=== PATIENT | male | born 1950 | race Caucasian/White ===

== ENCOUNTER 2018-07-28 15:21 | Inpatient (IN) ==
--- NOTE | 2018-07-28 15:35 | Emergency Department Note ---
General Adult HPI - General Chief complaint: Weakness Stated complaint: Weakness, anxioux, tired Time Seen by Provider: 07/28/18 15:29 Source: patient, family Mode of arrival: wheelchair - History of Present Illness HPI Narrative: This patient woke up this morning not feeling well and feeling anxious. His son gave him some Xanax which helped that through the day is gotten worse and just does not feel well in general. Previous times these presentations have been mainly dehydration. He denies any cough congestion chest pain back pain abdominal pain nausea vomiting or diarrhea. - Related Data Home Medications Medication Instructions Recorded Confirmed apixaban 5 mg tablet 5 mg PO BID 08/22/16 07/28/18 aspirin 81 mg tablet,delayed 81 mg PO QDAY 08/22/16 07/28/18 release atorvastatin 80 mg tablet 80 mg PO QDAY 08/22/16 07/28/18 carvedilol 3.125 mg tablet 3.125 mg PO BID 08/22/16 07/28/18 lisinopril 2.5 mg tablet 2.5 mg PO QDAY 08/22/16 07/28/18 alprazolam 1 mg tablet 1 mg PO QDAY PRN tab 04/06/18 07/28/18 ipratropium 20 mcg-albuterol 100 1 puff INHALATION Q4-6HP PRN 04/06/18 07/28/18 mcg/actuation mist for inhalation mirtazapine 15 mg tablet 1 - 2 tab PO QHS tab 04/06/18 07/28/18 omeprazole 20 mg capsule,delayed 20 mg PO QDAY 04/06/18 07/28/18 release spironolactone 25 mg tablet 12.5 mg PO QDAY tab 04/06/18 07/28/18 baclofen 10 mg tablet 15 mg PO TID PRN tab 04/16/18 07/28/18 buspirone 10 mg tablet 10 mg PO BID 04/16/18 07/28/18 Allergies Allergy/AdvReac Type Severity Reaction Status Date / Time No Known Drug Allergies Allergy Verified 07/28/18 15:22 Review of Systems All systems ED: reviewed and negative except as stated. Past Medical History - Past Medical History PMFSH Narrative: Medical History (Last Reviewed 04/16/18 @ 10:30 by Sarai Montoya RN) Pruritic rash (Chronic) Chronic diarrhea (Chronic) Prediabetes (Chronic) Memory impairment (Chronic) Chronic low back pain (Chronic) Pulmonary arterial hypertension (Chronic) Insomnia (Chronic) Syncope (Chronic) Anxiety (Chronic) History of CVA (cerebrovascular accident) (Chronic) History of malignant neoplasm of prostate (Chronic) PSA elevation (Chronic) History of methamphetamine abuse (Chronic) CVA (cerebral vascular accident) (Chronic) GERD (gastroesophageal reflux disease) (Chronic) Chronic obstructive lung disease (Chronic) 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) Dilated cardiomyopathy (Chronic) Atrial thrombosis (Chronic) Past Surgical History (Last Reviewed 04/16/18 @ 10:30 by Sarai Montoya RN) Hx of hernia repair (Chronic) Family History (Last Reviewed 04/16/18 @ 10:30 by Sarai Montoya RN) Mother Stomach cancer Brother Tumor of lung - Social History smoking status: Former smoker Physical Exam Limitations: no limitations General appearance: alert Head: atraumatic Eye: Present: normal appearance ENT: normal exam Neck: Present: normal inspection Chest: Present: normal inspection Respiratory: Present: normal lung sounds bilaterally Cardiovascular: Present: regular rate, normal rhythm, normal heart sounds Abdominal: Present: soft. Absent: distention, tenderness Neurological: Present: alert Psychiatric: Present: anxious, flat affect Skin: Present: warm, dry, intact Course Vital Signs Temperature 96.7 F L 07/28/18 15:22 Pulse Rate 58 L 07/28/18 15:22 Respiratory Rate 14 07/28/18 15:22 Blood Pressure 104/71 07/28/18 15:22 Pulse Oximetry (%) 91 07/28/18 15:22 Temperature 99.1 F H 07/28/18 17:26 Pulse Rate 58 L 07/28/18 18:14 Respiratory Rate 28 H 07/28/18 18:14 Blood Pressure 87/56 07/28/18 18:01 Pulse Oximetry (%) 99 07/28/18 18:14 Medical Decision Making - [facility] Narrative Medical decision making narrative: Chest x-ray were not terribly remarkable but the urine did show a urinary tract infection. Patient's blood pressures in the 70s and 80s. He was given 3 L of fluid and the only got up into the 80s so Levophed was started. Blood cultures were obtained and he was given Rocephin and Zithromax. This patient will be admitted to the hospital by Dr. Méndez. - Lab Data Lab results reviewed: Yes I reviewed the patient's lab results. Result diagrams: 07/28/18 15:43 07/28/18 15:43 Lab Results 07/28/18 07/28/18 07/28/18 Range/Units 15:43 15:43 15:43 WBC 17.6 H (4.5-11.0) K/mcL RBC 4.91 (4.50-5.90) M/mcL Hgb 14.1 (13.5-16.5) g/dL Hct 43.7 (41.0-55.0) % MCV 89.1 (80.0-100.0) fL MCH 28.6 (26.0-34.0) pg MCHC 32.1 (31.0-36.0) g/dL RDW 14.5 (11.5-14.5) % Plt Count 429 (140-440) K/mcL MPV 7.8 (7.4-10.4) fL Gran % 76.0 (38.0-78.0) % Lymph % (Auto) 17.3 (15.5-49.0) % Ashley % (Auto) 6.0 (1.0-12.0) % Eos % (Auto) 0.4 (0.0-7.0) % Baso % (Auto) 0.3 (0.0-2.0) % Gran # 13.4 H (1.8-8.0) K/mcL Lymph # (Auto) 3.0 (1.5-4.8) K/mcL Ashley # (Auto) 1.1 H (0.1-0.9) K/mcL Eos # (Auto) 0.1 (0.0-0.7) K/mcL Baso # (Auto) 0.1 (0.0-0.3) K/mcL Band Neutrophils % VBG Lactic Acid (0.5-2.2) mmol/L Sodium 136 (133-145) mmol/L Potassium 4.1 (3.3-5.1) mmol/L Chloride 99 (96-108) mmol/L Carbon Dioxide 21 L (22-30) mmol/L Anion Gap 16.0 (8-16) BUN 19 (8-23) mg/dl Creatinine 1.8 H (0.7-1.2) mg/dl GFR Calculation 38 Glucose 110 H (70-105) mg/dL Calcium 9.1 (8.6-10.4) mg/dl Total Bilirubin 0.6 (0.0-1.0) mg/dL AST 15 (0-37) U/l ALT 14 (0-40) U/l Alkaline Phosphatase 145 H (39-117) U/L Troponin T < 0.01 (0-0.03) ng/ml Total Protein 7.9 (5.9-8.4) gm/dL Albumin 3.5 (3.2-5.2) gm/dL Globulin 4.4 H (2.2-3.7) gm/dL Albumin/Globulin Ratio 0.8 L (1.0-2.3) Urine Color Urine Appearance Urine pH (5.0-9.0) Ur Specific [place] (1.000-1.035) Urine Protein (NEG) mg/dL Urine Glucose (UA) (NEG) mg/dL Urine Ketones (NEG) mg/dL Urine Occult Blood (<0.03) mg/dL Urine Nitrate (NEG) Urine Bilirubin (NEG) mg/dL Urine Urobilinogen (NEG) mg/dL Ur Leukocyte Esterase (NEG) /uL Urine RBC (0-1) /hpf Urine WBC (0-4) /hpf Ur Squamous Epith Cells (0-4) /hpf Ur Transition Epith Cell (0-2) /hpf Urine Bacteria (0) /hpf Ur Culture Indicated? 07/28/18 07/28/18 07/28/18 Range/Units 15:43 16:25 17:50 WBC (4.5-11.0) K/mcL RBC (4.50-5.90) M/mcL Hgb (13.5-16.5) g/dL Hct (41.0-55.0) % MCV (80.0-100.0) fL MCH (26.0-34.0) pg MCHC (31.0-36.0) g/dL RDW (11.5-14.5) % Plt Count (140-440) K/mcL MPV (7.4-10.4) fL Gran % (38.0-78.0) % Lymph % (Auto) (15.5-49.0) % Ashley % (Auto) (1.0-12.0) % Eos % (Auto) (0.0-7.0) % Baso % (Auto) (0.0-2.0) % Gran # (1.8-8.0) K/mcL Lymph # (Auto) (1.5-4.8) K/mcL Ashley # (Auto) (0.1-0.9) K/mcL Eos # (Auto) (0.0-0.7) K/mcL Baso # (Auto) (0.0-0.3) K/mcL Band Neutrophils % Not Reportable VBG Lactic Acid 2.2 (0.5-2.2) mmol/L Sodium (133-145) mmol/L Potassium (3.3-5.1) mmol/L Chloride (96-108) mmol/L Carbon Dioxide (22-30) mmol/L Anion Gap (8-16) BUN (8-23) mg/dl Creatinine (0.7-1.2) mg/dl GFR Calculation Glucose (70-105) mg/dL Calcium (8.6-10.4) mg/dl Total Bilirubin (0.0-1.0) mg/dL AST (0-37) U/l ALT (0-40) U/l Alkaline Phosphatase (39-117) U/L Troponin T (0-0.03) ng/ml Total Protein (5.9-8.4) gm/dL Albumin (3.2-5.2) gm/dL Globulin (2.2-3.7) gm/dL Albumin/Globulin Ratio (1.0-2.3) Urine Color Yellow Urine Appearance Cloudy Urine pH 6.0 (5.0-9.0) Ur Specific [place] 1.010 (1.000-1.035) Urine Protein 100 A (NEG) mg/dL Urine Glucose (UA) Negative (NEG) mg/dL Urine Ketones Neg (NEG) mg/dL Urine Occult Blood 0.2 A (<0.03) mg/dL Urine Nitrate Neg (NEG) Urine Bilirubin Neg (NEG) mg/dL Urine Urobilinogen Neg (NEG) mg/dL Ur Leukocyte Esterase 500 A (NEG) /uL Urine RBC 33 H (0-1) /hpf Urine WBC > 182 H (0-4) /hpf Ur Squamous Epith Cells 0 (0-4) /hpf Ur Transition Epith Cell < 1 (0-2) /hpf Urine Bacteria 0 (0) /hpf Ur Culture Indicated? Yes - Radiology Data Radiology results reviewed: Yes I reviewed the patient's radiology results. Disposition Pt seen by PERIANESTHESIA RN/PA only: No Clinical Impression: Sepsis, UTI (urinary tract infection) Disposition: Xfer As Inpt ([facility]) Condition: Fair Referrals: No,PCP [Primary Care Provider] - Time of Disposition: 18:40
[2018-07-28] MEDS ORDERED: LORazepam 2 MG/ML VIAL IV ONE (15:43)
[2018-07-28] MEDS ORDERED: LACTATED RINGERS 1,000 ML IV ONE ×2 (15:43→18:55)
[2018-07-28] MEDS ORDERED: 0.9 % SODIUM CHLORIDE 1,000 ML IV ONE ×2 (15:43→16:34)
[2018-07-28 16:15] LABS: Basophils # (Auto) 0.1 K/mcL (0.0-0.3); Basophils % (Auto) 0.3 % (0.0-2.0); Eosinophils # (Auto) 0.1 K/mcL (0.0-0.7); Eosinophils % (Auto) 0.4 % (0.0-7.0); Lymphocytes % (Auto) 17.3 % (15.5-49.0); Mean Cell Volume 89.1 fL (80.0-100.0); Mean Corpuscular HGB Conc 32.1 g/dL (31.0-36.0); Mean Corpuscular Hemoglobin 28.6 pg (26.0-34.0); Monocytes # (Auto) 1.1 K/mcL (0.1-0.9); Platelet Count 429 K/mcL (140-440); RBC 4.91 M/mcL (4.50-5.90); Red Cell Distribution Width 14.5 % (11.5-14.5)
--- NOTE | 2018-07-28 16:29 | XRay Report ---
HISTORY: Increased weakness FINDINGS: Lungs are mildly hyperinflated and there is mild pulmonary fibrosis. There is a small streaky opacity above the left costophrenic sulcus which could be scar, atelectasis or inflammation. This has developed since the prior exam done on 07/11/16. The subtle infiltrate located centrally in the right upper lobe on the prior study has resolved. The heart size is within normal limits but has left ventricular prominence. The mediastinum and claude are normal. IMPRESSION: Mild COPD with pulmonary fibrosis. Small infiltrate at the left costophrenic sulcus Interpreted and Authenticated by: Hussein Dean 07/28/18
[2018-07-28] MEDS ORDERED: cefTRIAXone 1 GM VIAL IV ONE (16:37)
[2018-07-28] MEDS ORDERED: AZITHROMYCIN 500 MG in DEXTROSE 5% IN WATER 250 ML IV ONE (16:37)
[2018-07-28 16:41] LABS: ALT/SGPT 14 U/l (0-40); Albumin 3.5 gm/dL (3.2-5.2); Albumin/Globulin Ratio 0.8 (1.0-2.3); Alkaline Phosphatase 145 U/L (39-117); Blood Urea Nitrogen 19 mg/dl (8-23)
[2018-07-28] MEDS ORDERED: NOREPINEPHRINE BITARTRATE 8 MG in 0.9 % SODIUM CHLORIDE 242 ML IV ONE (17:37)
[2018-07-28] MEDS ORDERED: 0.9 % SODIUM CHLORIDE 250 ML IV SCH (17:45)
[2018-07-28 18:32] LABS: Appearance,Urine CLOUDY; Bacteria,Urine 0 /hpf (0); Bilirubin,Urine NEG (NEG); Color,Urine YELLOW; Glucose,Urine (UA) NEGATIVE (NEG); Leukocyte Esterase,Urine 500 /uL (NEG); Protein,Urine 100 mg/dL (NEG); Urine Blood 0.2 mg/dL (<0.03); Urine RBC 33 /hpf (0-1); Urine Squamous Epithelial Cell 0 /hpf (0-4); Urine Transitional Epi Cells < 1 /hpf (0-2); Urine WBC > 182 /hpf (0-4); Urobilinogen,Urine NEG (NEG)
--- NOTE | 2018-07-28 19:05 | Internal Med History&Physical ---
Medical - H&P: HPI Patient information: Note initiated : 07/28/18 at 7:01 pm Service Date, if different from initiated Date: [] Patient: Pérez Grossman a 67 y/o M admitted on for Weakness, anxioux, tired. Chief Complaint: [] History of present illness: Mr. Grossman is a 67 year old M with h/o chf, cva, presents to the ER with his son for not feeling well The patient is a poor history provider. The patient was not feeling well 3 days ago, some nausea and vomiting, which resolved, last night he was very anxious, which is not unsual for him and he took a xanax pill, he was anxious again this AM and he took another pill, since then he has not been feeling well, drowsy, not following commands, weak. He admits to chr cough with whitish sputum, but no change, no GI or complaints, no headache, admits to dizziness, on the way to the ER in the car he passed out. The patient otherwise does not have any particular symptoms. In the ER he was hypotensive on presentation. He had low grade temp 99.1, HR was 58, 97% on ra but later needed oxygen via NC. CXR showed mild pna, ua suggestive of UTI. labs show leucocytosis, 17.6, K 4.1, Na 136, bicarb 121, creat 1.8, Trop < 0.01 Patient received 3 L fluids, despite which the bp was not ?> 90 systolic, was started on levophed. patient presented to the hospital for further management. Pts son reports that the patients bp usually runs low. around 90-100 systolic. Patient son reports improvement in pts mental condition after IVF was given. All systems: reviewed and no additional remarkable complaints except as stated ( as per HPI rest negative) Medical - H&P: PMH Medical history: Medical History (Last Reviewed 04/16/18 @ 10:30 by Sarai Montoya RN) Pruritic rash (Chronic) Chronic diarrhea (Chronic) Prediabetes (Chronic) Memory impairment (Chronic) Chronic low back pain (Chronic) Pulmonary arterial hypertension (Chronic) Insomnia (Chronic) Syncope (Chronic) Anxiety (Chronic) History of CVA (cerebrovascular accident) (Chronic) History of malignant neoplasm of prostate (Chronic) PSA elevation (Chronic) History of methamphetamine abuse (Chronic) CVA (cerebral vascular accident) (Chronic) GERD (gastroesophageal reflux disease) (Chronic) Chronic obstructive lung disease (Chronic) 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) Dilated cardiomyopathy (Chronic) Atrial thrombosis (Chronic) Surgical history: Past Surgical History (Last Reviewed 04/16/18 @ 10:30 by Sarai Montoya RN) Hx of hernia repair (Chronic) Pertinent family history: Family History (Last Reviewed 04/16/18 @ 10:30 by Sarai Montoya RN) Mother Stomach cancer Brother Tumor of lung Medical - H&P: Meds Home Medications Medication Instructions Recorded Confirmed Type apixaban 5 mg tablet 5 mg PO BID 08/22/16 07/28/18 History aspirin 81 mg tablet,delayed 81 mg PO QDAY 08/22/16 07/28/18 History release atorvastatin 80 mg tablet 80 mg PO QDAY 08/22/16 07/28/18 History carvedilol 3.125 mg tablet 3.125 mg PO BID 08/22/16 07/28/18 History lisinopril 2.5 mg tablet 2.5 mg PO QDAY 08/22/16 07/28/18 History alprazolam 1 mg tablet 1 mg PO QDAY PRN tab 04/06/18 07/28/18 History ipratropium 20 mcg-albuterol 100 1 puff INHALATION Q4-6HP PRN 04/06/18 07/28/18 History mcg/actuation mist for inhalation mirtazapine 15 mg tablet 1 - 2 tab PO QHS tab 04/06/18 07/28/18 History omeprazole 20 mg capsule,delayed 20 mg PO QDAY 04/06/18 07/28/18 History release spironolactone 25 mg tablet 12.5 mg PO QDAY tab 04/06/18 07/28/18 History baclofen 10 mg tablet 15 mg PO TID PRN tab 04/16/18 07/28/18 History buspirone 10 mg tablet 10 mg PO BID 04/16/18 07/28/18 History Allergies Allergy/AdvReac Type Severity Reaction Status Date / Time No Known Drug Allergies Allergy Verified 07/28/18 15:22 Medical - H&P: Exam - Constitutional Vitals: Temp Pulse Resp BP Pulse Ox 99.1 F H 67 18 95/65 98 07/28/18 17:26 07/28/18 18:50 07/28/18 18:50 07/28/18 18:46 07/28/18 18:50 Exam: GENERAL: The patient is a well-developed, well-nourished in no apparent distress. Is alert and oriented x3. VITAL SIGNS: Reviewed and as noted elsewhere. HEENT: Head is normocephalic and atraumatic. Extraocular muscles are intact. Pupils are equal, round, and reactive to light. Nares appeared normal. Mouth appears any without lesions. Mucous membranes are dry. NECK: Normal to inspection, Supple, No lymphadenopathy or thyromegaly. LUNGS: Air entry equal on both sides decreased air entry bilaterally, no wheezing, crackles or rhonchi noted. No accessory muscles of respiration HEART: Regular rate and rhythm normal, S1 and S2 heard, no Gallop, S3 or Rub Noted, No Gross murmur heard. Distant heart sounds, Point of care USG shows IVC which is fully collapsable with Inspiration (after 3 L fluids) ABDOMEN: Soft, nontender, and nondistended. Positive bowel sounds. No hepatosplenomegaly was noted. EXTREMITIES: No cyanosis, clubbing, rash, lesions or edema. NEUROLOGIC: Cranial nerves II through XII are grossly intact. Motor and Sensory System Grossly Intact (not much residual from cva ) PSYCHIATRIC: drowsy, flat affect. SKIN: No ulceration or wounds noted, No jaundice, No rash noted. Medical - H&P: Reslt - Labs CBC & Chem 7: 07/28/18 15:43 07/28/18 15:43 Labs: Short CBC 07/28/18 Range/Units 15:43 WBC 17.6 H (4.5-11.0) K/mcL Hgb 14.1 (13.5-16.5) g/dL Hct 43.7 (41.0-55.0) % Plt Count 429 (140-440) K/mcL BMP 07/28/18 15:43 Sodium 136 Potassium 4.1 Chloride 99 Carbon Dioxide 21 L BUN 19 Creatinine 1.8 H Glucose 110 H Calcium 9.1 Cardiac Enzymes 07/28/18 Range/Units 15:43 Troponin T < 0.01 (0-0.03) ng/ml Liver Function 07/28/18 Range/Units 15:43 Total Bilirubin 0.6 (0.0-1.0) mg/dL AST 15 (0-37) U/l ALT 14 (0-40) U/l Alkaline Phosphatase 145 H (39-117) U/L Albumin 3.5 (3.2-5.2) gm/dL Urine 07/28/18 Range/Units 17:50 Urine Color Yellow Urine Appearance Cloudy Urine pH 6.0 (5.0-9.0) Ur Specific [place] 1.010 (1.000-1.035) Urine Protein 100 A (NEG) mg/dL Urine Glucose (UA) Negative (NEG) mg/dL Medical - H&P: A/P - Narrative A/P Narrative: A/P Urinary tract infection Pneumonia Septic Shock Lactic Acidosis Congestive heart failuire systolic, Hypertension Hyperlipidemia h/o CVA h/o atrial thrombus HLD Plan Admit to PCU status IV fluids, give additional 1L LR total 4L fluid bolus Levophed to keep map > 65, monitor urine output, barba to be placed. IV rocephin and zithromax given, no recent hospitailzation pt has h/o staghorn calculous, and does have h/o MRSA in urine in the past. I will add vancomycin for now Descalate abx based on sensitivity Resume home medications, including asa and apixiban Hold diuretics and blood pressure meds, till bp more stable clinically no e/o chf exacerbation DVT on eliquis Full code Cardiac diet 60 mins critical care time spent, chart reviewe, abg, cxr, ekg, labs, care coordination. Social History - Social History education level: high school occupational status: unemployed - Exercise frequency: 1-2 times per week - Tobacco smoking status: Former smoker - Alcohol alcohol intake frequency: does not drink - Substance use substance use type: former substance user
[2018-07-28 20:03] LABS: Band Neutrophils % 4 % (0-10); Lymphocytes % 14 % (15-49); Monocytes % (Manual) 8 % (1-12); Platelet Estimate NORMAL (NORMAL); RBC Morphology NORMAL (NORMAL); Segmented Neutrophils % 74 % (38-78)
[2018-07-28] MEDS ORDERED: NALOXONE HCL 0.4 MG/ML VIAL IV PRN (20:07)
[2018-07-28] MEDS ORDERED: VANCOMYCIN PER PHARMACY IV SCH (20:07)
[2018-07-28] MEDS ORDERED: BACLOFEN 10 MG TABLET PO PRN (20:07)
[2018-07-28] MEDS ORDERED: ONDANSETRON 4 MG/2 ML VIAL IV PRN (20:07)
[2018-07-28] MEDS ORDERED: LORazepam 2 MG/ML VIAL IV PRN (20:07)
[2018-07-28] MEDS ORDERED: ACETAMINOPHEN 325 MG TABLET PO PRN (20:07)
[2018-07-28] MEDS ORDERED: VANCOMYCIN 1,500 MG in 0.9 % SODIUM CHLORIDE 500 ML IV ONE (20:07)
[2018-07-28] MEDS: NICOTINE 14 MG PATCH TOPICAL SCH (21:00)
[2018-07-28] MEDS: BUDESONIDE 0.5 MG/2 ML AMPUL.NEB NEB SCH (21:00)
[2018-07-28] MEDS ORDERED: MIRTAZAPINE 15 MG TABLET PO SCH (21:00)
[2018-07-28] MEDS: IPRATROPIUM/ALBUTEROL 3 ML AMPUL.NEB NEB SCH (21:00)
[2018-07-28] MEDS ORDERED: IPRATROPIUM/ALBUTEROL 3 ML AMPUL.NEB NEB ONE (21:01)
[2018-07-28] MEDS: APIXABAN 5 MG TABLET PO SCH (21:05)
[2018-07-28] MEDS: busPIRone 5 MG TABLET PO SCH (21:05)
[2018-07-28] MEDS: LACTATED RINGERS 1,000 ML IV SCH (21:50)
[2018-07-28] MEDS: 0.9 % SODIUM CHLORIDE 10 ML SYRINGE IV SCH (21:53)
[2018-07-28] MEDS ORDERED: ATROPINE SULFATE 1 MG/10 ML SYRINGE IV ONE (22:43)
[2018-07-28] MEDS ORDERED: ATROPINE SULFATE 1 MG/10 ML SYRINGE IV PRN (22:54)
[2018-07-29] MEDS: IPRATROPIUM/ALBUTEROL 3 ML AMPUL.NEB NEB SCH ×4 (01:27→19:47)
[2018-07-29] MEDS: 0.9 % SODIUM CHLORIDE 10 ML SYRINGE IV SCH ×3 (05:57→20:01)
[2018-07-29 05:59] LABS: Basophils # (Auto) 0 K/mcL (0.0-0.3); Basophils % (Auto) 0.6 % (0.0-2.0); Eosinophils # (Auto) 0.1 K/mcL (0.0-0.7); Eosinophils % (Auto) 1.6 % (0.0-7.0); Granulocytes % (Auto) 72.3 % (38.0-78.0); Lymphocytes # (Auto) 1.6 K/mcL (1.5-4.8); Lymphocytes % (Auto) 18.9 % (15.5-49.0); Mean Cell Volume 88.1 fL (80.0-100.0); Mean Corpuscular HGB Conc 33.4 g/dL (31.0-36.0); Mean Corpuscular Hemoglobin 29.4 pg (26.0-34.0); Monocytes # (Auto) 0.6 K/mcL (0.1-0.9); Monocytes % (Auto) 6.6 % (1.0-12.0); Platelet Count 276 K/mcL (140-440); RBC 3.65 M/mcL (4.50-5.90); Red Cell Distribution Width 14.5 % (11.5-14.5)
[2018-07-29] MEDS ORDERED: ATROPINE SULFATE 1 MG/ML VIAL IV PRN ×2 (06:15→15:15)
[2018-07-29 06:42] LABS: ALT/SGPT 9 U/l (0-40); Albumin 2.4 gm/dL (3.2-5.2); Albumin/Globulin Ratio 0.8 (1.0-2.3); Alkaline Phosphatase 102 U/L (39-117); Bilirubin,Direct < 0.2 mg/dL (0.0-0.3); Blood Urea Nitrogen 15 mg/dl (8-23); Gamma Glutamyl Transpeptidase 12 U/L (8-61); Uric Acid 4.3 mg/dL (2.5-8.0)
[2018-07-29] MEDS: BUDESONIDE 0.5 MG/2 ML AMPUL.NEB NEB SCH ×2 (07:02→19:46)
[2018-07-29] MEDS ORDERED: ATROPINE SULFATE 1 MG/10 ML SYRINGE IV ONE (07:22)
[2018-07-29] MEDS ORDERED: PANTOPRAZOLE 40 MG TABLET PO SCH (07:30)
[2018-07-29] MEDS ORDERED: MAGNESIUM SULFATE 2 GM/50 ML BAG IV ONE (08:15)
[2018-07-29] MEDS ORDERED: ATORVASTATIN 20 MG TABLET PO SCH (09:00)
[2018-07-29] MEDS ORDERED: ASPIRIN 81 MG TAB.CHEW PO SCH (09:00)
[2018-07-29] MEDS ORDERED: VANCOMYCIN 1,500 MG in 0.9 % SODIUM CHLORIDE 500 ML IV SCH (09:00)
[2018-07-29] MEDS: NICOTINE 14 MG PATCH TOPICAL SCH (10:33)
[2018-07-29] MEDS: busPIRone 5 MG TABLET PO SCH ×2 (10:37→20:02)
[2018-07-29] MEDS: APIXABAN 5 MG TABLET PO SCH ×2 (10:37→20:02)
[2018-07-29] MEDS: LACTATED RINGERS 1,000 ML IV SCH (11:33)
[2018-07-29] MEDS ORDERED: VANCOMYCIN PER PHARMACY IV SCH (15:15)
[2018-07-29] MEDS ORDERED: NALOXONE HCL 0.4 MG/ML VIAL IV PRN (15:15)
[2018-07-29] MEDS ORDERED: ACETAMINOPHEN 325 MG TABLET PO PRN (15:15)
[2018-07-29] MEDS ORDERED: LORazepam 2 MG/ML VIAL IV PRN (15:15)
[2018-07-29] MEDS ORDERED: cefTRIAXone 1 GM VIAL IV ONE (15:15)
[2018-07-29] MEDS ORDERED: BACLOFEN 10 MG TABLET PO PRN (15:15)
[2018-07-29] MEDS ORDERED: ONDANSETRON 4 MG/2 ML VIAL IV PRN (15:15)
--- NOTE | 2018-07-29 15:18 | Internal Med Progress Note ---
Medical - PN: Subj Patient information: Note initiated : 07/29/18 at 3:12 pm Service Date, if different from initiated Date: [] Patient: Pérez Grossman a 67 y/o M admitted on 07/28/18 for Weakness, Anxious, Tired/UTI, Sepsis. Chief Complaint: [] Interval history: Mr. Grossman is a 67 year old M with h/o chf, cva, presents to the ER with his son for not feeling well The patient is a poor history provider. The patient was not feeling well 3 days ago, some nausea and vomiting, which resolved, last night he was very anxious, which is not unsual for him and he took a xanax pill, he was anxious again this AM and he took another pill, since then he has not been feeling well, drowsy, not following commands, weak. He admits to chr cough with whitish sputum, but no change, no GI or complaints, no headache, admits to dizziness, on the way to the ER in the car he passed out. The patient otherwise does not have any particular symptoms. In the ER he was hypotensive on presentation. He had low grade temp 99.1, HR was 58, 97% on ra but later needed oxygen via NC. CXR showed mild pna, ua suggestive of UTI. labs show leucocytosis, 17.6, K 4.1, Na 136, bicarb 121, creat 1.8, Trop < 0.01 Patient received 3 L fluids, despite which the bp was not ?> 90 systolic, was started on levophed. patient presented to the hospital for further management. Pts son reports that the patients bp usually runs low. around 90-100 systolic. Patient son reports improvement in pts mental condition after IVF was given. 07/29 patient seen examined, pt had low HR, type 1 block noted brandon, reponded to atropine. no cp IV fluids given, weaned off pressors. urine cultures positive for staph aureus. on vancomycin pt this am sitting comfortably in chair denies any complaints, tolerated breakfast well good urine output xfer to tele status. Pertinent ROS: Denies headache, dizziness Denies chest pain, palpitations Denies cough or shortness of breath Denies abdominal pain, nausea or vomiting. - Constitutional Vitals: Vital Signs Temp Pulse Resp BP Pulse Ox 97.6 F 56 L 24 H 111/62 96 07/29/18 12:39 07/29/18 12:39 07/29/18 12:39 07/29/18 12:39 07/29/18 12:39 Period Temp Pulse Resp BP Sys/Hu Pulse Ox Last 24 Hr 96.7 F-99.1 F 47-74 12-34 64-138/44-88 86-100 Intake and Output 07/29/18 07/29/18 07/29/18 05:59 13:59 21:59 Intake Total 500 / 500 1530 / 1530 Output Total 1145 / 1145 510 / 510 Balance -645 / -645 1020 / 1020 Weight 189 lb 3 oz Patient Weight 07/30/18 05:59 Weight 189 lb 3 oz Intake & Output: Intake & Output 07/29/18 07/29/18 07/29/18 05:59 13:59 21:59 Intake Total 500 / 500 1530 / 1530 Output Total 1145 / 1145 510 / 510 Balance -645 / -645 1020 / 1020 Weight 189 lb 3 oz Intake: IV 500 / 500 1050 / 1050 Lactated Ringers 1,000 ml @ 100 1000 / 1000 mls/hr IV .Q10H [facility] Rx#: [id number] Oral 480 / 480 Output: Urine Catheter Amount 1145 / 1145 510 / 510 Other: Meal Applesauce, Jello Lunch Percent of Meal Consumed 100% 100% Feeding Ability Assist with Tray Set Up Urine Appearance Cloudy Cloudy Uretheral (Bowser) Cloudy Cloudy Urine Color Pale Pale Uretheral (Bowser) Straw Straw Urine Odor Normal Normal Uretheral (Bowser) Normal Stool Size Smear Stool Color Brown # of times incontinent of 1 Bowels Exam: Constitutional; Afebrile, cooperative, alert, not in distress. Respiratory system: Air Entry equal on both sides, No crackles or wheezing, no rhonchi. CVS- Rate rhythm regular, S1,S2 heard, no gallop, no rub. Abdomen- Soft nontender abdomen, no organomegaly, no tenderness, no guarding or rigidity, [employer]- AOOx2, moving all extremities, no gross focal deficit noted. Medical - PN: Obj Da - Labs CBC & Chem 7: 07/29/18 05:08 07/29/18 05:08 Labs: Abnormal Lab Results 07/29/18 07/29/18 07/28/18 05:08 05:08 17:50 WBC RBC 3.65 L Hgb 10.7 L Hct 32.1 L Gran # [place] # (Auto) Lymphocytes % Chloride 109 H Carbon Dioxide Creatinine Glucose 118 H Calcium 8.0 L Magnesium 1.5 L Alkaline Phosphatase Total Protein 5.6 L Albumin 2.4 L Globulin Albumin/Globulin Ratio 0.8 L TSH Urine Protein 100 A Urine Occult Blood 0.2 A Ur Leukocyte Esterase 500 A Urine RBC 33 H Urine WBC > 182 H 07/28/18 07/28/18 07/28/18 15:43 15:43 15:43 WBC RBC Hgb Hct Gran # [place] # (Auto) Lymphocytes % 14 L Chloride Carbon Dioxide 21 L Creatinine 1.8 H Glucose 110 H Calcium Magnesium Alkaline Phosphatase 145 H Total Protein Albumin Globulin 4.4 H Albumin/Globulin Ratio 0.8 L TSH 7.06 H Urine Protein Urine Occult Blood Ur Leukocyte Esterase Urine RBC Urine WBC 07/28/18 15:43 WBC 17.6 H RBC Hgb Hct Gran # 13.4 H [place] # (Auto) 1.1 H Lymphocytes % Chloride Carbon Dioxide Creatinine Glucose Calcium Magnesium Alkaline Phosphatase Total Protein Albumin Globulin Albumin/Globulin Ratio TSH Urine Protein Urine Occult Blood Ur Leukocyte Esterase Urine RBC Urine WBC Meds: Medications Acetaminophen (Tylenol) 650 mg PO Q4-6HP PRN PRN Reason: PAIN/FEVER > 101 Last Admin: 07/29/18 10:33 Dose: 650 mg Albuterol/Ipratropium (Duoneb) 3 ml NEB Q6HRT [facility] [place] Last Admin: 07/29/18 13:44 Dose: Not Given Aspirin (Aspirin) 81 mg PO DAILY [facility] [place] Last Admin: 07/29/18 10:33 Dose: 81 mg Atorvastatin Calcium (Lipitor) 80 mg PO QDAY [facility] [place] Last Admin: 07/29/18 10:37 Dose: 80 mg Atropine Sulfate (Atropine Sulfate) 0.5 mg IV Q1HP PRN PRN Reason: Bradycardia Baclofen (Lioresal) 15 mg PO TID PRN PRN Reason: muscle cramps Budesonide (Pulmicort) 0.5 mg NEB Q12 [facility] [place] Last Admin: 07/29/18 07:02 Dose: 0.5 mg Buspirone HCl (Buspar) 10 mg PO BID [facility] [place] Last Admin: 07/29/18 10:37 Dose: 10 mg Vancomycin HCl 1,500 mg/ (Sodium Chloride) 500 mls @ 333.3 mls/hr IV Q24H [facility] [place] Last Admin: 07/29/18 09:00 Dose: 333.3 mls/hr Lorazepam (Ativan) 0.5 mg IV Q2HP PRN PRN Reason: ANXIETY/SEDATION Mirtazapine (Remeron) 15 - 30 mg PO QHS [facility] [place] Last Admin: 07/28/18 21:06 Dose: 30 mg Naloxone HCl (Narcan) 0.1 mg IV Q2MIN PRN PRN Reason: Opiate Reversal Nicotine (Nicoderm) 14 mg TOPICAL DAILY@1000 [facility] [place] Last Admin: 07/29/18 10:33 Dose: 14 mg Ondansetron HCl (Zofran) 4 mg IV Q4-6HP PRN PRN Reason: Nausea And Vomiting Pantoprazole Sodium (Protonix) 40 mg PO QAMAC [facility] [place] Last Admin: 07/29/18 10:33 Dose: 40 mg Sodium Chloride (Saline Flush) 10 ml IV Q8 [facility] [place] Last Admin: 07/29/18 12:18 Dose: 10 ml Vancomycin HCl (Vancomycin Per Pharmacy) 1 order IV UD [facility] [place] Medical - PN: A/P - Time Spent With Patient Total time spent is greater than 50% in coordination of care (as documented) at patient's floor/unit and/or counseling patient: - Narrative A/P Narrative: A/P Urinary tract infection Pneumonia Septic Shock Lactic Acidosis Congestive heart failure systolic, Hypertension Hyperlipidemia h/o CVA h/o atrial thrombus HLD Plan xfer to tele status good urine ouput, monitor i/o IV Rocephin and Zithromax given, no recent hospitalization, continue vancomycin , pt has h/o staghorn calculous, and does have h/o MRSA in urine in the past. get ct abdomen and plevis Deescalate abx based on sensitivity Resume home medications, including asa and apixiban Hold diuretics and blood pressure meds, till bp more stable clinically no e/o chf exacerbation DVT on eliquis Full code Cardiac diet Medical - PN: Qual - VTE Deep Vein Thrombosis/Pulmonary Embolism Present on Admission: No
[2018-07-29] MEDS ORDERED: IOPAMIDOL 150 ML BOTTLE IV ONE (15:52)
--- NOTE | 2018-07-29 16:23 | Cat Scan Report ---
CLINICAL INFORMATION: Kidney stones and urosepsis COMPARISON: X-ray on 04/16/18 TECHNIQUE: The patient was first imaged without oral or intravenous contrast. Nonionic contrast was administered and the patient was scanned during the excretory phase from the diaphragm to the symphysis pubis. Sagittal and coronal reformats were created. The radiation exposure was limited using dose reduction technology. FINDINGS: Patient has moderate emphysema. There is pulmonary fibrosis in the basilar segments left lower lobe and inferior segment lingula. A very small layering right-sided pleural effusion is present. The liver and spleen are normal in size and homogeneous. The elbow is partially contracted.. This is probably a physiologic response to the large amount of food within the stomach. The bile ducts are nondilated. There is mild hyperplasia left adrenal. The right adrenal gland is normal. There are numerous stones in the left kidney. The largest is a staghorn calculus in the renal pelvis which measures 1.4 x 1.4 cm in transverse dimension and 3.2 cm in length. This has not changed since the prior x-ray. This is causing moderate obstruction of the infundibula and calyces in the upper half of the kidney. There are multiple other intermediate sized stones within calyces2 in the middle and lower portion of the kidney. They measure up to 11 mm in transverse dimension. There is loss of renal parenchyma in the upper portion left kidney. Milder scarring is present in the lower half. There is stranding of the perinephric soft tissues around the upper pole. The left ureter is larger than the right but within normal limits. There is no stone within the left ureter. The left kidney contains three or four tiny calyceal stones which range from 1 to 2 mm size. There is no hydronephrosis in the right kidney and no significant scarring. Right ureter is decompressed. Urinary bladder is decompressed by Bowser catheter. Contiguous with the balloon of the catheter there is a 1 mm stone within the bladder. There is also a bubble of air within the bladder due to the Bowser. The bladder wall is not thickened or inflamed. Large amount stool throughout the colon but without evidence of bowel obstruction. No abscess is present and there is no ascites or lymphadenopathy. In the left side of the transitional zone there is a low-attenuation 1.5 x 1.7 cm lesion. This is more likely due to prostatitis than a tumor. IMPRESSION: Large staghorn calculus in the left renal pelvis causing obstruction to the collecting system in the upper half of the left kidney. Small nonobstructing calyceal stones in the right kidney Enlarged heterogeneous prostate. There may be prostatitis in the left side and less likely a tumor. Emphysema and pulmonary fibrosis Interpreted and Authenticated by: Hussein Dean 07/29/18
[2018-07-29] MEDS: AZITHROMYCIN 250 MG TABLET PO SCH (17:11)
[2018-07-29] MEDS ORDERED: MIRTAZAPINE 15 MG TABLET PO SCH (21:00)
[2018-07-30] MEDS: IPRATROPIUM/ALBUTEROL 3 ML AMPUL.NEB NEB SCH ×4 (04:00→20:15)
[2018-07-30 05:24] LABS: Basophils # (Auto) 0 K/mcL (0.0-0.3); Basophils % (Auto) 0.6 % (0.0-2.0); Eosinophils # (Auto) 0.2 K/mcL (0.0-0.7); Eosinophils % (Auto) 2.8 % (0.0-7.0); Granulocytes % (Auto) 70.4 % (38.0-78.0); Lymphocytes # (Auto) 1.6 K/mcL (1.5-4.8); Mean Cell Volume 88.3 fL (80.0-100.0); Monocytes # (Auto) 0.6 K/mcL (0.1-0.9); Monocytes % (Auto) 7.2 % (1.0-12.0); Platelet Count 287 K/mcL (140-440); RBC 3.74 M/mcL (4.50-5.90); Red Cell Distribution Width 14.6 % (11.5-14.5)
[2018-07-30] MEDS: 0.9 % SODIUM CHLORIDE 10 ML SYRINGE IV SCH ×3 (05:30→23:33)
[2018-07-30 05:50] LABS: ALT/SGPT 10 U/l (0-40); Albumin 2.5 gm/dL (3.2-5.2); Albumin/Globulin Ratio 0.7 (1.0-2.3); Alkaline Phosphatase 110 U/L (39-117); Bilirubin,Direct < 0.2 mg/dL (0.0-0.3); Blood Urea Nitrogen 14 mg/dl (8-23); Gamma Glutamyl Transpeptidase 14 U/L (8-61); Uric Acid 4.3 mg/dL (2.5-8.0)
[2018-07-30] MEDS: BUDESONIDE 0.5 MG/2 ML AMPUL.NEB NEB SCH ×2 (07:09→20:15)
[2018-07-30] MEDS ORDERED: PANTOPRAZOLE 40 MG TABLET PO SCH (07:30)
[2018-07-30] MEDS: AZITHROMYCIN 250 MG TABLET PO SCH (08:14)
[2018-07-30] MEDS: APIXABAN 5 MG TABLET PO SCH ×3 (08:14→20:15)
[2018-07-30] MEDS: busPIRone 5 MG TABLET PO SCH ×2 (08:15→20:15)
[2018-07-30] MEDS ORDERED: ASPIRIN 81 MG TAB.CHEW PO SCH (09:00)
[2018-07-30] MEDS ORDERED: VANCOMYCIN 1,500 MG in 0.9 % SODIUM CHLORIDE 500 ML IV SCH (09:00)
[2018-07-30] MEDS ORDERED: ATORVASTATIN 20 MG TABLET PO SCH (09:00)
[2018-07-30] MEDS ORDERED: NICOTINE 14 MG PATCH TOPICAL SCH (10:00)
--- NOTE | 2018-07-30 12:53 | History and Physical Report ---
DATE OF ADMISSION: 07/28/2018 HISTORY OF PRESENT ILLNESS: The patient is a 67-year-old gentleman who I have seen in the clinic before. Recently he was seen in the emergency room for not feeling well. He did have some nausea and vomiting, was feeling anxious. He was admitted to the ICU because of sepsis. He was hypotensive, did have a low-grade fever. Urinalysis was obtained which did show methicillin-resistant Staph aureus. His white count was 17.6. A CT scan was then obtained which did show a large staghorn calculus which we knew was present previously. This was 3.2 cm in length, and also he had a moderate obstruction of the upper half of the kidney. There is hydronephrosis. There are multiple stones on the left and smaller stones on the right. There is no other hydronephrosis. There are no other studies to compare this with. I have been asked to evaluate him. PAST MEDICAL HISTORY: Significant for chronic diarrhea, memory impairment, pulmonary arterial hypertension, syncope, history of a CVA, PSA elevation in the past. PAST SURGICAL HISTORY: Repair of a hernia. ALLERGIES: None. CURRENT MEDICATIONS: 1. Atorvastatin. 2. Baclofen. 3. BuSpar. 4. Vancomycin. REVIEW OF SYSTEMS: Please see the dictated note from Dr. Méndez on 07/28/2018. PHYSICAL EXAMINATION: GENERAL: This is a pleasant gentleman, well-nourished, in no apparent distress. HEENT: Atraumatic, normocephalic. Extraocular movements are intact. Pupils equal, reactive to light and accommodation. NECK: Supple. Trachea midline. HEART: Regular rate and rhythm. LUNGS: Clear to auscultation. ABDOMEN: Soft, nontender. GENITOURINARY: Scrotum without lesion. No hydrocele, no varicocele. Epididymides without cyst. Testes normal size and consistency. Meatus is in the normal position. Penis is circumcised without plaques. Prostate is 45 grams. Hard nodule on the prostate. Positive asymmetry. Seminal vesicles are not enlarged. Anus and perineum are normal. Rectum has good sphincter tone. LYMPHATIC: No adenopathy in neck or groin. SKIN: Without lesion. PSYCHOLOGICAL: Mood is appropriate. He is slow to answer questions. OTHER: Patient did have an increased PSA of 20.57 but biopsy was performed which did show chronic prostatitis. IMPRESSION 1. Staghorn calculus. The patient does have a left staghorn calculus which appears to be causing an obstruction. I am concerned that this may be an obstructive uropathy with resulting hydronephrosis. I feel this should be drained, and I talked to his family about this and will schedule him for a stent placement. He is otherwise asymptomatic from his stones and so treatment can be delayed. 2. Increased PSA. His biopsy was negative and there was no evidence of cancer at this point. I feel we can watch this. 3. Renal stones. We will treat this as an outpatient. I have gone over this with the family and his son and they understand, and we will follow up with surgery today. JENNIFER:suzie Job ID: [id number] Doc ID: [id number] Ajay Hough MD
[2018-07-30] MEDS ORDERED: MIDAZOLAM 5 MG/5 ML VIAL ONE (12:56)
[2018-07-30] MEDS ORDERED: DEXAMETHASONE 10 MG/ML VIAL ONE (12:56)
[2018-07-30] MEDS ORDERED: fentaNYL 100 MCG/2 ML VIAL IV ONE (12:56)
[2018-07-30] MEDS ORDERED: LIDOCAINE HCL/PF 100 MG/5 ML SYRINGE IV ONE (12:56)
[2018-07-30] MEDS ORDERED: PROPOFOL 200 MG/20 ML VIAL IV ONE (12:56)
[2018-07-30] MEDS ORDERED: ONDANSETRON 4 MG/2 ML VIAL ONE (12:56)
[2018-07-30] MEDS ORDERED: GLYCOPYRROLATE 0.2 MG/ML VIAL IV ONE (12:56)
--- NOTE | 2018-07-30 13:21 | Internal Med Progress Note ---
Medical - PN: Subj Patient information: Note initiated : 07/30/18 at 1:13 pm Service Date, if different from initiated Date: [] Patient: Pérez Grossman a 67 y/o M admitted on 07/28/18 for Weakness, Anxious, Tired/UTI, Sepsis. Chief Complaint: [] Interval history: Mr. Grossman is a 67 year old M with h/o chf, cva, presents to the ER with his son for not feeling well The patient is a poor history provider. The patient was not feeling well 3 days ago, some nausea and vomiting, which resolved, last night he was very anxious, which is not unsual for him and he took a xanax pill, he was anxious again this AM and he took another pill, since then he has not been feeling well, drowsy, not following commands, weak. He admits to chr cough with whitish sputum, but no change, no GI or complaints, no headache, admits to dizziness, on the way to the ER in the car he passed out. The patient otherwise does not have any particular symptoms. In the ER he was hypotensive on presentation. He had low grade temp 99.1, HR was 58, 97% on ra but later needed oxygen via NC. CXR showed mild pna, ua suggestive of UTI. labs show leucocytosis, 17.6, K 4.1, Na 136, bicarb 121, creat 1.8, Trop < 0.01 Patient received 3 L fluids, despite which the bp was not ?> 90 systolic, was started on levophed. patient presented to the hospital for further management. Pts son reports that the patients bp usually runs low. around 90-100 systolic. Patient son reports improvement in pts mental condition after IVF was given. 07/29 patient seen examined, pt had low HR, type 1 block noted brandon, reponded to atropine. no cp IV fluids given, weaned off pressors. urine cultures positive for staph aureus. on vancomycin pt this am sitting comfortably in chair denies any complaints, tolerated breakfast well good urine output xfer to tele status. 07/30 Pt seen examined no a cute issues low hr when sleeping, no acute complaints CT reviewed with Dr Hough, Plan for stent placement microbiology with mrsa, vancomycin latoya is 2, ID consulted labs reviewed and are stable. Pertinent ROS: Denies headache, dizziness Denies chest pain, palpitations Denies cough or shortness of breath Denies abdominal pain, nausea or vomiting. - Constitutional Vitals: Vital Signs Temp Pulse Resp BP Pulse Ox 97.5 F 67 18 119/70 99 07/30/18 12:00 07/30/18 09:05 07/30/18 12:00 07/30/18 12:00 07/30/18 12:00 Period Temp Pulse Resp BP Sys/Hu Pulse Ox Last 24 Hr 97.5 F-98.1 F 54-70 16-22 98-134/55-70 93-100 Intake and Output 07/29/18 07/30/18 07/30/18 21:59 05:59 13:59 Intake Total 570 / 570 500 / 500 Output Total 630 / 630 1350 / 1350 800 / 800 Balance -60 / -60 -850 / -850 -800 / -800 Weight 196 lb 2 oz Intake & Output: Intake & Output 07/29/18 07/30/18 07/30/18 21:59 05:59 13:59 Intake Total 570 / 570 500 / 500 Output Total 630 / 630 1350 / 1350 800 / 800 Balance -60 / -60 -850 / -850 -800 / -800 Weight 196 lb 2 oz Intake: Oral 570 / 570 500 / 500 Output: Urine Catheter Amount 630 / 630 1350 / 1350 800 / 800 Other: Meal Nourishment/Supplement Percent of Meal Consumed 100% Feeding Ability Independent Urine Appearance Cloudy Clear Uretheral (Bowser) Clear Urine Color Pale Bright Yellow Uretheral (Bowser) Bright Yellow Urine Odor Normal Uretheral (Bowser) Normal Stool Size Smear Stool Color Brown Exam: Constitutional; Afebrile, cooperative, alert, not in distress. Eyes- No icterus, , No periorbital swelling Ears- Ext ear normal, hearing normal to conversation. Neck- Midline trachea, supple Respiratory system: Air Entry equal on both sides, No crackles or wheezing, no rhonchi. CVS- Rate rhythm regular, S1,S2 heard, no gallop, no rub. Abdomen- Soft nontender abdomen, no organomegaly, no tenderness, no guarding or rigidity, CALF SKINNER- AOOx3, moving all extremities, no gross focal deficit noted. Medical - PN: Obj Da - Labs CBC & Chem 7: 07/30/18 03:43 07/30/18 03:43 Labs: Abnormal Lab Results 07/30/18 07/30/18 07/29/18 03:43 03:43 05:08 WBC RBC 3.74 L Hgb 11.2 L Hct 33.0 L RDW 14.6 H Gran # [place] # (Auto) Lymphocytes % Chloride 109 H Carbon Dioxide Creatinine Glucose 118 H Calcium 8.2 L 8.0 L Magnesium 1.5 L Alkaline Phosphatase Total Protein 5.6 L Albumin 2.5 L 2.4 L Globulin Albumin/Globulin Ratio 0.7 L 0.8 L TSH Urine Protein Urine Occult Blood Ur Leukocyte Esterase Urine RBC Urine WBC 07/29/18 07/28/18 07/28/18 05:08 17:50 15:43 WBC RBC 3.65 L Hgb 10.7 L Hct 32.1 L RDW Gran # [place] # (Auto) Lymphocytes % Chloride Carbon Dioxide Creatinine Glucose Calcium Magnesium Alkaline Phosphatase Total Protein Albumin Globulin Albumin/Globulin Ratio TSH 7.06 H Urine Protein 100 A Urine Occult Blood 0.2 A Ur Leukocyte Esterase 500 A Urine RBC 33 H Urine WBC > 182 H 07/28/18 07/28/18 07/28/18 15:43 15:43 15:43 WBC 17.6 H RBC Hgb Hct RDW Gran # 13.4 H [place] # (Auto) 1.1 H Lymphocytes % 14 L Chloride Carbon Dioxide 21 L Creatinine 1.8 H Glucose 110 H Calcium Magnesium Alkaline Phosphatase 145 H Total Protein Albumin Globulin 4.4 H Albumin/Globulin Ratio 0.8 L TSH Urine Protein Urine Occult Blood Ur Leukocyte Esterase Urine RBC Urine WBC Meds: Medications Acetaminophen (Tylenol) 650 mg PO Q4-6HP PRN PRN Reason: PAIN/FEVER > 101 Last Admin: 07/30/18 08:15 Dose: 650 mg Albuterol/Ipratropium (Duoneb) 3 ml NEB Q6HRT [facility] Last Admin: 07/30/18 07:09 Dose: 3 ml Aspirin (Aspirin) 81 mg PO DAILY [facility] Last Admin: 07/30/18 08:14 Dose: 81 mg Atorvastatin Calcium (Lipitor) 80 mg PO QDAY [facility] Last Admin: 07/30/18 08:15 Dose: 80 mg Atropine Sulfate (Atropine Sulfate) 0.5 mg IV Q1HP PRN PRN Reason: Bradycardia Azithromycin (Zithromax) 250 mg PO DAILY [facility] Stop: 08/01/18 09:01 Last Admin: 07/30/18 08:14 Dose: 250 mg Baclofen (Lioresal) 15 mg PO TIDP PRN PRN Reason: muscle cramps Last Admin: 07/29/18 20:01 Dose: 15 mg Budesonide (Pulmicort) 0.5 mg NEB Q12 [facility] Last Admin: 07/30/18 07:09 Dose: 0.5 mg Buspirone HCl (Buspar) 10 mg PO BID [facility] Last Admin: 07/30/18 08:15 Dose: 10 mg Vancomycin HCl 1,500 mg/ (Sodium Chloride) 500 mls @ 333.3 mls/hr IV Q24H [facility] Last Admin: 07/30/18 08:19 Dose: 333.3 mls/hr Lorazepam (Ativan) 0.5 mg IV Q2HP PRN PRN Reason: ANXIETY/SEDATION Mirtazapine (Remeron) 15 - 30 mg PO QHS [facility] Last Admin: 07/29/18 20:02 Dose: 30 mg Naloxone HCl (Narcan) 0.1 mg IV Q2MIN PRN PRN Reason: Opiate Reversal Nicotine (Nicoderm) 14 mg TOPICAL DAILY@1000 [facility] Last Admin: 07/30/18 08:14 Dose: 14 mg Ondansetron HCl (Zofran) 4 mg IV Q4-6HP PRN PRN Reason: Nausea And Vomiting Pantoprazole Sodium (Protonix) 40 mg PO QAMAC [facility] Last Admin: 07/30/18 08:14 Dose: 40 mg Sodium Chloride (Saline Flush) 10 ml IV Q8 [facility] Last Admin: 07/30/18 12:27 Dose: 10 ml Vancomycin HCl (Vancomycin Per Pharmacy) 1 order IV UD [facility] Medical - PN: A/P - Time Spent With Patient Total time spent is greater than 50% in coordination of care (as documented) at patient's floor/unit and/or counseling patient: - Narrative A/P Narrative: A/P Urinary tract infection Septic Shock Lactic Acidosis Congestive heart failure systolic, Hypertension Hyperlipidemia h/o CVA h/o atrial thrombus HLD Plan monitor on tele for now, t good urine ouput, good so far Deescalate abx based on sensitivity continue rocephin/zithromax for pna, Vanco for UTI Resume home medications, including asa and apixaban (last dose of apixiban was yesterday AM will confirm with phamacy.) Hold diuretics and blood pressure meds, till bp more stable clinically no e/o chf exacerbation DVT on eliquis Full code Cardiac diet Medical - PN: Qual - VTE Deep Vein Thrombosis/Pulmonary Embolism Present on Admission: No
[2018-07-30] MEDS ORDERED: cefTRIAXone 1 GM VIAL IV SCH (13:30)
--- NOTE | 2018-07-30 13:37 | Brief Operative Note ---
Date of procedure: 07/30/18 Pre-op diagnosis: left obstructed pyelonephritis Post-op diagnosis: same Procedure: rgpg, stent Grafts/Implants: Yes (ureteral stent) Anesthesia: GLMA Findings: see note Complications: none Surgeon: Ajay Hough Specimens Removed/Pathology: none sent Condition: stable Disposition: PACU
[2018-07-30] MEDS ORDERED: IOPAMIDOL 100 ML BOTTLE IJ ONE (13:38)
[2018-07-30] MEDS ORDERED: FLUMAZENIL 0.1 MG/ML ML IV PRN (13:40)
[2018-07-30] MEDS ORDERED: ePHEDrine 50 MG/ML AMPUL IV PRN (13:40)
[2018-07-30] MEDS ORDERED: fentaNYL 100 MCG/2 ML VIAL IV PRN (13:40)
[2018-07-30] MEDS ORDERED: diphenhydrAMINE 50 MG/ML VIAL IV PRN (13:40)
[2018-07-30] MEDS ORDERED: NALOXONE HCL 0.4 MG/ML VIAL IV PRN ×2 (13:40→14:02)
[2018-07-30] MEDS ORDERED: ONDANSETRON 4 MG/2 ML VIAL IV PRN ×2 (13:40→14:02)
[2018-07-30] MEDS ORDERED: IPRATROPIUM/ALBUTEROL 3 ML AMPUL.NEB NEB PRN (13:40)
[2018-07-30] MEDS ORDERED: ATROPINE SULFATE 0.4 MG/ML VIAL IV PRN (13:40)
[2018-07-30] MEDS ORDERED: METHOCARBAMOL 1,000 MG/10 ML VIAL IV PRN (13:40)
[2018-07-30] MEDS ORDERED: MEPERIDINE 25 MG/ML SYRINGE IV PRN (13:40)
[2018-07-30] MEDS ORDERED: LACTATED RINGERS 1,000 ML IV SCH (13:45)
--- NOTE | 2018-07-30 14:01 | Operative Note ---
DATE OF OPERATION: 07/30/2018 PREOPERATIVE DIAGNOSIS: Obstructive uropathy. POSTOPERATIVE DIAGNOSIS: Obstructive uropathy. PROCEDURE: Left ureteral stent placement. SURGEON: Ajay Hough MD INDICATION: The patient is a 67-year-old gentleman who was admitted for a urinary infection. CT scan does show he has an obstructed pole of the left kidney and does have a large staghorn calculus. It appears that this may be infected and he presents now for treatment. PROCEDURE IN DETAIL: The patient was identified and consent was signed. He was given general anesthesia, placed in lithotomy position, and prepped and draped in a standard fashion. Cystourethroscopy showed normal appearing urethra. He did have trilobar hypertrophy but was able to enter the bladder. Bladder did show 4+ trabeculation. There was trauma from the catheter but orifices were in their normal position. Retrograde pyelogram did show a 3 cm stone in the left kidney and hydronephrosis superior to the stone. We were able to pass a wire up into the kidney and pus drained from the kidney. A 6 x 26 stent was then placed and this showed a good curl in the kidney and the bladder. His bladder was drained. He was awoken and taken to the recovery room in stable condition. He was transferred back to the ICU. RZ:[id number] Job ID: [id number] Doc ID: [id number] Ajay Hough MD
[2018-07-30] MEDS ORDERED: BACLOFEN 10 MG TABLET PO PRN (14:02)
[2018-07-30] MEDS ORDERED: ATROPINE SULFATE 1 MG/ML VIAL IV PRN (14:02)
[2018-07-30] MEDS ORDERED: VANCOMYCIN PER PHARMACY IV SCH (14:02)
[2018-07-30] MEDS ORDERED: LORazepam 2 MG/ML VIAL IV PRN (14:02)
[2018-07-30] MEDS ORDERED: ACETAMINOPHEN 325 MG TABLET PO PRN (14:02)
[2018-07-30] MEDS ORDERED: MIRTAZAPINE 15 MG TABLET PO SCH (21:00)
[2018-07-31] MEDS: IPRATROPIUM/ALBUTEROL 3 ML AMPUL.NEB NEB SCH ×2 (01:43→07:17)
[2018-07-31] MEDS: 0.9 % SODIUM CHLORIDE 10 ML SYRINGE IV SCH (05:22)
[2018-07-31 06:39] LABS: Basophils # (Auto) 0 K/mcL (0.0-0.3); Basophils % (Auto) 0.1 % (0.0-2.0); Eosinophils # (Auto) 0 K/mcL (0.0-0.7); Eosinophils % (Auto) 0 % (0.0-7.0); Granulocytes % (Auto) 91.8 % (38.0-78.0); Lymphocytes # (Auto) 0.8 K/mcL (1.5-4.8); Lymphocytes % (Auto) 6.7 % (15.5-49.0); Mean Cell Volume 88.3 fL (80.0-100.0); Mean Corpuscular HGB Conc 33.1 g/dL (31.0-36.0); Mean Corpuscular Hemoglobin 29.3 pg (26.0-34.0); Monocytes # (Auto) 0.2 K/mcL (0.1-0.9); Monocytes % (Auto) 1.4 % (1.0-12.0); Platelet Count 291 K/mcL (140-440); RBC 4.21 M/mcL (4.50-5.90); Red Cell Distribution Width 14.6 % (11.5-14.5)
[2018-07-31 07:17] LABS: ALT/SGPT 9 U/l (0-40); Albumin 2.9 gm/dL (3.2-5.2); Albumin/Globulin Ratio 0.8 (1.0-2.3); Alkaline Phosphatase 109 U/L (39-117); Bilirubin,Direct < 0.2 mg/dL (0.0-0.3); Blood Urea Nitrogen 16 mg/dl (8-23); Gamma Glutamyl Transpeptidase 16 U/L (8-61); Uric Acid 3.9 mg/dL (2.5-8.0)
[2018-07-31] MEDS: BUDESONIDE 0.5 MG/2 ML AMPUL.NEB NEB SCH (07:18)
[2018-07-31] MEDS ORDERED: PANTOPRAZOLE 40 MG TABLET PO SCH (07:30)
[2018-07-31] MEDS: busPIRone 5 MG TABLET PO SCH (08:57)
[2018-07-31] MEDS: APIXABAN 5 MG TABLET PO SCH (08:57)
[2018-07-31] MEDS ORDERED: cefTRIAXone 1 GM VIAL IV SCH (09:00)
[2018-07-31] MEDS ORDERED: ATORVASTATIN 20 MG TABLET PO SCH (09:00)
[2018-07-31] MEDS ORDERED: AZITHROMYCIN 250 MG TABLET PO SCH (09:00)
[2018-07-31] MEDS ORDERED: VANCOMYCIN 1,500 MG in 0.9 % SODIUM CHLORIDE 500 ML IV SCH (09:00)
[2018-07-31] MEDS ORDERED: ASPIRIN 81 MG TAB.CHEW PO SCH (09:00)
[2018-07-31] MEDS ORDERED: NICOTINE 14 MG PATCH TOPICAL SCH (10:00)
--- NOTE | 2018-07-31 10:11 | Discharge Summary ---
Medical - DS: Prov Patient information: Note initiated : 07/31/18 at 9:56 am Service Date, if different from initiated Date: [] Patient: Pérez Grossman 67 y/o M admitted on 07/28/18 for Weakness, Anxious, Tired/UTI, Sepsis. Chief Complaint: [] Date of admission: 07/28/18 19:38 Discharge date: 07/31/18 Primary care physician: PCP No Admitting clinician: Rola Méndez Consults: 07/28/18 Consult to Physician [CONS] Stat Comment: Consulting Provider: Rola Méndez Reason For Exam: Physician to Consult 07/30/18 08:27 Consult to Physician [CONS] Routine Comment: Consulting Provider: Ajay Hough Reason For Exam: Physician to Consult 07/30/18 09:59 Consult to Physician [CONS] Routine Comment: Consulting Provider: Justin Hawk Reason For Exam: Physician to Consult Discharging clinician: Rola Méndez Medical - DS: Meds - Discharge Medications Prescriptions: Sulfamethoxazole/Trimethoprim [Bactrim Ds] 1 tab PO BID #20 tab Active and Home Medications: Home Medications apixaban 5 mg tablet 5 mg PO BID 08/22/16 [History Confirmed 07/28/18 Last Taken Unknown] aspirin 81 mg tablet,delayed release 81 mg PO QDAY 08/22/16 [History Confirmed 07/28/18 Last Taken Unknown] atorvastatin 80 mg tablet 80 mg PO QDAY 08/22/16 [History Confirmed 07/28/18 Last Taken Unknown] carvedilol 3.125 mg tablet 3.125 mg PO BID 08/22/16 [History Confirmed 07/28/18 Last Taken Unknown] lisinopril 2.5 mg tablet 2.5 mg PO QDAY 08/22/16 [History Confirmed 07/28/18 Last Taken Unknown] alprazolam 1 mg tablet 1 mg PO QDAY PRN tab 04/06/18 [History Confirmed Last Taken Unknown] ipratropium 20 mcg-albuterol 100 mcg/actuation mist for inhalation 1 puff INHALATION Q4-6HP PRN 04/06/18 [History Confirmed 07/28/18 Last Taken Unknown] mirtazapine 15 mg tablet 1 - 2 tab PO QHS tab 04/06/18 [History Confirmed 07/28 Last Taken Unknown] omeprazole 20 mg capsule,delayed release 20 mg PO QDAY 04/06/18 [History Confirmed 07/28/18 Last Taken Unknown] spironolactone 25 mg tablet 12.5 mg PO QDAY tab 04/06/18 [History Confirmed Last Taken Unknown] baclofen 10 mg tablet 15 mg PO TID PRN tab 04/16/18 [History Confirmed Last Taken Unknown] buspirone 10 mg tablet 10 mg PO BID 04/16/18 [History Confirmed 07/28/18 Last Taken Unknown] Medical - DS: Hosp Hospital course: Mr. Grossman is a 67 year old M with h/o chf, cva, presents to the ER with his son for not feeling well, The patient is a poor history provider. The patient was not feeling well 3 days ago, some nausea and vomiting, which resolved, last night he was very anxious, which is not unsual for him and he took a xanax pill, he was anxious again this AM and he took another pill, since then he has not been feeling well, drowsy, not following commands, weak. He admits to chr cough with whitish sputum, but no change, no GI or complaints, no headache, admits to dizziness, on the way to the ER in the car he passed out. The patient otherwise does not have any particular symptoms. In the ER he was hypotensive on presentation. He had low grade temp 99.1, HR was 58, 97% on ra but later needed oxygen via NC. CXR showed mild pna, ua suggestive of UTI. labs show leucocytosis, 17.6, K 4.1, Na 136, bicarb 21, creat 1.8, Trop < 0.01 Patient received 3 L fluids, despite which the bp was not ?> 90 systolic, was started on levophed. patient presented to the hospital for further management. Pts son reports that the patients bp usually runs low. around 90-100 systolic. Patient son reports improvement in pts mental condition after IVF was given. Urosepsis-Urine culture positive for MRSA, CT abdomen and pelvis showed left hydronephrosis on the , STag horn calculous, Dr Hough consulted, stent placed, pt has pus in the upper pole. Patient needed pressors on presentation, but was weaned off rapidly, has remained hemodynamically stable since. He will be discharged on oral bactrim ds for 10 days to complete his antibiotic treatment BRadycardia/ Type 2 block, Wencebach's: During the hospital stay the patient was noted to be bradycardic, his EKG At baseline had first degree heart block, and left bundle branch block, he developed a type 2 wenchebach during the hospital stay, HR as low upper 20 for brief duration needing atropine x 1, patient was monitored on telemetery, electrolytes stable, his beta blocers were held, he remained in intermittent wencebachs throughout the hospital stay, HR responds to activity. patient case was reviewed with electric well logging operator at [place] on phone, advised does not need urgent pacemaker, but may need in future. I am stopping the coreg at this time, will advise to follow up with Dr Brian who he has seen in the past. The rest of the stay in the hospital was uneventful, no changes in chronic home medications except stopping his coreg. At the time of discharge, pt is hemodynamically stable, toleraing po diet well, ambulating well. He had mild worsening of wbc today, however he had a procedure done yesterday and this is likely attributed to that than worsening sepsis. Discharge diagnosis: Urosepsis, Hydronephrosis. - Time Spent with Patient Total time spent providing and/or coordinating discharge services: Greater than 30 minutes Medical - DS: Exam - Constitutional Vitals: Vital Signs Temp Pulse Pulse Resp BP BP Pulse Ox 07/31/18 07:51 96.4 F L 16 108/54 97 07/31/18 07:28 58 L 16 07/31/18 06:01 119/68 96 07/31/18 05:01 121/67 98 07/31/18 04:01 104/71 93 07/31/18 03:01 115/68 93 07/31/18 02:01 101/66 92 07/31/18 02:00 93 07/31/18 01:01 120/64 96 07/31/18 00:01 102/63 95 07/30/18 23:02 111/79 95 07/30/18 22:01 100/62 92 07/30/18 21:01 102/54 93 07/30/18 20:01 125/64 92 07/30/18 20:00 94 07/30/18 19:15 52 L 16 07/30/18 19:01 107/63 95 07/30/18 18:33 117/55 98 07/30/18 18:27 53 L 124/69 97 07/30/18 18:01 19 116/72 98 07/30/18 17:47 113/73 96 07/30/18 17:32 114/68 95 07/30/18 17:17 120/80 98 07/30/18 17:02 115/57 95 07/30/18 16:47 120/67 95 07/30/18 16:32 114/48 95 07/30/18 16:16 120/66 94 07/30/18 15:46 74 123/83 96 07/30/18 15:28 57 L 140/70 95 07/30/18 15:01 64 139/77 95 07/30/18 14:47 64 121/78 93 07/30/18 14:46 67 121/78 94 07/30/18 14:32 59 L 134/74 95 07/30/18 14:29 67 134/74 95 07/30/18 14:16 96.8 F L 16 128/75 96 07/30/18 14:02 97.8 F 64 16 127/67 97 07/30/18 13:47 66 16 124/70 98 07/30/18 13:32 98.1 F 66 16 102/63 98 07/30/18 12:00 97.5 F 18 119/70 99 Intake and Output 07/30/18 07/31/18 07/31/18 21:59 05:59 13:59 Intake Total 680 / 680 240 / 240 Output Total 451 / 451 1350 / 1350 Balance 229 / 229 -1350 / -1350 240 / 240 Intake: Oral 480 / 480 240 / 240 IV - Manual Only 200 / 200 Output: Void Amount 450 / 450 1350 / 1350 # of times incontinent of urine Other: Meal Lunch Breakfast Percent of Meal Consumed 100% 100% Feeding Ability Independent Independent # Voids 1 Weight 195 lb Additional comments: Constitutional; Afebrile, cooperative, alert, not in distress. Respiratory system: Air Entry equal on both sides, No crackles or wheezing, no rhonchi. CVS- Rate rhythm regular, S1,S2 heard, no gallop, no rub. Abdomen- Soft nontender abdomen, no organomegaly, no tenderness, no guarding or rigidity, SAND MIXER OPERATOR- AOOx3, moving all extremities, no gross focal deficit noted. Medical - DS: Data Labs on day of discharge: Labs from last 24 hours 07/31/18 07/31/18 07/31/18 08:46 03:49 03:49 WBC 12.6 H RBC 4.21 L Hgb 12.3 L Hct 37.1 L MCV 88.3 MCH 29.3 MCHC 33.1 RDW 14.6 H Plt Count 291 MPV 8.1 Gran % 91.8 H Lymph % (Auto) 6.7 L [place] % (Auto) 1.4 Eos % (Auto) 0 Baso % (Auto) 0.1 Gran # 11.6 H Lymph # (Auto) 0.8 L [place] # (Auto) 0.2 Eos # (Auto) 0 Baso # (Auto) 0 Sodium 138 Potassium 4.6 Chloride 103 Carbon Dioxide 23 Anion Gap 12.0 BUN 16 Creatinine 1.1 GFR Calculation 70 Glucose 154 H Uric Acid 3.9 Calcium 8.9 Phosphorus 2.1 L Magnesium 1.7 Total Bilirubin 0.3 Direct Bilirubin < 0.2 GGT 16 AST 11 ALT 9 Alkaline Phosphatase 109 Lactate Dehydrogenase 153 Total Creatine Kinase Total Protein 6.7 Albumin 2.9 L Globulin 3.8 H Albumin/Globulin Ratio 0.8 L Triglycerides 46 Vancomycin Trough 11.1 07/30/18 03:43 WBC RBC Hgb Hct MCV MCH MCHC RDW Plt Count MPV Gran % Lymph % (Auto) [place] % (Auto) Eos % (Auto) Baso % (Auto) Gran # Lymph # (Auto) [place] # (Auto) Eos # (Auto) Baso # (Auto) Sodium Potassium Chloride Carbon Dioxide Anion Gap BUN Creatinine GFR Calculation Glucose Uric Acid Calcium Phosphorus Magnesium Total Bilirubin Direct Bilirubin GGT AST ALT Alkaline Phosphatase Lactate Dehydrogenase Total Creatine Kinase 24 Total Protein Albumin Globulin Albumin/Globulin Ratio Triglycerides Vancomycin Trough Preliminary micro results at discharge 07/28/18 17:30 Blood Culture - Preliminary Blood 07/28/18 17:50 Blood Culture - Preliminary Blood Medical - DS: A/P - Patient/Caregiver Discharge Instructions Activity: increase activity as tolerated Diet: Cardiac Additional Instructions: Please stop taking the Coreg (carvedilol medication) Take Bactrim DS one tablet twice daily for 10 more days Follow up with Dr Hough in 2-4 weeks. Follow up with PCP in 1 week Go to the ER if worsening symptoms, chest pain, shortness of breath or any other acute symptoms. You had irregular heart beat during the hospital stay, I would advise you to please follow up with Dr Brian Cardilogist in 2-4 weeks. - Follow up Plan Follow up with: No,PCP [Primary Care Provider] - Brian Brian MD [Physician] - Ajay Hough MD [Physician] - Sam yDe MD [Family Provider] - Disposition: Home, Self-Care Prognosis: Fair Rehab Potential: Fair I certify that the patient requires SNF services: No Overall status at discharge: patient is progressing back to baseline Medical - DS: Qual - VTE Deep Vein Thrombosis/Pulmonary Embolism Present on Admission: No
--- NOTE | 2018-07-31 18:30 | XRay Report ---
CLINICAL INFORMATION: Left ureteral stent placement. Large left upper collecting system stones COMPARISON: None. FINDINGS: Incidental images from the OR show multiple stones in the left upper collecting system. Left ureteral stent is in properly position with the superior pigtail in the left renal pelvis and inferior and overlying the expected location of the urinary bladder IMPRESSION: Successful placement of double pigtail left ureteral stent. Multiple stones in the left upper collecting system - as previously seen Interpreted and Authenticated by: Manuel Leos 07/31/18
== END 2018-07-31 12:50 | disposition home or self-care (01) | DRG 871 ==
LOC: ED 15:21 → ICU 19:38
PROVIDERS: ADMIT Internal Medicine; ATTEND Internal Medicine

== ENCOUNTER 2019-11-06 07:30 | Inpatient (IN) ==
[2019-11-06] MEDS ORDERED: IPRATROPIUM/ALBUTEROL 3 ML AMPUL.NEB NEB ONE (07:45)
[2019-11-06] MEDS ORDERED: methylPREDNISolone SOD SUCC 125 MG/2 ML VIAL IV ONE (08:08)
[2019-11-06] MEDS ORDERED: ACETAMINOPHEN 325 MG TABLET PO ONE (08:09)
--- NOTE | 2019-11-06 08:12 | Emergency Department Note ---
SOB HPI - General Chief Complaint: Shortness of Breath/Dyspnea Stated Complaint: shortness of breath Time Seen by Provider: 11/06/19 08:03 Mode of arrival: ambulatory - History of Present Illness Patient would of breath, coughing for the last 2 days. The. Comes in with 101 fever. Does have some body aches, shortness of breath, working hard to breathe. Arrives via private vehicle. No nausea, vomiting or diarrhea. Denies abdominal pain, very soft spoken, is occasionally bringing up some phlegm. History of COPD, has had several bouts with COPD exacerbation. Denies chest pain, but feels very short of breath. Symptoms started about 2 days ago, gradually progressively getting worse. MD Complaint: shortness of breath - Related Data Home Medications Medication Instructions Recorded Confirmed aspirin 81 mg tablet,delayed 81 mg PO QDAY 08/22/16 09/28/19 release atorvastatin 80 mg tablet 80 mg PO QDAY 08/22/16 09/28/19 lisinopril 2.5 mg tablet 2.5 mg PO QDAY 08/22/16 09/28/19 alprazolam 1 mg tablet 1 mg PO QDAY PRN tab 04/06/18 09/28/19 ipratropium 20 mcg-albuterol 100 1 puff INHALATION Q4-6HP PRN 04/06/18 09/28/19 mcg/actuation mist for inhalation mirtazapine 15 mg tablet 1 - 2 tab PO QHS tab 04/06/18 09/28/19 omeprazole 20 mg capsule,delayed 20 mg PO QDAY 04/06/18 09/28/19 release buspirone 10 mg tablet 15 mg PO BID 04/16/18 09/28/19 apixaban 5 mg tablet 5 mg PO BID 08/27/18 09/28/19 baclofen 10 mg tablet 10 mg PO QHS PRN tab 05/20/19 09/28/19 Allergies Allergy/AdvReac Type Severity Reaction Status Date / Time No Known Drug Allergies Allergy Verified 09/28/19 10:49 Review of Systems Constitutional: Reports: fever, chills, weakness, sweats ENT ED: Reports: throat pain Cardiovascular: Reports: palpitations, dyspnea on exertion. Denies: chest pain Respiratory: Reports: shortness of breath Gastrointestinal: Denies: abdominal pain, nausea, vomiting, diarrhea Genitourinary: Denies: frequency Musculoskeletal: Reports: back pain Neurological: Reports: headache, weakness Past Medical History - Past Medical History Source: nursing notes reviewed Medical history: Reports: CHF, COPD, hypertension Psychiatric history: Reports: anxiety. Denies: depression Surgical history ED: Reports: non-contributory Family history: Reports: non-contributory - Social History smoking status: Former smoker Alcohol use: Reports: None Drug use: Reports: none. Denies: marijuana Physical Exam Limitations: physical limitation General appearance: alert, in distress, lethargic, malaise, sleepy Head: atraumatic, normocephalic, other ( seborrhea) Eye: Present: normal appearance, PERRL, visual thomas intact ENT: Present: normal exam, normal oropharynx, mucous membranes moist, normal external ear exam, nasal congestion Neck: Present: normal inspection, full ROM, trachea midline. Absent: tenderness, meningismus Chest: Present: normal inspection, symmetric chest wall rise Respiratory: Present: rales/crackles, wheezes, accessory muscle use, decreased breath sounds Cardiovascular: Present: regular rate, normal heart sounds Abdominal: Present: soft, normal bowel sounds. Absent: distention, tenderness, guarding Extremities: Present: normal inspection, full ROM. Absent: pedal edema, pretibial edema Back: Present: normal inspection, full ROM. Absent: CVA tenderness (R), CVA tenderness (L), vertebral tenderness Neurological: Present: alert, oriented X3, CN II-XII intact. Absent: motor sensory deficit Psychiatric: Present: flat affect Skin: Present: warm, dry, diaphoresis, erythema Course - Reevaluation(s) Reevaluation #1: Signed out to Dr. valdes. 9 AM. Labs are still pending at this time. A chest x-ray showing no acute infiltrate, however, there appears to be slight increase in cardiac density left lower lobe and he may have left lower lobe pneumonia. He was started on antibiotics for COPD exacerbation, blood cultures drawn, also flu swab was ordered. Further disposition is pending Vital Signs Temperature 100.7 F H 11/06/19 07:31 Pulse Rate 120 H 11/06/19 07:31 Respiratory Rate 34 H 11/06/19 07:31 Blood Pressure 113/72 11/06/19 07:31 Pulse Oximetry (%) 95 11/06/19 07:31 Temperature 100.7 F H 11/06/19 07:31 Pulse Rate 120 H 11/06/19 07:31 Respiratory Rate 34 H 11/06/19 07:31 Blood Pressure 113/72 11/06/19 07:31 Pulse Oximetry (%) 95 11/06/19 07:31 Shortness of Breath/Dyspnea - Lab Data Result diagrams: 11/06/19 08:08 11/06/19 08:08 Disposition Pt seen by SECURITY COORDINATOR/PA only: No Clinical Impression: Acute exacerbation of chronic obstructive airways disease, Congestive heart failure Disposition: Still a Patient Condition: Fair Instructions: Heart Healthy Diet (ED) Referrals: [facility] [Other]
[2019-11-06] MEDS ORDERED: cefTRIAXone 1 GM VIAL IV ONE ×2 (08:16→20:15)
[2019-11-06] MEDS ORDERED: AZITHROMYCIN 500 MG in DEXTROSE 5% IN WATER 250 ML IV ONE (08:16)
[2019-11-06 09:19] LABS: Basophils # (Auto) 0.04 K/mcL (0.00-0.30); Basophils % (Auto) 0.4 % (0.0-2.0); Eosinophils # (Auto) 0.02 K/mcL (0.00-0.70); Eosinophils % (Auto) 0.2 % (0.0-7.0); Granulocytes % (Auto) 81.5 % (38.0-78.0); Hematocrit 44.4 % (40.1-51.0); Lymphocytes # (Auto) 0.92 K/mcL (1.50-4.80); Lymphocytes % (Auto) 10.3 % (15.5-49.0); Mean Cell Volume 87.7 fL (80.0-100.0); Mean Corpuscular HGB Conc 31.5 g/dL (31.0-36.0); Mean Platelet Volume 9.4 fL (7.4-10.4); Monocytes # (Auto) 0.68 K/mcL (0.10-0.90); Monocytes % (Auto) 7.6 % (1.0-12.0); Platelet Count 434 K/mcL (140-440); RBC 5.06 M/mcL (4.63-6.08); Red Cell Distribution Width 13.8 % (11.5-14.5)
[2019-11-06 09:39] LABS: ALT/SGPT 104 U/l (0-40); AST/SGOT 78 U/l (0-37); Albumin 3.9 gm/dL (3.2-5.2); Albumin/Globulin Ratio 0.8 (1.0-2.3); Alkaline Phosphatase 208 U/L (39-117); Bilirubin,Total 0.7 mg/dL (0.0-1.0); Blood Urea Nitrogen 27 mg/dl (8-23); Calcium 9.4 mg/dl (8.6-10.4); Carbon Dioxide 22 mmol/L (22-30); Chloride 98 mmol/L (96-108); Globulin 4.6 gm/dL (2.2-3.7); Glomerular Filtration Rate 44; Glucose 132 mg/dL (70-105)
[2019-11-06] MEDS ORDERED: IPRATROPIUM/ALBUTEROL 3 ML AMPUL.NEB NEB SCH (11:00)
[2019-11-06 11:37] LABS: Creatine Kinase MB 2.6 ng/ml (0-4.9); Myoglobin 91 ng/ml (28-72)
[2019-11-06 11:38] LABS: Creatine Kinase 75 IU/L (24-195)
--- NOTE | 2019-11-06 13:16 | XRay Report ---
CLINICAL INFORMATION: SOB COMPARISON: 01/11/2019 FINDINGS: Heart is mildly enlarged - accentuated by leftward rotation. Mediastinum is unremarkable. Mild upper lobe redistribution of pulmonary vasculature. No definite edema. Minor left basilar atelectasis noted. No effusion IMPRESSION: Borderline CHF or volume overload. Interpreted and Authenticated by: Manuel Leos 11/06/19
--- NOTE | 2019-11-06 14:05 | Cat Scan Report ---
CLINICAL INFORMATION: Sepsis COMPARISON: None. TECHNIQUE: Enteric contrast was utilized. 80 cc of [id number] were injected intravenously, and 50 seconds later 2.5 mm helical slices were obtained from the lung apices through the subtrochanteric regions of the femurs. Following reconstruction, 2.5 mm sagittal, coronal and axial reformatted images were processed and reviewed at multiple windows and levels. 7 mm MIP reconstructions were obtained through the lungs to optimize nodule detection.The exam was performed using radiation dose optimization techniques including, but not limited to, automated exposure control, adjustment of the mA and/or kV according to patient size and use of iterative reconstruction technique. FINDINGS: Pulmonary parenchymal windows show moderate interstitial fibrosis in the left lower lobe with a 5 cm paramediastinal bullae are stable. Small groundglass infiltrate is developing in the lingular region which may represent fibrosis or a small pneumonia. There is minor atelectasis or scarring posterior right lower lobe. Mediastinal windows show the heart is mildly enlarged with scattered calcific plaque in the coronary arteries. Noncontrasted pulmonary arteries and thoracic aorta unremarkable. There is no adenopathy in the mediastinal hilar or axillary regions. There is mild concentric wall thickening of the proximal thoracic esophagus. Thyroid is unremarkable. Abdominal images show the noncontrast liver, gallbladder and bile ducts, adrenal glands, spleen, pancreas and aorta are normal in size, configuration and attenuation without focal lesion. There are multiple (greater than 10 stones throughout the calyces of the left kidney ranging up to 2 cm inferior left calyx. There is a eight mm stone in the UPJ resulting in mild left hydronephrosis. The right kidney demonstrates a cluster of 2-3 faint punctate stones in a mid calyx and a 2 mm nonobstructing stone within inferior calyx right kidney. Pelvic images show mild diffuse wall thickening the urinary bladder as previously seen. The prostate is mildly enlarged measuring 7 x 4.7 cm. the stomach, small bowel, appendix and large bowel are normal. The bone windows show degenerative changes in lumbar spine IMPRESSION: 1. Multiple stones throughout the calyces of the left kidney ranging up to 2 cm within an inferior calyx. An 8 mm stone, at the UPJ, resulting in mild left hydronephrosis. Moderate left renal atrophy has worsened since the comparison CT over one year prior 07/29/2018. Tiny nonobstructing stones present in the mid inferior calyces of the right kidney. 2. Moderate diffuse urinary bladder wall thickening likely reflects chronic bladder outlet narrowing from an enlarged prostate. 3. Moderate interstitial fibrosis in the left lower lobe with a bullae. Small groundglass infiltrate in the lingula is new from the previous study could represent hyperostosis or a acute pneumonia. Interpreted and Authenticated by: Manuel Leos 11/06/19
[2019-11-06 14:48] LABS: Appearance,Urine HAZY; Bacteria,Urine 0 /hpf (0); Bilirubin,Urine NEG (NEG); Color,Urine YELLOW; Culture Indicated,Urine YES; Glucose,Urine (UA) NEGATIVE (NEG); Ketones,Urine NEG (NEG); Leukocyte Esterase,Urine 500 /uL (NEG); Mucus,Urine FEW /hpf (0); Nitrate,Urine NEG (NEG); Protein,Urine 100 mg/dL (NEG); Urine Blood >=1.0 mg/dL (<0.03); Urine RBC 107 /hpf (0-1); Urine Squamous Epithelial Cell 0 /hpf (0-4); Urine Transitional Epi Cells < 1 /hpf (0-2); Urine WBC 166 /hpf (0-4); Urobilinogen,Urine NEG (NEG)
[2019-11-06] MEDS ORDERED: VANCOMYCIN 1,000 MG in 0.9 % SODIUM CHLORIDE 250 ML IV ONE (15:39)
--- NOTE | 2019-11-06 15:52 | Emergency Department Note ---
General Adult HPI - General Chief complaint: Shortness of Breath/Dyspnea Stated complaint: shortness of breath Time Seen by Provider: 11/06/19 08:03 Mode of arrival: ambulatory Limitations: physical limitation - History of Present Illness HPI Narrative: I took over the care of this patient at [address] Kong. - Related Data Home Medications Medication Instructions Recorded Confirmed aspirin 81 mg tablet,delayed 81 mg PO QDAY 08/22/16 11/06/19 release atorvastatin 80 mg tablet 80 mg PO QDAY 08/22/16 11/06/19 lisinopril 2.5 mg tablet 2.5 mg PO QDAY 08/22/16 11/06/19 alprazolam 1 mg tablet 1 mg PO QDAY PRN tab 04/06/18 11/06/19 ipratropium 20 mcg-albuterol 100 1 puff INHALATION Q4-6HP PRN 04/06/18 11/06/19 mcg/actuation mist for inhalation mirtazapine 15 mg tablet 1 - 2 tab PO QHS tab 04/06/18 11/06/19 omeprazole 20 mg capsule,delayed 20 mg PO QDAY 04/06/18 11/06/19 release buspirone 10 mg tablet 15 mg PO BID 04/16/18 11/06/19 apixaban 5 mg tablet 5 mg PO BID 08/27/18 11/06/19 baclofen 10 mg tablet 10 mg PO QHS PRN tab 05/20/19 11/06/19 Levothyroxine 50 mcg PO DAILY 11/06/19 11/06/19 Allergies Allergy/AdvReac Type Severity Reaction Status Date / Time No Known Drug Allergies Allergy Verified 09/28/19 10:49 Review of Systems Constitutional: Reports: fever, chills, weakness, sweats ENT ED: Reports: throat pain Cardiovascular: Reports: palpitations, dyspnea on exertion. Denies: chest pain Respiratory: Reports: shortness of breath Gastrointestinal: Denies: abdominal pain, nausea, vomiting, diarrhea Genitourinary: Denies: frequency Musculoskeletal: Reports: back pain Neurological: Reports: headache, weakness Past Medical History - Past Medical History Medical history: Reports: CHF, COPD, hypertension Psychiatric history: Reports: anxiety. Denies: depression Surgical history ED: Reports: non-contributory - Social History smoking status: Former smoker Alcohol use: Reports: None Drug use: Reports: none. Denies: marijuana Physical Exam Limitations: physical limitation General appearance: alert, in distress, lethargic, malaise, sleepy Course Vital Signs Temperature 100.7 F H 11/06/19 07:31 Pulse Rate 120 H 11/06/19 07:31 Respiratory Rate 34 H 11/06/19 07:31 Blood Pressure 113/72 11/06/19 07:31 Pulse Oximetry (%) 95 11/06/19 07:31 Temperature 98.0 F 11/06/19 15:33 Pulse Rate 72 11/06/19 15:15 Respiratory Rate 20 11/06/19 15:30 Blood Pressure 101/69 11/06/19 15:30 Pulse Oximetry (%) 91 11/06/19 15:15 Medical Decision Making - MDM Narrative Medical decision making narrative: Chest x-ray is unremarkable but he does have a urinary tract infection. He had a good response to the DuoNeb and Solu-Medrol. He rested comfortably with no further shortness of breath. Initial troponin was 0.07 but a repeat was 0.04. He has had MRSA in the urine in the past. He will be admitted observation to the hospital. - Lab Data Lab results reviewed: Yes I reviewed the patient's lab results. Result diagrams: 11/06/19 08:08 11/06/19 08:08 Lab Results 11/06/19 11/06/19 11/06/19 Range/Units 08:08 08:08 08:08 WBC 9.0 (4.50-11.00) K/mcL RBC 5.06 (4.63-6.08) M/mcL Hgb 14.0 (13.7-17.5) g/dL Hct 44.4 (40.1-51.0) % MCV 87.7 (80.0-100.0) fL MCH 27.7 (26.0-34.0) pg MCHC 31.5 (31.0-36.0) g/dL RDW 13.8 (11.5-14.5) % Plt Count 434 (140-440) K/mcL MPV 9.4 (7.4-10.4) fL Gran % 81.5 H (38.0-78.0) % Lymph % (Auto) 10.3 L (15.5-49.0) % [place] % (Auto) 7.6 (1.0-12.0) % Eos % (Auto) 0.2 (0.0-7.0) % Baso % (Auto) 0.4 (0.0-2.0) % Gran # 7.29 (1.80-8.00) K/mcL Lymph # (Auto) 0.92 L (1.50-4.80) K/mcL [place] # (Auto) 0.68 (0.10-0.90) K/mcL Eos # (Auto) 0.02 (0.00-0.70) K/mcL Baso # (Auto) 0.04 (0.00-0.30) K/mcL Band Neutrophils % D-Dimer (0.00-0.40) ug/ml VBG Lactic Acid (0.5-2.0) mmol/L Sodium 136 (133-145) mmol/L Potassium 4.3 (3.3-5.1) mmol/L Chloride 98 (96-108) mmol/L Carbon Dioxide 22 (22-30) mmol/L Anion Gap 16.0 (8-16) BUN 27 H (8-23) mg/dl Creatinine 1.6 H (0.7-1.2) mg/dl GFR Calculation 44 Glucose 132 H (70-105) mg/dL Calcium 9.4 (8.6-10.4) mg/dl Total Bilirubin 0.7 (0.0-1.0) mg/dL AST 78 H (0-37) U/l ALT 104 H (0-40) U/l Alkaline Phosphatase 208 H (39-117) U/L Total Creatine Kinase (24-195) IU/L CK-MB (CK-2) (0-4.9) ng/ml Myoglobin (28-72) ng/ml Troponin T (0-0.03) ng/ml C-Reactive Protein 2.3 H (0.0-0.8) mg/dl NT-Pro-B Natriuret Pep (0-125) pg/ml Total Protein 8.5 H (5.9-8.4) gm/dL Albumin 3.9 (3.2-5.2) gm/dL Globulin 4.6 H (2.2-3.7) gm/dL Albumin/Globulin Ratio 0.8 L (1.0-2.3) Urine Color Urine Appearance Urine pH (5.0-9.0) Ur Specific [place] (1.000-1.035) Urine Protein (NEG) mg/dL Urine Glucose (UA) (NEG) mg/dL Urine Ketones (NEG) mg/dL Urine Occult Blood (<0.03) mg/dL Urine Nitrate (NEG) Urine Bilirubin (NEG) mg/dL Urine Urobilinogen (NEG) mg/dL Ur Leukocyte Esterase (NEG) /uL Urine RBC (0-1) /hpf Urine WBC (0-4) /hpf Ur Squamous Epith Cells (0-4) /hpf Ur Transition Epith Cell (0-2) /hpf Urine Bacteria (0) /hpf Urine Mucus (0) /hpf Ur Culture Indicated? 11/06/19 11/06/19 11/06/19 Range/Units 08:08 08:08 08:08 WBC (4.50-11.00) K/mcL RBC (4.63-6.08) M/mcL Hgb (13.7-17.5) g/dL Hct (40.1-51.0) % MCV (80.0-100.0) fL MCH (26.0-34.0) pg MCHC (31.0-36.0) g/dL RDW (11.5-14.5) % Plt Count (140-440) K/mcL MPV (7.4-10.4) fL Gran % (38.0-78.0) % Lymph % (Auto) (15.5-49.0) % [place] % (Auto) (1.0-12.0) % Eos % (Auto) (0.0-7.0) % Baso % (Auto) (0.0-2.0) % Gran # (1.80-8.00) K/mcL Lymph # (Auto) (1.50-4.80) K/mcL [place] # (Auto) (0.10-0.90) K/mcL Eos # (Auto) (0.00-0.70) K/mcL Baso # (Auto) (0.00-0.30) K/mcL Band Neutrophils % D-Dimer 0.66 H (0.00-0.40) ug/ml VBG Lactic Acid (0.5-2.0) mmol/L Sodium (133-145) mmol/L Potassium (3.3-5.1) mmol/L Chloride (96-108) mmol/L Carbon Dioxide (22-30) mmol/L Anion Gap (8-16) BUN (8-23) mg/dl Creatinine (0.7-1.2) mg/dl GFR Calculation Glucose (70-105) mg/dL Calcium (8.6-10.4) mg/dl Total Bilirubin (0.0-1.0) mg/dL AST (0-37) U/l ALT (0-40) U/l Alkaline Phosphatase (39-117) U/L Total Creatine Kinase (24-195) IU/L CK-MB (CK-2) (0-4.9) ng/ml Myoglobin (28-72) ng/ml Troponin T 0.07 H* (0-0.03) ng/ml C-Reactive Protein (0.0-0.8) mg/dl NT-Pro-B Natriuret Pep 2840.0 H (0-125) pg/ml Total Protein (5.9-8.4) gm/dL Albumin (3.2-5.2) gm/dL Globulin (2.2-3.7) gm/dL Albumin/Globulin Ratio (1.0-2.3) Urine Color Urine Appearance Urine pH (5.0-9.0) Ur Specific [place] (1.000-1.035) Urine Protein (NEG) mg/dL Urine Glucose (UA) (NEG) mg/dL Urine Ketones (NEG) mg/dL Urine Occult Blood (<0.03) mg/dL Urine Nitrate (NEG) Urine Bilirubin (NEG) mg/dL Urine Urobilinogen (NEG) mg/dL Ur Leukocyte Esterase (NEG) /uL Urine RBC (0-1) /hpf Urine WBC (0-4) /hpf Ur Squamous Epith Cells (0-4) /hpf Ur Transition Epith Cell (0-2) /hpf Urine Bacteria (0) /hpf Urine Mucus (0) /hpf Ur Culture Indicated? 11/06/19 11/06/19 11/06/19 Range/Units 08:08 08:21 11:34 WBC (4.50-11.00) K/mcL RBC (4.63-6.08) M/mcL Hgb (13.7-17.5) g/dL Hct (40.1-51.0) % MCV (80.0-100.0) fL MCH (26.0-34.0) pg MCHC (31.0-36.0) g/dL RDW (11.5-14.5) % Plt Count (140-440) K/mcL MPV (7.4-10.4) fL Gran % (38.0-78.0) % Lymph % (Auto) (15.5-49.0) % [place] % (Auto) (1.0-12.0) % Eos % (Auto) (0.0-7.0) % Baso % (Auto) (0.0-2.0) % Gran # (1.80-8.00) K/mcL Lymph # (Auto) (1.50-4.80) K/mcL [place] # (Auto) (0.10-0.90) K/mcL Eos # (Auto) (0.00-0.70) K/mcL Baso # (Auto) (0.00-0.30) K/mcL Band Neutrophils % D-Dimer (0.00-0.40) ug/ml VBG Lactic Acid 2.5 H (0.5-2.0) mmol/L Sodium (133-145) mmol/L Potassium (3.3-5.1) mmol/L Chloride (96-108) mmol/L Carbon Dioxide (22-30) mmol/L Anion Gap (8-16) BUN (8-23) mg/dl Creatinine (0.7-1.2) mg/dl GFR Calculation Glucose (70-105) mg/dL Calcium (8.6-10.4) mg/dl Total Bilirubin (0.0-1.0) mg/dL AST (0-37) U/l ALT (0-40) U/l Alkaline Phosphatase (39-117) U/L Total Creatine Kinase 75 (24-195) IU/L CK-MB (CK-2) 2.6 (0-4.9) ng/ml Myoglobin 91 H (28-72) ng/ml Troponin T 0.04 H* (0-0.03) ng/ml C-Reactive Protein (0.0-0.8) mg/dl NT-Pro-B Natriuret Pep (0-125) pg/ml Total Protein (5.9-8.4) gm/dL Albumin (3.2-5.2) gm/dL Globulin (2.2-3.7) gm/dL Albumin/Globulin Ratio (1.0-2.3) Urine Color Urine Appearance Urine pH (5.0-9.0) Ur Specific [place] (1.000-1.035) Urine Protein (NEG) mg/dL Urine Glucose (UA) (NEG) mg/dL Urine Ketones (NEG) mg/dL Urine Occult Blood (<0.03) mg/dL Urine Nitrate (NEG) Urine Bilirubin (NEG) mg/dL Urine Urobilinogen (NEG) mg/dL Ur Leukocyte Esterase (NEG) /uL Urine RBC (0-1) /hpf Urine WBC (0-4) /hpf Ur Squamous Epith Cells (0-4) /hpf Ur Transition Epith Cell (0-2) /hpf Urine Bacteria (0) /hpf Urine Mucus (0) /hpf Ur Culture Indicated? 11/06/19 11/06/19 Range/Units 11:34 13:54 WBC (4.50-11.00) K/mcL RBC (4.63-6.08) M/mcL Hgb (13.7-17.5) g/dL Hct (40.1-51.0) % MCV (80.0-100.0) fL MCH (26.0-34.0) pg MCHC (31.0-36.0) g/dL RDW (11.5-14.5) % Plt Count (140-440) K/mcL MPV (7.4-10.4) fL Gran % (38.0-78.0) % Lymph % (Auto) (15.5-49.0) % [place] % (Auto) (1.0-12.0) % Eos % (Auto) (0.0-7.0) % Baso % (Auto) (0.0-2.0) % Gran # (1.80-8.00) K/mcL Lymph # (Auto) (1.50-4.80) K/mcL [place] # (Auto) (0.10-0.90) K/mcL Eos # (Auto) (0.00-0.70) K/mcL Baso # (Auto) (0.00-0.30) K/mcL Band Neutrophils % Not Reportable D-Dimer (0.00-0.40) ug/ml VBG Lactic Acid (0.5-2.0) mmol/L Sodium (133-145) mmol/L Potassium (3.3-5.1) mmol/L Chloride (96-108) mmol/L Carbon Dioxide (22-30) mmol/L Anion Gap (8-16) BUN (8-23) mg/dl Creatinine (0.7-1.2) mg/dl GFR Calculation Glucose (70-105) mg/dL Calcium (8.6-10.4) mg/dl Total Bilirubin (0.0-1.0) mg/dL AST (0-37) U/l ALT (0-40) U/l Alkaline Phosphatase (39-117) U/L Total Creatine Kinase (24-195) IU/L CK-MB (CK-2) (0-4.9) ng/ml Myoglobin (28-72) ng/ml Troponin T (0-0.03) ng/ml C-Reactive Protein (0.0-0.8) mg/dl NT-Pro-B Natriuret Pep (0-125) pg/ml Total Protein (5.9-8.4) gm/dL Albumin (3.2-5.2) gm/dL Globulin (2.2-3.7) gm/dL Albumin/Globulin Ratio (1.0-2.3) Urine Color Yellow Urine Appearance Hazy Urine pH 5.0 (5.0-9.0) Ur Specific [place] 1.020 (1.000-1.035) Urine Protein 100 A (NEG) mg/dL Urine Glucose (UA) Negative (NEG) mg/dL Urine Ketones Neg (NEG) mg/dL Urine Occult Blood >=1.0 A (<0.03) mg/dL Urine Nitrate Neg (NEG) Urine Bilirubin Neg (NEG) mg/dL Urine Urobilinogen Neg (NEG) mg/dL Ur Leukocyte Esterase 500 A (NEG) /uL Urine RBC 107 H (0-1) /hpf Urine WBC 166 H (0-4) /hpf Ur Squamous Epith Cells 0 (0-4) /hpf Ur Transition Epith Cell < 1 (0-2) /hpf Urine Bacteria 0 (0) /hpf Urine Mucus Few (0) /hpf Ur Culture Indicated? Yes - Radiology Data Radiology results reviewed: Yes I reviewed the patient's radiology results. Disposition Pt seen by WAREHOUSE GUARD/PA only: No Clinical Impression: Acute exacerbation of chronic obstructive airways disease, Congestive heart failure, Urinary tract infection Disposition: Xfer As Outpt/Obs ([facility]) Condition: Fair Instructions: Heart Healthy Diet (ED) Referrals: [facility] [Other] Time of Disposition: 15:52
[2019-11-06 16:41] LABS: Band Neutrophils % 4 % (0-10); Lymphocytes % 9 % (15-49); Monocytes % (Manual) 6 % (1-12); Platelet Estimate NORMAL (NORMAL); RBC Morphology NORMAL (NORMAL); Segmented Neutrophils % 81 % (38-78)
[2019-11-06] MEDS ORDERED: 0.9 % SODIUM CHLORIDE 500 ML IV ONE (17:01)
--- NOTE | 2019-11-06 17:14 | Internal Med History&Physical ---
Medical - H&P: HPI Patient information: Note initiated : 11/06/19 at 5:08 pm Service Date, if different from initiated Date: [] Patient: Pérez Grossman a 68 y/o M admitted on for shortness of breath. Chief Complaint: [] History of present illness: Mr. Grossman is a 68 year old M Presents the ED for shortness of breath that began couple nights ago. Patient denies feeling wheezy but states he feels like his COPD is flaring and this morning was bad enough that he needed to come to the ED. Patient is also out of his home inhalers and was not able to use those during this most recent event. In the ED he was felt to have a COPD exacerbation treated with steroids and nebulizers and improved significantly from presentation. Now satting 97% on room air. He presented with a fever of 101 as well as being tachypneic and tachycardic. His blood pressure was low 1 teens but has dropped down 90s and even the 80s then then stayed pretty consistently in the 90s and low 100s. His lactate was mildly elevated. His urine showed leukocyte esterase and WBCs similar to previous urinalysis. He has been treated for MRSA UTIs in the past. He has a history of multiple kidney stones especially on the left and has been following with Dr. Hough. Imaging shows mild hydro-in the left tract. Right and mildly elevated. There was a troponin done which is 0.07 no follow-up with 0.04, he never complained of chest pain. Patient reports difficulty urinating occasion with some discomfort but denies burning. Says his urine is darker than usual. At one point his heart rate dropped down to the 40s. Several EKGs were done which showed a second-degree AV block, which I was concerned because the appearance was almost a Mobitz type II although difficult to tell if it was Mobitz type I with poor EKG. Dr. valdes reviewed the case with Dr. Garcia at [facility] who felt it was a type I and that the patient could follow up with Dr. Noel lampt. heart rates in the 40s on occasion ED and 1 was high 30s. Given a dose of atropine which seemed to bring it up into the 70s and regular. Blood pressure stable but low. In speaking with the patient at this point he denies any shortness of breath and says he feels a whole lot better. He appeared lethargic in bed but he was arousable and he says he does not feel any weaker than usual or any increased malaise. He denies a cough even though this was reported in earlier notes. Denies chest pain. No nausea or vomiting. Denies fever or chills Of note patient appears to be a poor historian, and not know why he is on specific medications. Per old notes from 2018 admission "son reports that the patients bp usually runs low, around 90-100 systolic." Review of Systems: Pertinent positives as above. Denies headache/fever/chills/nausea/vomiting/chest or abdominal pain/diarrhea. Remaining 10 point review of system reviewed negative Medical - H&P: H Medical history: Medical History (Last Reviewed 09/28/19 @ 10:50 by Rosie Ayon RN) Staghorn calculus (Chronic) Hypothyroidism (Chronic) Elevated serum creatinine (Chronic) Pruritic rash (Chronic) Chronic diarrhea (Chronic) Prediabetes (Chronic) Memory impairment (Chronic) Chronic low back pain (Chronic) Pulmonary arterial hypertension (Chronic) Insomnia (Chronic) Syncope (Chronic) Anxiety (Chronic) History of CVA (cerebrovascular accident) (Chronic) History of malignant neoplasm of prostate (Chronic) PSA elevation (Chronic) History of methamphetamine abuse (Chronic) CVA (cerebral vascular accident) (Chronic) GERD (gastroesophageal reflux disease) (Chronic) Chronic obstructive lung disease (Chronic) 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 Past Surgical History (Last Reviewed 09/28/19 @ 10:50 by Rosie Ayon RN) Hx of hernia repair (Chronic) Hx of lithotripsy (Chronic) Family History (Last Reviewed 09/28/19 @ 10:50 by Rosie Ayon RN) Mother Stomach cancer Brother Tumor of lung Social History (Last Updated 09/28/19 @ 10:58 by Ajay Houhg MD) Patient quit smoking 10 years ago denies alcohol use Does not use a cane or a walker Lives at home with his son Medical - H&P: Meds Home Medications Medication Instructions Recorded Confirmed Type aspirin 81 mg tablet,delayed 81 mg PO QDAY 08/22/16 11/06/19 History release atorvastatin 80 mg tablet 80 mg PO QDAY 08/22/16 11/06/19 History lisinopril 2.5 mg tablet 2.5 mg PO QDAY 08/22/16 11/06/19 History alprazolam 1 mg tablet 1 mg PO QDAY PRN tab 04/06/18 11/06/19 History ipratropium 20 mcg-albuterol 100 1 puff INHALATION Q4-6HP PRN 04/06/18 11/06/19 History mcg/actuation mist for inhalation mirtazapine 15 mg tablet 1 - 2 tab PO QHS tab 04/06/18 11/06/19 History omeprazole 20 mg capsule,delayed 20 mg PO QDAY 04/06/18 11/06/19 History release buspirone 10 mg tablet 15 mg PO BID 04/16/18 11/06/19 History apixaban 5 mg tablet 5 mg PO BID 08/27/18 11/06/19 History baclofen 10 mg tablet 10 mg PO QHS PRN tab 05/20/19 11/06/19 History Levothyroxine 50 mcg PO DAILY 11/06/19 11/06/19 History Allergies Allergy/AdvReac Type Severity Reaction Status Date / Time No Known Drug Allergies Allergy Verified 09/28/19 10:49 Medical - H&P: Exam - Constitutional Vitals: Temp Pulse Resp BP Pulse Ox 98.0 F 72 33 H 93/67 94 11/06/19 15:33 11/06/19 16:15 11/06/19 16:15 11/06/19 16:15 11/06/19 16:15 Exam: General: Awake, No acute Distress Eyes/N/T: EOMI, PERRL, dry MM Head/Neck: neck supple, normocephalic atraumatic CV: RRR, No murmurs, normal s1/s2 Pulm: diminished, no wheezing/rales at this point Abd: soft, nontender, +BS x4. nontender to palpation of costovertebral angle Ext: no clubbing/cyanosis/edema Neuro: awake but appears somewhat drowsy. no focal deficits, moves all extremities, CN 2-12 grossly intact, symmetrical strength b/l upper/lower, sensations intact b/l upper/lower Skin: warm/dry Medical - H&P: Reslt - Labs CBC & Chem 7: 11/06/19 08:08 11/06/19 08:08 Labs: Short CBC 11/06/19 Range/Units 08:08 WBC 9.0 (4.50-11.00) K/mcL Hgb 14.0 (13.7-17.5) g/dL Hct 44.4 (40.1-51.0) % Plt Count 434 (140-440) K/mcL BMP 11/06/19 08:08 Sodium 136 Potassium 4.3 Chloride 98 Carbon Dioxide 22 BUN 27 H Creatinine 1.6 H Glucose 132 H Calcium 9.4 Cardiac Enzymes 11/06/19 11/06/19 11/06/19 Range/Units 08:08 08:08 11:34 Total Creatine Kinase 75 (24-195) IU/L CK-MB (CK-2) 2.6 (0-4.9) ng/ml Troponin T 0.07 H* 0.04 H* (0-0.03) ng/ml Liver Function 11/06/19 Range/Units 08:08 Total Bilirubin 0.7 (0.0-1.0) mg/dL AST 78 H (0-37) U/l ALT 104 H (0-40) U/l Alkaline Phosphatase 208 H (39-117) U/L Albumin 3.9 (3.2-5.2) gm/dL Urine 11/06/19 Range/Units 13:54 Urine Color Yellow Urine Appearance Hazy Urine pH 5.0 (5.0-9.0) Ur Specific [place] 1.020 (1.000-1.035) Urine Protein 100 A (NEG) mg/dL Urine Glucose (UA) Negative (NEG) mg/dL Medical - H&P: A/P - Narrative A/P Narrative: A: *AECOPD(no O2 @home): pt has been out of home IH's *UTI(h/o MRSA on UC): *Sepsis: *Nephrolithiasis with mild left hydronephrosis: follows with Dr. Hough *AVB, Carbon to be Mobitz type I (as opposed to initial concern for type II) after ED discussion with Dr. Garcia: -Dr. Garcia recommends outpt f/u with Dr. Noel Mccain of [facility] *HANK on CKD III: likely prerenal *Transaminitis, mild: 2/2 likely sepsis *h/o CVA (Right MCA): on ASA/statin *h/o LV Thrombus: on eliquis *Anxiety: *HTN/HLD: *Hypothyroidism: *GERD P: -Steroids(wean), nebs, IS/Acapella -Abx, pending UC/BC -f/u renal u/s in AM to assess hydronephrosis, if worsens or renal fxn worsens will need to consult Dr. Hough -barba placement -IVF's, f/u lactate -echo pending -monitor rhythm closely, -cont ASA/Statin -hold ACEI for HANK and low BP -will need home albuterol IH refilled upon d/c -[facility]: Eliquis/home PPI full code
[2019-11-06] MEDS ORDERED: ATROPINE SULFATE 1 MG/10 ML SYRINGE IV ONE (17:35)
[2019-11-06] MEDS ORDERED: SENNOSIDES 1 TABLET PO PRN (19:47)
[2019-11-06] MEDS ORDERED: BACLOFEN 10 MG TABLET PO PRN (19:47)
[2019-11-06] MEDS ORDERED: POTASSIUM CHLORIDE 40 MEQ in DEXTROSE 5% IN WATER 500 ML IV PRN (19:47)
[2019-11-06] MEDS ORDERED: ACETAMINOPHEN 325 MG TABLET PO PRN (19:47)
[2019-11-06] MEDS ORDERED: ALPRAZolam 0.5 MG TABLET PO PRN (19:47)
[2019-11-06] MEDS ORDERED: IPRATROPIUM/ALBUTEROL 3 ML AMPUL.NEB NEB PRN (19:47)
[2019-11-06] MEDS ORDERED: VANCOMYCIN PER PHARMACY IV SCH (19:47)
[2019-11-06] MEDS ORDERED: POLYETHYLENE GLYCOL 3350 17 GM PACKET PO PRN (19:47)
[2019-11-06] MEDS ORDERED: POTASSIUM CHLORIDE 20 MEQ TABLET PO PRN ×2 (19:47)
[2019-11-06] MEDS ORDERED: LACTULOSE 20 GM/30 ML ORAL.SOL PO PRN (19:47)
[2019-11-06] MEDS ORDERED: MAGNESIUM SULFATE 2 GM/50 ML BAG IV PRN (19:47)
[2019-11-06] MEDS ORDERED: ONDANSETRON 4 MG/2 ML VIAL IV PRN (19:47)
[2019-11-06] MEDS: 0.9 % SODIUM CHLORIDE 1,000 ML IV SCH (19:50)
[2019-11-06] MEDS: IPRATROPIUM/ALBUTEROL 3 ML AMPUL.NEB NEB SCH (20:48)
[2019-11-06] MEDS: DOCUSATE SODIUM 100 MG CAPSULE PO SCH (22:41)
[2019-11-06] MEDS: busPIRone 5 MG TABLET PO SCH (22:41)
[2019-11-06] MEDS: MIRTAZAPINE 15 MG TABLET PO SCH (22:42)
[2019-11-06] MEDS: APIXABAN 5 MG TABLET PO SCH (22:42)
[2019-11-06] MEDS: 0.9 % SODIUM CHLORIDE 10 ML SYRINGE IV SCH (22:43)
[2019-11-06 23:26] LABS: INR 1.2 (0.9-1.1); Prothrombin Time 15.5 sec (11.9-14.5)
[2019-11-07] MEDS: VANCOMYCIN 1,000 MG in 0.9 % SODIUM CHLORIDE 250 ML IV SCH ×2 (00:48→12:00)
[2019-11-07] MEDS: IPRATROPIUM/ALBUTEROL 3 ML AMPUL.NEB NEB SCH ×4 (00:50→19:02)
[2019-11-07] MEDS: 0.9 % SODIUM CHLORIDE 1,000 ML IV SCH ×2 (03:53→17:04)
[2019-11-07] MEDS: 0.9 % SODIUM CHLORIDE 10 ML SYRINGE IV SCH ×3 (05:23→21:02)
[2019-11-07 06:58] LABS: Basophils # (Auto) 0.01 K/mcL (0.00-0.30); Basophils % (Auto) 0.1 % (0.0-2.0); Eosinophils # (Auto) 0 K/mcL (0.00-0.70); Eosinophils % (Auto) 0 % (0.0-7.0); Granulocytes % (Auto) 87.3 % (38.0-78.0); Hemoglobin 11.2 g/dL (13.7-17.5); Lymphocytes # (Auto) 1.06 K/mcL (1.50-4.80); Mean Cell Volume 85.8 fL (80.0-100.0); Mean Platelet Volume 9.4 fL (7.4-10.4); Monocytes # (Auto) 0.38 K/mcL (0.10-0.90); Monocytes % (Auto) 3.2 % (1.0-12.0); Platelet Count 313 K/mcL (140-440); RBC 4.08 M/mcL (4.63-6.08); Red Cell Distribution Width 13.6 % (11.5-14.5); WBC 11.8 K/mcL (4.50-11.00)
[2019-11-07 07:14] LABS: ALT/SGPT 70 U/l (0-40); AST/SGOT 48 U/l (0-37); Albumin 2.8 gm/dL (3.2-5.2); Alkaline Phosphatase 143 U/L (39-117); Bilirubin,Direct < 0.2 mg/dL (0.0-0.3); Bilirubin,Total 0.3 mg/dL (0.0-1.0); Blood Urea Nitrogen 24 mg/dl (8-23); Calcium 8.5 mg/dl (8.6-10.4); Carbon Dioxide 20 mmol/L (22-30); Chloride 103 mmol/L (96-108); Glucose 153 mg/dL (70-105); Lactate Dehydrogenase 167 U/L (94-250); Phosphorous 2.6 mg/dL (2.7-4.5); Triglycerides 52 mg/dl (<150); Uric Acid 3.8 mg/dL (2.5-8.0)
[2019-11-07 07:15] LABS: Albumin/Globulin Ratio 0.8 (1.0-2.3); Globulin 3.5 gm/dL (2.2-3.7); Glomerular Filtration Rate 69
[2019-11-07] MEDS ORDERED: 0.9 % SODIUM CHLORIDE 500 ML IV ONE (07:28)
[2019-11-07] MEDS ORDERED: MAGNESIUM SULFATE 2 GM/50 ML BAG IV ONE (07:30)
--- NOTE | 2019-11-07 07:32 | Internal Med Progress Note ---
Medical - PN: Subj Patient information: Note initiated : 11/07/19 at 7:25 am Service Date, if different from initiated Date: [] Patient: Pérez Grossman a 68 y/o M admitted on 11/06/19 for shortness of breath. Chief Complaint: [] Interval history: Mr. Grossman is a 68 year old M Presents the ED for shortness of breath that began couple nights ago. Patient denies feeling wheezy but states he feels like his COPD is flaring and this morning was bad enough that he needed to come to the ED. Patient is also out of his home inhalers and was not able to use those during this most recent event. In the ED he was felt to have a COPD exacerbation treated with steroids and nebulizers and improved significantly from presentation. Now satting 97% on room air. He presented with a fever of 101 as well as being tachypneic and tachycardic. His blood pressure was low 1 teens but has dropped down 90s and even the 80s then then stayed pretty consistently in the 90s and low 100s. His lactate was mildly elevated. His urine showed leukocyte esterase and WBCs similar to previous urinalysis. He has been treated for MRSA UTIs in the past. He has a history of multiple kidney stones especially on the left and has been following with Dr. Garcia. Imaging shows mild hydro-in the left tract. Right and mildly elevated. There was a troponin done which is 0.07 no follow-up with 0.04, he never complained of chest pain. Patient reports difficulty urinating occasion with some discomfort but denies burning. Says his urine is darker than usual. At one point his heart rate dropped down to the 40s. Several EKGs were done which showed a second-degree AV block, which I was concerned because the appearance was almost a Mobitz type II although difficult to tell if it was Mobitz type I with poor EKG. Dr. valdes reviewed the case with Dr. Garcia at [facility] who felt it was a type I and that the patient could follow up with Dr. Noel Mccain outpt. heart rates in the 40s on occasion ED and 1 was high 30s. Given a dose of atropine which seemed to bring it up into the 70s and regular. Blood pressure stable but low. In speaking with the patient at this point he denies any shortness of breath and says he feels a whole lot better. He appeared lethargic in bed but he was arousable and he says he does not feel any weaker than usual or any increased malaise. He denies a cough even though this was reported in earlier notes. Denies chest pain. No nausea or vomiting. Denies fever or chills Of note patient appears to be a poor historian, and not know why he is on specific medications. Per old notes from 2018 admission "son reports that the patients bp usually runs low, around 90-100 systolic." 1/6 Feeling better. States breathing is back to normal which is some baseline mild shortness of breath. Denies coughing. Lactate still mildly elevated. Blood pressure soft. No new complaints. Did have some hematuria after Barba catheter placement. ?history of BPH but do not see any medications on home med list. does report frequency and difficulty in initiating urine stream. Review of Systems: denies headache/fever/chills/nausea/vomiting/chest or abdominal pain/cough/dyspnea/diarrhea. Otherwise see above. - Constitutional Vitals: Vital Signs Temp Pulse Resp BP Pulse Ox 97 F 75 22 87/57 95 11/07/19 07:01 11/07/19 07:01 11/07/19 07:01 11/07/19 07:01 11/07/19 07:01 Period Temp Pulse Resp BP Sys/Hu Pulse Ox Last 24 Hr 94.6 F-101.0 F 43-120 12-40 77-146/51-123 90-100 Intake and Output 11/06/19 11/07/19 11/07/19 21:59 05:59 13:59 Intake Total 750 1250 Output Total 250 285 20 Balance 500 965 -20 Weight 86.183 kg Intake & Output: Intake & Output 11/06/19 11/07/19 11/07/19 21:59 05:59 13:59 Intake Total 750 1250 Output Total 250 285 20 Balance 500 965 -20 Weight 86.183 kg Intake: IV 750 1250 Sodium Chloride 0.9% 1,000 ml @ 1000 150 mls/hr IV .Q6H40M [facility] Rx#: [id number] Sodium Chloride 0.9% 500 ml @ 500 Wide Open IV BOLUS ONE Rx#: [id number] Vancomycin 1,000 mg In Sodium 250 250 Chloride 0.9% 250 ml @ 250 mls/ hr IV Q12H [facility] Rx#:[id number] Output: Urine Catheter Amount 250 285 20 Other: Urine Appearance Clear Hematuria Hematuria Straight Hematuria Hematuria Urine Color Blood Tinged Bright Red Straight Bright Red Bright Red Exam: General: Awake, No acute Distress Eyes/N/T: EOMI, Head/Neck: neck supple, CV: RRR, No murmurs, Pulm: mildly diminished, no wheezing/rales Abd: soft, nontender, +BS x4. Ext: no clubbing/cyanosis/edema Neuro: awake, no focal deficits, moves all extremities, Skin: warm/dry Medical - PN: Obj Da - Labs CBC & Chem 7: 11/07/19 05:42 11/07/19 05:42 Labs: Abnormal Lab Results 11/07/19 11/07/19 11/07/19 05:42 05:42 05:42 WBC 11.8 H RBC 4.08 L Hgb 11.2 L Hct 35.0 L Gran % 87.3 H Lymph % (Auto) 9.0 L Gran # 10.34 H Lymph # (Auto) 1.06 L Seg Neutrophils % Lymphocytes % PT INR D-Dimer VBG Lactic Acid 2.5 H Carbon Dioxide 20 L BUN 24 H Creatinine Glucose 153 H Calcium 8.5 L Phosphorus 2.6 L Magnesium 1.5 L AST 48 H ALT 70 H Alkaline Phosphatase 143 H Myoglobin Troponin T C-Reactive Protein NT-Pro-B Natriuret Pep Total Protein Albumin 2.8 L Globulin Albumin/Globulin Ratio 0.8 L Urine Protein Urine Occult Blood Ur Leukocyte Esterase Urine RBC Urine WBC 11/06/19 11/06/19 11/06/19 22:22 13:54 11:34 WBC RBC Hgb Hct Gran % Lymph % (Auto) Gran # Lymph # (Auto) Seg Neutrophils % 81 H Lymphocytes % 9 L PT 15.5 H INR 1.2 H D-Dimer VBG Lactic Acid Carbon Dioxide BUN Creatinine Glucose Calcium Phosphorus Magnesium AST ALT Alkaline Phosphatase Myoglobin Troponin T C-Reactive Protein NT-Pro-B Natriuret Pep Total Protein Albumin Globulin Albumin/Globulin Ratio Urine Protein 100 A Urine Occult Blood >=1.0 A Ur Leukocyte Esterase 500 A Urine RBC 107 H Urine WBC 166 H 11/06/19 11/06/19 11/06/19 11:34 08:21 08:08 WBC RBC Hgb Hct Gran % Lymph % (Auto) Gran # Lymph # (Auto) Seg Neutrophils % Lymphocytes % PT INR D-Dimer VBG Lactic Acid 2.5 H Carbon Dioxide BUN Creatinine Glucose Calcium Phosphorus Magnesium AST ALT Alkaline Phosphatase Myoglobin 91 H Troponin T 0.04 H* C-Reactive Protein NT-Pro-B Natriuret Pep Total Protein Albumin Globulin Albumin/Globulin Ratio Urine Protein Urine Occult Blood Ur Leukocyte Esterase Urine RBC Urine WBC 11/06/19 11/06/19 11/06/19 08:08 08:08 08:08 WBC RBC Hgb Hct Gran % Lymph % (Auto) Gran # Lymph # (Auto) Seg Neutrophils % Lymphocytes % PT INR D-Dimer 0.66 H VBG Lactic Acid Carbon Dioxide BUN Creatinine Glucose Calcium Phosphorus Magnesium AST ALT Alkaline Phosphatase Myoglobin Troponin T 0.07 H* C-Reactive Protein NT-Pro-B Natriuret Pep 2840.0 H Total Protein Albumin Globulin Albumin/Globulin Ratio Urine Protein Urine Occult Blood Ur Leukocyte Esterase Urine RBC Urine WBC 11/06/19 11/06/19 11/06/19 08:08 08:08 08:08 WBC RBC Hgb Hct Gran % 81.5 H Lymph % (Auto) 10.3 L Gran # Lymph # (Auto) 0.92 L Seg Neutrophils % Lymphocytes % PT INR D-Dimer VBG Lactic Acid Carbon Dioxide BUN 27 H Creatinine 1.6 H Glucose 132 H Calcium Phosphorus Magnesium AST 78 H ALT 104 H Alkaline Phosphatase 208 H Myoglobin Troponin T C-Reactive Protein 2.3 H NT-Pro-B Natriuret Pep Total Protein 8.5 H Albumin Globulin 4.6 H Albumin/Globulin Ratio 0.8 L Urine Protein Urine Occult Blood Ur Leukocyte Esterase Urine RBC Urine WBC Meds: Medications Acetaminophen (Tylenol) 650 mg PO Q6HP PRN PRN Reason: PAIN/FEVER > 101 Albuterol/Ipratropium (Duoneb) 3 ml NEB Q4HP PRN PRN Reason: Shortness Of Breath Albuterol/Ipratropium (Duoneb) 3 ml NEB Q6HRT [facility] Last Admin: 11/07/19 00:50 Dose: 3 ml Documented by: Alprazolam (Xanax) 1 mg PO DAILYP PRN PRN Reason: Anxiety Apixaban (Eliquis) 5 mg PO BID [facility] Last Admin: 11/06/19 22:42 Dose: 5 mg Documented by: Aspirin (Aspirin) 81 mg PO DAILY [facility] Atorvastatin Calcium (Lipitor) 80 mg PO DAILY [facility] Baclofen (Lioresal) 10 mg PO HSP PRN PRN Reason: muscle cramps Buspirone HCl (Buspar) 15 mg PO BID [facility] Last Admin: 11/06/19 22:41 Dose: Not Given Documented by: Docusate Sodium (Colace) 100 mg PO BID [facility] Last Admin: 11/06/19 22:41 Dose: Not Given Documented by: Ceftriaxone Sodium 2 gm/ (Dextrose) 50 mls @ 100 mls/hr IV DAILY [facility]; Protocol Potassium Chloride 40 meq/ (Dextrose) 520 mls @ 130 mls/hr IV UD PRN PRN Reason: Potassium < 3 Magnesium Sulfate (Magnesium Sulfate) 2 gm in 50 mls @ 50 mls/hr IV UD PRN PRN Reason: Magnesium </= 1.6 Sodium Chloride (Sodium Chloride 0.9%) 1,000 mls @ 150 mls/hr IV .Q6H40M [facility] Stop: 11/07/19 09:06 Last Admin: 11/07/19 03:53 Dose: 150 mls/hr Documented by: Vancomycin HCl 1,000 mg/ (Sodium Chloride) 250 mls @ 250 mls/hr IV Q12H [facility] Last Infusion: 11/07/19 02:00 Dose: Infused Documented by: Lactulose (Cephulac) 20 gm PO DAILYP PRN PRN Reason: Constipation Levothyroxine Sodium (Synthroid) 50 mcg PO QAMAC [facility] Mirtazapine (Remeron) 0 mg PO HS [facility] Last Admin: 11/06/19 22:42 Dose: Not Given Documented by: Mupirocin (Bactroban Oint 2%) 1 dose NARES BID [facility] Ondansetron HCl (Zofran) 4 mg IV Q4HP PRN PRN Reason: Nausea And Vomiting Pantoprazole Sodium (Protonix) 40 mg PO QAMAC [facility] Polyethylene Glycol (Miralax) 17 gm PO DAILYP PRN PRN Reason: Constipation Potassium Chloride (Kdur) 40 meq PO UD PRN PRN Reason: Potssium is 3-3.5 Potassium Chloride (Kdur) 40 meq PO UD PRN PRN Reason: Potassium < 3 Senna (Senokot) 2 tab PO DAILYP PRN PRN Reason: Constipation Sodium Chloride (Saline Flush) 10 ml IV Q8 [facility] Last Admin: 11/07/19 05:23 Dose: Not Given Documented by: Vancomycin HCl (Vancomycin Per Pharmacy) 1 order IV UD [facility]; Protocol Medical - PN: A/P - Time Spent With Patient Total time spent is greater than 50% in coordination of care (as documented) at patient's floor/unit and/or counseling patient: - Narrative A/P Narrative: A: *AECOPD(no O2 @home): pt has been out of home IH's -on rooma air *UTI(h/o MRSA on UC): *Sepsis: with mild lactic acidosis *Hypotension: Per old notes from 2018 admission "son reports that the patients bp usually runs low, around 90-100 systolic." *Nephrolithiasis with mild left hydronephrosis: follows with Dr. Garcia *AVB, [place] to be Mobitz type I (as opposed to initial concern for type II) after ED discussion with Dr. Garcia: -Dr. Garcia recommends outpt f/u with Dr. Noel Mccain of [facility] *HANK on CKD III: likely prerenal -improved *Transaminitis, mild: 2/2 likely sepsis, improved *h/o CVA (Right MCA): on ASA/statin *h/o LV Thrombus: on eliquis *Anxiety: *HTN/HLD: on ACEI *Hypothyroidism: *GERD *BPH symptoms P: -Steroids(wean), nebs, IS/Acapella -Abx, pending UC/BC -f/u renal pending, if hydronephrosis worsens or renal fxn worsens will need to consult Dr. Garcia -barba placement -IVF's, f/u lactate -echo pending -monitor rhythm closely, -cont ASA/Statin -hold ACEI for HANK and low BP -will need home albuterol IH refilled upon d/c -flomax, f/u with Dr. garcia -[facility] -ppx: Eliquis/home PPI
[2019-11-07] MEDS: LEVOTHYROXINE 50 MCG TABLET PO SCH (07:36)
[2019-11-07] MEDS: PANTOPRAZOLE 40 MG TABLET PO SCH (07:36)
[2019-11-07] MEDS: predniSONE 20 MG TABLET PO SCH (07:37)
--- NOTE | 2019-11-07 08:36 | Ultrasound Report ---
History: Kidney stones FINDINGS: Patient was technically difficult to scan due to body habitus. The right kidney measures 5.4 x 5.5 x 14.3 cm. The cortex is mildly echogenic. The tiny nonobstructing stone seen in the right kidney on the CT scan done yesterday is not identified on today's ultrasound. The left kidney is atrophic and more echogenic than the right. It measures 4.0 x 4.8 x 10.6 cm. There are multiple echogenic stones in the mid and lower portion which measure up to 2 x 3 cm in size. There is no hydronephrosis. The stones were identified on yesterday's CT scan. No perinephric fluid collection is seen on either side. There is a Bowser catheter within the urinary bladder. Nonvascular solid material is present along the dependent portion of the urinary bladder. This terminal measures 1.5 x 1.8 cm in size. We were unable to document flow of urine through either ureter into the bladder. Bladder wall is thickened. The prostate is severely enlarged with an estimated volume of 110 cc. There is a post drainage residual of 17 cc. IMPRESSION: Echogenic kidneys bilaterally with asymmetric atrophy of the left kidney Multiple nonobstructing stones in the left kidney Echogenic material in the urinary bladder which could be debris, clot or less likely neoplasm Severely enlarged prostate No significant change from yesterday's CT scan Interpreted and Authenticated by: Hussein Dean 11/07/19
[2019-11-07] MEDS: ASPIRIN 81 MG TAB.CHEW PO SCH (08:54)
[2019-11-07] MEDS: DOCUSATE SODIUM 100 MG CAPSULE PO SCH ×2 (08:56→21:00)
[2019-11-07] MEDS: busPIRone 5 MG TABLET PO SCH ×2 (08:56→21:00)
[2019-11-07] MEDS: ATORVASTATIN 40 MG TABLET PO SCH (08:56)
[2019-11-07] MEDS: MUPIROCIN OINT 2% 22GM NARES SCH ×2 (08:56→21:00)
[2019-11-07] MEDS: APIXABAN 5 MG TABLET PO SCH ×2 (08:56→21:01)
[2019-11-07] MEDS ORDERED: TAMSULOSIN 0.4 MG CAPSULE PO ONE (09:15)
[2019-11-07] MEDS: cefTRIAXone 2 GM in DEXTROSE 5% IN WATER 50 ML IV SCH (11:25)
[2019-11-07] MEDS ORDERED: 0.9 % SODIUM CHLORIDE 1,000 ML IV SCH (12:15)
[2019-11-07] MEDS: NICOTINE 21 MG PATCH TOPICAL SCH (12:52)
[2019-11-07] MEDS ORDERED: LACTATED RINGERS 1,000 ML IV ONE (13:14)
[2019-11-07] MEDS ORDERED: LACTATED RINGERS 250 ML IV ONE (17:01)
[2019-11-07] MEDS ORDERED: NOREPINEPHRINE BITARTRATE 8 MG in 0.9 % SODIUM CHLORIDE 242 ML IV PRN (17:02)
[2019-11-07] MEDS ORDERED: 0.9 % SODIUM CHLORIDE 250 ML IV SCH (17:15)
[2019-11-07] MEDS ORDERED: NOREPINEPHRINE BITARTRATE 16 MG in 0.9 % SODIUM CHLORIDE 234 ML IV PRN (18:00)
[2019-11-07] MEDS: TAMSULOSIN 0.4 MG CAPSULE PO SCH (21:01)
[2019-11-07] MEDS: MIRTAZAPINE 15 MG TABLET PO SCH (21:01)
[2019-11-07] MEDS: 0.9 % SODIUM CHLORIDE 250 ML IV SCH (21:02)
[2019-11-08] MEDS: 0.9 % SODIUM CHLORIDE 1,000 ML IV SCH ×2 (00:17→06:01)
[2019-11-08] MEDS: VANCOMYCIN 1,000 MG in 0.9 % SODIUM CHLORIDE 250 ML IV SCH ×2 (00:20→12:04)
[2019-11-08] MEDS: IPRATROPIUM/ALBUTEROL 3 ML AMPUL.NEB NEB SCH ×4 (02:10→20:48)
[2019-11-08] MEDS: 0.9 % SODIUM CHLORIDE 10 ML SYRINGE IV SCH ×3 (06:01→21:30)
[2019-11-08 07:13] LABS: ALT/SGPT 47 U/l (0-40); AST/SGOT 31 U/l (0-37); Albumin 2.5 gm/dL (3.2-5.2); Albumin/Globulin Ratio 0.8 (1.0-2.3); Alkaline Phosphatase 119 U/L (39-117); Bilirubin,Direct < 0.2 mg/dL (0.0-0.3); Bilirubin,Total 0.2 mg/dL (0.0-1.0); Blood Urea Nitrogen 21 mg/dl (8-23); Carbon Dioxide 21 mmol/L (22-30); Chloride 108 mmol/L (96-108); Glomerular Filtration Rate 78; Glucose 126 mg/dL (70-105); Lactate Dehydrogenase 179 U/L (94-250); Triglycerides 39 mg/dl (<150); Uric Acid 3.2 mg/dL (2.5-8.0)
--- NOTE | 2019-11-08 07:27 | Internal Med Progress Note ---
Medical - PN: Subj Patient information: Note initiated : 11/08/19 at 7:22 am Service Date, if different from initiated Date: [] Patient: Pérez Grossman a 68 y/o M admitted on 11/06/19 for shortness of breath. Chief Complaint: [] Interval history: Mr. Grossman is a 68 year old M Presents the ED for shortness of breath that began couple nights ago. Patient denies feeling wheezy but states he feels like his COPD is flaring and this morning was bad enough that he needed to come to the ED. Patient is also out of his home inhalers and was not able to use those during this most recent event. In the ED he was felt to have a COPD exacerbation treated with steroids and nebulizers and improved significantly from presentation. Now satting 97% on room air. He presented with a fever of 101 as well as being tachypneic and tachycardic. His blood pressure was low 1 teens but has dropped down 90s and even the 80s then then stayed pretty consistently in the 90s and low 100s. His lactate was mildly elevated. His urine showed leukocyte esterase and WBCs similar to previous urinalysis. He has been treated for MRSA UTIs in the past. He has a history of multiple kidney stones especially on the left and has been following with Dr. Hough. Imaging shows mild hydro-in the left tract. Right and mildly elevated. There was a troponin done which is 0.07 no follow-up with 0.04, he never complained of chest pain. Patient reports difficulty urinating occasion with some discomfort but denies burning. Says his urine is darker than usual. At one point his heart rate dropped down to the 40s. Several EKGs were done which showed a second-degree AV block, which I was concerned because the appearance was almost a Mobitz type II although difficult to tell if it was Mobitz type I with poor EKG. Dr. valdes reviewed the case with Dr. Garcia at [facility] who felt it was a type I and that the patient could follow up with Dr. Noel Mccain outpt. heart rates in the 40s on occasion ED and 1 was high 30s. Given a dose of atropine which seemed to bring it up into the 70s and regular. Blood pressure stable but low. In speaking with the patient at this point he denies any shortness of breath and says he feels a whole lot better. He appeared lethargic in bed but he was arousable and he says he does not feel any weaker than usual or any increased malaise. He denies a cough even though this was reported in earlier notes. Denies chest pain. No nausea or vomiting. Denies fever or chills Of note patient appears to be a poor historian, and not know why he is on specific medications. Per old notes from 2018 admission "son reports that the patients bp usually runs low, around 90-100 systolic." 11/07 Feeling better. States breathing is back to normal which is some baseline mild shortness of breath. Denies coughing. Lactate still mildly elevated. Blood pressure soft. No new complaints. Did have some hematuria after Barba catheter placement. ?history of BPH but do not see any medications on home med list. does report frequency and difficulty in initiating urine stream. 11/08 Yesterday the first half of the day he had poor urine output but ended up being bolused IV fluids with improvement. He placed on vasopressors temporarily last night. His urine output has been great his blood pressures been better. He is doing much better today lactic acid is within normal limits. On room air. He denies any complaints Review of Systems: denies headache/fever/chills/nausea/vomiting/chest or abdominal pain/cough/dyspnea/diarrhea. Otherwise see above. - Constitutional Vitals: Vital Signs Temp Pulse Resp BP Pulse Ox 97.5 F 84 27 H 120/69 96 11/08/19 00:01 11/08/19 00:01 11/08/19 00:01 11/08/19 00:01 11/08/19 00:10 Period Temp Pulse Resp BP Sys/Hu Pulse Ox Last 24 Hr 96.3 F-97.7 F 42-94 5-31 79-131/50-80 92-100 Intake and Output 11/07/19 11/08/19 11/08/19 21:59 05:59 13:59 Intake Total 3 989 Output Total 420 60 Balance 1613 929 Weight 94.302 kg Intake & Output: Intake & Output 11/07/19 11/08/19 11/08/19 21:59 05:59 13:59 Intake Total 2032 989 Output Total 420 60 Balance 1613 929 Weight 94.302 kg Intake: IV 1613 989 Sodium Chloride 0.9% 1,000 ml @ 359 727 100 mls/hr IV .Q10H [facility] Rx#: [id number] Lactated Ringers 250 ml @ Wide 1250 Open IV BOLUS ONE Rx#:[id number] Levophed 16 mg In Sodium 4 12 Chloride 0.9% 234 ml @ 10 MCG/ MIN 9.375 mls/hr IV Q24HP PRN Rx#:[id number] Vancomycin 1,000 mg In Sodium 250 Chloride 0.9% 250 ml @ 250 mls/ hr IV Q12H [facility] Rx#:[id number] Oral 420 Output: Urine Catheter Amount 420 60 Other: Meal Dinner Percent of Meal Consumed 75% Feeding Ability Assist with Tray Set Up Urine Appearance Clear Clear Straight Clear Clear Urine Color Dark Yellow Dark Yellow Straight Dark Yellow Dark Yellow Urine Odor Normal Exam: General: Awake, No acute Distress Eyes/N/T: EOMI, Head/Neck: neck supple, CV: RRR, No murmurs, Pulm: mildly diminished, no wheezing/rales Abd: soft, nontender, +BS x4. Ext: no clubbing/cyanosis/edema Neuro: awake, no focal deficits, moves all extremities, Skin: warm/dry Medical - PN: Obj Da - Labs CBC & Chem 7: 11/08/19 05:20 11/08/19 05:20 Labs: Abnormal Lab Results 11/08/19 11/07/19 11/07/19 05:20 15:49 11:52 WBC RBC Hgb Hct Gran % Lymph % (Auto) Gran # Lymph # (Auto) Seg Neutrophils % Lymphocytes % PT INR D-Dimer VBG Lactic Acid 3.6 H 4.2 H* Carbon Dioxide 21 L BUN Creatinine Glucose 126 H Calcium 8.0 L Phosphorus Magnesium AST ALT 47 H Alkaline Phosphatase 119 H Myoglobin Troponin T C-Reactive Protein NT-Pro-B Natriuret Pep Total Protein 5.5 L Albumin 2.5 L Globulin Albumin/Globulin Ratio 0.8 L Urine Protein Urine Occult Blood Ur Leukocyte Esterase Urine RBC Urine WBC 11/07/19 11/07/19 11/07/19 05:42 05:42 05:42 WBC 11.8 H RBC 4.08 L Hgb 11.2 L Hct 35.0 L Gran % 87.3 H Lymph % (Auto) 9.0 L Gran # 10.34 H Lymph # (Auto) 1.06 L Seg Neutrophils % Lymphocytes % PT INR D-Dimer VBG Lactic Acid 2.5 H Carbon Dioxide 20 L BUN 24 H Creatinine Glucose 153 H Calcium 8.5 L Phosphorus 2.6 L Magnesium 1.5 L AST 48 H ALT 70 H Alkaline Phosphatase 143 H Myoglobin Troponin T C-Reactive Protein NT-Pro-B Natriuret Pep Total Protein Albumin 2.8 L Globulin Albumin/Globulin Ratio 0.8 L Urine Protein Urine Occult Blood Ur Leukocyte Esterase Urine RBC Urine WBC 11/06/19 11/06/19 11/06/19 22:22 13:54 11:34 WBC RBC Hgb Hct Gran % Lymph % (Auto) Gran # Lymph # (Auto) Seg Neutrophils % 81 H Lymphocytes % 9 L PT 15.5 H INR 1.2 H D-Dimer VBG Lactic Acid Carbon Dioxide BUN Creatinine Glucose Calcium Phosphorus Magnesium AST ALT Alkaline Phosphatase Myoglobin Troponin T C-Reactive Protein NT-Pro-B Natriuret Pep Total Protein Albumin Globulin Albumin/Globulin Ratio Urine Protein 100 A Urine Occult Blood >=1.0 A Ur Leukocyte Esterase 500 A Urine RBC 107 H Urine WBC 166 H 11/06/19 11/06/19 11/06/19 11:34 08:21 08:08 WBC RBC Hgb Hct Gran % Lymph % (Auto) Gran # Lymph # (Auto) Seg Neutrophils % Lymphocytes % PT INR D-Dimer VBG Lactic Acid 2.5 H Carbon Dioxide BUN Creatinine Glucose Calcium Phosphorus Magnesium AST ALT Alkaline Phosphatase Myoglobin 91 H Troponin T 0.04 H* C-Reactive Protein NT-Pro-B Natriuret Pep Total Protein Albumin Globulin Albumin/Globulin Ratio Urine Protein Urine Occult Blood Ur Leukocyte Esterase Urine RBC Urine WBC 11/06/19 11/06/19 11/06/19 08:08 08:08 08:08 WBC RBC Hgb Hct Gran % Lymph % (Auto) Gran # Lymph # (Auto) Seg Neutrophils % Lymphocytes % PT INR D-Dimer 0.66 H VBG Lactic Acid Carbon Dioxide BUN Creatinine Glucose Calcium Phosphorus Magnesium AST ALT Alkaline Phosphatase Myoglobin Troponin T 0.07 H* C-Reactive Protein NT-Pro-B Natriuret Pep 2840.0 H Total Protein Albumin Globulin Albumin/Globulin Ratio Urine Protein Urine Occult Blood Ur Leukocyte Esterase Urine RBC Urine WBC 11/06/19 11/06/19 11/06/19 08:08 08:08 08:08 WBC RBC Hgb Hct Gran % 81.5 H Lymph % (Auto) 10.3 L Gran # Lymph # (Auto) 0.92 L Seg Neutrophils % Lymphocytes % PT INR D-Dimer VBG Lactic Acid Carbon Dioxide BUN 27 H Creatinine 1.6 H Glucose 132 H Calcium Phosphorus Magnesium AST 78 H ALT 104 H Alkaline Phosphatase 208 H Myoglobin Troponin T C-Reactive Protein 2.3 H NT-Pro-B Natriuret Pep Total Protein 8.5 H Albumin Globulin 4.6 H Albumin/Globulin Ratio 0.8 L Urine Protein Urine Occult Blood Ur Leukocyte Esterase Urine RBC Urine WBC Meds: Medications Acetaminophen (Tylenol) 650 mg PO Q6HP PRN PRN Reason: PAIN/FEVER > 101 Albuterol/Ipratropium (Duoneb) 3 ml NEB Q4HP PRN PRN Reason: Shortness Of Breath Albuterol/Ipratropium (Duoneb) 3 ml NEB Q6HRT [facility] Last Admin: 11/08/19 02:10 Dose: Not Given Documented by: Alprazolam (Xanax) 1 mg PO DAILYP PRN PRN Reason: Anxiety Apixaban (Eliquis) 5 mg PO BID [facility] Last Admin: 11/07/19 21:01 Dose: 5 mg Documented by: Aspirin (Aspirin) 81 mg PO DAILY [facility] Last Admin: 11/07/19 08:54 Dose: 81 mg Documented by: Atorvastatin Calcium (Lipitor) 80 mg PO DAILY [facility] Last Admin: 11/07/19 08:56 Dose: 80 mg Documented by: Baclofen (Lioresal) 10 mg PO HSP PRN PRN Reason: muscle cramps Buspirone HCl (Buspar) 15 mg PO BID [facility] Last Admin: 11/07/19 21:00 Dose: 15 mg Documented by: Docusate Sodium (Colace) 100 mg PO BID [facility] Last Admin: 11/07/19 21:00 Dose: 100 mg Documented by: Ceftriaxone Sodium 2 gm/ (Dextrose) 50 mls @ 100 mls/hr IV DAILY [facility]; Protocol Last Infusion: 11/07/19 12:01 Dose: Infused Documented by: Potassium Chloride 40 meq/ (Dextrose) 520 mls @ 130 mls/hr IV UD PRN PRN Reason: Potassium < 3 Magnesium Sulfate (Magnesium Sulfate) 2 gm in 50 mls @ 50 mls/hr IV UD PRN PRN Reason: Magnesium </= 1.6 Vancomycin HCl 1,000 mg/ (Sodium Chloride) 250 mls @ 250 mls/hr IV Q12H [facility] Last Infusion: 11/08/19 01:20 Dose: Infused Documented by: Sodium Chloride (Sodium Chloride 0.9%) 1,000 mls @ 100 mls/hr IV .Q10H [facility] Stop: 11/08/19 12:58 Last Admin: 11/08/19 06:01 Dose: Not Given Documented by: Norepinephrine Bitartrate 16 (mg/ Sodium Chloride) 250 mls @ 9.375 mls/hr IV Q24HP PRN; Protocol PRN Reason: Hypotension Last Titration: 11/08/19 00:00 Dose: 0 mcg/min, 0 mls/hr Documented by: Sodium Chloride (Sodium Chloride 0.9%) 250 mls @ 20 mls/hr IV .[id number] [facility] Last Admin: 11/07/19 21:02 Dose: 20 mls/hr Documented by: Lactulose (Cephulac) 20 gm PO DAILYP PRN PRN Reason: Constipation [facility] Admin: 11/07/19 07:36 Dose: 50 mcg Documented by: Mirtazapine (Remeron) 0 mg PO HS [facility] Last Admin: 11/07/19 21:01 Dose: 15 mg Documented by: Mupirocin (Bactroban Oint 2%) 1 dose NARES BID [facility] Last Admin: 11/07/19 21:00 Dose: 1 dose Documented by: Nicotine (Nicoderm) 21 mg TOPICAL DAILY@1000 [facility] Last Admin: 11/07/19 12:52 Dose: 21 mg Documented by: Ondansetron HCl (Zofran) 4 mg IV Q4HP PRN PRN Reason: Nausea And Vomiting Pantoprazole Sodium (Protonix) 40 mg PO QAMAC [facility] Last Admin: 11/07/19 07:36 Dose: 40 mg Documented by: Polyethylene Glycol (Miralax) 17 gm PO DAILYP PRN PRN Reason: Constipation Potassium Chloride (Kdur) 40 meq PO UD PRN PRN Reason: Potssium is 3-3.5 Potassium Chloride (Kdur) 40 meq PO UD PRN PRN Reason: Potassium < 3 Prednisone (Prednisone) 60 mg PO QAMCC [facility] Last Admin: 11/07/19 07:37 Dose: 60 mg Documented by: Senann (Senokot) 2 tab PO DAILYP PRN PRN Reason: Constipation Sodium Chloride (Saline Flush) 10 ml IV Q8 [facility] Last Admin: 11/08/19 06:01 Dose: Not Given Documented by: Tamsulosin HCl (Flomax) 0.4 mg PO HS [facility] Last Admin: 11/07/19 21:01 Dose: 0.4 mg Documented by: Vancomycin HCl (Vancomycin Per Pharmacy) 1 order IV UD [facility]; Protocol Medical - PN: A/P - Time Spent With Patient Total time spent is greater than 50% in coordination of care (as documented) at patient's floor/unit and/or counseling patient: - Narrative A/P Narrative: A: *AECOPD(no O2 @home): pt has been out of home IH's -on room air *UTI(h/o MRSA on UC): *?Bacteremia (GPC / bottles): *Sepsic Shock: resolved, off vasopressors -Per old notes from 2018 admission "son reports that the patients bp usually runs low, around 90-100 systolic." *Nephrolithiasis with mild left hydronephrosis: follows with Dr. Hough -no hydronephrosis or obstruction on f/u renal u/s (11/07) -echo EF 70%, diastolic dysfxn *AVB, [place] to be Mobitz type I (as opposed to initial concern for type II) after ED discussion with Dr. Garcia: did get atropine in EDx1 -Dr. Garcia [facility] *HANK on CKD III: likely prerenal -resolved *Transaminitis, mild: 2/2 likely sepsis, improved *h/o CVA (Right MCA): on ASA/statin *h/o LV Thrombus: on eliquis *Anxiety: *HTN/HLD: on ACEI *Hypothyroidism: *GERD *BPH symptoms with UR: P: -Steroids(wean), nebs, IS/Acapella -Vanco until BC return/Rocephin, pending UC, serial BC -if hydronephrosis returns or renal fxn worsens will need to consult Dr. Hough -barba placement, flomax, d/c in AM with post-void residuals, f/u with Dr. Waqar rehman -IVF's, f/u lactate -monitor rhythm closely, -cont ASA/Statin -hold ACEI for HANK and low BP -will need home albuterol IH refilled upon d/c -f/u with Dr. Noel Mccain with [facility] -ppx: Eliquis/home PPI
[2019-11-08] MEDS: 0.9 % SODIUM CHLORIDE 250 ML IV SCH ×2 (07:35→18:22)
[2019-11-08] MEDS: PANTOPRAZOLE 40 MG TABLET PO SCH (07:40)
[2019-11-08] MEDS: LEVOTHYROXINE 50 MCG TABLET PO SCH (07:40)
[2019-11-08] MEDS: predniSONE 20 MG TABLET PO SCH (07:41)
[2019-11-08 07:43] LABS: Phosphorous 2.3 mg/dL (2.7-4.5)
[2019-11-08 07:46] LABS: Basophils # (Auto) 0.01 K/mcL (0.00-0.30); Basophils % (Auto) 0.1 % (0.0-2.0); Eosinophils # (Auto) 0 K/mcL (0.00-0.70); Eosinophils % (Auto) 0 % (0.0-7.0); Hematocrit 33.1 % (40.1-51.0); Hemoglobin 10.2 g/dL (13.7-17.5); Lymphocytes # (Auto) 0.98 K/mcL (1.50-4.80); Lymphocytes % (Auto) 5.8 % (15.5-49.0); Mean Cell Volume 86.6 fL (80.0-100.0); Mean Corpuscular HGB Conc 30.8 g/dL (31.0-36.0); Mean Platelet Volume 9.3 fL (7.4-10.4); Monocytes # (Auto) 0.86 K/mcL (0.10-0.90); Monocytes % (Auto) 5.1 % (1.0-12.0); Platelet Count 300 K/mcL (140-440); RBC 3.82 M/mcL (4.63-6.08); Red Cell Distribution Width 13.9 % (11.5-14.5); WBC 16.9 K/mcL (4.50-11.00)
[2019-11-08] MEDS: ASPIRIN 81 MG TAB.CHEW PO SCH (08:37)
[2019-11-08] MEDS: APIXABAN 5 MG TABLET PO SCH ×2 (08:37→21:29)
[2019-11-08] MEDS: MUPIROCIN OINT 2% 22GM NARES SCH ×2 (08:37→21:30)
[2019-11-08] MEDS: DOCUSATE SODIUM 100 MG CAPSULE PO SCH ×2 (08:37→21:29)
[2019-11-08] MEDS: busPIRone 5 MG TABLET PO SCH ×2 (08:37→21:29)
[2019-11-08] MEDS: ATORVASTATIN 40 MG TABLET PO SCH (08:38)
[2019-11-08] MEDS: NICOTINE 21 MG PATCH TOPICAL SCH (08:39)
[2019-11-08] MEDS: cefTRIAXone 2 GM in DEXTROSE 5% IN WATER 50 ML IV SCH (08:39)
[2019-11-08 11:11] LABS: Band Neutrophils % 5 % (0-10); Hypochromasia 1+ (NONE SEEN); Lymphocytes % 4 % (15-49); Monocytes % (Manual) 5 % (1-12); Ovalocytes FEW (NONE SEEN); Platelet Estimate NORMAL (NORMAL); Poikilocytosis 1+ (NONE SEEN); Polychromasia FEW (NONE SEEN); RBC Fragments FEW (NONE SEEN); RBC Morphology ABNORM (NORMAL); Segmented Neutrophils % 86 % (38-78)
--- NOTE | 2019-11-08 16:21 | Infectious Disease Consult ---
History of Present Illness Patient information: Note initiated : 11/08/19 at 4:19 pm Service Date, if different from initiated Date: [] Patient: Pérez Grossman 68 y/o M admitted on 11/06/19 for shortness of breath. Chief Complaint: [] Consult date: 11/08/19 Requesting Physician: Ralph Flores Reason for Consult: MRSA bacteremia Chief complaint: I don't know: I was sick History of present illness: HPI obtained from chart review as patient not a good historian 68 year old man with PMHx of CHF, COPD, kidney stones, AV block was admitted 11/06/2019 with c/o productive cough, fever and SOB since Thursday [11/04/19]. Pt has Hx of COPD exacerbations. In the ED temp was 100.7F, RR 34, BP 113/72, satting 95% on RA. WBC 9k, Cr 1.6, AST 78, ALT 104, Trop T 0.07, NT pro BNP 2840, lactic acid 2.5. Pt was admitted, started on IV fluids. IV pressors were briefly required as BP didnot initially respond to IVF. Blood Cx sent, and he was also started on IV vanc and IV ceftriaxone. At time of my visit, he was sleepy but arousable. He mentioned that he has been sick since thursday, had SOB, productive cough and fever. Denied any sick contacts. Denies any recent procedures, steroid injections, skin boils. On chart review has multiple urine Cx +ve for MRSA in 2018 and 2019. Review of Systems ROS unobtainable: due to mental status Past History Past family history: no sick contacts lives with his son Matthew in [place] Past social history: quit smoking many years ago doesnot consume alc no injection drug use Medications and Allergies Home Medications Medication Instructions Recorded Confirmed Type aspirin 81 mg tablet,delayed 81 mg PO QDAY 08/22/16 11/06/19 History release atorvastatin 80 mg tablet 80 mg PO QDAY 08/22/16 11/06/19 History lisinopril 2.5 mg tablet 2.5 mg PO QDAY 08/22/16 11/06/19 History alprazolam 1 mg tablet 1 mg PO QDAY PRN tab 04/06/18 11/06/19 History ipratropium 20 mcg-albuterol 100 1 puff INHALATION Q4-6HP PRN 04/06/18 11/06/19 History mcg/actuation mist for inhalation mirtazapine 15 mg tablet 1 - 2 tab PO QHS tab 04/06/18 11/06/19 History omeprazole 20 mg capsule,delayed 20 mg PO QDAY 04/06/18 11/06/19 History release buspirone 10 mg tablet 15 mg PO BID 04/16/18 11/06/19 History apixaban 5 mg tablet 5 mg PO BID 08/27/18 11/06/19 History baclofen 10 mg tablet 10 mg PO QHS PRN tab 05/20/19 11/06/19 History Levothyroxine 50 mcg PO DAILY 11/06/19 11/06/19 History Allergies Allergy/AdvReac Type Severity Reaction Status Date / Time No Known Drug Allergies Allergy Verified 09/28/19 10:49 Physical Examination Vital signs: Temp Pulse Resp BP Pulse Ox 36.1 C 73 22 110/64 97 11/08/19 16:01 11/08/19 16:01 11/08/19 14:01 11/08/19 16:01 11/08/19 16:01 General appearance: lethargic Eyes pulmonary: nonicteric Auscultation: bilateral: clear Cardiovascular: other (s1 s2 normal, no m/r/g) Gastrointestinal: normoactive bowel sounds, soft, non-tender Integumentary: other (no skin boils) Musculoskeletal: no deformities, other (no joint tenderness over knees, ankles, elbows, wrists and shoulders) unable to assess due to mental status, other (alert, oriented x 3) Results - Laboratory Findings CBC and BMP: 11/08/19 05:20 11/08/19 05:20 PT/INR, D-dimer PT 15.5 sec (11.9-14.5) H 11/06/19 22:22 INR 1.2 (0.9-1.1) H 11/06/19 22:22 D-Dimer 0.66 ug/ml (0.00-0.40) H 11/06/19 08:08 Abnormal lab findings: Abnormal Labs 11/06/19 11/06/19 11/06/19 08:08 08:08 08:08 WBC RBC Hgb Hct MCHC Gran % 81.5 H Lymph % (Auto) 10.3 L Gran # Lymph # (Auto) 0.92 L Seg Neutrophils % Lymphocytes % RBC Morphology Polychromasia Hypochromasia Poikilocytosis Ovalocytes RBC Fragments PT INR D-Dimer VBG Lactic Acid Carbon Dioxide BUN 27 H Creatinine 1.6 H Glucose 132 H Calcium Phosphorus Magnesium AST 78 H ALT 104 H Alkaline Phosphatase 208 H Myoglobin Troponin T C-Reactive Protein 2.3 H NT-Pro-B Natriuret Pep Total Protein 8.5 H Albumin Globulin 4.6 H Albumin/Globulin Ratio 0.8 L Urine Protein Urine Occult Blood Ur Leukocyte Esterase Urine RBC Urine WBC 11/06/19 11/06/19 11/06/19 08:08 08:08 08:08 WBC RBC Hgb Hct MCHC Gran % Lymph % (Auto) Gran # Lymph # (Auto) Seg Neutrophils % Lymphocytes % RBC Morphology Polychromasia Hypochromasia Poikilocytosis Ovalocytes RBC Fragments PT INR D-Dimer 0.66 H VBG Lactic Acid Carbon Dioxide BUN Creatinine Glucose Calcium Phosphorus Magnesium AST ALT Alkaline Phosphatase Myoglobin Troponin T 0.07 H* C-Reactive Protein NT-Pro-B Natriuret Pep 2840.0 H Total Protein Albumin Globulin Albumin/Globulin Ratio Urine Protein Urine Occult Blood Ur Leukocyte Esterase Urine RBC Urine WBC 11/06/19 11/06/19 11/06/19 08:08 08:21 11:34 WBC RBC Hgb Hct MCHC Gran % Lymph % (Auto) Gran # Lymph # (Auto) Seg Neutrophils % Lymphocytes % RBC Morphology Polychromasia Hypochromasia Poikilocytosis Ovalocytes RBC Fragments PT INR D-Dimer VBG Lactic Acid 2.5 H Carbon Dioxide BUN Creatinine Glucose Calcium Phosphorus Magnesium AST ALT Alkaline Phosphatase Myoglobin 91 H Troponin T 0.04 H* C-Reactive Protein NT-Pro-B Natriuret Pep Total Protein Albumin Globulin Albumin/Globulin Ratio Urine Protein Urine Occult Blood Ur Leukocyte Esterase Urine RBC Urine WBC 11/06/19 11/06/19 11/06/19 11:34 13:54 22:22 WBC RBC Hgb Hct MCHC Gran % Lymph % (Auto) Gran # Lymph # (Auto) Seg Neutrophils % 81 H Lymphocytes % 9 L RBC Morphology Polychromasia Hypochromasia Poikilocytosis Ovalocytes RBC Fragments PT 15.5 H INR 1.2 H D-Dimer VBG Lactic Acid Carbon Dioxide BUN Creatinine Glucose Calcium Phosphorus Magnesium AST ALT Alkaline Phosphatase Myoglobin Troponin T C-Reactive Protein NT-Pro-B Natriuret Pep Total Protein Albumin Globulin Albumin/Globulin Ratio Urine Protein 100 A Urine Occult Blood >=1.0 A Ur Leukocyte Esterase 500 A Urine RBC 107 H Urine WBC 166 H 11/07/19 11/07/19 11/07/19 05:42 05:42 05:42 WBC 11.8 H RBC 4.08 L Hgb 11.2 L Hct 35.0 L MCHC Gran % 87.3 H Lymph % (Auto) 9.0 L Gran # 10.34 H Lymph # (Auto) 1.06 L Seg Neutrophils % Lymphocytes % RBC Morphology Polychromasia Hypochromasia Poikilocytosis Ovalocytes RBC Fragments PT INR D-Dimer VBG Lactic Acid 2.5 H Carbon Dioxide 20 L BUN 24 H Creatinine Glucose 153 H Calcium 8.5 L Phosphorus 2.6 L Magnesium 1.5 L AST 48 H ALT 70 H Alkaline Phosphatase 143 H Myoglobin Troponin T C-Reactive Protein NT-Pro-B Natriuret Pep Total Protein Albumin 2.8 L Globulin Albumin/Globulin Ratio 0.8 L Urine Protein Urine Occult Blood Ur Leukocyte Esterase Urine RBC Urine WBC 11/07/19 11/07/19 11/08/19 11:52 15:49 05:20 WBC 16.9 H RBC 3.82 L Hgb 10.2 L Hct 33.1 L MCHC 30.8 L Gran % 89.0 H Lymph % (Auto) 5.8 L Gran # 15.05 H Lymph # (Auto) 0.98 L Seg Neutrophils % Lymphocytes % RBC Morphology Polychromasia Hypochromasia Poikilocytosis Ovalocytes RBC Fragments PT INR D-Dimer VBG Lactic Acid 4.2 H* 3.6 H Carbon Dioxide BUN Creatinine Glucose Calcium Phosphorus Magnesium AST ALT Alkaline Phosphatase Myoglobin Troponin T C-Reactive Protein NT-Pro-B Natriuret Pep Total Protein Albumin Globulin Albumin/Globulin Ratio Urine Protein Urine Occult Blood Ur Leukocyte Esterase Urine RBC Urine WBC 11/08/19 11/08/19 05:20 05:20 WBC RBC Hgb Hct MCHC Gran % Lymph % (Auto) Gran # Lymph # (Auto) Seg Neutrophils % 86 H Lymphocytes % 4 L RBC Morphology Abnorm A Polychromasia Few A Hypochromasia 1+ A Poikilocytosis 1+ A Ovalocytes Few A RBC Fragments Few A PT INR D-Dimer VBG Lactic Acid Carbon Dioxide 21 L BUN Creatinine Glucose 126 H Calcium 8.0 L Phosphorus 2.3 L Magnesium AST ALT 47 H Alkaline Phosphatase 119 H Myoglobin Troponin T C-Reactive Protein NT-Pro-B Natriuret Pep Total Protein 5.5 L Albumin 2.5 L Globulin Albumin/Globulin Ratio 0.8 L Urine Protein Urine Occult Blood Ur Leukocyte Esterase Urine RBC Urine WBC Microbiology: Microbiology 11/06/19 13:45 Urine - Clean Void Mid-Stream Urine Culture - Preliminary Staphylococcus aureus 11/06/19 08:28 Blood Blood Culture - Preliminary 11/06/19 08:21 Blood Blood Culture - Preliminary Gram positive cocci 11/06/19 20:08 Nasopharynx Respiratory Panel (PCR) - Final 11/06/19 20:08 Nasopharynx Respiratory Virus Panel (PCR) - Final 11/06/19 20:07 Nose MRSA (PCR) - Final MRSA PCR positive Assessment and Plan - Narrative A/P Narrative: A: 1. 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 Septic shock: off pressors since last night - sec to MRSA bacteremia 3. Nephrolithiasis with mild left hydronephrosis: follows with Dr. Hough -no obstruction on renal US 4. Small left lower lobe infiltrate: seen on CT chest - could be developing pneumonia. Might need f/u imaging if respiratory status worsens to r/o any parapneumonic effusion Recommendations: - Stop IV Ceftriaxone - Continue IV Vanc at current dosing per pharmacy. Trough at 13.6 noted. - Repeat blood Cx every other day until negative blood Cx x 48 hrs - will consider ROMAN if has multiple days of positive blood Cx - continue MRSA decolonization with 2% intranasal mupirocin and below neck whole body chlorhexidine 2% wipes (for total of 5 days) will follow Justin Hawk MD Infectious diseases
[2019-11-08] MEDS: TAMSULOSIN 0.4 MG CAPSULE PO SCH (21:29)
[2019-11-08] MEDS: MIRTAZAPINE 15 MG TABLET PO SCH (21:29)
[2019-11-09] MEDS: VANCOMYCIN 1,000 MG in 0.9 % SODIUM CHLORIDE 250 ML IV SCH ×2 (00:23→12:02)
[2019-11-09] MEDS: IPRATROPIUM/ALBUTEROL 3 ML AMPUL.NEB NEB SCH ×2 (00:55→09:01)
[2019-11-09] MEDS: 0.9 % SODIUM CHLORIDE 10 ML SYRINGE IV SCH ×2 (05:16→15:50)
[2019-11-09 06:29] LABS: Basophils # (Auto) 0.01 K/mcL (0.00-0.30); Basophils % (Auto) 0.1 % (0.0-2.0); Eosinophils # (Auto) 0 K/mcL (0.00-0.70); Eosinophils % (Auto) 0 % (0.0-7.0); Granulocytes % (Auto) 84.7 % (38.0-78.0); Hematocrit 33.9 % (40.1-51.0); Hemoglobin 10.5 g/dL (13.7-17.5); Lymphocytes # (Auto) 1.05 K/mcL (1.50-4.80); Lymphocytes % (Auto) 9.2 % (15.5-49.0); Mean Cell Volume 86.7 fL (80.0-100.0); Mean Platelet Volume 9.5 fL (7.4-10.4); Monocytes # (Auto) 0.69 K/mcL (0.10-0.90); Platelet Count 322 K/mcL (140-440); RBC 3.91 M/mcL (4.63-6.08); Red Cell Distribution Width 14.1 % (11.5-14.5); WBC 11.4 K/mcL (4.50-11.00)
[2019-11-09 06:49] LABS: Blood Urea Nitrogen 22 mg/dl (8-23); Calcium 8.3 mg/dl (8.6-10.4); Carbon Dioxide 22 mmol/L (22-30); Chloride 105 mmol/L (96-108); Glomerular Filtration Rate 78; Glucose 119 mg/dL (70-105)
--- NOTE | 2019-11-09 07:26 | Internal Med Progress Note ---
Medical - PN: Subj Patient information: Note initiated : 11/09/19 at 7:20 am Service Date, if different from initiated Date: [] Patient: Pérez Grossman a 68 y/o M admitted on 11/06/19 for shortness of breath. Chief Complaint: [] Interval history: Mr. Grossman is a 68 year old M Presents the ED for shortness of breath that began couple nights ago. Patient denies feeling wheezy but states he feels like his COPD is flaring and this morning was bad enough that he needed to come to the ED. Patient is also out of his home inhalers and was not able to use those during this most recent event. In the ED he was felt to have a COPD exacerbation treated with steroids and nebulizers and improved significantly from presentation. Now satting 97% on room air. He presented with a fever of 101 as well as being tachypneic and tachycardic. His blood pressure was low 1 teens but has dropped down 90s and even the 80s then then stayed pretty consistently in the 90s and low 100s. His lactate was mildly elevated. His urine showed leukocyte esterase and WBCs similar to previous urinalysis. He has been treated for MRSA UTIs in the past. He has a history of multiple kidney stones especially on the left and has been following with Dr. Hough. Imaging shows mild hydro-in the left tract. Right and mildly elevated. There was a troponin done which is 0.07 no follow-up with 0.04, he never complained of chest pain. Patient reports difficulty urinating occasion with some discomfort but denies burning. Says his urine is darker than usual. At one point his heart rate dropped down to the 40s. Several EKGs were done which showed a second-degree AV block, which I was concerned because the appearance was almost a Mobitz type II although difficult to tell if it was Mobitz type I with poor EKG. Dr. valdes reviewed the case with Dr. Garcia at [facility] who felt it was a type I and that the patient could follow up with Dr. Noel Mccain outpt. heart rates in the 40s on occasion ED and 1 was high 30s. Given a dose of atropine which seemed to bring it up into the 70s and regular. Blood pressure stable but low. In speaking with the patient at this point he denies any shortness of breath and says he feels a whole lot better. He appeared lethargic in bed but he was arousable and he says he does not feel any weaker than usual or any increased malaise. He denies a cough even though this was reported in earlier notes. Denies chest pain. No nausea or vomiting. Denies fever or chills Of note patient appears to be a poor historian, and not know why he is on specific medications. Per old notes from 2018 admission "son reports that the patients bp usually runs low, around 90-100 systolic." 11/07 Feeling better. States breathing is back to normal which is some baseline mild shortness of breath. Denies coughing. Lactate still mildly elevated. Blood pressure soft. No new complaints. Did have some hematuria after Barba catheter placement. ?history of BPH but do not see any medications on home med list. does report frequency and difficulty in initiating urine stream. 11/08 Yesterday the first half of the day he had poor urine output but ended up being bolused IV fluids with improvement. He placed on vasopressors temporarily last night. His urine output has been great his blood pressures been better. He is doing much better today lactic acid is within normal limits. On room air. He denies any complaints 11/09 Patient doing well. Feeling good. Good blood pressures. Oxygenating well on room air. No overnight events or new complaints. Awaiting repeat blood cultures results.. review of Systems: denies headache/fever/chills/nausea/vomiting/chest or abdominal pain/cough/dys pnea/diarrhea. Otherwise see above. - Constitutional Vitals: Vital Signs Temp Pulse Resp BP Pulse Ox 96.2 F L 52 L 14 119/73 96 11/09/19 06:01 11/09/19 06:01 11/09/19 06:01 11/09/19 06:01 11/09/19 06:01 Period Temp Pulse Resp BP Sys/Hu Pulse Ox Last 24 Hr 96.2 F-97.5 F 52-90 12-30 104-127/59-74 91-100 Intake and Output 11/08/19 11/09/19 11/09/19 21:59 05:59 13:59 Intake Total 340 250 Output Total 1000 754 80 Balance -660 -504 -80 Weight 95.3 kg Intake & Output: Intake & Output 11/08/19 11/09/19 11/09/19 21:59 05:59 13:59 Intake Total 340 250 Output Total 1000 754 80 Balance -660 -504 -80 Weight 95.3 kg Intake: IV 250 Vancomycin 1,000 mg In Sodium 250 Chloride 0.9% 250 ml @ 250 mls/ hr IV Q12H [facility] Rx#:[id number] Oral 340 Output: Urine Catheter Amount 1000 754 80 Other: Meal Dinner Percent of Meal Consumed 75% Urine Appearance Clear Clear Clear Straight Clear Urine Color Pale Pale Pale Straight Dark Yellow Urine Odor Normal Exam: General: Awake, No acute Distress Eyes/N/T: EOMI, Head/Neck: neck supple, CV: RRR, No murmurs, Pulm: no wheezing/rales Abd: soft, nontender, +BS x4. Ext: no clubbing/cyanosis/edema Neuro: awake, no focal deficits, moves all extremities, Skin: warm/dry Medical - PN: Obj Da - Labs CBC & Chem 7: 11/09/19 05:05 11/09/19 05:05 Labs: Abnormal Lab Results 11/09/19 11/09/19 11/08/19 05:05 05:05 05:20 WBC 11.4 H RBC 3.91 L Hgb 10.5 L Hct 33.9 L MCHC Gran % 84.7 H Lymph % (Auto) 9.2 L Gran # 9.68 H Lymph # (Auto) 1.05 L Seg Neutrophils % 86 H Lymphocytes % 4 L RBC Morphology Abnorm A Polychromasia Few A Hypochromasia 1+ A Poikilocytosis 1+ A Ovalocytes Few A RBC Fragments Few A PT INR D-Dimer VBG Lactic Acid Carbon Dioxide BUN Creatinine Glucose 119 H Calcium 8.3 L Phosphorus Magnesium AST ALT Alkaline Phosphatase Myoglobin Troponin T C-Reactive Protein NT-Pro-B Natriuret Pep Total Protein Albumin Globulin Albumin/Globulin Ratio Urine Protein Urine Occult Blood Ur Leukocyte Esterase Urine RBC Urine WBC 11/08/19 11/08/19 11/07/19 05:20 05:20 15:49 WBC 16.9 H RBC 3.82 L Hgb 10.2 L Hct 33.1 L MCHC 30.8 L Gran % 89.0 H Lymph % (Auto) 5.8 L Gran # 15.05 H Lymph # (Auto) 0.98 L Seg Neutrophils % Lymphocytes % RBC Morphology Polychromasia Hypochromasia Poikilocytosis Ovalocytes RBC Fragments PT INR D-Dimer VBG Lactic Acid 3.6 H Carbon Dioxide 21 L BUN Creatinine Glucose 126 H Calcium 8.0 L Phosphorus 2.3 L Magnesium AST ALT 47 H Alkaline Phosphatase 119 H Myoglobin Troponin T C-Reactive Protein NT-Pro-B Natriuret Pep Total Protein 5.5 L Albumin 2.5 L Globulin Albumin/Globulin Ratio 0.8 L Urine Protein Urine Occult Blood Ur Leukocyte Esterase Urine RBC Urine WBC 11/07/19 11/07/19 11/07/19 11:52 05:42 05:42 WBC RBC Hgb Hct MCHC Gran % Lymph % (Auto) Gran # Lymph # (Auto) Seg Neutrophils % Lymphocytes % RBC Morphology Polychromasia Hypochromasia Poikilocytosis Ovalocytes RBC Fragments PT INR D-Dimer VBG Lactic Acid 4.2 H* 2.5 H Carbon Dioxide 20 L BUN 24 H Creatinine Glucose 153 H Calcium 8.5 L Phosphorus 2.6 L Magnesium 1.5 L AST 48 H ALT 70 H Alkaline Phosphatase 143 H Myoglobin Troponin T C-Reactive Protein NT-Pro-B Natriuret Pep Total Protein Albumin 2.8 L Globulin Albumin/Globulin Ratio 0.8 L Urine Protein Urine Occult Blood Ur Leukocyte Esterase Urine RBC Urine WBC 11/07/19 11/06/19 11/06/19 05:42 22:22 13:54 WBC 11.8 H RBC 4.08 L Hgb 11.2 L Hct 35.0 L MCHC Gran % 87.3 H Lymph % (Auto) 9.0 L Gran # 10.34 H Lymph # (Auto) 1.06 L Seg Neutrophils % Lymphocytes % RBC Morphology Polychromasia Hypochromasia Poikilocytosis Ovalocytes RBC Fragments PT 15.5 H INR 1.2 H D-Dimer VBG Lactic Acid Carbon Dioxide BUN Creatinine Glucose Calcium Phosphorus Magnesium AST ALT Alkaline Phosphatase Myoglobin Troponin T C-Reactive Protein NT-Pro-B Natriuret Pep Total Protein Albumin Globulin Albumin/Globulin Ratio Urine Protein 100 A Urine Occult Blood >=1.0 A Ur Leukocyte Esterase 500 A Urine RBC 107 H Urine WBC 166 H 11/06/19 11/06/19 11/06/19 11:34 11:34 08:21 WBC RBC Hgb Hct MCHC Gran % Lymph % (Auto) Gran # Lymph # (Auto) Seg Neutrophils % 81 H Lymphocytes % 9 L RBC Morphology Polychromasia Hypochromasia Poikilocytosis Ovalocytes RBC Fragments PT INR D-Dimer VBG Lactic Acid 2.5 H Carbon Dioxide BUN Creatinine Glucose Calcium Phosphorus Magnesium AST ALT Alkaline Phosphatase Myoglobin Troponin T 0.04 H* C-Reactive Protein NT-Pro-B Natriuret Pep Total Protein Albumin Globulin Albumin/Globulin Ratio Urine Protein Urine Occult Blood Ur Leukocyte Esterase Urine RBC Urine WBC 11/06/19 11/06/19 11/06/19 08:08 08:08 08:08 WBC RBC Hgb Hct MCHC Gran % Lymph % (Auto) Gran # Lymph # (Auto) Seg Neutrophils % Lymphocytes % RBC Morphology Polychromasia Hypochromasia Poikilocytosis Ovalocytes RBC Fragments PT INR D-Dimer 0.66 H VBG Lactic Acid Carbon Dioxide BUN Creatinine Glucose Calcium Phosphorus Magnesium AST ALT Alkaline Phosphatase Myoglobin 91 H Troponin T C-Reactive Protein NT-Pro-B Natriuret Pep 2840.0 H Total Protein Albumin Globulin Albumin/Globulin Ratio Urine Protein Urine Occult Blood Ur Leukocyte Esterase Urine RBC Urine WBC 11/06/19 11/06/19 11/06/19 08:08 08:08 08:08 WBC RBC Hgb Hct MCHC Gran % Lymph % (Auto) Gran # Lymph # (Auto) Seg Neutrophils % Lymphocytes % RBC Morphology Polychromasia Hypochromasia Poikilocytosis Ovalocytes RBC Fragments PT INR D-Dimer VBG Lactic Acid Carbon Dioxide BUN 27 H Creatinine 1.6 H Glucose 132 H Calcium Phosphorus Magnesium AST 78 H ALT 104 H Alkaline Phosphatase 208 H Myoglobin Troponin T 0.07 H* C-Reactive Protein 2.3 H NT-Pro-B Natriuret Pep Total Protein 8.5 H Albumin Globulin 4.6 H Albumin/Globulin Ratio 0.8 L Urine Protein Urine Occult Blood Ur Leukocyte Esterase Urine RBC Urine WBC 11/06/19 08:08 WBC RBC Hgb Hct MCHC Gran % 81.5 H Lymph % (Auto) 10.3 L Gran # Lymph # (Auto) 0.92 L Seg Neutrophils % Lymphocytes % RBC Morphology Polychromasia Hypochromasia Poikilocytosis Ovalocytes RBC Fragments PT INR D-Dimer VBG Lactic Acid Carbon Dioxide BUN Creatinine Glucose Calcium Phosphorus Magnesium AST ALT Alkaline Phosphatase Myoglobin Troponin T C-Reactive Protein NT-Pro-B Natriuret Pep Total Protein Albumin Globulin Albumin/Globulin Ratio Urine Protein Urine Occult Blood Ur Leukocyte Esterase Urine RBC Urine WBC Meds: Medications Acetaminophen (Tylenol) 650 mg PO Q6HP PRN PRN Reason: PAIN/FEVER > 101 Albuterol/Ipratropium (Duoneb) 3 ml NEB Q4HP PRN PRN Reason: Shortness Of Breath Albuterol/Ipratropium (Duoneb) 3 ml NEB Q6HRT [facility] Last Admin: 11/09/19 00:55 Dose: 3 ml Documented by: Alprazolam (Xanax) 1 mg PO DAILYP PRN PRN Reason: Anxiety Apixaban (Eliquis) 5 mg PO BID [facility] Last Admin: 11/08/19 21:29 Dose: 5 mg Documented by: Aspirin (Aspirin) 81 mg PO DAILY [facility] Last Admin: 11/08/19 08:37 Dose: 81 mg Documented by: Atorvastatin Calcium (Lipitor) 80 mg PO DAILY [facility] Last Admin: 11/08/19 08:38 Dose: 80 mg Documented by: Baclofen (Lioresal) 10 mg PO HSP PRN PRN Reason: muscle cramps Buspirone HCl (Buspar) 15 mg PO BID [facility] Last Admin: 11/08/19 21:29 Dose: 15 mg Documented by: Docusate Sodium (Colace) 100 mg PO BID [facility] Last Admin: 11/08/19 21:29 Dose: 100 mg Documented by: Potassium Chloride 40 meq/ (Dextrose) 520 mls @ 130 mls/hr IV UD PRN PRN Reason: Potassium < 3 Magnesium Sulfate (Magnesium Sulfate) 2 gm in 50 mls @ 50 mls/hr IV UD PRN PRN Reason: Magnesium </= 1.6 Vancomycin HCl 1,000 mg/ (Sodium Chloride) 250 mls @ 250 mls/hr IV Q12H [facility] Last Infusion: 11/09/19 01:23 Dose: Infused Documented by: Norepinephrine Bitartrate 16 (mg/ Sodium Chloride) 250 mls @ 9.375 mls/hr IV Q24HP PRN; Protocol PRN Reason: Hypotension Last Titration: 11/08/19 00:00 Dose: 0 mcg/min, 0 mls/hr Documented by: Sodium Chloride (Sodium Chloride 0.9%) 250 mls @ 20 mls/hr IV .[id number] [facility] Last Admin: 11/08/19 18:22 Dose: Not Given Documented by: Lactulose (Cephulac) 20 gm PO DAILYP PRN PRN Reason: Constipation Levothyroxine Sodium (Synthroid) 50 mcg PO [facility] Last Admin: 11/08/19 07:40 Dose: 50 mcg Documented by: Mirtazapine (Remeron) 0 mg PO [facility] Last Admin: 11/08/19 21:29 Dose: 30 mg Documented by: Mupirocin (Bactroban Oint 2%) 1 dose NARES BID [facility] Last Admin: 11/08/19 21:30 Dose: 1 dose Documented by: Nicotine (Nicoderm) 21 mg TOPICAL DAILY@1000 [facility] Last Admin: 11/08/19 08:39 Dose: 21 mg Documented by: Ondansetron HCl (Zofran) 4 mg IV Q4HP PRN PRN Reason: Nausea And Vomiting Pantoprazole Sodium (Protonix) 40 mg PO [facility] Last Admin: 11/08/19 07:40 Dose: 40 mg Documented by: Polyethylene Glycol (Miralax) 17 gm PO DAILYP PRN PRN Reason: Constipation Potassium Chloride (Kdur) 40 meq PO UD PRN PRN Reason: Potssium is 3-3.5 Potassium Chloride (Kdur) 40 meq PO UD PRN PRN Reason: Potassium < 3 [facility]) [facility] Admin: 11/08/19 07:41 Dose: 60 mg Documented by: Senna (Senokot) 2 tab PO DAILYP PRN PRN Reason: Constipation Sodium Chloride (Saline Flush) 10 ml IV Q8 [facility] Last Admin: 11/09/19 05:16 Dose: 10 ml Documented by: Tamsulosin HCl (Flomax) 0.4 mg PO [facility] Last Admin: 11/08/19 21:29 Dose: 0.4 mg Documented by: Vancomycin HCl (Vancomycin Per Pharmacy) 1 order IV [facility]; Protocol Medical - PN: A/P - Time Spent With Patient Total time spent is greater than 50% in coordination of care (as documented) at patient's floor/unit and/or counseling patient: - Narrative A/P Narrative: A: *AECOPD(no O2 @home): pt has been out of home IH's -on room air *UTI(MRSA): *Bacteremia (MRSA 11/05 bottles): *Septic Shock: resolved *Nephrolithiasis: follows with Dr. Hough -mild left hydronephrosis on initial imaging, no hydronephrosis or obstruction on f/u renal u/s (11/07) *AVB, [place] to be Mobitz type I (as opposed to initial concern for type II) after ED discussion with Dr. Garcia: did get atropine in EDx1 -Dr. Garcia recommends outpt f/u with Dr. Noel Mccain of [facility] -echo EF 70%, diastolic dysfxn *HANK on CKD III: likely prerenal -resolved *Transaminitis, mild: 2/2 likely sepsis, improved *h/o CVA (Right MCA): on ASA/statin *h/o LV Thrombus: on eliquis *Anxiety: *HTN/HLD: on ACEI *Hypothyroidism: *GERD *BPH symptoms with UR: P: -Steroids(wean), nebs, IS/Acapella -Vanco, ID following, serial BC's -if hydronephrosis returns or renal fxn worsens will need to consult Dr. Hough -barba placement, flomax, d/c barba and check post-void residuals, f/u with Dr. Hough -monitor rhythm -cont ASA/Statin -hold ACEI for HANK and low BP, may restart soon depending on BP -will need home albuterol IH refilled upon d/c -f/u with Dr. Noel Mccain at [facility] -ppx: Eliquis/home PPI
[2019-11-09] MEDS: PANTOPRAZOLE 40 MG TABLET PO SCH (07:50)
[2019-11-09] MEDS: predniSONE 20 MG TABLET PO SCH (07:50)
[2019-11-09] MEDS: NICOTINE 21 MG PATCH TOPICAL SCH ×2 (07:53→08:12)
[2019-11-09] MEDS: LEVOTHYROXINE 50 MCG TABLET PO SCH (08:03)
[2019-11-09] MEDS: ATORVASTATIN 40 MG TABLET PO SCH (08:10)
[2019-11-09] MEDS: busPIRone 5 MG TABLET PO SCH ×2 (08:11→20:23)
[2019-11-09] MEDS: DOCUSATE SODIUM 100 MG CAPSULE PO SCH ×2 (08:11→20:24)
[2019-11-09] MEDS: APIXABAN 5 MG TABLET PO SCH ×2 (08:11→20:23)
[2019-11-09] MEDS: ASPIRIN 81 MG TAB.CHEW PO SCH (08:11)
[2019-11-09] MEDS: MUPIROCIN OINT 2% 22GM NARES SCH ×2 (09:58→20:24)
[2019-11-09] MEDS: 0.9 % SODIUM CHLORIDE 250 ML IV SCH ×2 (10:03→10:58)
[2019-11-09] MEDS ORDERED: SENNOSIDES 1 TABLET PO PRN (10:07)
[2019-11-09] MEDS ORDERED: VANCOMYCIN PER PHARMACY IV SCH (10:07)
[2019-11-09] MEDS ORDERED: LACTULOSE 20 GM/30 ML ORAL.SOL PO PRN (10:07)
[2019-11-09] MEDS ORDERED: IPRATROPIUM/ALBUTEROL 3 ML AMPUL.NEB NEB PRN (10:07)
[2019-11-09] MEDS ORDERED: POTASSIUM CHLORIDE 40 MEQ in DEXTROSE 5% IN WATER 500 ML IV PRN (10:07)
[2019-11-09] MEDS ORDERED: NOREPINEPHRINE BITARTRATE 16 MG in 0.9 % SODIUM CHLORIDE 234 ML IV PRN (10:07)
[2019-11-09] MEDS ORDERED: ALPRAZolam 0.5 MG TABLET PO PRN (10:07)
[2019-11-09] MEDS ORDERED: MAGNESIUM SULFATE 2 GM/50 ML BAG IV PRN (10:07)
[2019-11-09] MEDS ORDERED: BACLOFEN 10 MG TABLET PO PRN (10:07)
[2019-11-09] MEDS ORDERED: POTASSIUM CHLORIDE 20 MEQ TABLET PO PRN ×2 (10:07)
[2019-11-09] MEDS ORDERED: ONDANSETRON 4 MG/2 ML VIAL IV PRN (10:07)
[2019-11-09] MEDS ORDERED: ACETAMINOPHEN 325 MG TABLET PO PRN (10:07)
[2019-11-09] MEDS ORDERED: POLYETHYLENE GLYCOL 3350 17 GM PACKET PO PRN (10:07)
[2019-11-09] MEDS: TAMSULOSIN 0.4 MG CAPSULE PO SCH (20:23)
[2019-11-09] MEDS: MIRTAZAPINE 15 MG TABLET PO SCH (20:23)
--- NOTE | 2019-11-09 20:46 | Infectious Disease Prog Note ---
Subjective Patient information: Note initiated : 11/09/19 at 8:44 pm Service Date, if different from initiated Date: [] Patient: Pérez Grossman 68 y/o M admitted on 11/06/19 for shortness of breath. Chief Complaint: [] Interval history: Pt doing better. No fever, chills, n/v, diarrhea. Objective Objective Narrative: alert, awake, oriented x person, place no thrush chest with VBS, wheezing +ve over left lower lobe posteriorly s1 s2 normal bs ++ nttd no peripheral joint tenderness, swelling or rednes no tenderness over spinous vertebral processes - Vital Signs Vital signs: Vital Signs Temp Pulse Pulse Resp BP BP Pulse Ox 11/09/19 19:21 36.7 C 62 22 122/64 97 11/09/19 16:16 56 L 96 11/09/19 16:13 36.6 C 52 L 20 120/67 95 11/09/19 15:01 113/67 11/09/19 14:01 111/60 11/09/19 12:16 52 L 97 11/09/19 12:03 52 L 123/68 96 11/09/19 11:02 60 125/75 97 11/09/19 10:22 58 L 131/88 99 11/09/19 10:01 121/77 11/09/19 09:01 74 130/73 98 11/09/19 08:01 36.4 C 55 L 16 126/102 96 11/09/19 08:00 52 L 11/09/19 07:01 35.6 C L 52 L 127/76 95 11/09/19 06:01 35.7 C L 52 L 14 119/73 96 11/09/19 05:01 35.8 C L 54 L 16 123/72 95 11/09/19 04:01 35.8 C L 54 L 12 122/70 95 11/09/19 03:01 35.9 C L 55 L 16 114/71 94 11/09/19 02:01 36.0 C L 70 15 124/72 95 11/09/19 01:01 36.2 C 73 16 115/73 95 11/09/19 00:01 36.3 C 79 12 120/70 95 11/08/19 23:01 36.4 C 82 120/67 92 01/07/20 22:01 36.3 C 90 118/69 91 11/08/19 21:01 36.3 C 70 127/70 100 11/08/19 20:45 71 18 Intake and Output 11/09/19 11/09/19 11/09/19 05:59 13:59 21:59 Intake Total 250 320 120 Output Total 754 455 Balance -504 -135 120 Intake: IV 250 Vancomycin 1,000 mg In Sodium 250 Chloride 0.9% 250 ml @ 250 mls/ hr IV Q12H [facility] Rx#:[id number] Oral 320 120 Output: Urine Catheter Amount 754 180 Void Amount 275 Other: Meal Breakfast Percent of Meal Consumed 100% Feeding Ability Independent Urine Appearance Clear Clear Straight Clear Urine Color Pale Pale Straight Pale Urine Odor Straight Normal Weight 93.803 kg Patient Weight 11/10/19 05:59 Weight 93.803 kg Intake & Output: Intake & Output 11/09/19 11/09/19 11/09/19 05:59 13:59 21:59 Intake Total 250 320 120 Output Total 754 455 Balance -504 -135 120 Weight 93.803 kg Intake: IV 250 Vancomycin 1,000 mg In Sodium 250 Chloride 0.9% 250 ml @ 250 mls/ hr IV Q12H [facility] Rx#:[id number] Oral 320 120 Output: Urine Catheter Amount 754 180 Void Amount 275 Other: Meal Breakfast Percent of Meal Consumed 100% Feeding Ability Independent Urine Appearance Clear Clear Straight Clear Urine Color Pale Pale Straight Pale Urine Odor Straight Normal - Lab 11/09/19 05:05 11/09/19 05:05 Most recent lab results Calcium 8.3 mg/dl (8.6-10.4) L 11/09/19 05:05 Phosphorus 2.3 mg/dL (2.7-4.5) L 11/08/19 05:20 Magnesium 1.8 mg/dL (1.6-2.5) 11/08/19 05:20 Microbiology 11/06/19 08:28 Blood Blood Culture - Preliminary 11/06/19 13:45 Urine - Clean Void Mid-Stream Urine Culture - Final Methicillin resistant s.aureus 11/08/19 05:20 Blood Blood Culture - Preliminary 11/08/19 05:20 Blood Blood Culture - Preliminary 11/06/19 08:21 Blood Blood Culture - Preliminary Gram positive cocci 11/06/19 20:08 Nasopharynx Respiratory Panel (PCR) - Final 11/06/19 20:08 Nasopharynx Respiratory Virus Panel (PCR) - Final 11/06/19 20:07 Nose MRSA (PCR) - Final MRSA PCR positive Medications Active Medications: Acetaminophen (Tylenol) 650 mg PO Q6HP PRN PRN Reason: PAIN/FEVER > 101 Albuterol/Ipratropium (Duoneb) 3 ml NEB Q4HP PRN PRN Reason: Shortness Of Breath Alprazolam (Xanax) 1 mg PO DAILYP PRN PRN Reason: Anxiety Apixaban (Eliquis) 5 mg PO BID [facility] Last Admin: 11/09/19 20:23 Dose: 5 mg Documented by: ARCHANA Aspirin (Aspirin) 81 mg PO DAILY [facility] Atorvastatin Calcium (Lipitor) 80 mg PO DAILY [facility] Baclofen (Lioresal) 10 mg PO HSP PRN PRN Reason: muscle cramps Buspirone HCl (Buspar) 15 mg PO BID [facility] Last Admin: 11/09/19 20:23 Dose: 15 mg Documented by: ARCHANA Docusate Sodium (Colace) 100 mg PO BID [facility] Last Admin: 11/09/19 20:24 Dose: Not Given Documented by: ARCHANA Non-Admin Reason: Loose Stool Potassium Chloride 40 meq/ (Dextrose) 520 mls @ 130 mls/hr IV UD PRN PRN Reason: Potassium < 3 Magnesium Sulfate (Magnesium Sulfate) 2 gm in 50 mls @ 50 mls/hr IV UD PRN PRN Reason: Magnesium </= 1.6 Norepinephrine Bitartrate 16 (mg/ Sodium Chloride) 250 mls @ 9.375 mls/hr IV Q24HP PRN; Protocol PRN Reason: Hypotension Sodium Chloride (Sodium Chloride 0.9%) 250 mls @ 20 mls/hr IV .[id number] [facility] Last Admin: 11/09/19 10:58 Dose: Not Given Documented by: CELIA Non-Admin Reason: Clinical Judgement Vancomycin HCl 1,000 mg/ (Sodium Chloride) 250 mls @ 250 mls/hr IV Q12H [facility] Last Admin: 11/09/19 12:02 Dose: 250 mls/hr Documented by: LATSpecner Lactulose (Cephulac) 20 gm PO DAILYP PRN PRN Reason: Constipation [facility] Mirtazapine (Remeron) 0 mg PO [facility] Last Admin: 11/09/19 20:23 Dose: 30 mg Documented by: ARCHANA Mupirocin (Bactroban Oint 2%) 1 dose NARES BID [facility] Last Admin: 11/09/19 20:24 Dose: 1 dose Documented by: ARCHANA Nicotine (Nicoderm) 21 mg TOPICAL DAILY@1000 [facility] Ondansetron HCl (Zofran) 4 mg IV Q4HP PRN PRN Reason: Nausea And Vomiting Pantoprazole [facility]) [facility] Polyethylene Glycol (Miralax) 17 gm PO DAILYP PRN PRN Reason: Constipation Potassium Chloride (Kdur) 40 meq PO UD PRN PRN Reason: Potssium is 3-3.5 Potassium Chloride (Kdur) 40 meq PO UD PRN PRN Reason: Potassium < 3 Prednisone (Prednisone) 60 mg PO [facility] Senna (Senokot) 2 tab PO DAILYP PRN PRN Reason: Constipation Sodium Chloride (Saline Flush) 10 ml IV Q8 [facility] Last Admin: 11/09/19 15:50 Dose: 10 ml Documented by: CELIA Tamsulosin HCl (Flomax) 0.4 mg PO [facility] Last Admin: 11/09/19 20:23 Dose: 0.4 mg Documented by: ARCHANA Vancomycin HCl (Vancomycin Per Pharmacy) 1 order IV UD [facility]; Protocol Assessment and Plan - Narrative A/P Narrative: A: 1. 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 Septic shock: off pressors since 11/07/2019 - sec to MRSA bacteremia 3. Nephrolithiasis with mild left hydronephrosis -no obstruction on renal US 4. Small left lower lobe infiltrate: seen on CT chest. Wheezing also noticed over left lower lung on physical exam - could be developing pneumonia. Might need f/u imaging if respiratory status worsens to r/o any parapneumonic effusion Recommendations: - Continue IV Vanc at current dosing per pharmacy. Trough at 13.6 and 14.5 noted. - If blood Cx from 11/08 stay negative until tomorrow, a midline could be placed tomorrow - will consider ROMAN if has multiple days of positive blood Cx - continue MRSA decolonization with 2% intranasal mupirocin and below neck whole body chlorhexidine 2% wipes (for total of 5 days) - CXR with 2 views tomorrow will follow Justin Hawk MD Infectious diseases
[2019-11-10] MEDS: 0.9 % SODIUM CHLORIDE 10 ML SYRINGE IV SCH ×5 (00:01→21:43)
[2019-11-10] MEDS: VANCOMYCIN 1,000 MG in 0.9 % SODIUM CHLORIDE 250 ML IV SCH ×2 (00:01→13:39)
[2019-11-10] MEDS: 0.9 % SODIUM CHLORIDE 250 ML IV SCH ×2 (00:02→13:39)
[2019-11-10] MEDS: predniSONE 20 MG TABLET PO SCH (08:13)
[2019-11-10] MEDS: ATORVASTATIN 40 MG TABLET PO SCH (08:14)
[2019-11-10] MEDS: APIXABAN 5 MG TABLET PO SCH ×2 (08:15→21:41)
[2019-11-10] MEDS: busPIRone 5 MG TABLET PO SCH ×2 (08:15→21:40)
[2019-11-10] MEDS: ASPIRIN 81 MG TAB.CHEW PO SCH (08:16)
[2019-11-10] MEDS: PANTOPRAZOLE 40 MG TABLET PO SCH (08:16)
[2019-11-10] MEDS: LEVOTHYROXINE 50 MCG TABLET PO SCH (08:16)
[2019-11-10] MEDS: DOCUSATE SODIUM 100 MG CAPSULE PO SCH ×2 (08:17→21:47)
[2019-11-10] MEDS: MUPIROCIN OINT 2% 22GM NARES SCH ×2 (08:18→21:43)
--- NOTE | 2019-11-10 11:38 | XRay Report ---
HISTORY: Left lower lobe wheezing FINDINGS: The lungs are hyperinflated due to emphysema. There is mild parenchymal scarring in both lungs, most apparent at the left lung base. On the lateral view and 1.1 x 2.4 cm oval-shaped structure seen overlying the T6 and T7 vertebra. This cannot be localized on the PA view. I have no prior lateral chest x-ray or chest CT for correlation. This structure has benign features and may be due to a marginal spurs around the disc. This is less likely a lung mass. Heart size is normal. There is no pulmonary vascular congestion or pleural effusion. The heart has decreased in size since 11/06/19. The pulmonary vessels are no longer engorged. IMPRESSION: COPD Resolved congestive heart failure Nodular density overlying the midthoracic spine seen only on the lateral view. Interpreted and Authenticated by: Hussein Dean 11/10/19
--- NOTE | 2019-11-10 12:50 | Internal Med Progress Note ---
Medical - PN: Subj Patient information: Note initiated : 11/10/19 at 12:48 pm Service Date, if different from initiated Date: [] Patient: Pérez Grossman a 68 y/o M admitted on 11/06/19 for shortness of breath. Chief Complaint: [] Interval history: Mr. Grossman is a 68 year old M Presents the ED for shortness of breath that began couple nights ago. Patient denies feeling wheezy but states he feels like his COPD is flaring and this morning was bad enough that he needed to come to the ED. Patient is also out of his home inhalers and was not able to use those during this most recent event. In the ED he was felt to have a COPD exacerbation treated with steroids and nebulizers and improved significantly from presentation. Now satting 97% on room air. He presented with a fever of 101 as well as being tachypneic and tachycardic. His blood pressure was low 1 teens but has dropped down 90s and even the 80s then then stayed pretty consistently in the 90s and low 100s. His lactate was mildly elevated. His urine showed leukocyte esterase and WBCs similar to previous urinalysis. He has been treated for MRSA UTIs in the past. He has a history of multiple kidney stones especially on the left and has been following with Dr. Hough. Imaging shows mild hydro-in the left tract. Right and mildly elevated. There was a troponin done which is 0.07 no follow-up with 0.04, he never complained of chest pain. Patient reports difficulty urinating occasion with some discomfort but denies burning. Says his urine is darker than usual. At one point his heart rate dropped down to the 40s. Several EKGs were done which showed a second-degree AV block, which I was concerned because the appearance was almost a Mobitz type II although difficult to tell if it was Mobitz type I with poor EKG. Dr. valdes reviewed the case with Dr. Garcia at [facility] who felt it was a type I and that the patient could follow up with Dr. Noel Mccain outpt. heart rates in the 40s on occasion ED and 1 was high 30s. Given a dose of atropine which seemed to bring it up into the 70s and regular. Blood pressure stable but low. In speaking with the patient at this point he denies any shortness of breath and says he feels a whole lot better. He appeared lethargic in bed but he was arousable and he says he does not feel any weaker than usual or any increased malaise. He denies a cough even though this was reported in earlier notes. Denies chest pain. No nausea or vomiting. Denies fever or chills Of note patient appears to be a poor historian, and not know why he is on specific medications. Per old notes from 2018 admission "son reports that the patients bp usually runs low, around 90-100 systolic." 11/07 Feeling better. States breathing is back to normal which is some baseline mild shortness of breath. Denies coughing. Lactate still mildly elevated. Blood pressure soft. No new complaints. Did have some hematuria after Bowser catheter placement. ?history of BPH but do not see any medications on home med list. does report frequency and difficulty in initiating urine stream. 11/08 Yesterday the first half of the day he had poor urine output but ended up being bolused IV fluids with improvement. He placed on vasopressors temporarily last night. His urine output has been great his blood pressures been better. He is doing much better today lactic acid is within normal limits. On room air. He denies any complaints 11/09 Patient doing well. Feeling good. Good blood pressures. Oxygenating well on room air. No overnight events or new complaints. Awaiting repeat blood cult ures results.. 11/10 Underwent chest x-ray did not show any evidence of worsening pneumonia. Blood c ulture has been negative. No fever no chills overnight. Infectious disease evaluated and recommended a midline placement and planning for vancomycin 2 weeks Pertinent ROS: Respiratory-cough, no shortness of breath CVS-no chest pain no palpitation no syncope Abdomen-no diarrhea no constipation Neuro-no focal neuro deficit, no seizure Psychiatric-remain anxious, no depression Musculoskeletal-denied any new joint pain no skin changes - Constitutional Vitals: Vital Signs Temp Pulse Resp BP Pulse Ox 97.9 F 63 20 128/88 98 11/10/19 07:37 11/10/19 04:00 11/10/19 07:37 11/10/19 07:37 11/10/19 07:37 Period Temp Pulse Resp BP Sys/Hu Pulse Ox Last 24 Hr 97.6 F-98.0 F 52-74 20-24 111-128/60-90 94-98 Intake and Output 11/09/19 11/10/19 11/10/19 21:59 05:59 13:59 Intake Total 120 Output Total 2 201 Balance 120 -2 -201 Weight 206 lb 12.8 oz Intake & Output: Intake & Output 11/09/19 11/10/19 11/10/19 21:59 05:59 13:59 Intake Total 120 Output Total 2 201 Balance 120 -2 -201 Weight 206 lb 12.8 oz Intake: Oral 120 Output: Void Amount 200 # of times incontinent of urine 2 1 Other: Urine Appearance Clear Urine Color Pale Urine Odor Normal Stool Size Large Stool Color Brown Stool Consistency Formed # Voids 1 General appearance: cooperative, obese - Head Head exam: Present: atraumatic, normal inspection, normocephalic - Eye Eye exam: Present: normal appearance. Absent: conjunctival injection, ny stagmus, periorbital swelling, periorbital tenderness - ENT ENT exam: Present: mucous membranes moist, normal exam, normal external ear exam, normal oropharynx - Respiratory Respiratory exam: Present: decreased breath sounds, wheezes. Absent: accessory muscle use - Cardiovascular Cardiovascular exam: Present: normal rate and rhythm - GI/Abdominal GI/Abdominal exam: Present: normal bowel sounds, soft, distended - Neurological Exam Neurological exam: Present: alert, oriented X3, reflexes normal. Absent: motor sensory deficit - Psychiatric Psychiatric exam: Absent: agitated, anxious, depressed Medical - PN: Obj Da - Labs CBC & Chem 7: 11/09/19 05:05 11/09/19 05:05 Labs: Abnormal Lab Results 11/09/19 11/09/19 11/08/19 05:05 05:05 05:20 WBC 11.4 H RBC 3.91 L Hgb 10.5 L Hct 33.9 L MCHC Gran % 84.7 H Lymph % (Auto) 9.2 L Gran # 9.68 H Lymph # (Auto) 1.05 L Seg Neutrophils % 86 H Lymphocytes % 4 L RBC Morphology Abnorm A Polychromasia Few A Hypochromasia 1+ A Poikilocytosis 1+ A Ovalocytes Few A RBC Fragments Few A VBG Lactic Acid Carbon Dioxide Glucose 119 H Calcium 8.3 L Phosphorus ALT Alkaline Phosphatase Total Protein Albumin Albumin/Globulin Ratio 11/08/19 11/08/19 11/07/19 05:20 05:20 15:49 WBC 16.9 H RBC 3.82 L Hgb 10.2 L Hct 33.1 L MCHC 30.8 L Gran % 89.0 H Lymph % (Auto) 5.8 L Gran # 15.05 H Lymph # (Auto) 0.98 L Seg Neutrophils % Lymphocytes % RBC Morphology Polychromasia Hypochromasia Poikilocytosis Ovalocytes RBC Fragments VBG Lactic Acid 3.6 H Carbon Dioxide 21 L Glucose 126 H Calcium 8.0 L Phosphorus 2.3 L ALT 47 H Alkaline Phosphatase 119 H Total Protein 5.5 L Albumin 2.5 L Albumin/Globulin Ratio 0.8 L 11/07/19 11:52 WBC RBC Hgb Hct MCHC Gran % Lymph % (Auto) Gran # Lymph # (Auto) Seg Neutrophils % Lymphocytes % RBC Morphology Polychromasia Hypochromasia Poikilocytosis Ovalocytes RBC Fragments VBG Lactic Acid 4.2 H* Carbon Dioxide Glucose Calcium Phosphorus ALT Alkaline Phosphatase Total Protein Albumin Albumin/Globulin Ratio Meds: Medications Acetaminophen (Tylenol) 650 mg PO Q6HP PRN PRN Reason: PAIN/FEVER > 101 Albuterol/Ipratropium (Duoneb) 3 ml NEB Q4HP PRN PRN Reason: Shortness Of Breath Alprazolam (Xanax) 1 mg PO DAILYP PRN PRN Reason: Anxiety Last Admin: 11/10/19 08:16 Dose: 1 mg Documented by: Apixaban (Eliquis) 5 mg PO BID [facility] Last Admin: 11/10/19 08:15 Dose: 5 mg Documented by: Aspirin (Aspirin) 81 mg PO DAILY [facility] Last Admin: 11/10/19 08:16 Dose: 81 mg Documented by: Atorvastatin Calcium (Lipitor) 80 mg PO DAILY [facility] Last Admin: 11/10/19 08:14 Dose: 80 mg Documented by: Baclofen (Lioresal) 10 mg PO HSP PRN PRN Reason: muscle cramps Buspirone HCl (Buspar) 15 mg PO BID [facility] Last Admin: 11/10/19 08:15 Dose: 15 mg Documented by: Docusate Sodium (Colace) 100 mg PO BID [facility] Last Admin: 11/10/19 08:17 Dose: 100 mg Documented by: Heparin Sodium (Porcine) (Heparin Flush) 2 ml IV Q12 [facility] Potassium Chloride 40 meq/ (Dextrose) 520 mls @ 130 mls/hr IV UD PRN PRN Reason: Potassium < 3 Magnesium Sulfate (Magnesium Sulfate) 2 gm in 50 mls @ 50 mls/hr IV UD PRN PRN Reason: Magnesium </= 1.6 Norepinephrine Bitartrate 16 (mg/ Sodium Chloride) 250 mls @ 9.375 mls/hr IV Q24HP PRN; Protocol PRN Reason: Hypotension Sodium Chloride (Sodium Chloride 0.9%) 250 mls @ 20 mls/hr IV .[id number] [facility] Last Admin: 11/10/19 00:02 Dose: Not Given Documented by: Vancomycin HCl 1,000 mg/ (Sodium Chloride) 250 mls @ 250 mls/hr IV Q12H [facility] Last Admin: 11/10/19 00:01 Dose: 250 mls/hr Documented by: Lactulose (Cephulac) 20 gm PO DAILYP PRN PRN Reason: Constipation Levothyroxine Sodium (Synthroid) 50 mcg PO [facility] Last Admin: 11/10/19 08:16 Dose: 50 mcg Documented by: Mirtazapine (Remeron) 0 mg PO [facility] Last Admin: 11/09/19 20:23 Dose: 30 mg Documented by: Mupirocin (Bactroban Oint 2%) 1 dose NARES BID [facility] Last Admin: 11/10/19 08:18 Dose: 1 dose Documented by: Nicotine (Nicoderm) 21 mg TOPICAL DAILY@1000 [facility] Ondansetron HCl (Zofran) 4 mg IV Q4HP PRN PRN Reason: Nausea And Vomiting Pantoprazole Sodium (Protonix) 40 mg PO [facility] Last Admin: 11/10/19 08:16 Dose: 40 mg Documented by: Polyethylene Glycol (Miralax) 17 gm PO DAILYP PRN PRN Reason: Constipation Potassium Chloride (Kdur) 40 meq PO UD PRN PRN Reason: Potssium is 3-3.5 Potassium Chloride (Kdur) 40 meq PO UD PRN PRN Reason: Potassium < 3 [facility]) [facility] Last Admin: 11/10/19 08:13 Dose: 60 mg Documented by: Senna (Senokot) 2 tab PO DAILYP PRN PRN Reason: Constipation Sodium Chloride (Saline Flush) 10 ml IV Q8 [facility] Last Admin: 11/10/19 05:30 Dose: 10 ml Documented by: Sodium Chloride (Saline Flush) 10 ml IV Q12 [facility] Tamsulosin HCl (Flomax) 0.4 mg PO HS [facility] Last Admin: 11/09/19 20:23 Dose: 0.4 mg Documented by: Vancomycin HCl (Vancomycin Per Pharmacy) 1 order IV UD [facility]; Protocol Medical - PN: A/P - Time Spent With Patient Total time spent is greater than 50% in coordination of care (as documented) at patient's floor/unit and/or counseling patient: - Narrative A/P Narrative: MRSA bacteremia No obvious source identified Patient is a carrier potential skin source ROMAN unremarkable no evidence of endocarditis Infectious disease following the patient and recommended midline placement and 2 weeks of vancomycin Continue on IV vancomycin Repeat blood cultures remain negative Infectious disease recommended MRSA decolonization with a 2% intranasal mupirocin and chlorhexidine 2% wipes for 5 days Septic shock due to MRSA bacteremia Patient is off of pressors since the sixth Nephrolithiasis and left mild-dry nephrosis No obstruction on renal ultrasound Need outpatient nephrology follow-up Mobitz type I heart block Discussed with the Dr. Garcia animation director and recommended outpatient follow- up Dr. Noel Mccain of [facility] Echocardiogram ejection fraction 70% diastolic dysfunction Troponin on admission was negative Acute renal failure on CKD stage III Resolved Mild transaminitis probably secondary to septic shock Improved History of right MCA CVA Continued aspirin and statin History of left ventricular thrombus Continued Eliquis Hypertension Continued ARABELLA inhibitor DVT prophylaxis-on Eliquis CODE STATUS-full code Expected length of stay-1-2 midnights
--- NOTE | 2019-11-10 12:54 | Infectious Disease Prog Note ---
Subjective Patient information: Note initiated : 11/10/19 at 12:47 pm Service Date, if different from initiated Date: [] Patient: Pérez Grossman 68 y/o M admitted on 11/06/19 for shortness of breath. Chief Complaint: [] Interval history: Pt is doing well. Denies any fever, chills, n/v, diarrhea. Discussed about midl ine placement and 2 weeks of antibiotic therapy. Objective Objective Narrative: ao x 3, in nad no thrush chest with VBS b/l, decreased to absent BS at bases s1 s2 normal, no m/r/g bs ++ nttd no joint tenderness - Vital Signs Vital signs: Vital Signs Temp Pulse Pulse Resp BP BP Pulse Ox 11/10/19 07:37 36.6 C 20 128/88 98 11/10/19 04:00 36.4 C 63 22 120/90 94 11/09/19 23:27 36.5 C 74 24 H 115/75 96 11/09/19 20:00 97 11/09/19 19:21 36.7 C 62 22 122/64 97 11/09/19 16:16 56 L 96 11/09/19 16:13 36.6 C 52 L 20 120/67 95 11/09/19 15:01 113/67 11/09/19 14:01 111/60 Intake and Output 11/09/19 11/10/19 11/10/19 21:59 05:59 13:59 Intake Total 120 Output Total 2 201 Balance 120 -2 -201 Intake: Oral 120 Output: Void Amount 200 # of times incontinent of urine 2 1 Other: Urine Appearance Clear Urine Color Pale Urine Odor Normal Stool Size Large Stool Color Brown Stool Consistency Formed # Voids 1 Weight 93.803 kg Intake & Output: Intake & Output 11/09/19 11/10/19 11/10/19 21:59 05:59 13:59 Intake Total 120 Output Total 2 201 Balance 120 -2 -201 Weight 93.803 kg Intake: Oral 120 Output: Void Amount 200 # of times incontinent of urine 2 1 Other: Urine Appearance Clear Urine Color Pale Urine Odor Normal Stool Size Large Stool Color Brown Stool Consistency Formed # Voids 1 - Lab 11/09/19 05:05 11/09/19 05:05 Most recent lab results Calcium 8.3 mg/dl (8.6-10.4) L 11/09/19 05:05 Phosphorus 2.3 mg/dL (2.7-4.5) L 11/08/19 05:20 Magnesium 1.8 mg/dL (1.6-2.5) 11/08/19 05:20 Microbiology 11/06/19 08:28 Blood Blood Culture - Preliminary 11/08/19 05:20 Blood Blood Culture - Preliminary 11/08/19 05:20 Blood Blood Culture - Preliminary 11/06/19 13:45 Urine - Clean Void Mid-Stream Urine Culture - Final Methicillin resistant s.aureus 11/06/19 08:21 Blood Blood Culture - Preliminary Gram positive cocci 11/06/19 20:08 Nasopharynx Respiratory Panel (PCR) - Final 11/06/19 20:08 Nasopharynx Respiratory Virus Panel (PCR) - Final 11/06/19 20:07 Nose MRSA (PCR) - Final MRSA PCR positive Medications Active Medications: Acetaminophen (Tylenol) 650 mg PO Q6HP PRN PRN Reason: PAIN/FEVER > 101 Albuterol/Ipratropium (Duoneb) 3 ml NEB Q4HP PRN PRN Reason: Shortness Of Breath Alprazolam (Xanax) 1 mg PO DAILYP PRN PRN Reason: Anxiety Last Admin: 11/10/19 08:16 Dose: 1 mg Documented by: CELIA Apixaban (Eliquis) 5 mg PO BID [facility] Last Admin: 11/10/19 08:15 Dose: 5 mg Documented by: Admin: 11/09/19 20:23 Dose: 5 mg Documented by: ARCHANA Aspirin (Aspirin) 81 mg PO DAILY [facility] Last Admin: 11/10/19 08:16 Dose: 81 mg Documented by: CELIA Atorvastatin Calcium (Lipitor) 80 mg PO DAILY [facility] Last Admin: 11/10/19 08:14 Dose: 80 mg Documented by: CELIA Baclofen (Lioresal) 10 mg PO HSP PRN PRN Reason: muscle cramps Buspirone HCl (Buspar) 15 mg PO BID [facility] Last Admin: 11/10/19 08:15 Dose: 15 mg Documented by: Admin: 11/09/19 20:23 Dose: 15 mg Documented by: ARCHANA Docusate Sodium (Colace) 100 mg PO BID [facility] Last Admin: 11/10/19 08:17 Dose: 100 mg Documented by: Admin: 11/09/19 20:24 Dose: Not Given Documented by: ARCHANA Non-Admin Reason: Loose Stool Heparin Sodium (Porcine) (Heparin Flush) 2 ml IV Q12 [facility] Potassium Chloride 40 meq/ (Dextrose) 520 mls @ 130 mls/hr IV UD PRN PRN Reason: Potassium < 3 Magnesium Sulfate (Magnesium Sulfate) 2 gm in 50 mls @ 50 mls/hr IV UD PRN PRN Reason: Magnesium </= 1.6 Norepinephrine Bitartrate 16 (mg/ Sodium Chloride) 250 mls @ 9.375 mls/hr IV Q24HP PRN; Protocol PRN Reason: Hypotension Sodium Chloride (Sodium Chloride 0.9%) 250 mls @ 20 mls/hr IV .[id number] [facility] Last Admin: 11/10/19 00:02 Dose: Not Given Documented by: COLLEEN Non-Admin Reason: Clinical Judgement Admin: 11/09/19 10:58 Dose: Not Given Documented by: CELIA Non-Admin Reason: Clinical Judgement Vancomycin HCl 1,000 mg/ (Sodium Chloride) 250 mls @ 250 mls/hr IV Q12H [facility] Last Admin: 11/10/19 00:01 Dose: 250 mls/hr Documented by: Infusion: 11/09/19 13:02 Dose: 250 mls/hr Documented by: Admin: 11/09/19 12:02 Dose: 250 mls/hr Documented by: CELIA Lactulose (Cephulac) 20 gm PO DAILYP PRN PRN Reason: Constipation Levothyroxine Sodium (Synthroid) 50 mcg PO QAMAC [facility] Last Admin: 11/10/19 08:16 Dose: 50 mcg Documented by: CELIA Mirtazapine (Remeron) 0 mg PO HS [facility] Last Admin: 11/09/19 20:23 Dose: 30 mg Documented by: ARCHANA Mupirocin (Bactroban Oint 2%) 1 dose NARES BID [facility] Last Admin: 11/10/19 08:18 Dose: 1 dose Documented by: Admin: 11/09/19 20:24 Dose: 1 dose Documented by: ARCHANA Nicotine (Nicoderm) 21 mg TOPICAL DAILY@1000 [facility] Ondansetron HCl (Zofran) 4 mg IV Q4HP PRN PRN Reason: Nausea And Vomiting [facility]op[facility]ole [facility]) [facility] Last Admin: 11/10/19 08:16 Dose: 40 mg Documented by: CELIA Polyethylene Glycol (Miralax) 17 gm PO DAILYP PRN PRN Reason: Constipation Potassium Chloride (Kdur) 40 meq PO UD PRN PRN Reason: Potssium is 3-3.5 Potassium Chloride (Kdur) 40 meq PO UD PRN PRN Reason: Potassium < 3 Prednisone (Prednisone) 60 mg PO [facility] Last Admin: 11/10/19 08:13 Dose: 60 mg Documented by: CELIA Senna (Senokot) 2 tab PO DAILYP PRN PRN Reason: Constipation Sodium Chloride (Saline Flush) 10 ml IV Q8 [facility] Last Admin: 11/10/19 05:30 Dose: 10 ml Documented by: Admin: 11/10/19 00:01 Dose: 10 ml Documented by: Admin: 11/09/19 15:50 Dose: 10 ml Documented by: CELIA Sodium Chloride (Saline Flush) 10 ml IV Q12 [facility] Tamsulosin HCl (Flomax) 0.4 mg PO HS [facility] Last Admin: 11/09/19 20:23 Dose: 0.4 mg Documented by: ARCHANA Vancomycin HCl (Vancomycin Per Pharmacy) 1 [place] [facility] Protocol Assessment and Plan - Narrative A/P Narrative: A: 1. Uncomplicated MRSA bacteremia: 11/05 bottles +ve for Staph aureus with positive mecA gene - no obvious focus, but pt is a MRSA nasal carrier and therefore could be skin translocation across dry skin or scratch or break in skin - neg TTE for any evidence of endocarditis - blood Cx neg since 11/08/2019 2. Nodular density overlying the midthoracic spine seen only on the lateral view: unsure what it, might need PCP or pulmonary f/u 3. Nephrolithiasis with mild left hydronephrosis -no obstruction on renal US 4. Small left lower lobe infiltrate: seen on CT chest. no Wheezing today - CXR without any evidence of pneumonia Recommendations: - Continue IV Vanc at current dosing per pharmacy. Trough at 13.6 and 14.5 noted. Target Vanc levels 10-20 - midline placement today - continue MRSA decolonization with 2% intranasal mupirocin and below neck whole body chlorhexidine 2% wipes (for total of 5 days) - will recommend a 2-week course from 11/08/2019 with a stop date of 11/22/2019. Pharmacy will follow Vanc levels as pt would be coming to infusion center at [facility]. I am also available for any assistance will sign off. Please call back with questions. Justin Hawk MD Infectious diseases
[2019-11-10] MEDS ORDERED: QUEtiapine 25 MG TABLET PO SCH (21:00)
[2019-11-10] MEDS: TAMSULOSIN 0.4 MG CAPSULE PO SCH (21:41)
[2019-11-10] MEDS: MIRTAZAPINE 15 MG TABLET PO SCH (21:41)
[2019-11-10] MEDS ORDERED: QUEtiapine 25 MG TABLET ONE (23:56)
[2019-11-11] MEDS: VANCOMYCIN 1,000 MG in 0.9 % SODIUM CHLORIDE 250 ML IV SCH ×2 (00:03→10:39)
[2019-11-11] MEDS: 0.9 % SODIUM CHLORIDE 250 ML IV SCH ×2 (01:47→11:57)
[2019-11-11] MEDS: 0.9 % SODIUM CHLORIDE 10 ML SYRINGE IV SCH ×3 (06:37→12:00)
[2019-11-11] MEDS: ATORVASTATIN 40 MG TABLET PO SCH (10:28)
[2019-11-11] MEDS: LEVOTHYROXINE 50 MCG TABLET PO SCH (10:29)
[2019-11-11] MEDS: PANTOPRAZOLE 40 MG TABLET PO SCH (10:29)
[2019-11-11] MEDS: ASPIRIN 81 MG TAB.CHEW PO SCH (10:30)
[2019-11-11] MEDS: predniSONE 20 MG TABLET PO SCH (10:30)
[2019-11-11] MEDS: MUPIROCIN OINT 2% 22GM NARES SCH (10:31)
[2019-11-11] MEDS: APIXABAN 5 MG TABLET PO SCH (10:31)
[2019-11-11] MEDS: DOCUSATE SODIUM 100 MG CAPSULE PO SCH (10:31)
[2019-11-11] MEDS: busPIRone 5 MG TABLET PO SCH (10:31)
--- NOTE | 2019-11-11 10:43 | Discharge Summary ---
Medical - DS: Prov Patient information: Note initiated : 11/11/19 at 10:41 am Service Date, if different from initiated Date: [] Patient: Pérez Grossman 68 y/o M admitted on 11/06/19 for shortness of breath. Chief Complaint: [] Date of admission: 11/06/19 19:39 Discharge date: 11/11/19 Primary care physician: Clotilde Steve Consults: 11/06/19 15:39 Consult to Physician [CONS] Stat Comment: Consulting Provider: Ralph Flores Reason For Exam: Physician to Consult 11/08/19 11:23 Consult to Physician [CONS] Routine Comment: Consulting Provider: Justin Hawk Reason For Exam: Physician to Consult Medical - DS: Meds - Discharge Medications Prescriptions: Mupirocin Oint 2% [Bactroban Oint 2%] 1 dose NARES BID #1 tube Transmission Status: [place] [email or web address] [id number] Tamsulosin [Flomax] 0.4 mg PO HS #30 cap Transmission Status: Pending to [email or web address] 54236 Nicotine [Nicoderm] 21 mg TOPICAL DAILY@1000 #30 patch Transmission Status: [place] [email or web address] [id number] Pantoprazole [Protonix] 40 mg PO QAMAC #30 tab Transmission Status: Pending to [email or web address] [id number] Sennosides [Senokot] 2 tab PO DAILYP PRN #30 tab PRN Reason: Constipation Transmission Status: Pending to [email or web address] 54777 Vancomycin 1 gm IV Q12H #28 vial Prescription Printed Active and Home Medications: Home Medications aspirin 81 mg tablet,delayed release 81 mg PO QDAY 08/22/16 [History Confirmed 11/06/19 Last Taken 10/03/18] atorvastatin 80 mg tablet 80 mg PO QDAY 08/22/16 [History Confirmed 11/06/19 Last Taken 10/04/18] lisinopril 2.5 mg tablet 2.5 mg PO QDAY 08/22/16 [History Confirmed 11/06/19 Last Taken 10/04/18] ipratropium 20 mcg-albuterol 100 mcg/actuation mist for inhalation 1 puff INHALATION Q4-6HP PRN 04/06/18 [History Confirmed 11/06/19 Last Taken 09/23/18] mirtazapine 15 mg tablet 1 - 2 tab PO QHS tab 04/06/18 [History Confirmed 11/06/19 Last Taken 10/04/18] omeprazole 20 mg capsule,delayed release 20 mg PO QDAY 04/06/18 [History Confirmed 11/06/19 Last Taken 10/04/18] buspirone 10 mg tablet 15 mg PO BID 04/16/18 [History Confirmed 11/06/19 Last Taken 10/04/18] apixaban 5 mg tablet 5 mg PO BID 08/27/18 [History Confirmed 11/06/19 Last Taken 10/01/18] Levothyroxine 50 mcg PO DAILY 11/06/19 [History Confirmed 11/06/19 Last Taken Unknown] ALPRAZolam [Xanax] 1 mg PO DAILYP PRN tablet 11/11/19 [Rx Last Taken Unknown] Mupirocin Oint 2% [Bactroban Oint 2%] 1 dose NARES BID #1 tube 11/11/19 [Rx Last Taken Unknown] Nicotine [Nicoderm] 21 mg TOPICAL DAILY@1000 #30 patch 11/11/19 [Rx Last Taken Unknown] Pantoprazole [Protonix] 40 mg PO QAMAC #30 tab 11/11/19 [Rx Last Taken Unknown] Sennosides [Senokot] 2 tab PO DAILYP PRN #30 tab 11/11/19 [Rx Last Taken Unknown] Tamsulosin [Flomax] 0.4 mg PO HS #30 cap 11/11/19 [Rx Last Taken Unknown] Vancomycin 1 gm IV Q12H #28 vial 11/11/19 [Rx Last Taken Unknown] Medical - DS: Hosp Hospital Course: Mr. Grossman is a 68 year old M Presents the ED for shortness of breath that began couple nights ago. Patient denies feeling wheezy but states he feels like his COPD is flaring and this mo rning was bad enough that he needed to come to the ED. Patient is also out of his home inhalers and was not able to use those during this most recent event. In the ED he was felt to have a COPD exacerbation treated with steroids and nebulizers and improved significantly from presentation. Now satting 97% on room air. He presented with a fever of 101 as well as being tachypneic and tachycardic. His blood pressure was low 1 teens but has dropped down 90s and even the 80s then then stayed pretty consistently in the 90s and low 100s. His lactate was mildly elevated. His urine showed leukocyte esterase and WBCs similar to previous urinalysis. He has been treated for MRSA UTIs in the past. He has a history of multiple kidney stones especially on the left and has been following with Dr. Hough. Imaging shows mild hydro-in the left tract. Right and mildly elevated. There was a troponin done which is 0.07 no follow-up with 0.04, he never complained of chest pain. Patient reports difficulty urinating occasion with some discomfort but denies burning. Says his urine is darker than usual. At one point his heart rate dropped down to the 40s. Several EKGs were done which showed a second-degree AV block, which I was concerned because the appearance was almost a Mobitz type II although difficult to tell if it was Mobitz type I with poor EKG. Dr. valdes reviewed the case with Dr. Garcia at [facility] who felt it was a type I and that the patient could follow up with Dr. Noel Mccain outpt. heart rates in the 40s on occasion ED and 1 was high 30s. Given a dose of atrop ine which seemed to bring it up into the 70s and regular. Blood pressure stable but low. In speaking with the patient at this point he denies any shortness of breath and says he feels a whole lot better. He appeared lethargic in bed but he was arousable and he says he does not feel any weaker than usual or any increased malaise. He denies a cough even though this was reported in earlier notes. Denies chest pain. No nausea or vomiting. Denies fever or chills Of note patient appears to be a poor historian, and not know why he is on specific medications. Per old notes from 2018 admission "son reports that the patients bp usually runs low, around 90-100 systolic." 1 Feeling better. States breathing is back to normal which is some baseline mild shortness of breath. Denies coughing. Lactate still mildly elevated. Blood pressure soft. No new complaints. Did have some hematuria after Bowser catheter placement. ?history of BPH but do not see any medications on home med list. d oes report frequency and difficulty in initiating urine stream. 11/08 Yesterday the first half of the day he had poor urine output but ended up being bolused IV fluids with improvement. He placed on vasopressors temporarily last night. His urine output has been great his blood pressures been better. He is doing much better today lactic acid is within normal limits. On room air. He denies any complaints 11/09 Patient doing well. Feeling good. Good blood pressures. Oxygenating well on room air. No overnight events or new complaints. Awaiting repeat blood cultures results.. 11/10 Underwent chest x-ray did not show any evidence of worsening pneumonia. Blood culture has been negative. No fever no chills overnight. Infectious disease evaluated and recommended a midline placement and planning for vancomycin 2 weeks MRSA bacteremia No obvious source identified Patient is a carrier potential skin source ROMAN unremarkable no evidence of endocarditis Infectious disease following the patient and recommended midline placement and 2 weeks of vancomycin Continue on IV vancomycin Repeat blood cultures remain negative Infectious disease recommended MRSA decolonization with a 2% intranasal mupirocin and chlorhexidine 2% wipes for 5 days Septic shock due to MRSA bacteremia Patient is off of pressors since the sixth Nephrolithiasis and left mild-dry nephrosis No obstruction on renal ultrasound Need outpatient nephrology follow-up Mobitz type I heart block 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 Noel Mccain of [facility] Echocardiogram ejection fraction 70% diastolic dysfunction Troponin on admission was negative Acute renal failure on CKD stage III Resolved Mild transaminitis probably secondary to septic shock Improved History of right MCA CVA Continued aspirin and statin History of left ventricular thrombus Continued Eliquis Hypertension Continued ARABELLA inhibitor Discharge diagnosis: MRSA bacteremia, sepsis due to UTI, Mobitz type I heart block - Time Spent with Patient Total time spent providing and/or coordinating discharge services: Greater than 30 minutes Medical - DS: Exam - Constitutional Vitals: Vital Signs Temp Pulse Pulse Resp BP BP Pulse Ox 11/11/19 08:00 97.7 F 83 18 143/87 90 11/11/19 04:14 60 98 11/11/19 02:48 49 L 140/90 11/11/19 00:00 98.3 F 60 20 146/82 94 11/10/19 19:00 110/80 11/10/19 18:37 97.1 F 90 18 170/90 95 11/10/19 17:05 62 20 11/10/19 16:00 99.2 F H 124/76 94 11/10/19 12:00 98.6 F 12476 93 Intake and Output 11/10/19 11/11/19 11/11/19 21:59 05:59 13:59 Intake Total 250 300 Output Total 1 Balance 250 299 Intake: IV 250 250 Vancomycin 1,000 mg In Sodium 250 250 Chloride 0.9% 250 ml @ 250 mls/ hr IV Q12H [facility] Rx#:[id number] Oral 50 Output: # of times incontinent of urine 1 Other: Stool Size Small Stool Color Brown Stool Consistency Formed Weight 209 lb 11.2 oz - Head Head exam: Present: normal inspection, normocephalic - Eye Eye exam: Present: normal appearance. Absent: nystagmus, periorbital swelling, periorbital tenderness - ENT ENT exam: Present: mucous membranes moist, normal exam, normal external ear e xam, normal oropharynx - Neck Neck exam: Present: normal inspection. Absent: lymphadenopathy, meningismus - Respiratory Respiratory exam: Present: normal respiratory exam. Absent: accessory muscle use, chest wall tenderness - Cardiovascular Cardiovascular exam: Present: normal rate and rhythm, systolic murmur. Absent: JVD, +S3, +S4 - GI/Abdominal GI/Abdominal exam: Present: normal bowel sounds, soft, distended - Neurological Exam Neurological exam: Present: alert, oriented X3, reflexes normal. Absent: motor sensory deficit Medical - DS: Data Labs on day of discharge: Preliminary micro results at discharge 11/08/19 05:20 Blood Culture - Preliminary Blood 11/08/19 05:20 Blood Culture - Preliminary Blood Medical - DS: A/P - Patient/Caregiver Discharge Instructions Activity: increase activity as tolerated Diet: Low Sodium (2gm) Additional Instructions: You are scheduled for outpatient IV Antibiotics (Vancomycin) to be twice day (8:00 am and 8:00 pm). The first dose will be done on the Med/Surg nurse's station and will be done there for the evening dose and weekends. During the week you will need to go to day surgery for the morning dose. Follow up with a asbestos pipe supervisor at earliest opportunity for foot/nail care. Prescriptions: Mupirocin Oint 2% [Bactroban Oint 2%] 1 dose NARES BID #1 tube Transmission Status: Pending to [email or web address] [id number] Tamsulosin [Flomax] 0.4 mg PO HS #30 cap Transmission Status: Pending to [email or web address] 16060 Nicotine [Nicoderm] 21 mg TOPICAL DAILY@1000 #30 patch [facility]: [facility] Pantoprazole [Protonix] 40 mg PO QAMAC #30 tab Transmission Status: Pending to [email or web address] 18808 Sennosides [Senokot] 2 tab PO DAILYP PRN #30 tab PRN Reason: Constipation Transmission Status: [id number] Vancomycin 1 gm IV Q12H #28 vial Prescription Printed Other Amb Orders: Outpatient Midline Catheter Care Location: None Selected Basic Metabolic Panel Location: None Selected Vancomycin,Trough Location: None Selected - Follow up Plan Follow up with: Justin Hawk MD [Physician] - 11/22/19 1:45 pm Mindy Chong ARNP [Nurse Practitioner] - 11/24/19 3:00 pm (this appointment is with Dr. Collins at the [facility] Noel Mccain MD [Physician] - (Mobits type 1 heart block work up in 7-10 days) Disposition: Home, Self-Care Care Plan Goals: This discharge packet is provided to you to help keep you informed about your care. We want to ensure you get everything you need when you go home. You will also be receiving a call from us in a few days to follow up with you and see how you are doing since your discharge. This gives us a chance to listen to any concerns you maybe experiencing since you were discharged or any additional needs you may have, as well as providing us feedback on your care experience. We strive to always provide excellent care and thank you for your feedback and for choosing [facility]. Prognosis: Fair Rehab Potential: Fair
[2019-11-11] MEDS: NICOTINE 21 MG PATCH TOPICAL SCH ×2 (11:57→11:59)
--- NOTE | 2019-11-11 22:15 | Infectious Disease Prog Note ---
Subjective Patient information: Note initiated : 11/11/19 at 10:13 pm Service Date, if different from initiated Date: [] Patient: Pérez Grossman 68 y/o M admitted on 11/06/19 for shortness of breath. Chief Complaint: [] Interval history: Pt doing well. Denies any c/o. Feels ready to be discharged. Shared ID clinic f /u on 11/22/2019. Objective Objective Narrative: ao x 3, in nad no thrush chest cta with decreased BS at bases s1 s2 normal, no m/r/g bs ++ nttd - Vital Signs Vital signs: Vital Signs Temp Pulse Resp BP Pulse Ox 11/11/19 09:45 18 11/11/19 08:00 36.5 C 83 18 143/87 90 11/11/19 04:14 60 98 11/11/19 02:48 49 L 140/90 11/11/19 00:00 36.8 C 60 20 146/82 94 Intake and Output 11/11/19 11/11/19 11/12/19 13:59 21:59 05:59 Intake Total 1210 Output Total 4 Balance 1206 Intake: IV 250 Vancomycin 1,000 mg In Sodium 250 Chloride 0.9% 250 ml @ 250 mls/ hr IV Q12H [facility] Rx#:[id number] Oral 960 Output: # of times incontinent of urine 4 Other: Meal Lunch Percent of Meal Consumed 25% Intake & Output: Intake & Output 11/11/19 11/11/19 11/12/19 13:59 21:59 05:59 Intake Total 1210 Output Total 4 Balance 1206 Intake: IV 250 Vancomycin 1,000 mg In Sodium 250 Chloride 0.9% 250 ml @ 250 mls/ hr IV Q12H [facility] Rx#:[id number] Oral 960 Output: # of times incontinent of urine 4 Other: Meal Lunch Percent of Meal Consumed 25% - Lab 11/09/19 05:05 11/09/19 05:05 Most recent lab results Calcium 8.3 mg/dl (8.6-10.4) L 11/09/19 05:05 Phosphorus 2.3 mg/dL (2.7-4.5) L 11/08/19 05:20 Magnesium 1.8 mg/dL (1.6-2.5) 11/08/19 05:20 Microbiology 01/20 08:28 Blood Blood Culture - Final 11/08/19 05:20 Blood Blood Culture - Preliminary 11/08/19 05:20 Blood Blood Culture - Preliminary 11/06/19 08:21 Blood Blood Culture - Final Methicillin resistant s.aureus 11/06/19 13:45 Urine - Clean Void Mid-Stream Urine Culture - Final Methicillin resistant s.aureus 11/06/19 20:08 Nasopharynx Respiratory Panel (PCR) - Final 11/06/19 20:08 Nasopharynx Respiratory Virus Panel (PCR) - Final 11/06/19 20:07 Nose MRSA (PCR) - Final MRSA PCR positive Assessment and Plan - Narrative A/P Narrative: A: 1. Uncomplicated MRSA bacteremia: 11/05 bottles +ve for Staph aureus with positive mecA gene - no obvious focus, but pt is a MRSA nasal carrier and therefore could be skin translocation across dry skin or scratch or break in skin - neg TTE for any evidence of endocarditis - blood Cx neg since 11/08/2019 2. Nodular density overlying the midthoracic spine seen only on the lateral view: unsure what it, might need PCP or pulmonary f/u 3. Nephrolithiasis with mild left hydronephrosis -no obstruction on renal US 4. Small left lower lobe infiltrate: seen on CT chest. no Wheezing today - CXR without any evidence of pneumonia Recommendations: - Continue IV Vanc at current dosing per pharmacy. Trough at 13.6 and 14.5 noted. Target Vanc levels 10-20 - continue MRSA decolonization with 2% intranasal mupirocin and below neck whole body chlorhexidine 2% wipes (for total of 5 days) - will recommend a 2-week course from 11/08/2019 with a stop date of 11/22/2019. Pharmacy will follow Vanc levels as pt would be coming to infusion center at [facility]. I am also available for any assistance - Pt scheduled to f/u in ID clinic on 11/22/2019. Justin Hawk MD Infectious diseases
== END 2019-11-11 14:35 | disposition home or self-care (01) | DRG 871 ==
LOC: ED 07:30 → ICU 19:39 → MEDSUR 11-09 17:36
PROVIDERS: ADMIT Internal Medicine; ATTEND Internal Medicine

== ENCOUNTER 2019-12-22 09:54 | Inpatient (IN) ==
[2019-12-22] MEDS ORDERED: IOPAMIDOL 100 ML BOTTLE IV ONE (09:55)
[2019-12-22] MEDS ORDERED: 0.9 % SODIUM CHLORIDE 500 ML IV ONE ×2 (10:19→12:26)
[2019-12-22] MEDS ORDERED: IPRATROPIUM/ALBUTEROL 3 ML AMPUL.NEB NEB ONE ×3 (10:19→20:06)
--- NOTE | 2019-12-22 10:19 | Emergency Department Note ---
General Adult HPI - General Chief complaint: Nausea/Vomiting/Diarrhea Stated complaint: nausea/vomiting, shortness of breath Time Seen by Provider: 12/22/19 10:06 Source: patient, family Mode of arrival: wheelchair Limitations: no limitations - History of Present Illness HPI Narrative: 69-year-old male patient presents emergency department with chief complaint of worsening shortness of breath the last 24 hours. Patient has known history of COPD and has been progressively breathing harder over the last day. Family member mentions that they gave him his morning medications and he became nauseated and vomited x1. He denies any preceding fever, sweats, chills. He denies any sinus congestion, runny nose, or cough. He denies retrosternal chest pain or palpitations. He denies any abdominal pain, nausea currently, or diarrhea. He admits to left-sided focal weakness associated with a past CVA. He denies any dysuria or hematuria. He denies any other sick contacts at home with similar symptoms. A review of his active problems shows the following: COPD with exacerbation, CHF, chronic kidney disease stage III, left renal atrophy, hypothyroidism, nephrolithiasis, MRSA, anemia, sepsis, UTI, prediabetes, memory impairment, chronic back pain, pulmonary arterial hypertension, insomnia, syncope, history of CVA, history of malignant neoplasm of the prostate, history of methamphetamine abuse, GERD, dilated cardiomyopathy, and atrial thrombosis. - Related Data Home Medications Medication Instructions Recorded Confirmed atorvastatin 80 mg tablet 80 mg PO QDAY 08/22/16 12/22/19 lisinopril 2.5 mg tablet 2.5 mg PO QDAY 08/22/16 12/22/19 ipratropium 20 mcg-albuterol 100 1 puff INHALATION Q4-6HP PRN 04/06/18 12/22/19 mcg/actuation mist for inhalation mirtazapine 15 mg tablet 1 - 2 tab PO QHS tab 04/06/18 12/22/19 omeprazole 20 mg capsule,delayed 20 mg PO QDAY 04/06/18 12/22/19 release apixaban 5 mg tablet 5 mg PO BID 08/27/18 12/22/19 Levothyroxine 50 mcg PO DAILY 11/06/19 12/22/19 baclofen 10 mg tablet 10 mg PO QDAY 12/19/19 12/22/19 buspirone 10 mg tablet 15 mg PO BID 12/19/19 12/22/19 spironolactone 25 mg tablet 25 mg PO QDAY tab 12/19/19 12/22/19 Aspirin [Aspirin EC] 81 mg PO DAILY 12/22/19 12/22/19 Carvedilol [Coreg] 3.125 mg PO BID 12/22/19 12/22/19 Pantoprazole [Protonix] 40 mg PO DAILY 12/22/19 12/22/19 Previous Rx's Medication Instructions Recorded ALPRAZolam [Xanax] 1 mg PO DAILYP PRN tab 11/11/19 Nicotine [Nicoderm] 21 mg TOPICAL DAILY@1000 #30 patch 11/11/19 Sennosides [Senokot] 2 tab PO DAILYP PRN #30 tab 11/11/19 Tamsulosin [Flomax] 0.4 mg PO HS #30 cap 11/11/19 Allergies Allergy/AdvReac Type Severity Reaction Status Date / Time No Known Drug Allergies Allergy Verified 12/09/19 09:54 Review of Systems All systems ED: reviewed and negative except as stated. Past Medical History - Past Medical History Medical history: Reports: CHF, COPD, hypertension Psychiatric history: Reports: anxiety. Denies: depression Surgical history ED: Reports: non-contributory - Social History smoking status: Former smoker Alcohol use: Reports: None Drug use: Reports: none. Denies: marijuana Physical Exam Limitations: no limitations General appearance: alert, in no apparent distress, other (Well-developed, well- nourished, chronically ill-appearing 69-year-old male patient sitting upright on the emergency room [facility] suffering from some tachypnea. He is able to speak in complete sentences.) Head: atraumatic, normocephalic Eye: Present: normal appearance, PERRL, EOMI. Absent: scleral icterus, conjunctival injection ENT: Present: normal oropharynx, mucous membranes moist Neck: Present: trachea midline. Absent: lymphadenopathy, thyromegaly Chest: Present: symmetric chest wall rise Respiratory: Present: respiratory distress, prolonged expiratory phase, decreased breath sounds (Considerably decreased breath sounds to the bases bilateral.). Absent: rales/crackles, wheezes, stridor, accessory muscle use Cardiovascular: Present: regular rate, irregular rhythm. Absent: systolic murmur, diastolic murmur Abdominal: Present: soft, hyperactive bowel sounds. Absent: distention, tenderness, guarding, rebound, rigidity, organomegaly, mass Extremities: Present: normal inspection, normal capillary refill. Absent: tenderness, pedal edema, pretibial edema, calf tenderness Neurological: Present: alert, oriented X3 Psychiatric: Present: normal affect, normal mood Skin: Present: warm, dry Course Course Narrative: Patient was brought into the emergency department and a history and physical exam was performed. Saline lock was established and laboratory studies were drawn. Twelve-lead EKG was ordered and reviewed. Portable chest x-ray was ordered and reviewed. Patient was given DuoNeb treatment x1. Normal saline was started at 500 mL bolus. Upon reevaluation patient is breathing a bit better. He tells me that the DuoNeb treatment was helpful. Chest x-ray results showed no acute abnormality. Patient was given Solu-Medrol 62.5 mg IVP. A review his laboratory studies show the following: CBC WBC 11.0, RBC 5.13, hemoglobin 13.5, hematocrit 42.1, platelets 354. CMP anion gap 17, glucose 130, AST 47, ALT 53, alkaline phosphatase 209, globulin 4.0, all others normal limits. Lactic acid 2.9. Troponin less than 0.01. Procalcitonin less than 0.05. proBNP 225.2. UA showing significant WBCs, RBCs, leukocyte Estrace. After reviewing all the data I reached out to our hospitalist (Dr. Isbell) about the patient's condition, previous history, and possible next steps for evaluation. At this time patient is suffering from a UTI so it was recommended that Rocephin 1 g be started. Hospitalist recommended that we check patient's urine cultures and blood cultures. Ultrasound of his abdomen was ordered due to his LFTs as well as history of renal calculi. I am also going to recheck a lactic acid. Approximately 30 minutes later patient began to complain of worsening shortness of breath. He was given a second DuoNeb treatment. During his treatment he became nauseated and projectile vomiting x1. Repeat physical examination shows an acutely ill 69-year-old who is tachypneic with pursed lip breathing. Lung sounds have improved with the bases bilateral. No rhonchi or wheezing. Heart is regular rate and rhythm. Repeat EKG showing sinus tachycardia but no ST segment changes. Patient was given Zofran 4mg. Upon reevaluation patient continues to have pursed lip tachypnea. I discussed case briefly with my collaborating physician (Dr. Sousa). At this time he recommended a chest CT angiogram to help rule out the pulmonary causes. I also ordered a ABG as well. Repeat laboratory studies showed the following: ABG showed a moderate hypoxia hyperventilation. He had a mild metabolic alkalosis. Repeat lactic acid had increased to 3.5. CTA of the chest showing negative pulmonary findings. There was an abnormality in the left lower lobe with fibrotic change and paramediastinal bullae. This is considered unchanged After reviewing all of the data I reached out to the hospitalist once again about admission. While waiting to speak to the hospitalist the patient continued to be tachypneic. He was started on simple facemask at 2 L/min in an effort to have him retained bit of the CO2 and hopefully slow his respiratory rate. Patient was started on vancomycin 1500 mg IV. I did speak to the hospitalist (Dr. Isbell) about the patient his current condition. At this time Dr. Mitchell accepted the patient for admission. All further treatment decisions and modalities will be carried out by Dr. Isbell at this time. Vital Signs Temperature 97.8 F 12/22/19 09:55 Pulse Rate 99 H 12/22/19 09:55 Respiratory Rate 18 12/22/19 09:55 Blood Pressure 119/64 12/22/19 09:55 Pulse Oximetry (%) 97 12/22/19 09:55 Temperature 97.8 F 12/22/19 09:55 Pulse Rate 108 H 12/22/19 17:06 Respiratory Rate 28 H 12/22/19 17:06 Blood Pressure 117/68 12/22/19 17:01 Pulse Oximetry (%) 100 12/22/19 17:06 Medical Decision Making - Lab Data Lab results reviewed: Yes I reviewed the patient's lab results. Result diagrams: 12/22/19 10:27 12/22/19 10:27 Lab Results 12/22/19 12/22/19 12/22/19 Range/Units 10:27 10:27 10:27 WBC 11.0 (4.50-11.00) K/mcL RBC 5.13 (4.63-6.08) M/mcL Hgb 13.5 L (13.7-17.5) g/dL Hct 43.1 (40.1-51.0) % MCV 84.0 (80.0-100.0) fL MCH 26.3 (26.0-34.0) pg MCHC 31.3 (31.0-36.0) g/dL RDW 14.6 H (11.5-14.5) % Plt Count 354 (140-440) K/mcL MPV 9.8 (7.4-10.4) fL Gran % 77.8 (38.0-78.0) % Lymph % (Auto) 16.4 (15.5-49.0) % [place] % (Auto) 4.7 (1.0-12.0) % Eos % (Auto) 0.6 (0.0-7.0) % Baso % (Auto) 0.5 (0.0-2.0) % Gran # 8.52 H (1.80-8.00) K/mcL Lymph # (Auto) 1.80 (1.50-4.80) K/mcL [place] # (Auto) 0.51 (0.10-0.90) K/mcL Eos # (Auto) 0.07 (0.00-0.70) K/mcL Baso # (Auto) 0.06 (0.00-0.30) K/mcL VBG Lactic Acid 2.9 H (0.5-2.0) mmol/L Sodium 139 (133-145) mmol/L Potassium 3.7 (3.3-5.1) mmol/L Chloride 100 (96-108) mmol/L Carbon Dioxide 22 (22-30) mmol/L Anion Gap 17.0 H (8-16) BUN 18 (8-23) mg/dl Creatinine 1.2 (0.7-1.2) mg/dl GFR Calculation 62 Glucose 130 H (70-105) mg/dL Calcium 9.5 (8.6-10.4) mg/dl Total Bilirubin 0.7 (0.0-1.0) mg/dL AST 47 H (0-37) U/l ALT 53 H (0-40) U/l Alkaline Phosphatase 209 H (39-117) U/L Troponin T (0-0.03) ng/ml NT-Pro-B Natriuret Pep 225.2 H (0-125) pg/ml Total Protein 8.4 (5.9-8.4) gm/dL Albumin 4.4 (3.2-5.2) gm/dL Globulin 4.0 H (2.2-3.7) gm/dL Albumin/Globulin Ratio 1.1 (1.0-2.3) Procalcitonin (<0.10) ng/mL Urine Color Urine Appearance Urine pH (5.0-9.0) Ur Specific [place] (1.000-1.035) Urine Protein (NEG) mg/dL Urine Glucose (UA) (NEG) mg/dL Urine Ketones (NEG) mg/dL Urine Occult Blood (<0.03) mg/dL Urine Nitrate (NEG) Urine Bilirubin (NEG) mg/dL Urine Urobilinogen (NEG) mg/dL Ur Leukocyte Esterase (NEG) /uL Urine RBC (0-1) /hpf Urine WBC (0-4) /hpf Ur Squamous Epith Cells (0-4) /hpf Amorphous Crystals (0) /hpf Urine Bacteria (0) /hpf Urine Mucus (0) /hpf Ur Culture Indicated? 12/22/19 12/22/19 12/22/19 Range/Units 10:27 10:27 10:57 WBC (4.50-11.00) K/mcL RBC (4.63-6.08) M/mcL Hgb (13.7-17.5) g/dL Hct (40.1-51.0) % MCV (80.0-100.0) fL MCH (26.0-34.0) pg MCHC (31.0-36.0) g/dL RDW (11.5-14.5) % Plt Count (140-440) K/mcL MPV (7.4-10.4) fL Gran % (38.0-78.0) % Lymph % (Auto) (15.5-49.0) % [place] % (Auto) (1.0-12.0) % Eos % (Auto) (0.0-7.0) % Baso % (Auto) (0.0-2.0) % Gran # (1.80-8.00) K/mcL Lymph # (Auto) (1.50-4.80) K/mcL [place] # (Auto) (0.10-0.90) K/mcL Eos # (Auto) (0.00-0.70) K/mcL Baso # (Auto) (0.00-0.30) K/mcL VBG Lactic Acid (0.5-2.0) mmol/L Sodium (133-145) mmol/L Potassium (3.3-5.1) mmol/L Chloride (96-108) mmol/L Carbon Dioxide (22-30) mmol/L Anion Gap (8-16) BUN (8-23) mg/dl Creatinine (0.7-1.2) mg/dl GFR Calculation Glucose (70-105) mg/dL Calcium (8.6-10.4) mg/dl Total Bilirubin (0.0-1.0) mg/dL AST (0-37) U/l ALT (0-40) U/l Alkaline Phosphatase (39-117) U/L Troponin T < 0.01 (0-0.03) ng/ml NT-Pro-B Natriuret Pep (0-125) pg/ml Total Protein (5.9-8.4) gm/dL Albumin (3.2-5.2) gm/dL Globulin (2.2-3.7) gm/dL Albumin/Globulin Ratio (1.0-2.3) Procalcitonin < 0.05 (<0.10) ng/mL Urine Color Yellow Urine Appearance Cloudy Urine pH 6.0 (5.0-9.0) Ur Specific [place] 1.021 (1.000-1.035) Urine Protein 30 A (NEG) mg/dL Urine Glucose (UA) Negative (NEG) mg/dL Urine Ketones Neg (NEG) mg/dL Urine Occult Blood 0.2 A (<0.03) mg/dL Urine Nitrate Neg (NEG) Urine Bilirubin Neg (NEG) mg/dL Urine Urobilinogen Neg (NEG) mg/dL Ur Leukocyte Esterase 500 A (NEG) /uL Urine RBC 65 H (0-1) /hpf Urine WBC > 182 H (0-4) /hpf Ur Squamous Epith Cells 1 (0-4) /hpf Amorphous Crystals Few A (0) /hpf Urine Bacteria 0 (0) /hpf Urine Mucus Many A (0) /hpf Ur Culture Indicated? Yes 02/20/20 Range/Units 13:43 WBC (4.50-11.00) K/mcL RBC (4.63-6.08) M/mcL Hgb (13.7-17.5) g/dL Hct (40.1-51.0) % MCV (80.0-100.0) fL MCH (26.0-34.0) pg MCHC (31.0-36.0) g/dL RDW (11.5-14.5) % Plt Count (140-440) K/mcL MPV (7.4-10.4) fL Gran % (38.0-78.0) % Lymph % (Auto) (15.5-49.0) % [place] % (Auto) (1.0-12.0) % Eos % (Auto) (0.0-7.0) % Baso % (Auto) (0.0-2.0) % Gran # (1.80-8.00) K/mcL Lymph # (Auto) (1.50-4.80) K/mcL [place] # (Auto) (0.10-0.90) K/mcL Eos # (Auto) (0.00-0.70) K/mcL Baso # (Auto) (0.00-0.30) K/mcL VBG Lactic Acid 3.5 H (0.5-2.0) mmol/L Sodium (133-145) mmol/L Potassium (3.3-5.1) mmol/L Chloride (96-108) mmol/L Carbon Dioxide (22-30) mmol/L Anion Gap (8-16) BUN (8-23) mg/dl Creatinine (0.7-1.2) mg/dl GFR Calculation Glucose (70-105) mg/dL Calcium (8.6-10.4) mg/dl Total Bilirubin (0.0-1.0) mg/dL AST (0-37) U/l ALT (0-40) U/l Alkaline Phosphatase (39-117) U/L Troponin T (0-0.03) ng/ml NT-Pro-B Natriuret Pep (0-125) pg/ml Total Protein (5.9-8.4) gm/dL Albumin (3.2-5.2) gm/dL Globulin (2.2-3.7) gm/dL Albumin/Globulin Ratio (1.0-2.3) Procalcitonin (<0.10) ng/mL Urine Color Urine Appearance Urine pH (5.0-9.0) Ur Specific [place] (1.000-1.035) Urine Protein (NEG) mg/dL Urine Glucose (UA) (NEG) mg/dL Urine Ketones (NEG) mg/dL Urine Occult Blood (<0.03) mg/dL Urine Nitrate (NEG) Urine Bilirubin (NEG) mg/dL Urine Urobilinogen (NEG) mg/dL Ur Leukocyte Esterase (NEG) /uL Urine RBC (0-1) /hpf Urine WBC (0-4) /hpf Ur Squamous Epith Cells (0-4) /hpf Amorphous Crystals (0) /hpf Urine Bacteria (0) /hpf Urine Mucus (0) /hpf Ur Culture Indicated? - Radiology Data Radiology results reviewed: Yes I reviewed the patient's radiology results. Ordering Physician: Cayetano Merritt PA-C Date of Service: 12/22/19 Procedure(s): XR chest 1V portable Accession Number(s): [id number] IMPRESSION: 1. No acute or focal abnormality 2. No interval change since 11/10/2019 Ordering Physician: Cayetano Merritt PA-C Date of Service: 12/22/19 Procedure(s): US abdomen complete Accession Number(s): [id number] IMPRESSION: 1. Very limited examination 2. Echogenic renal cortex bilaterally consistent with medical renal disease 3. Nonobstructing calculus in the left kidney. Previous CT scan demonstrated multiple stones. These are not identified on present study. No hydronephrosis 4. Tiny gallstones may be present but this is not definite 5. Echogenic abnormality in the spleen. This is considered benign and probably represents a small hemangioma Ordering Physician: Cayetano Merritt PA-C Date of Service: 12/22/19 Procedure(s): CT angio chest Accession Number(s): [id number] IMPRESSION: 1. Negative pulmonary CTA 2. Abnormality in the left lower lobe with fibrotic change and paramediastinal bulla. Findings are unchanged 3. Atrophic left kidney with calcifications The exam was performed using radiation dose optimization techniques including, but not limited to, automated exposure control, adjustment of the mA and/or kV according to patient size and use of iterative reconstruction technique. Interpreted and Authenticated by: Manuel Lam 12/22/19 - EKG Data EKG #1 EKG attestation: Yes I reviewed and interpreted this EKG., Yes There are no EKG findings of acute coronary syndrome Rate: normal Rhythm: arrhythmia (Sinus arrhythmia) [place]/QRS: LBBB EKG #2 EKG attestation: Yes I reviewed and interpreted this EKG., Yes There are no EKG findings of acute coronary syndrome Rate: tachycardia Rhythm: arrhythmia [place]/QRS: LBBB Interpretation: unchanged compared to prior tracing (date) (From this morning.) Disposition Pt seen by VENUE MANAGER/PA only: Yes Clinical Impression: COPD exacerbation, Nephrolithiasis, Nonspecific elevation of levels of transaminase and lactic acid dehydrogenase (LDH) Congestive heart failure Qualifiers: Heart failure type: combined systolic and diastolic Heart failure chronicity: chronic Qualified Code(s): I50.42 - Chronic combined systolic (congestive) and diastolic (congestive) heart failure Disposition: Xfer As Inpt ([facility]) Condition: Serious Additional Instructions: Patient is going to be admitted to the hospital under the care of the hosp italist (Dr. Isbell). All further treatment decisions and modalities to be carried out by Dr. Isbell at this time.
--- NOTE | 2019-12-22 10:38 | XRay Report ---
CLINICAL INFORMATION:Dyspnea. COPD TECHNIQUE: AP portable upright chest x-ray COMPARISON: Previous chest x-rays dated 11/10/2019, 11/06/2019, 01/11/2019 FINDINGS:No focal pulmonary parenchymal infiltrate or mass. No abnormality. Heart size and vascularity are normal. No pulmonary edema. There is no pulmonary congestion. Shelly and mediastinum are negative. No acute abnormality. No interval change IMPRESSION: 1. No acute or focal abnormality 2. No interval change since 11/10/2019 Interpreted and Authenticated by: Manuel Lam 12/22/19
[2019-12-22] MEDS ORDERED: methylPREDNISolone SOD SUCC 125 MG/2 ML VIAL IV ONE (10:51)
[2019-12-22 11:05] LABS: Basophils # (Auto) 0.06 K/mcL (0.00-0.30); Basophils % (Auto) 0.5 % (0.0-2.0); Eosinophils # (Auto) 0.07 K/mcL (0.00-0.70); Eosinophils % (Auto) 0.6 % (0.0-7.0); Granulocytes % (Auto) 77.8 % (38.0-78.0); Hematocrit 43.1 % (40.1-51.0); Hemoglobin 13.5 g/dL (13.7-17.5); Lymphocytes % (Auto) 16.4 % (15.5-49.0); Mean Corpuscular HGB Conc 31.3 g/dL (31.0-36.0); Mean Platelet Volume 9.8 fL (7.4-10.4); Monocytes # (Auto) 0.51 K/mcL (0.10-0.90); Monocytes % (Auto) 4.7 % (1.0-12.0); Platelet Count 354 K/mcL (140-440); RBC 5.13 M/mcL (4.63-6.08); Red Cell Distribution Width 14.6 % (11.5-14.5)
[2019-12-22 11:27] LABS: proBNP 225.2 pg/ml (0-125)
[2019-12-22 11:30] LABS: ALT/SGPT 53 U/l (0-40); AST/SGOT 47 U/l (0-37); Albumin 4.4 gm/dL (3.2-5.2); Albumin/Globulin Ratio 1.1 (1.0-2.3); Alkaline Phosphatase 209 U/L (39-117); Bilirubin,Total 0.7 mg/dL (0.0-1.0); Blood Urea Nitrogen 18 mg/dl (8-23); Calcium 9.5 mg/dl (8.6-10.4); Carbon Dioxide 22 mmol/L (22-30); Chloride 100 mmol/L (96-108); Glomerular Filtration Rate 62; Glucose 130 mg/dL (70-105)
[2019-12-22] MEDS ORDERED: 0.9 % SODIUM CHLORIDE 1,000 ML IV ONE ×2 (11:35→16:59)
[2019-12-22 11:49] LABS: Appearance,Urine CLOUDY; Bacteria,Urine 0 /hpf (0); Bilirubin,Urine NEG (NEG); Color,Urine YELLOW; Culture Indicated,Urine YES; Glucose,Urine (UA) NEGATIVE (NEG); Ketones,Urine NEG (NEG); Leukocyte Esterase,Urine 500 /uL (NEG); Mucus,Urine MANY /hpf (0); Nitrate,Urine NEG (NEG); Protein,Urine 30 mg/dL (NEG); Specific Gravity,Urine 1.021 (1.000-1.035); Urine Amorphous Crystals FEW /hpf (0); Urine Blood 0.2 mg/dL (<0.03); Urine RBC 65 /hpf (0-1); Urine Squamous Epithelial Cell 1 /hpf (0-4); Urine WBC > 182 /hpf (0-4); Urobilinogen,Urine NEG (NEG)
[2019-12-22] MEDS ORDERED: cefTRIAXone 1 GM VIAL IV ONE (12:20)
--- NOTE | 2019-12-22 13:34 | Ultrasound Report ---
CLINICAL INFORMATION: Elevated liver function tests TECHNIQUE: Grayscale and color flow Doppler spectral imaging COMPARISON: CT scan dated 11/06/2019 FINDINGS: Present examination is of poor quality due to large amount of bowel gas Pancreas:Not visualized Gallbladder:No definite calculi. There may be tiny gravel-like stones in the dependent portion of this is not certain. Patient was not tender when scanned over the gallbladder Bile Ducts:No intrahepatic bile duct dilatation. Common bile duct is not visualized Liver:Liver measures 14.3 cm. No focal mass. Heart contour is smooth. There is no ascites Spleen:No splenomegaly. There is a single echogenic abnormality which measures approximately 12 mm. This is probably a small hemangioma. Calcification is not suspected as no calcified abnormalities identified on prior CT scan Kidneys: Right kidney: 13.9 x 5.8 x 5.8 cm. Right renal cortex is echogenic consistent with medical renal disease. Previous CT scan demonstrated tiny nonobstructing stones. These are not visualized. There is no hydronephrosis. Left kidney: 11.0 x 5.0 x 5.4 cm. Left kidney is atrophic. Left renal cortex is echogenic cyst with medical renal disease. Multiple nonobstructing calculi were identified previously. A single stone is identified on present examination. This measures 18 mm maximally. There is no hydronephrosis Vascular:Abdominal aorta and inferior vena cava are not well visualized IMPRESSION: 1. Very limited examination 2. Echogenic renal cortex bilaterally consistent with medical renal disease 3. Nonobstructing calculus in the left kidney. Previous CT scan demonstrated multiple stones. These are not identified on present study. No hydronephrosis 4. Tiny gallstones may be present but this is not definite 5. Echogenic abnormality in the spleen. This is considered benign and probably represents a small hemangioma Interpreted and Authenticated by: Manuel Lam 12/22/19
[2019-12-22] MEDS ORDERED: ONDANSETRON 4 MG/2 ML VIAL ONE (13:56)
--- NOTE | 2019-12-22 15:24 | Cat Scan Report ---
CLINICAL INFORMATION: Dyspnea. Tachypnea. COMPARISON: None TECHNIQUE: Axial images obtained through the chest. 90ml Isovue 370 injected intravenously, and scanning was performed during pulmonary arterial phase. Sagittally and coronally reformatted images were obtained. MIP reformatted images. FINDINGS: Lungs:Lungs are poorly evaluated due to respiratory motion. There is abnormality in the left lower lobe with fibrotic change and a paramediastinal bulla. Findings are stable. No new parenchymal infiltrate or mass. Mediastinum, vascular:Main pulmonary artery, right pulmonary artery, left pulmonary artery are negative. No intraluminal filling defects. No lobar, segmental, or subsegmental abnormalities. Negative examination for pulmonary embolism Heart:No significant cardiomegaly. No pericardial effusion. There is extensive coronary artery calcification Pleura:No pleural-based mass. No pleural fluid Axilla, supraclavicular regions, chest wall:No axillary adenopathy. No supraclavicular adenopathy. Musculoskeletal:Normal thoracic vertebral body heights. No compression deformities. No lytic lesions. Sternum is negative. No rib lesion Upper Abdomen:Poorly evaluated due to patient motion. There is left renal atrophy. There are calcifications. Appearance is unchanged since 11/06/2019 IMPRESSION: 1. Negative pulmonary CTA 2. Abnormality in the left lower lobe with fibrotic change and paramediastinal bulla. Findings are unchanged 3. Atrophic left kidney with calcifications The exam was performed using radiation dose optimization techniques including, but not limited to, automated exposure control, adjustment of the mA and/or kV according to patient size and use of iterative reconstruction technique. Interpreted and Authenticated by: Manuel Lam 12/22/19
[2019-12-22] MEDS ORDERED: VANCOMYCIN 1,500 MG in 0.9 % SODIUM CHLORIDE 500 ML IV ONE (16:34)
[2019-12-22] MEDS ORDERED: ONDANSETRON 4 MG/2 ML VIAL IV ONE (16:58)
[2019-12-22] MEDS ORDERED: CARVEDILOL 3.125 MG TABLET PO SCH (17:30)
--- NOTE | 2019-12-22 18:36 | Internal Med History&Physical ---
Medical - H&P: [facility] Patient information: Note initiated : 12/22/19 at 6:31 pm Service Date, if different from initiated Date: [] Patient: Pérez Grossman a 69 y/o M admitted on for N/V, SOB. Chief Complaint: [] Chief complaint: Worsening shortness of breath History of present illness: Mr. Grossman is a 69 year old M with a known history of COPD/history of right MCA CVA on aspirin statin Eliquis who presents to the ER with worsening shortness of breath that has evolved with the last 2 weeks. Patient symptoms have worsened from dyspnea on maximal exertion to dyspnea at rest. He denies recent exposure to sick contacts and is up-to-date on vaccines. He denies yellow productive sputum, travel to [facility]/outside [facility]. He also denies recent smoking but he continues to vape daily. Over the last 24 hours his symptoms have progressed to the point he is unable to function. He lives with his son who accompanied him to the ER and notes that he had a dramatic worsening this morning with nausea and vomiting. Initial work-up in the ER was consistent with sepsis with elevated lactate Tachycardia tachypnea and hypoxic respiratory failure requiring oxygen. Blood gas revealed 7.4 05/30/58. Patient denies chest pain, diarrhea, dysuria, fever, chills, arthralgia myalgia or rash. He denies changes in medications. Patient was started on antibiotics after cultures were drawn along with bronchodilators. He also received a dose of steroid. Due to inadequate improvement patient subsequent underwent CT angiogram of the chest that was unremarkable for PE except for fibrotic changes in the lung. Subsequently hospital service was consulted At the time evaluation patient is on oxygen mask. He was able to answer most the question endorse history as above. He is barely able to talk in full sentences. His blood pressures around mid 90s and was tachypneic in mid 30s. Patient shows minimal diaphoresis He however denies lightheadedness or vision change Review of systems A 10 point review system was performed and is negative except was cussed above Medical - H&P: PMH Medical history: CKD (chronic kidney disease), stage III (Chronic) Primarily decreased renal mass from left renal atrophy. Some degree of decreased renal perfusion form CHF and low BP. Flomax as tolerated by BP and low dose lisinopril for CHF Left renal atrophy (Chronic) left staghorn calculi, ECSWL, stenting, low grade obstruction in the past and now left renal atrophy GFR 45-60 cc/min Staghorn calculus (Chronic) Left renal pelvis s/p ECSWL MRSA positive urine culture x 2 in summer 2018 then cleared Urine pH not elevated to suggest urea splitting bacteria Hypothyroidism (Chronic) Elevated serum creatinine (Chronic) Mild and in the setting of low dose ACEi and aldactone Tx for a dilated cardiomyopathy and prior obstructive uropathy with left renal staghorn calculi and pyelonephritis Pruritic rash (Chronic) Chronic diarrhea (Chronic) Prediabetes (Chronic) Memory impairment (Chronic) Chronic low back pain (Chronic) Pulmonary arterial hypertension (Chronic) Insomnia (Chronic) Syncope (Chronic) Anxiety (Chronic) History of CVA (cerebrovascular accident) (Chronic) History of malignant neoplasm of prostate (Chronic) PSA elevation (Chronic) History of methamphetamine abuse (Chronic) CVA (cerebral vascular accident) (Chronic) GERD (gastroesophageal reflux disease) (Chronic) Chronic obstructive lung disease (Chronic) 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) Chronic anticoagulation, low dose ACEi, no diuretics as BP low Dilated cardiomyopathy (Chronic) Atrial thrombosis (Chronic) Surgical History Hx of hernia repair (Chronic) L inguinal Hx of lithotripsy (Chronic) Left Family History Mother Stomach cancer Brother Tumor of lung Social History education level: high school occupational status: unemployed frequency: 1-2 times per week smoking status: Former smoker , vapes daily alcohol intake frequency: does not drink substance use type: former substance user Lives with his son Medical - H&P: Meds Home Medications Medication Instructions Recorded Confirmed Type atorvastatin 80 mg tablet 80 mg PO QDAY 08/22/16 12/22/19 History lisinopril 2.5 mg tablet 2.5 mg PO QDAY 08/22/16 12/22/19 History ipratropium 20 mcg-albuterol 100 1 puff INHALATION Q4-6HP PRN 04/06/18 12/22/19 History mcg/actuation mist for inhalation mirtazapine 15 mg tablet 1 - 2 tab PO QHS tab 04/06/18 12/22/19 History apixaban 5 mg tablet 5 mg PO BID 08/27/18 12/22/19 History Levothyroxine 50 mcg PO DAILY 11/06/19 12/22/19 History ALPRAZolam [Xanax] 1 mg PO DAILYP PRN tab 11/11/19 12/22/19 Rx Nicotine [Nicoderm] 21 mg TOPICAL DAILY@1000 #30 patch 11/11/19 12/22/19 Rx Sennosides [Senokot] 2 tab PO DAILYP PRN #30 tab 11/11/19 12/22/19 Rx Tamsulosin [Flomax] 0.4 mg PO HS #30 cap 11/11/19 12/22/19 Rx buspirone 10 mg tablet 15 mg PO BID 12/19/19 12/22/19 History Aspirin [Aspirin EC] 81 mg PO DAILY 12/22/19 12/22/19 History Pantoprazole [Protonix] 40 mg PO DAILY 12/22/19 12/22/19 History Allergies Allergy/AdvReac Type Severity Reaction Status Date / Time No Known Drug Allergies Allergy Verified 12/09/19 09:54 Medical - H&P: Exam - Constitutional Vitals: Temp Pulse Resp BP Pulse Ox 97.8 F 108 H 28 H 117/68 100 12/22/19 09:55 12/22/19 17:06 12/22/19 17:06 12/22/19 17:01 12/22/19 17:06 General appearance: moderate distress (Short of breath) Exam: Head normocephalic Oral cavity dry No ear nose discharge Eye movement symmetrical No neck lymphadenopathy or JVD S1-S2 irregular rhythm. Diminished breath sounds bases, minimal rhonchi Tachypnea Abdomen soft nontender Lower extremity no cyanosis clubbing no joint swelling Skin no suspicious lesion Psych alert but anxious Neuro nonfocal Medical - H&P: Reslt - Labs CBC & Chem 7: 12/23/19 05:00 12/23/19 05:00 Labs: Short CBC 12/22/19 Range/Units 10:27 WBC 11.0 (4.50-11.00) K/mcL Hgb 13.5 L (13.7-17.5) g/dL Hct 43.1 (40.1-51.0) % Plt Count 354 (140-440) K/mcL BMP 12/22/19 10:27 Sodium 139 Potassium 3.7 Chloride 100 Carbon Dioxide 22 BUN 18 Creatinine 1.2 Glucose 130 H Calcium 9.5 Cardiac Enzymes 12/22/19 Range/Units 10:27 Troponin T < 0.01 (0-0.03) ng/ml Liver Function 12/22/19 Range/Units 10:27 Total Bilirubin 0.7 (0.0-1.0) mg/dL AST 47 H (0-37) U/l ALT 53 H (0-40) U/l Alkaline Phosphatase 209 H (39-117) U/L Albumin 4.4 (3.2-5.2) gm/dL Urine 12/22/19 Range/Units 10:57 Urine Color Yellow Urine Appearance Cloudy Urine pH 6.0 (5.0-9.0) Ur Specific [place] 1.021 (1.000-1.035) Urine Protein 30 A (NEG) mg/dL Urine Glucose (UA) Negative (NEG) mg/dL Medical - H&P: A/P (1) Acute respiratory failure with hypoxia Current visit: Yes Status: Acute * Acute respiratory failure with hypoxia-continue supplemental oxygen and positive pressure ventilation if indicated. Secondary to COPD exacerbation * Sepsis with hypotension likely secondary to complicated UTI. Elevated lactate. Pancultures/broad antibiotics. Continue crystalloid/vasopressors and antibiotics. Management per guidelines. Abdominal imaging/source evaluation * COPD exacerbation continue bronchodilators/steroids * Complicated UTI continue antibiotic coverage. Await cultures. * Recent MRSA bacteremia status post extensive work-up with negative transthoracic echo ruling out endocarditis. Status post 2-week IV vancomycin per ID * History of nephrolithiasis with staghorn calculus and recurrent UTIs. Nonobstructive at this time. * History of Mobitz type II heart block-continue monitoring * Chronic kidney disease stage III-monitor renal function and avoid nephrotoxins. * Mild transaminitis secondary to sepsis endorgan dysfunction * Hypothyroidism continue thyroxine * Chronic anemia-continue monitoring * History of CHF continue beta-jasiel hold ARABELLA inhibitor * History of LV thrombus continue Eliquis * History of pulmonary artery hypertension * Anxiety disorder continue BuSpar * GERD continue PPI * History of BPH continue Flomax * Full code * Prophylaxis on Eliquis Plan * Broad antibiotic coverage * Sepsis management per guidelines * Initiated positive pressure ventilation * Vasopressors, ABG/serial imaging * IV steroids/bronchodilators * Pancultures and source evaluation * Pre-existing mental condition management home med except for antihypertensives which will BE HELD until septic shock resolves * Anticoagulation * PT OT nutrition support * Discharge planning Critical care time spent in excess of 35minutes
[2019-12-22] MEDS ORDERED: NOREPINEPHRINE BITARTRATE 8 MG in 0.9 % SODIUM CHLORIDE 242 ML IV SCH (18:45)
[2019-12-22] MEDS ORDERED: NOREPINEPHRINE BITARTRATE 16 MG in 0.9 % SODIUM CHLORIDE 234 ML IV SCH ×2 (18:45→20:49)
[2019-12-22] MEDS ORDERED: LORazepam 2 MG/ML VIAL IV ONE (19:59)
[2019-12-22] MEDS ORDERED: PANTOPRAZOLE 40 MG VIAL IV ONE (20:33)
[2019-12-22] MEDS ORDERED: METOPROLOL TARTRATE 5 MG/5 ML VIAL IV PRN (20:49)
[2019-12-22] MEDS ORDERED: BISACODYL 10 MG SUPP.RECT PR PRN (20:49)
[2019-12-22] MEDS ORDERED: MELATONIN 3 MG TABLET PO PRN (20:49)
[2019-12-22] MEDS ORDERED: POTASSIUM CHLORIDE 20 MEQ PACKET PO PRN (20:49)
[2019-12-22] MEDS ORDERED: POLYETHYLENE GLYCOL 3350 17 GM PACKET PO PRN (20:49)
[2019-12-22] MEDS ORDERED: ONDANSETRON 4 MG ODT TABLET SL PRN (20:49)
[2019-12-22] MEDS ORDERED: MAGNESIUM SULFATE 2 GM/50 ML BAG IV PRN (20:49)
[2019-12-22] MEDS ORDERED: SENNOSIDES 1 TABLET PO PRN (20:49)
[2019-12-22] MEDS ORDERED: ACETAMINOPHEN 325 MG TABLET PO PRN (20:49)
[2019-12-22] MEDS ORDERED: ONDANSETRON 4 MG/2 ML VIAL IV PRN (20:49)
[2019-12-22] MEDS ORDERED: hydrALAZINE 20 MG/ML VIAL IV PRN (20:49)
[2019-12-22] MEDS ORDERED: guaiFENesin/CODEINE 10 ML UDC PO PRN (20:49)
[2019-12-22 21:37] LABS: C-Reactive Protein < 0.3 mg/dl (0.0-0.8)
[2019-12-22] MEDS: 0.9 % SODIUM CHLORIDE 250 ML IV SCH ×2 (21:45→21:46)
[2019-12-22] MEDS: BUDESONIDE 0.5 MG/2 ML AMPUL.NEB NEB SCH (21:48)
[2019-12-22] MEDS: SENNOSIDES/DOCUSATE SODIUM 1 TAB TABLET PO SCH (21:49)
[2019-12-22] MEDS: DOCUSATE SODIUM 100 MG CAPSULE PO SCH (21:49)
[2019-12-22] MEDS: LEVOFLOXACIN 750 MG/150 ML BAG IV SCH (21:53)
[2019-12-22] MEDS: 0.9 % SODIUM CHLORIDE 1,000 ML IV SCH (21:53)
[2019-12-22] MEDS: ALPRAZolam 0.5 MG TABLET PO PRN (21:54)
[2019-12-22] MEDS: methylPREDNISolone SOD SUCC 125 MG/2 ML VIAL IV SCH (21:54)
[2019-12-22] MEDS: TAMSULOSIN 0.4 MG CAPSULE PO SCH (21:54)
[2019-12-22] MEDS: APIXABAN 5 MG TABLET PO SCH (21:54)
[2019-12-22] MEDS: 0.9 % SODIUM CHLORIDE 10 ML SYRINGE IV SCH (21:54)
[2019-12-22] MEDS: IPRATROPIUM/ALBUTEROL 3 ML AMPUL.NEB NEB SCH ×2 (21:56→22:15)
[2019-12-22] MEDS: busPIRone 10 MG TABLET PO SCH (23:47)
[2019-12-23] MEDS: PIPERACILLIN SODIUM/TAZOBACTAM 3.375 GM in DEXTROSE 5% IN WATER 50 ML IV SCH ×5 (00:13→18:46)
[2019-12-23] MEDS: 0.9 % SODIUM CHLORIDE 10 ML SYRINGE IV SCH ×3 (05:09→21:05)
[2019-12-23] MEDS: IPRATROPIUM/ALBUTEROL 3 ML AMPUL.NEB NEB SCH ×6 (05:09→22:32)
[2019-12-23 06:50] LABS: Hematocrit 36.1 % (40.1-51.0); Hemoglobin 11.2 g/dL (13.7-17.5); Mean Cell Volume 84.7 fL (80.0-100.0); Mean Platelet Volume 9.8 fL (7.4-10.4); Platelet Count 257 K/mcL (140-440); RBC 4.26 M/mcL (4.63-6.08); Red Cell Distribution Width 14.9 % (11.5-14.5); WBC 13.4 K/mcL (4.50-11.00)
[2019-12-23] MEDS: 0.9 % SODIUM CHLORIDE 250 ML IV SCH ×4 (07:07→21:05)
[2019-12-23 07:15] LABS: ALT/SGPT 35 U/l (0-40); AST/SGOT 30 U/l (0-37); Albumin 3.5 gm/dL (3.2-5.2); Albumin/Globulin Ratio 1.1 (1.0-2.3); Alkaline Phosphatase 155 U/L (39-117); Bilirubin,Direct < 0.2 mg/dL (0.0-0.3); Bilirubin,Total 0.5 mg/dL (0.0-1.0); Blood Urea Nitrogen 16 mg/dl (8-23); Calcium 8.8 mg/dl (8.6-10.4); Carbon Dioxide 20 mmol/L (22-30); Chloride 108 mmol/L (96-108); Globulin 3.2 gm/dL (2.2-3.7); Glomerular Filtration Rate 62; Glucose 156 mg/dL (70-105); Lactate Dehydrogenase 180 U/L (94-250); Phosphorous 2.6 mg/dL (2.7-4.5); Triglycerides 44 mg/dl (<150); Uric Acid 3.3 mg/dL (2.5-8.0)
[2019-12-23] MEDS: BUDESONIDE 0.5 MG/2 ML AMPUL.NEB NEB SCH ×2 (07:27→22:32)
[2019-12-23] MEDS ORDERED: NOREPINEPHRINE BITARTRATE 16 MG in 0.9 % SODIUM CHLORIDE 234 ML IV PRN (07:30)
[2019-12-23] MEDS: LEVOTHYROXINE 50 MCG TABLET PO SCH (07:46)
[2019-12-23 08:15] LABS: Band Neutrophils % 2 % (0-10); Lymphocytes % 9 % (15-49); Monocytes % (Manual) 1 % (1-12); Platelet Estimate NORMAL (NORMAL); RBC Morphology NORMAL (NORMAL); Segmented Neutrophils % 88 % (38-78)
[2019-12-23] MEDS ORDERED: BACLOFEN 10 MG TABLET PO SCH (09:00)
[2019-12-23] MEDS ORDERED: OMEPRAZOLE 20 MG CAPSULE PO SCH (09:00)
[2019-12-23] MEDS ORDERED: SPIRONOLACTONE 25 MG TABLET PO SCH (09:00)
[2019-12-23] MEDS: busPIRone 5 MG TABLET PO SCH ×2 (09:35→21:04)
[2019-12-23] MEDS: methylPREDNISolone SOD SUCC 125 MG/2 ML VIAL IV SCH ×2 (09:35→21:04)
[2019-12-23] MEDS: APIXABAN 5 MG TABLET PO SCH ×2 (09:35→21:04)
[2019-12-23] MEDS: ATORVASTATIN 40 MG TABLET PO SCH (09:36)
[2019-12-23] MEDS: ASPIRIN 81 MG TAB.CHEW PO SCH (09:36)
[2019-12-23] MEDS: MULTIVIT,THER IRON,CA,FA & MIN 1 TABLET PO SCH (09:36)
[2019-12-23] MEDS: THIAMINE 100 MG TABLET PO SCH (09:36)
[2019-12-23] MEDS: DOCUSATE SODIUM 100 MG CAPSULE PO SCH ×2 (09:36→21:04)
--- NOTE | 2019-12-23 10:33 | Internal Med Progress Note ---
Medical - PN: Subj Patient information: Note initiated : 12/23/19 at 10:28 am Service Date, if different from initiated Date: [] Patient: Pérez Grossman a 69 y/o M admitted on 12/22/19 for N/V, SOB. Chief Complaint: [] Interval history: Brief hospital course discharge diagnosis Mr. Grossman is a 69 year old M with a known history of COPD/history of right MCA CVA on aspirin statin Eliquis who presents to the ER with worsening shortness of breath that has evolved with the last 2 weeks. Patient symptoms have worsened from dyspnea on maximal exertion to dyspnea at rest. He denies recent exposure to sick contacts and is up-to-date on vaccines. He denies yellow productive sputum, travel to [facility]/outside [facility]. He also denies recent smoking but he continues to vape daily. Over the last 24 hours his symptoms have progressed to the point he is unable to function. He lives with his son who accompanied him to the ER and notes that he had a dramatic worsening this morning with nausea and vomiting. Initial work-up in the ER was consistent with sepsis with elevated lactate Tachycardia tachypnea and hypoxic respiratory failure requiring oxygen. Blood gas revealed 7.4 05/30/58. Patient denies chest pain, diarrhea, dysuria, fever, chills, arthralgia myalgia or rash. He denies changes in medications. Patient was started on antibiotics after cultures were drawn along with bronchodilators. He also received a dose of steroid. Due to inadequate improvement patient subsequent underwent CT angiogram of the chest that was unremarkable for PE except for fibrotic changes in the lung. Subsequently hospital service was consulted At the time evaluation patient is on oxygen mask. He was able to answer most the question endorse history as above. He is barely able to talk in full se ntences. His blood pressures around mid 90s and was tachypneic in mid 30s. Patient shows minimal diaphoresis He however denies lightheadedness or vision change - Constitutional Vitals: Vital Signs Temp Pulse Resp BP Pulse Ox 97.6 F 71 16 100/56 100 12/23/19 08:00 12/23/19 07:38 12/23/19 08:00 12/23/19 08:00 12/23/19 08:00 Period Temp Pulse Resp BP Sys/Hu Pulse Ox Last 24 Hr 97.6 F-98.7 F 48-124 15-33 97-136/56-88 93-100 Intake and Output 12/22/19 12/23/19 12/23/19 21:59 05:59 13:59 Intake Total 1500 590 50 Output Total 0 Balance 1500 590 50 Weight 204 lb 11.2 oz Intake & Output: Intake & Output 12/22/19 12/23/19 12/23/19 21:59 05:59 13:59 Intake Total 1500 590 50 Output Total 0 Balance 1500 590 50 Weight 204 lb 11.2 oz Intake: Nourishment/Supplement quantity 240 (ml) IV 1500 50 50 Sodium Chloride 0.9% 1,000 ml @ 1000 Wide Open IV BOLUS ONE Rx#: [id number] Zosyn 3.375 gm In Dextrose 5% 50 50 in Water 50 ml @ 100 mls/hr IV Q6H [place] Rx#:[id number] Vancomycin 1,500 mg In Sodium 500 Chloride 0.9% 500 ml @ 333.3 mls/hr IV ONCE ONE Rx#: [id number] Oral 300 Output: # of times incontinent of urine 0 Other: Meal Nourishment/Supplement Percent of Meal Consumed 100% Feeding Ability Assist with Tray Set Up # Voids 0 Medical - PN: Obj Da - Labs CBC & Chem 7: 12/23/19 05:00 12/23/19 05:00 Labs: Abnormal Lab Results 12/23/19 12/23/19 12/23/19 08:07 05:00 05:00 WBC 13.4 H RBC 4.26 L Hgb 11.2 L Hct 36.1 L RDW 14.9 H Gran # Seg Neutrophils % 88 H Lymphocytes % 9 L ESR VBG Lactic Acid 4.9 H* Carbon Dioxide 20 L Anion Gap Glucose 156 H Phosphorus 2.6 L AST ALT Alkaline Phosphatase 155 H NT-Pro-B Natriuret Pep Globulin Urine Protein Urine Occult Blood Ur Leukocyte Esterase Urine RBC Urine WBC Amorphous Crystals Urine Mucus 12/22/19 12/22/19 12/22/19 20:50 13:43 10:57 WBC RBC Hgb Hct RDW Gran # Seg Neutrophils % Lymphocytes % ESR 25 H VBG Lactic Acid 3.5 H Carbon Dioxide Anion Gap Glucose Phosphorus AST ALT Alkaline Phosphatase NT-Pro-B Natriuret Pep Globulin Urine Protein 30 A Urine Occult Blood 0.2 A Ur Leukocyte Esterase 500 A Urine RBC 65 H Urine WBC > 182 H Amorphous Crystals Few A Urine Mucus Many A 12/22/19 12/22/19 12/22/19 10:27 10:27 10:27 WBC RBC Hgb 13.5 L Hct RDW 14.6 H Gran # 8.52 H Seg Neutrophils % Lymphocytes % ESR VBG Lactic Acid 2.9 H Carbon Dioxide Anion Gap 17.0 H Glucose 130 H Phosphorus AST 47 H ALT 53 H Alkaline Phosphatase 209 H NT-Pro-B Natriuret Pep 225.2 H Globulin 4.0 H Urine Protein Urine Occult Blood Ur Leukocyte Esterase Urine RBC Urine WBC Amorphous Crystals Urine Mucus Meds: Medications Acetaminophen (Tylenol) 650 mg PO Q4-6HP PRN; Protocol PRN Reason: Per Pain Protocol/Fever > 101 Albuterol/Ipratropium (Duoneb) 3 ml NEB Q4HRT PENDING SALE TO [facility] Last Admin: 12/23/19 07:27 Dose: 3 ml Documented by: Alprazolam (Xanax) 1 mg PO DAILYP PRN PRN Reason: Anxiety Last Admin: 12/22/19 21:54 Dose: 1 mg Documented by: Apixaban (Eliquis) 5 mg PO BID [facility]END[facility] Last Admin: 12/23/19 09:35 Dose: 5 mg Documented by: Aspirin (Aspirin) 81 mg PO DAILY [facility] Last Admin: 12/23/19 09:36 Dose: 81 mg Documented by: Atorvastatin Calcium (Lipitor) 80 mg PO QDAY PENDING SALE TO [facility] Last Admin: 12/23/19 09:36 Dose: 80 mg Documented by: Bisacodyl (Dulcolax) 10 mg MT Q2-3DAYS PRN PRN Reason: Constipation Budesonide (Pulmicort) 0.5 mg NEB Q12 PENDING SALE [facility] Last Admin: 12/23/19 07:27 Dose: 0.5 mg Documented by: Buspirone HCl (Buspar) 15 mg PO BID [facility]END[facility] Last Admin: 12/23/19 09:35 Dose: 15 mg Documented by: Docusate Sodium (Colace) 100 mg PO BID [facility] Last Admin: 12/23/19 09:36 Dose: 100 mg Documented by: Guaifenesin/Codeine Phosphate (Robitussin Ac) 10 ml PO Q4HP PRN PRN Reason: Cough Hydralazine HCl (Apresoline) 10 mg IV Q4-6HP PRN PRN Reason: Hypertension Sodium Chloride (Sodium Chloride 0.9%) 250 mls @ 20 mls/hr IV .[id number] PENDING SALE TO [facility] Last Admin: 12/23/19 07:07 Dose: Not Given Documented by: Sodium Chloride (Sodium Chloride 0.9%) 1,000 mls @ 100 mls/hr IV .Q10H PENDING SALE TO [facility] Last Admin: 12/22/19 21:53 Dose: 100 mls/hr Documented by: Magnesium Sulfate (Magnesium Sulfate) 2 gm in 50 mls @ 50 mls/hr IV UD PRN PRN Reason: MG = or < 1.7 Levofloxacin (Levaquin) 750 mg in 150 mls @ 100 mls/hr IV Q24H PENDING SALE TO [facility]; Protocol Last Admin: 12/22/19 21:53 Dose: 100 mls/hr Documented by: Piperacillin Sod/Tazobactam (Sod 3.375 gm/ Dextrose) 50 mls @ 100 mls/hr IV Q6H PENDING SALE TO [facility]; Protocol Last Infusion: 12/23/19 06:10 Dose: Infused Documented by: Sodium Chloride (Sodium Chloride 0.9%) 250 mls @ 20 mls/hr IV .[id number] PENDING SALE TO [facility] Last Admin: 12/23/19 09:36 Dose: Not Given Documented by: Norepinephrine Bitartrate 16 (mg/ Sodium Chloride) 250 mls @ 9.375 mls/hr IV Q24HP PRN; Protocol PRN Reason: Hypotension Iron Carb/Multivit/Styrene Dehydration Reactor Operator/Folic Acid (Multivitamin W/Minerals) 1 tab PO DAILY [facility]END[facility] Last Admin: 12/23/19 09:36 Dose: 1 tab Documented by: Levothyroxine Sodium (Synthroid) 50 mcg PO QAMAC PENDING SALE TO [facility] Last Admin: 12/23/19 07:46 Dose: 50 mcg Documented by: Melatonin (Melatonin 3mg Tablet) 3 mg PO HSP PRN PRN Reason: Insomnia Methylprednisolone Sodium Succinate (Solu-Medrol) 60 mg IV Q12 PEND[facility] S[facility] Last Admin: 12/23/19 09:35 Dose: 60 mg Documented by: Metoprolol Tartrate (Lopressor) 5 mg IV Q5M PRN PRN Reason: Heart Rate > 140 bpm Ondansetron HCl (Zofran Odt) 4 mg SL Q4-6HP PRN; Protocol PRN Reason: Nausea And Vomiting Ondansetron HCl (Zofran) 4 mg IV Q4-6HP PRN; Protocol PRN Reason: Nausea And Vomiting Pantoprazole Sodium (Protonix) 40 mg PO QAMAC PENDING SALE TO [facility] Polyethylene Glycol (Miralax) 17 gm PO DAILYP PRN PRN Reason: Constipation Potassium Chloride (Klor-Con) 40 meq PO DAILYP PRN PRN Reason: K+ < 3.5 Senna (Senokot) 2 tab PO DAILYP PRN PRN Reason: Constipation Senna/Docusate Sodium (Senna Plus Tablet) [address] [facility] Last Admin: 12/22/19 21:49 Dose: Not Given Documented by: Sodium Chloride (Saline Flush) 10 ml IV Q8 PENDING SALE TO [facility] Last Admin: 12/23/19 05:09 Dose: Not Given Documented by: Tamsulosin HCl (Flomax) 0.[address] [facility] Last Admin: 12/22/19 21:54 Dose: 0.4 mg Documented by: Thiamine HCl (Vitamin B1) 100 mg PO DAILY PENDING SALE [facility] Last Admin: 12/23/19 09:36 Dose: 100 mg Documented by: Medical - PN: A/P - Time Spent With Patient Total time spent is greater than 50% in coordination of care (as documented) at patient's floor/unit and/or counseling patient: 25 - 35 minutes (1) Acute respiratory failure with hypoxia Status: Acute Assessment and plan: * Acute respiratory failure with hypoxia-clinical improvement noted. Overnight on noninvasive ventilation. Much improved this morning. On room air. * Sepsis with hypotension likely secondary to complicated UTI. Worsening lactate. Continue crystalloids and antibiotic coverage. Await cultures. * COPD exacerbation clinical improvement noted on bronchodilators/steroids * Complicated UTI in the setting of staghorn calculus-recurrent. Continue antibiotic coverage. No evidence of obstructive uropathy * History of Mobitz type II heart block-no overnight events. Continue telemetry monitoring * CKD stage III-stable. Creatinine 1.2 * Mild transaminitis secondary to sepsis endorgan dysfunction. Resolved * Hypothyroidism continue thyroxine * History of CHF continue beta-jasiel , restart ARABELLA inhibitor once sepsis resolves * History of LV thrombus continue Eliquis * History of pulmonary artery hypertension * Anxiety disorder continue BuSpar * GERD continue PPI * History of BPH continue Flomax * Recent MRSA bacteremia status post extensive work-up with negative transthoracic echo ruling out endocarditis. Status post 2-week IV vancomycin per ID * Full code * Prophylaxis on Eliquis Plan * Continue broad antibiotic coverage * Continue sepsis management per guidelines * Positive pressure ventilation * Recommend outpatient sleep study * Steroids bronchodilators * Continue pre-existing mental condition management home med * PT OT nutrition support * Discharge planning Current Visit: Yes Medical - PN: Qual - VTE Deep Vein Thrombosis/Pulmonary Embolism Present on Admission: No
[2019-12-23] MEDS: 0.9 % SODIUM CHLORIDE 1,000 ML IV SCH (11:18)
[2019-12-23] MEDS: PANTOPRAZOLE 40 MG TABLET PO SCH (11:18)
[2019-12-23] MEDS: busPIRone 10 MG TABLET PO SCH (11:37)
--- NOTE | 2019-12-23 12:51 | Internal Med Progress Note ---
Medical - PN: Subj Patient information: Note initiated : 12/23/19 at 12:42 pm Service Date, if different from initiated Date: [] Patient: Pérez Grossman a 69 y/o M admitted on 12/22/19 for N/V, SOB. Chief Complaint: [] Interval history: Mr. Grossman is a 69 year old M with a known history of COPD/history of right MCA CVA on aspirin statin Eliquis who presents to the ER with worsening shortness of breath that has evolved with the last 2 weeks. Patient symptoms have worsened from dyspnea on maximal exertion to dyspnea at rest. He denies recent exposure to sick contacts and is up-to-date on vaccines. He denies yellow productive sputum, travel to [facility]/outside [facility]. He also denies recent smoking but he continues to vape daily. Over the last 24 hours his symptoms have progressed to the point he is unable to function. He lives with his son who accompanied him to the ER and notes that he had a dramatic worsening this morning with nausea and vomiting. Initial work-up in the ER was con sistent with sepsis with elevated lactate Tachycardia tachypnea and hypoxic respiratory failure requiring oxygen. Blood gas revealed 7.4 05/30/58. Patient denies chest pain, diarrhea, dysuria, fever, chills, arthralgia myalgia or rash. He denies changes in medications. Patient was started on antibiotics after cultures were drawn along with bronchodilators. He also received a dose of steroid. Due to inadequate improvement patient subsequent underwent CT angiogram of the chest that was unremarkable for PE except for fibrotic changes in the lung. Subsequently hospital service was consulted At the time evaluation patient is on oxygen mask. He was able to answer most the question endorse history as above. He is barely able to talk in full sentences. His blood pressures around mid 90s and was tachypneic in mid 30s. Patient shows minimal diaphoresis He however denies lightheadedness or vision change 12/24 - Constitutional Vitals: Vital Signs Temp Pulse Resp BP Pulse Ox 98.1 F 70 22 107/60 100 12/23/19 11:33 12/23/19 11:33 12/23/19 11:33 12/23/19 11:33 12/23/19 11:33 Period Temp Pulse Resp BP Sys/Hu Pulse Ox Last 24 Hr 97.6 F-98.7 F 48-124 16-33 97-136/56-88 93-100 Intake and Output 12/22/19 12/23/19 12/23/19 21:59 05:59 13:59 Intake Total 3300 862 4680 Output Total 0 250 Balance 7934 898 4842 Weight 92.85 kg Intake & Output: Intake & Output 12/22/19 12/23/19 12/23/19 21:59 05:59 13:59 Intake Total 7248 723 5358 Output Total 0 250 Balance 9346 981 8187 Weight 92.85 kg Intake: Nourishment/Supplement quantity 240 (ml) IV 1500 50 1050 Sodium Chloride 0.9% 1,000 ml @ 1000 1000 100 mls/hr IV .Q10H [facility] Rx#: [id number] Zosyn 3.375 gm In Dextrose 5% 50 50 in Water 50 ml @ 100 mls/hr IV Q6H [facility] Rx#:[id number] Vancomycin 1,500 mg In Sodium 500 Chloride 0.9% 500 ml @ 333.3 mls/hr IV ONCE ONE Rx#: [id number] Oral 300 240 Output: Void Amount 250 # of times incontinent of urine 0 Other: Meal Nourishment/Supplement Breakfast Percent of Meal Consumed 100% 100% Feeding Ability Assist with Tray Set Up # Voids 0 Exam: General: Alert, Awake, No acute Distress Eyes/N/T: EOMI, Head/Neck: neck supple, CV: RRR, No murmurs, normal s1/s2 Pulm: Abd: soft, nontender, +BS x4 Ext: no clubbing/cyanosis/edema Neuro: Alert, no focal deficits, moves all extremities, Skin: warm/dry Medical - PN: Obj Da - Labs CBC & Chem 7: 12/23/19 05:00 12/23/19 05:00 Labs: Abnormal Lab Results 12/23/19 12/23/19 12/23/19 08:07 05:00 05:00 WBC 13.4 H RBC 4.26 L Hgb 11.2 L Hct 36.1 L RDW 14.9 H Gran # Seg Neutrophils % 88 H Lymphocytes % 9 L ESR VBG Lactic Acid 4.9 H* Carbon Dioxide 20 L Anion Gap Glucose 156 H Phosphorus 2.6 L AST ALT Alkaline Phosphatase 155 H NT-Pro-B Natriuret Pep Globulin Urine Protein Urine Occult Blood Ur Leukocyte Esterase Urine RBC Urine WBC Amorphous Crystals Urine Mucus 12/22/19 12/22/19 12/22/19 20:50 13:43 10:57 WBC RBC Hgb Hct RDW Gran # Seg Neutrophils % Lymphocytes % ESR 25 H VBG Lactic Acid 3.5 H Carbon Dioxide Anion Gap Glucose Phosphorus AST ALT Alkaline Phosphatase NT-Pro-B Natriuret Pep Globulin Urine Protein 30 A Urine Occult Blood 0.2 A Ur Leukocyte Esterase 500 A Urine RBC 65 H Urine WBC > 182 H Amorphous Crystals Few A Urine Mucus Many A 12/22/19 12/22/19 12/22/19 10:27 10:27 10:27 WBC RBC Hgb 13.5 L Hct RDW 14.6 H Gran # 8.52 H Seg Neutrophils % Lymphocytes % ESR VBG Lactic Acid 2.9 H Carbon Dioxide Anion Gap 17.0 H Glucose 130 H Phosphorus AST 47 H ALT 53 H Alkaline Phosphatase 209 H NT-Pro-B Natriuret Pep 225.2 H Globulin 4.0 H Urine Protein Urine Occult Blood Ur Leukocyte Esterase Urine RBC Urine WBC Amorphous Crystals Urine Mucus Meds: Medications Acetaminophen (Tylenol) 650 mg PO Q4-6HP PRN; Protocol PRN Reason: Per Pain Protocol/Fever > 101 Albuterol/Ipratropium (Duoneb) 3 ml NEB Q4HRT [facility] Last Admin: 12/23/19 11:28 Dose: 3 ml Documented by: Alprazolam (Xanax) 1 mg PO DAILYP PRN PRN Reason: Anxiety Last Admin: 12/22/19 21:54 Dose: 1 mg Documented by: Apixaban (Eliquis) 5 mg PO BID [facility] Last Admin: 12/23/19 09:35 Dose: 5 mg Documented by: Aspirin (Aspirin) 81 mg PO DAILY [facility] Last Admin: 12/23/19 09:36 Dose: 81 mg Documented by: Atorvastatin Calcium (Lipitor) 80 mg PO QDAY [facility] Last Admin: 12/23/19 09:36 Dose: 80 mg Documented by: Bisacodyl (Dulcolax) 10 mg IN Q2-3DAYS PRN PRN Reason: Constipation Budesonide (Pulmicort) 0.5 mg NEB Q12 [facility] Last Admin: 12/23/19 07:27 Dose: 0.5 mg Documented by: Buspirone HCl (Buspar) 15 mg PO BID [facility] Last Admin: 12/23/19 09:35 Dose: 15 mg Documented by: Docusate Sodium (Colace) 100 mg PO BID [facility] Last Admin: 12/23/19 09:36 Dose: 100 mg Documented by: Guaifenesin/Codeine Phosphate (Robitussin Ac) 10 ml PO Q4HP PRN PRN Reason: Cough Hydralazine HCl (Apresoline) 10 mg IV Q4-6HP PRN PRN Reason: Hypertension Sodium Chloride (Sodium Chloride 0.9%) 250 mls @ 20 mls/hr IV .[id number] [facility] Last Admin: 12/23/19 07:07 Dose: Not Given Documented by: Sodium Chloride (Sodium Chloride 0.9%) 1,000 mls @ 100 mls/hr IV .Q10H [facility] Last Admin: 12/23/19 11:18 Dose: 100 mls/hr Documented by: Magnesium Sulfate (Magnesium Sulfate) 2 gm in 50 mls @ 50 mls/hr IV UD PRN PRN Reason: MG = or < 1.7 Levofloxacin (Levaquin) 750 mg in 150 mls @ 100 mls/hr IV Q24H [facility]; Protocol Last Admin: 12/22/19 21:53 Dose: 100 mls/hr Documented by: Piperacillin Sod/Tazobactam (Sod 3.375 gm/ Dextrose) 50 mls @ 100 mls/hr IV Q6H [facility]; Protocol Last Admin: 12/23/19 11:26 Dose: 100 mls/hr Documented by: Sodium Chloride (Sodium Chloride 0.9%) 250 mls @ 20 mls/hr IV .[id number] [facility] Last Admin: 12/23/19 09:36 Dose: Not Given Documented by: Norepinephrine Bitartrate 16 (mg/ Sodium Chloride) 250 mls @ 9.375 mls/hr IV Q24HP PRN; Protocol PRN Reason: Hypotension Iron Carb/Multivit/Barrel Drainer/Folic Acid (Multivitamin W/Minerals) 1 tab PO DAILY S Last Admin: 12/23/19 09:36 Dose: 1 tab Documented by: Levothyroxine Sodium (Synthroid) 50 mcg PO QAMAC [facility] Last Admin: 12/23/19 07:46 Dose: 50 mcg Documented by: Melatonin (Melatonin 3mg Tablet) 3 mg PO HSP PRN PRN Reason: Insomnia Methylprednisolone Sodium Succinate (Solu-Medrol) 60 mg IV Q12 [facility] Last Admin: 12/23/19 09:35 Dose: 60 mg Documented by: Metoprolol Tartrate (Lopressor) 5 mg IV Q5M PRN PRN Reason: Heart Rate > 140 bpm Ondansetron HCl (Zofran Odt) 4 mg SL Q4-6HP PRN; Protocol PRN Reason: Nausea And Vomiting Ondansetron HCl (Zofran) 4 mg IV Q4-6HP PRN; Protocol PRN Reason: Nausea And Vomiting [facility] Admin: 12/23/19 11:18 Dose: 40 mg Documented by: Polyethylene Glycol (Miralax) 17 gm PO DAILYP PRN PRN Reason: Constipation Potassium Chloride (Klor-Con) 40 meq PO DAILYP PRN PRN Reason: K+ < 3.5 Senna (Senokot) 2 tab PO DAILYP PRN PRN Reason: Constipation Senna/Docusate Sodium (Senna Plus Tablet) 1 tab PO [facility] Last Admin: 12/22/19 21:49 Dose: Not Given Documented by: Sodium Chloride (Saline Flush) 10 ml IV Q8 [facility] Last Admin: 12/23/19 05:09 Dose: Not Given Documented by: Tamsulosin HCl (Flomax) 0.4 mg PO [facility] Last Admin: 12/22/19 21:54 Dose: 0.4 mg Documented by: Thiamine HCl (Vitamin B1) 100 mg PO DAILY [facility] Last Admin: 12/23/19 09:36 Dose: 100 mg Documented by: Medical - PN: A/P - Time Spent With Patient Total time spent is greater than 50% in coordination of care (as documented) at patient's floor/unit and/or counseling patient: - Narrative A/P Narrative: A: *Acute respiratory failure w/hypoxia: 2/2 COPD exacerbation *Sepsis w/hypotension: likely 2/2 complicated UTI. -Elevated lactate *AECOPD: *Complicated UTI (Staph): *Recent MRSA bacteremia w/extensive work-up and negative transthoracic echo ruling out endocarditis - Status post 2-week IV vancomycin per ID *History of nephrolithiasis: Nonobstructive at this time. Follows with Dr. Hough *History of Mobitz type I: -pt was supposed to f/u with Dr. Noel Mccain of [facility] upon last d/c (11/08/2019) *CKD III: *Chronic anemia: *Transaminitis, mild: 2/2 likely sepsis, improved *h/o CVA (Right MCA): on ASA/statin *h/o LV Thrombus: on eliquis *h/o diastolic cardiac dysfxn *Anxiety: *HTN/HLD: on ACEI *Hypothyroidism: *GERD *BPH: on flomax Plan: -continue supplemental oxygen and positive pressure ventilation if indicated. -Broad antibiotic coverage, Pancultures and source evaluation -Vasopressors wean, -steroids(steroids)/bronchodilators -PT OT nutrition support -?f/u with radha -f/u with Dr. Noel Mccain at [facility] -ppx: cont home Eliquis/home ppi Full code Medical - PN: Qual - VTE Deep Vein Thrombosis/Pulmonary Embolism Present on Admission: No
[2019-12-23] MEDS ORDERED: VANCOMYCIN PER PHARMACY IV SCH (12:53)
[2019-12-23] MEDS: LEVOFLOXACIN 750 MG/150 ML BAG IV SCH (13:33)
[2019-12-23] MEDS: ALPRAZolam 0.5 MG TABLET PO PRN (15:02)
[2019-12-23] MEDS: VANCOMYCIN 1,000 MG in 0.9 % SODIUM CHLORIDE 250 ML IV SCH ×2 (15:08→22:38)
[2019-12-23] MEDS: TAMSULOSIN 0.4 MG CAPSULE PO SCH (21:04)
[2019-12-23] MEDS: SENNOSIDES/DOCUSATE SODIUM 1 TAB TABLET PO SCH (21:04)
[2019-12-24] MEDS: PIPERACILLIN SODIUM/TAZOBACTAM 3.375 GM in DEXTROSE 5% IN WATER 50 ML IV SCH ×2 (00:20→05:32)
[2019-12-24] MEDS: IPRATROPIUM/ALBUTEROL 3 ML AMPUL.NEB NEB SCH ×5 (03:05→18:09)
[2019-12-24] MEDS: 0.9 % SODIUM CHLORIDE 1,000 ML IV SCH ×3 (03:31→15:25)
[2019-12-24] MEDS: 0.9 % SODIUM CHLORIDE 10 ML SYRINGE IV SCH ×3 (05:28→21:53)
[2019-12-24] MEDS: 0.9 % SODIUM CHLORIDE 250 ML IV SCH ×4 (06:54→23:13)
[2019-12-24] MEDS: BUDESONIDE 0.5 MG/2 ML AMPUL.NEB NEB SCH ×3 (07:00→21:10)
--- NOTE | 2019-12-24 07:45 | Internal Med Progress Note ---
Medical - PN: Subj Patient information: Note initiated : 12/24/19 at 7:40 am Service Date, if different from initiated Date: [] Patient: Pérez Grossman a 69 y/o M admitted on 12/22/19 for N/V, SOB. Chief Complaint: [] Interval history: Mr. Grossman is a 69 year old M with a known history of COPD/history of right MCA CVA on aspirin statin Eliquis who presents to the ER with worsening shortness of breath that has evolved with the last 2 weeks. Patient symptoms have worsened from dyspnea on maximal exertion to dyspnea at rest. He denies recent exposure to sick contacts and is up-to-date on vaccines. He denies yellow productive sputum, travel to [facility]/outside [facility]. He also denies recent smoking but he continues to vape daily. Over the last 24 hours his symptoms have progressed to the point he is unable to function. He lives with his son who accompanied him to the ER and notes that he had a dramatic worsening this morning with nausea and vomiting. Initial work-up in the ER was cons istent with sepsis with elevated lactate Tachycardia tachypnea and hypoxic respiratory failure requiring oxygen. Blood gas revealed 7.4 05/30/58. Patient denies chest pain, diarrhea, dysuria, fever, chills, arthralgia myalgia or rash. He denies changes in medications. Patient was started on antibiotics after cultures were drawn along with bronchodilators. He also received a dose of steroid. Due to inadequate improvement patient subsequent underwent CT angiogram of the chest that was unremarkable for PE except for fibrotic changes in the lung. Subsequently hospital service was consulted At the time evaluation patient is on oxygen mask. He was able to answer most the question endorse history as above. He is barely able to talk in full sentences. His blood pressures around mid 90s and was tachypneic in mid 30s. Patient shows minimal diaphoresis He however denies lightheadedness or vision change 12/24 Feeling better. Ambulated in the [place] yesterday well without oxygen on told. No new complaints. No complaint of cough this morning. Denies dyspnea Review of Systems: denies headache/fever/chills/nausea/vomiting/chest or abdominal pain/diarrhea. Otherwise see above. - Constitutional Vitals: Vital Signs Temp Pulse Resp BP Pulse Ox 97.3 F 62 24 H 114/62 100 12/24/19 07:00 12/24/19 07:00 12/24/19 07:00 12/24/19 07:00 12/24/19 07:00 Period Temp Pulse Resp BP Sys/Hu Pulse Ox Last 24 Hr 97.3 F-98.3 F 62-91 14-24 100-118/49-63 95-100 Intake and Output 12/23/19 12/24/19 12/24/19 21:59 05:59 13:59 Intake Total 2050 410 50 Output Total 700 500 Balance 1350 -90 50 Weight 95.073 kg Intake & Output: Intake & Output 12/23/19 12/24/19 12/24/19 21:59 05:59 13:59 Intake Total 2050 410 50 Output Total 700 500 Balance 1350 -90 50 Weight 95.073 kg Intake: IV 1450 50 50 Sodium Chloride 0.9% 1,000 ml @ 1000 100 mls/hr IV .Q10H [facility] Rx#: [id number] Zosyn 3.375 gm In Dextrose 5% 50 50 50 in Water 50 ml @ 100 mls/hr IV Q6H [facility] Rx#:[id number] Vancomycin 1,000 mg In Sodium 250 Chloride 0.9% 250 ml @ 250 mls/ hr IV Q12H [facility] Rx#:[id number] Oral 600 360 Output: Urine Catheter Amount 650 Void Amount 50 500 Other: Meal Dinner Percent of Meal Consumed 25% Feeding Ability Assist with Tray Set Up Urine Appearance Clear Urine Color Dark Yellow Dark Yellow Blood Tinged Straight Bright Yellow Urine Odor Normal Exam: General: Alert, Awake, No acute Distress Eyes/N/T: EOMI, Head/Neck: neck supple, CV: RRR, No murmurs, normal s1/s2 Pulm: diminished, no rales Abd: soft, nontender, +BS x4 Ext: no clubbing/cyanosis/edema Neuro: Alert, no focal deficits, moves all extremities, Skin: warm/dry Medical - PN: Obj Da - Labs CBC & Chem 7: 12/24/19 05:05 12/23/19 05:00 Labs: Abnormal Lab Results 12/23/19 12/23/19 12/23/19 16:10 11:58 08:07 WBC RBC Hgb Hct RDW Gran # Seg Neutrophils % Lymphocytes % ESR VBG Lactic Acid 3.0 H 2.5 H 4.9 H* Carbon Dioxide Anion Gap Glucose Phosphorus AST ALT Alkaline Phosphatase NT-Pro-B Natriuret Pep Globulin Urine Protein Urine Occult Blood Ur Leukocyte Esterase Urine RBC Urine WBC Amorphous Crystals Urine Mucus 12/23/19 12/23/19 12/22/19 05:00 05:00 20:50 WBC 13.4 H RBC 4.26 L Hgb 11.2 L Hct 36.1 L RDW 14.9 H Gran # Seg Neutrophils % 88 H Lymphocytes % 9 L ESR 25 H VBG Lactic Acid Carbon Dioxide 20 L Anion Gap Glucose 156 H Phosphorus 2.6 L AST ALT Alkaline Phosphatase 155 H NT-Pro-B Natriuret Pep Globulin Urine Protein Urine Occult Blood Ur Leukocyte Esterase Urine RBC Urine WBC Amorphous Crystals Urine Mucus 12/22/19 12/22/19 12/22/19 13:43 10:57 10:27 WBC RBC Hgb Hct RDW Gran # Seg Neutrophils % Lymphocytes % ESR VBG Lactic Acid 3.5 H 2.9 H Carbon Dioxide Anion Gap Glucose Phosphorus AST ALT Alkaline Phosphatase NT-Pro-B Natriuret Pep Globulin Urine Protein 30 A Urine Occult Blood 0.2 A Ur Leukocyte Esterase 500 A Urine RBC 65 H Urine WBC > 182 H Amorphous Crystals Few A Urine Mucus Many A 12/22/19 12/22/19 10:27 10:27 WBC RBC Hgb 13.5 L Hct RDW 14.6 H Gran # 8.52 H Seg Neutrophils % Lymphocytes % ESR VBG Lactic Acid Carbon Dioxide Anion Gap 17.0 H Glucose 130 H Phosphorus AST 47 H ALT 53 H Alkaline Phosphatase 209 H NT-Pro-B Natriuret Pep 225.2 H Globulin 4.0 H Urine Protein Urine Occult Blood Ur Leukocyte Esterase Urine RBC Urine WBC Amorphous Crystals Urine Mucus Meds: Medications Acetaminophen (Tylenol) 650 mg PO Q4-6HP PRN; Protocol PRN Reason: Per Pain Protocol/Fever > 101 Last Admin: 12/23/19 15:02 Dose: 650 mg Documented by: Albuterol/Ipratropium (Duoneb) 3 ml NEB Q4HRT [facility] Last Admin: 12/24/19 06:56 Dose: 3 ml Documented by: Alprazolam (Xanax) 1 mg PO DAILYP PRN PRN Reason: Anxiety Last Admin: 12/23/19 15:02 Dose: 1 mg Documented by: Apixaban (Eliquis) 5 mg PO BID [facility] Last Admin: 12/23/19 21:04 Dose: 5 mg Documented by: Aspirin (Aspirin) 81 mg PO DAILY [facility] Last Admin: 12/23/19 09:36 Dose: 81 mg Documented by: Atorvastatin Calcium (Lipitor) 80 mg PO QDAY [facility] Last Admin: 12/23/19 09:36 Dose: 80 mg Documented by: Bisacodyl (Dulcolax) 10 mg [place] Q2-3DAYS PRN PRN Reason: Constipation Budesonide (Pulmicort) 0.5 mg NEB Q12 [facility] Last Admin: 12/24/19 07:00 Dose: 0.5 mg Documented by: Buspirone HCl (Buspar) 15 mg PO BID [facility] Last Admin: 12/23/19 21:04 Dose: 15 mg Documented by: Docusate Sodium (Colace) 100 mg PO BID [facility] Last Admin: 12/23/19 21:04 Dose: 100 mg Documented by: Guaifenesin/Codeine Phosphate (Robitussin Ac) 10 ml PO Q4HP PRN PRN Reason: Cough Hydralazine HCl (Apresoline) 10 mg IV Q4-6HP PRN PRN Reason: Hypertension Sodium Chloride (Sodium Chloride 0.9%) 250 mls @ 20 mls/hr IV .[id number] [facility] Last Admin: 12/24/19 06:54 Dose: Not Given Documented by: Sodium Chloride (Sodium Chloride 0.9%) 1,000 mls @ 100 mls/hr IV .Q10H [facility] Last Admin: 12/24/19 05:28 Dose: Not Given Documented by: Magnesium Sulfate (Magnesium Sulfate) 2 gm in 50 mls @ 50 mls/hr IV UD PRN PRN Reason: MG = or < 1.7 Last Admin: 12/23/19 19:44 Dose: 50 mls/hr Documented by: Piperacillin Sod/Tazobactam (Sod 3.375 gm/ Dextrose) 50 mls @ 100 mls/hr IV Q6H [facility]; Protocol Last Infusion: 12/24/19 06:56 Dose: Infused Documented by: Sodium Chloride (Sodium Chloride 0.9%) 250 mls @ 20 mls/hr IV .[id number] [facility] Last Admin: 12/23/19 21:05 Dose: Not Given Documented by: Norepinephrine Bitartrate 16 (mg/ Sodium Chloride) 250 mls @ 9.375 mls/hr IV Q24HP PRN; Protocol PRN Reason: Hypotension Vancomycin HCl 1,000 mg/ (Sodium Chloride) 250 mls @ 250 mls/hr IV Q12H [facility] Last Admin: 12/23/19 22:38 Dose: 250 mls/hr Documented by: Iron Carb/Multivit/[place]/Folic Acid (Multivitamin W/Minerals) 1 tab PO DAILY [facility] Last Admin: 12/23/19 09:36 Dose: 1 tab Documented by: Levothyroxine Sodium (Synthroid) 50 mcg PO [facility] Last Admin: 12/23/19 07:46 Dose: 50 mcg Documented by: Melatonin (Melatonin 3mg Tablet) 3 mg PO HSP PRN PRN Reason: Insomnia Methylprednisolone Sodium Succinate (Solu-Medrol) 60 mg IV Q12 [facility] Last Admin: 12/23/19 21:04 Dose: 60 mg Documented by: Metoprolol Tartrate (Lopressor) 5 mg IV Q5M PRN PRN Reason: Heart Rate > 140 bpm Ondansetron HCl (Zofran Odt) 4 mg SL Q4-6HP PRN; Protocol PRN Reason: Nausea And Vomiting Ondansetron HCl (Zofran) 4 mg IV Q4-6HP PRN; Protocol PRN Reason: Nausea And Vomiting Last Admin: 12/23/19 15:03 Dose: 4 mg Documented by: Pantoprazole Sodium (Protonix) 40 mg PO [facility] Last Admin: 12/23/19 11:18 Dose: 40 mg Documented by: Polyethylene Glycol (Miralax) 17 gm PO DAILYP PRN PRN Reason: Constipation Last Admin: 12/23/19 15:02 Dose: 17 gm Documented by: Potassium Chloride (Klor-Con) 40 meq PO DAILYP PRN PRN Reason: K+ < 3.5 Senna (Senokot) 2 tab PO DAILYP PRN PRN Reason: Constipation Senna/Docusate Sodium (Senna Plus Tablet) 1 tab PO HS [facility] Last Admin: 12/23/19 21:04 Dose: 1 tab Documented by: Sodium Chloride (Saline Flush) 10 ml IV Q8 [facility] Last Admin: 12/24/19 05:28 Dose: Not Given Documented by: Tamsulosin HCl (Flomax) 0.4 mg PO HS [facility] Last Admin: 12/23/19 21:04 Dose: 0.4 mg Documented by: Thiamine HCl (Vitamin B1) 100 mg PO DAILY [facility] Last Admin: 12/23/19 09:36 Dose: 100 mg Documented by: Vancomycin HCl (Vancomycin Per Pharmacy) 1 order IV UD [facility]; Protocol Medical - PN: A/P - Time Spent With Patient Total time spent is greater than 50% in coordination of care (as documented) at patient's floor/unit and/or counseling patient: - Narrative A/P Narrative: A: *Acute respiratory failure w/hypoxia: 2/2 COPD exacerbation -improved *Sepsis w/hypotension: likely 2/2 complicated UTI -Elevated lactate resolved *AECOPD: *Complicated UTI (Staph): *Recent MRSA bacteremia w/extensive work-up and negative transthoracic echo ruling out endocarditis - Status post 2-week IV vancomycin per ID *History of nephrolithiasis: Nonobstructive at this time. Follows with Dr. Hough *History of Mobitz type I: -pt was supposed to f/u with Dr. Noel Mccain of [facility] upon last d/c (11/08/2019) *CKD III: *Chronic anemia: *Transaminitis, mild: 2/2 likely sepsis, improved *h/o CVA (Right MCA): on ASA/statin *h/o LV Thrombus: on eliquis *h/o diastolic cardiac dysfxn *Anxiety: *HTN/HLD: on ACEI *Hypothyroidism: *GERD *BPH: on flomax per urologist prior to admission Plan: -continue supplemental oxygen prn -vanc/zosyn, pending final UC/BC -steroids(steroids)/bronchodilators -ACEI held initially for hypotension -cont home ASA/Statin -PT OT nutrition support -f/u with radha as scheduled -f/u with Dr. Noel Mccain at [facility] -f/u with pulmonology for sleep study -ppx: cont home Eliquis/home ppi Full code Medical - PN: Qual - VTE Deep Vein Thrombosis/Pulmonary Embolism Present on Admission: No
[2019-12-24] MEDS: LEVOTHYROXINE 50 MCG TABLET PO SCH (07:47)
[2019-12-24] MEDS: PANTOPRAZOLE 40 MG TABLET PO SCH (07:47)
[2019-12-24] MEDS ORDERED: predniSONE 20 MG TABLET PO SCH (08:00)
[2019-12-24] MEDS: DOCUSATE SODIUM 100 MG CAPSULE PO SCH ×2 (09:25→21:52)
[2019-12-24] MEDS: busPIRone 5 MG TABLET PO SCH ×2 (09:25→21:52)
[2019-12-24] MEDS: MULTIVIT,THER IRON,CA,FA & MIN 1 TABLET PO SCH (09:25)
[2019-12-24] MEDS: THIAMINE 100 MG TABLET PO SCH (09:25)
[2019-12-24] MEDS: ASPIRIN 81 MG TAB.CHEW PO SCH (09:25)
[2019-12-24] MEDS: ATORVASTATIN 40 MG TABLET PO SCH (09:25)
[2019-12-24] MEDS: APIXABAN 5 MG TABLET PO SCH ×2 (09:25→21:53)
[2019-12-24 09:27] LABS: Hematocrit 33.7 % (40.1-51.0); Hemoglobin 10.5 g/dL (13.7-17.5); Mean Cell Volume 84.9 fL (80.0-100.0); Mean Corpuscular HGB Conc 31.2 g/dL (31.0-36.0); Mean Platelet Volume 10.1 fL (7.4-10.4); Platelet Count 265 K/mcL (140-440); RBC 3.97 M/mcL (4.63-6.08); WBC 18.1 K/mcL (4.50-11.00)
[2019-12-24 09:33] LABS: ALT/SGPT 26 U/l (0-40); AST/SGOT 26 U/l (0-37); Albumin/Globulin Ratio 0.9 (1.0-2.3); Alkaline Phosphatase 129 U/L (39-117); Bilirubin,Direct < 0.2 mg/dL (0.0-0.3); Bilirubin,Total 0.2 mg/dL (0.0-1.0); Blood Urea Nitrogen 18 mg/dl (8-23); Calcium 8.5 mg/dl (8.6-10.4); Carbon Dioxide 19 mmol/L (22-30); Chloride 107 mmol/L (96-108); Globulin 3.2 gm/dL (2.2-3.7); Glomerular Filtration Rate 62; Glucose 147 mg/dL (70-105); Lactate Dehydrogenase 235 U/L (94-250); Phosphorous 2.6 mg/dL (2.7-4.5); Triglycerides 37 mg/dl (<150); Uric Acid 1.9 mg/dL (2.5-8.0)
--- NOTE | 2019-12-24 10:49 | Discharge Summary ---
Medical - DS: Prov Patient information: Note initiated : 12/24/19 at 10:45 am Service Date, if different from initiated Date: [] Patient: Pérez Grossman 69 y/o M admitted on 12/22/19 for N/V, SOB. Chief Complaint: [] Date of admission: 12/22/19 20:40 Discharge date: 12/25/19 Consults: 12/22/19 Consult to Physician [CONS] Stat Comment: Consulting Provider: Garett Ag Reason For Exam: Physician to Consult Medical - DS: Meds - Discharge Medications Prescriptions: Mupirocin Oint 2% [Bactroban Oint 2%] 1 dose NARES BID #10 tube Nitrofurantoin Sr [Macrobid] 100 mg PO BID #8 cap predniSONE [Prednisone] 30 mg PO QAC #1 tab Active and Home Medications: Home Medications atorvastatin 80 mg tablet 80 mg PO QDAY 08/22/16 [History Confirmed 12/22/19 Last Taken 12/21/19] lisinopril 2.5 mg tablet 2.5 mg PO QDAY 08/22/16 [History Confirmed 12/22/19 Last Taken 12/21/19] ipratropium 20 mcg-albuterol 100 mcg/actuation mist for inhalation 1 puff INHALATION Q4-6HP PRN 04/06/18 [History Confirmed 12/22/19 Last Taken 12/21/19] mirtazapine 15 mg tablet 1 - 2 tab PO QHS tab 04/06/18 [History Confirmed 12/22/19 Last Taken 12/21/19] apixaban 5 mg tablet 5 mg PO BID 08/27/18 [History Confirmed 12/22/19 Last Taken 12/21/19] Levothyroxine 50 mcg PO DAILY 11/06/19 [History Confirmed 12/22/19 Last Taken 12/21/19] ALPRAZolam [Xanax] 1 mg PO DAILYP PRN tab 11/11/19 [Rx Confirmed 12/22/19 Last Taken 12/21/19] Nicotine [Nicoderm] 21 mg TOPICAL DAILY@1000 #30 patch 11/11/19 [Rx Confirmed 12/22/19 Last Taken 12/21/19] Sennosides [Senokot] 2 tab PO DAILYP PRN #30 tab 11/11/19 [Rx Confirmed 12/22/19 Last Taken 12/21/19] Tamsulosin [Flomax] 0.4 mg PO HS #30 cap 11/11/19 [Rx Confirmed 12/22/19 Last Taken 12/21/19] buspirone 10 mg tablet 15 mg PO BID 12/19/19 [History Confirmed 12/22/19 Last Taken 12/21/19] Aspirin [Aspirin EC] 81 mg PO DAILY 12/22/19 [History Confirmed 12/22/19 Last Taken 12/21/19] Pantoprazole [Protonix] 40 mg PO DAILY 12/22/19 [History Confirmed 12/22/19 Last Taken 12/21/19] Medical - DS: Hosp Hospital Course: Mr. Grossman is a 69 year old M with a known history of COPD/history of right MCA CVA on aspirin statin Eliquis who presents to the ER with worsening shortness of breath that has evolved with the last 2 weeks. Patient symptoms have worsened from dyspnea on maximal exertion to dyspnea at rest. He denies recent exposure to sick contacts and is up-to-date on vaccines. He denies yellow productive sputum, travel to [facility]/outside [facility]. He also denies recent smoking but he continues to vape daily. Over the last 24 hours his symptoms have progressed to the point he is unable to function. He lives with his son who accompanied him to the ER and notes that he had a dramatic worsening this morning with nausea and vomiting. Initial work-up in the ER was consistent with sepsis with elevated lactate Tachycardia tachypnea and hypoxic respiratory failure requiring oxygen. Blood gas revealed 7.4 05/30/58. Patient denies chest pain, diarrhea, dysuria, fever, chills, arthralgia myalgia or rash. He denies changes in medications. Patient was started on antibiotics after cultures were drawn along with bronchodilators. He also received a dose of steroid. Due to inadequate improvement patient subsequent underwent CT angiogram of the chest that was unremarkable for PE except for fibrotic changes in the lung. Subsequently hospital service was consulted At the time evaluation patient is on oxygen mask. He was able to answer most the question endorse history as above. He is barely able to talk in full sentences. His blood pressures around mid 90s and was tachypneic in mid 30s. Patient shows minimal diaphoresis He however denies lightheadedness or vision change 12/24 Feeling better. Ambulated in the [place] yesterday well without oxygen on told. No new complaints. No complaint of cough this morning. Denies dyspnea Urine culture growing MRSA. 12/25 Patient doing well. No overnight events or new complaints. Patient desired to go home. Patient is extremely high risk for readmission given significant comorbidities and multiple hospitalizations. A: *Acute respiratory failure w/hypoxia: 2/2 COPD exacerbation. *Sepsis w/hypotension: likely 2/2 complicated UTI -Elevated lactate resolved *AECOPD: *Complicated UTI (MRSA): *Recent MRSA bacteremia w/extensive work-up and negative transthoracic echo ruling out endocarditis - Status post 2-week IV vancomycin per ID *History of nephrolithiasis: Nonobstructive at this time. Follows with Dr. Hough *History of Mobitz type I: -pt was supposed to f/u with Dr. Noel Mccain of [facility] upon last d/c (11/08/2019) *CKD III: *Chronic anemia: *Transaminitis, mild: 2/2 likely sepsis, improved *h/o CVA (Right MCA): on ASA/statin *h/o LV Thrombus: on eliquis *h/o diastolic cardiac dysfxn *Anxiety: *HTN/HLD: on ACEI *Hypothyroidism: *GERD *BPH: on flomax per urologist prior to admission Discharge diagnosis: Acute exacerbation COPD sepsis urinary tract infection Secondary discharge diagnosis: History of nephrolithiasis and history of Mobitz type I chronic kidney disease chronic anemia transaminitis history of stroke right middle cerebral artery territory left ventricular thrombus on Eliquis history of diastolic cardiac dysf unction anxiety hypertension hypothyroidism GERD - Time Spent with Patient Total time spent providing and/or coordinating discharge services: Greater than 30 minutes Medical - DS: Exam - Constitutional Vitals: Vital Signs Temp Pulse Pulse Resp BP BP Pulse Ox 12/24/19 08:30 97.3 F 24 H 114/62 100 12/24/19 07:00 97.3 F 62 24 H 114/62 100 12/24/19 06:58 82 20 100 12/24/19 06:45 97.3 F 24 H 114/61 100 12/24/19 05:00 97.6 F 67 67 14 117/59 100 12/24/19 03:00 65 75 19 102/49 100 12/24/19 01:45 66 19 100 12/24/19 01:00 74 74 19 107/58 100 12/23/19 23:04 97.7 F 83 18 118/63 100 12/23/19 22:33 81 17 100 12/23/19 19:27 97.7 F 91 H 18 105/55 96 12/23/19 18:08 83 16 12/23/19 17:27 98.3 F 22 109/53 12/23/19 15:10 83 19 12/23/19 14:00 70 20 100 12/23/19 13:39 20 117/60 12/23/19 11:33 98.1 F 70 22 107/60 100 12/23/19 11:29 83 18 Intake and Output 12/23/19 12/24/19 12/24/19 21:59 05:59 13:59 Intake Total 2050 410 50 Output Total 700 500 Balance 1350 -90 50 Intake: IV 1450 50 50 Sodium Chloride 0.9% 1,000 ml @ 1000 100 mls/hr IV .Q10H GRA[facility] Rx#: [id number] Zosyn 3.375 gm In Dextrose 5% 50 50 50 in Water 50 ml @ 100 mls/hr IV Q6H GRAHAM Rx#:[id number] Vancomycin 1,000 mg In Sodium 250 Chloride 0.9% 250 ml @ 250 mls/ hr IV Q12H GRAHAM Rx#:[id number] Oral 600 360 Output: Urine Catheter Amount 650 Void Amount 50 500 Other: Meal Dinner Percent of Meal Consumed 25% Feeding Ability Assist with Tray Set Up Urine Appearance Clear Urine Color Dark Yellow Dark Yellow Blood Tinged Straight Bright Yellow Urine Odor Normal Weight 95.073 kg Medical - DS: Data Labs on day of discharge: Labs from last 24 hours 12/24/19 12/24/19 12/24/19 10:08 05:05 05:05 WBC RBC Hgb Hct MCV MCH MCHC RDW Plt Count MPV Total Counted Band Neutrophils % Platelet Estimate RBC Morphology VBG Lactic Acid 1.9 Sodium 140 Potassium 4.7 Chloride 107 Carbon Dioxide 19 L Anion Gap 14.0 BUN 18 Creatinine 1.2 GFR Calculation 62 Glucose 147 H Uric Acid 1.9 L Calcium 8.5 L Phosphorus 2.6 L Magnesium 2.1 Total Bilirubin 0.2 Direct Bilirubin < 0.2 GGT 16 AST 26 ALT 26 Alkaline Phosphatase 129 H Lactate Dehydrogenase 235 Total Protein 6.2 Albumin 3.0 L Globulin 3.2 Albumin/Globulin Ratio 0.9 L Triglycerides 37 Vancomycin Trough Pending 12/24/19 12/23/19 12/23/19 05:05 16:10 11:58 WBC 18.1 H RBC 3.97 L Hgb 10.5 L Hct 33.7 L MCV 84.9 MCH 26.4 MCHC 31.2 RDW 15.0 H Plt Count 265 MPV 10.1 Total Counted Pending Band Neutrophils % Not Reportable Platelet Estimate Pending RBC Morphology Pending VBG Lactic Acid 3.0 H 2.5 H Sodium Potassium Chloride Carbon Dioxide Anion Gap BUN Creatinine GFR Calculation Glucose Uric Acid Calcium Phosphorus Magnesium Total Bilirubin Direct Bilirubin GGT AST ALT Alkaline Phosphatase Lactate Dehydrogenase Total Protein Albumin Globulin Albumin/Globulin Ratio Triglycerides Vancomycin Trough Preliminary micro results at discharge 12/23/19 05:01 MRSA Screen - Preliminary Urine - Clean Void Mid-Stream Staphylococcus aureus 12/22/19 13:43 Blood Culture - Preliminary Blood 12/22/19 14:00 Blood Culture - Preliminary Blood Medical - DS: A/P - Patient/Caregiver Discharge Instructions Activity: increase activity as tolerated Diet: Cardiac Additional Instructions: Patient is going to be admitted to the hospital under the care of the hospitalist (Dr. Isbell). All further treatment decisions and modalities to be carried out by Dr. Isbell at this time. Follow-up with Dr. Hough is scheduled Referral to see pulmonology for potential sleep study in 5 to 10 days. Follow-up with PCP in 3 to 7 days. Prescriptions: Nitrofurantoin Sr [Macrobid] 100 mg PO BID #8 cap predniSONE [Prednisone] 30 mg PO [facility] #1 tab - Follow up Plan Follow up with: Noel Mccain MD [Physician] - (jeff type I) Disposition: Home Health Service Prognosis: Undetermined Rehab Potential: Fair Overall status at discharge: patient is progressing back to baseline Medical - DS: Qual - VTE Deep Vein Thrombosis/Pulmonary Embolism Present on Admission: No
[2019-12-24 11:17] LABS: Band Neutrophils % 10 % (0-10); Lymphocytes % 4 % (15-49); Monocytes % (Manual) 1 % (1-12); Platelet Estimate NORMAL (NORMAL); RBC Morphology NORMAL (NORMAL); Segmented Neutrophils % 85 % (38-78)
[2019-12-24] MEDS: VANCOMYCIN 1,000 MG in 0.9 % SODIUM CHLORIDE 250 ML IV SCH ×2 (11:27→23:10)
[2019-12-24] MEDS: ALPRAZolam 0.5 MG TABLET PO PRN (15:35)
[2019-12-24] MEDS: TAMSULOSIN 0.4 MG CAPSULE PO SCH (21:53)
[2019-12-24] MEDS: SENNOSIDES/DOCUSATE SODIUM 1 TAB TABLET PO SCH (21:53)
[2019-12-25] MEDS: IPRATROPIUM/ALBUTEROL 3 ML AMPUL.NEB NEB SCH ×3 (01:07→13:10)
[2019-12-25] MEDS: 0.9 % SODIUM CHLORIDE 1,000 ML IV SCH (01:07)
[2019-12-25] MEDS: 0.9 % SODIUM CHLORIDE 10 ML SYRINGE IV SCH (04:18)
[2019-12-25] MEDS: BUDESONIDE 0.5 MG/2 ML AMPUL.NEB NEB SCH ×2 (06:42→11:27)
[2019-12-25] MEDS: LEVOTHYROXINE 50 MCG TABLET PO SCH (07:19)
[2019-12-25] MEDS: PANTOPRAZOLE 40 MG TABLET PO SCH (07:19)
[2019-12-25 07:42] LABS: Hemoglobin 10.5 g/dL (13.7-17.5); Mean Cell Volume 84.2 fL (80.0-100.0); Mean Corpuscular HGB Conc 30.9 g/dL (31.0-36.0); Platelet Count 260 K/mcL (140-440); RBC 4.04 M/mcL (4.63-6.08); Red Cell Distribution Width 15.2 % (11.5-14.5); WBC 13.7 K/mcL (4.50-11.00)
[2019-12-25] MEDS ORDERED: predniSONE 20 MG TABLET PO SCH (08:00)
[2019-12-25] MEDS ORDERED: FUROSEMIDE 40 MG/4 ML VIAL IV ONE (08:03)
[2019-12-25] MEDS ORDERED: ALBUMIN HUMAN 12.5 GM/50 ML BAG IV ONE (08:03)
[2019-12-25 08:19] LABS: Blood Urea Nitrogen 18 mg/dl (8-23); Carbon Dioxide 21 mmol/L (22-30); Glomerular Filtration Rate 77; Glucose 83 mg/dL (70-105)
[2019-12-25 08:24] LABS: Chloride 111 mmol/L (96-108)
[2019-12-25 08:35] LABS: Band Neutrophils % 2 % (0-10); Lymphocytes % 10 % (15-49); Monocytes % (Manual) 1 % (1-12); Platelet Estimate NORMAL (NORMAL); RBC Morphology NORMAL (NORMAL); Segmented Neutrophils % 87 % (38-78)
[2019-12-25] MEDS: ATORVASTATIN 40 MG TABLET PO SCH (08:49)
[2019-12-25] MEDS: busPIRone 5 MG TABLET PO SCH (08:49)
[2019-12-25] MEDS: MULTIVIT,THER IRON,CA,FA & MIN 1 TABLET PO SCH (08:50)
[2019-12-25] MEDS: APIXABAN 5 MG TABLET PO SCH (08:50)
[2019-12-25] MEDS: ASPIRIN 81 MG TAB.CHEW PO SCH (08:50)
[2019-12-25] MEDS: THIAMINE 100 MG TABLET PO SCH (08:50)
[2019-12-25] MEDS: DOCUSATE SODIUM 100 MG CAPSULE PO SCH (08:50)
[2019-12-25] MEDS: VANCOMYCIN 1,000 MG in 0.9 % SODIUM CHLORIDE 250 ML IV SCH (11:29)
[2019-12-26 08:24] LABS: Legionella pneumophilia Ag, Ur NOT DETECTED
== END 2019-12-25 14:15 | disposition home health service (06) | DRG 871 ==
LOC: ED 09:54 → ICU 20:40
PROVIDERS: ADMIT Internal Medicine; ATTEND Internal Medicine

== ENCOUNTER 2020-03-20 21:09 | Inpatient (IN) ==
[2020-03-20] MEDS ORDERED: 0.9 % SODIUM CHLORIDE 1,000 ML IV ONE (21:32)
--- NOTE | 2020-03-20 21:35 | Emergency Department Note ---
Male Urogenital HPI - General Chief complaint: Urogenital-Male Stated complaint: cloudy urine and fever Time Seen by Provider: 03/20/20 21:18 Source: patient Mode of arrival: wheelchair Limitations: no limitations - History of Present Illness HPI Narrative: 69-year-old male with history of kidney stones status post lithotripsy comes in with concern for UTI. He did urinate an hour ago but urine is quite cloudy and he has been confused. His son is concerned that he may be developing another UTI. He did have a fever this morning with a temperature of 99 Fahrenheit at home. He did take Tylenol an hour before coming in. Some nausea no vomiting. He does have intermittent diarrhea and today stool was loose as well. Otherwise no blood in his stool. Son was concerned about low blood pressure this morning He has multiple chronic diseases including COPD chronic kidney disease - Related Data Home Medications Medication Instructions Recorded Confirmed atorvastatin 80 mg tablet 80 mg PO QDAY 08/22/16 03/13/20 lisinopril 2.5 mg tablet 2.5 mg PO QDAY 08/22/16 03/13/20 ipratropium 20 mcg-albuterol 100 1 puff INHALATION Q4-6HP PRN 04/06/18 03/13/20 mcg/actuation mist for inhalation mirtazapine 15 mg tablet 1 - 2 tab PO QHS tab 04/06/18 03/13/20 apixaban 5 mg tablet 5 mg PO BID 08/27/18 03/13/20 Levothyroxine 50 mcg PO DAILY 11/06/19 03/13/20 buspirone 10 mg tablet 15 mg PO BID 12/19/19 03/13/20 Aspirin [Aspirin EC] 81 mg PO DAILY 12/22/19 03/13/20 Pantoprazole [Protonix] 40 mg PO DAILY 12/22/19 03/13/20 omeprazole 20 mg capsule,delayed 20 mg PO QDAY 01/05/20 03/13/20 release Previous Rx's Medication Instructions Recorded ALPRAZolam [Xanax] 1 mg PO DAILYP PRN tab 11/11/19 Nicotine [Nicoderm] 21 mg TOPICAL DAILY@1000 #30 patch 11/11/19 Sennosides [Senokot] 2 tab PO DAILYP PRN #30 tab 11/11/19 budesonide 0.25 mg/2 mL suspension 2 ml INHALATION BID #120 ml 01/05/20 for nebulization formoterol fumarate 20 mcg/2 mL 2 ml INHALATION BID #120 ml 01/05/20 solution for nebulization ipratropium 0.5 mg-albuterol 3 mg 3 ml INHALATION Q6H #360 ml 01/05/20 (2.5 mg base)/3 mL nebulization soln tamsulosin 0.4 mg capsule 0.4 mg PO QHS #90 cap 03/13/20 Allergies Allergy/AdvReac Type Severity Reaction Status Date / Time No Known Drug Allergies Allergy Verified 03/13/20 14:38 Review of Systems All systems ED: reviewed and negative except as stated. Past Medical History - Past Medical History Attestation: Yes: The following information was validated with the patient. [facility] Narrative: Family History (Last Reviewed 03/13/20 @ 14:44 by Alexander Terrell MD) Mother Stomach cancer Brother Tumor of lung Medical History (Last Reviewed 03/13/20 @ 14:44 by Alexander Terrell MD) Elevated hemidiaphragm (Chronic) Hypersomnia (Chronic) Acute exacerbation of chronic obstructive airways disease (Chronic) Congestive heart failure (Chronic) CKD (chronic kidney disease), stage III (Chronic) Left renal atrophy (Chronic) Staghorn calculus (Chronic) Hypothyroidism (Chronic) Elevated serum creatinine (Chronic) COPD exacerbation (Chronic) Encounter for Postoperative Care (Chronic) Fever (Chronic) Nephrolithiasis (Chronic) MRSA (methicillin resistant staph aureus) culture positive (Chronic) Chronic anticoagulation (Chronic) Anemia (Chronic) Sepsis (Chronic) UTI (urinary tract infection) (Chronic) Pruritic rash (Chronic) Chronic diarrhea (Chronic) Prediabetes (Chronic) Memory impairment (Chronic) Chronic low back pain (Chronic) Pulmonary arterial hypertension (Chronic) Insomnia (Chronic) Syncope (Chronic) Anxiety (Chronic) History of CVA (cerebrovascular accident) (Chronic) History of malignant neoplasm of prostate (Chronic) PSA elevation (Chronic) History of methamphetamine abuse (Chronic) CVA (cerebral vascular accident) (Chronic) GERD (gastroesophageal reflux disease) (Chronic) Chronic obstructive lung disease (Chronic) 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 Denies: depression Surgical history ED: Reports: non-contributory - Social History smoking status: Former smoker Alcohol use: Reports: None Drug use: Reports: none. Denies: marijuana Physical Exam No acute distress resting comfortably. He is sipping water through a straw. Normocephalic atraumatic. Conjunctive are clear sclerae white nonicteric. No nasal discharge or congestion. Heart is regular rate and rhythm no murmur appreciated. Lungs are clear to auscultation bilaterally without wheezes rales rhonchi or respiratory distress. Abdomen soft nontender nondistended. No peritoneal signs or guarding. No pedal edema. Normal radial and posterior tibial pulses. He is alert and can answer questions but his son does most of the talking Limitations: no limitations Course Vital Signs Temperature 98.8 F 03/20/20 21:10 Pulse Rate 91 H 03/20/20 21:10 Respiratory Rate 18 03/20/20 21:10 Blood Pressure 117/68 03/20/20 21:10 Pulse Oximetry (%) 96 03/20/20 21:10 Temperature 98.8 F 03/20/20 21:10 Pulse Rate 81 03/20/20 21:29 Respiratory Rate 18 03/20/20 21:10 Blood Pressure 104/67 03/20/20 21:29 Pulse Oximetry (%) 95 03/20/20 21:29 Urogenital-Male - Lab Data Lab results reviewed: Yes I reviewed the patient's lab results. Result diagrams: 03/20/20 21:43 03/20/20 21:43 Lab Results 03/20/20 03/20/20 03/20/20 Range/Units 21:43 21:43 21:43 WBC 19.3 H (4.50-11.00) K/mcL RBC 4.99 (4.63-6.08) M/mcL Hgb 12.3 L (13.7-17.5) g/dL Hct 40.0 L (40.1-51.0) % MCV 80.2 (80.0-100.0) fL MCH 24.6 L (26.0-34.0) pg MCHC 30.8 L (31.0-36.0) g/dL RDW 15.9 H (11.5-14.5) % Plt Count 303 (140-440) K/mcL MPV 10.3 (7.4-10.4) fL Gran % 79.3 H (38.0-78.0) % Lymph % (Auto) 10.5 L (15.5-49.0) % [place] % (Auto) 9.7 (1.0-12.0) % Eos % (Auto) 0.1 (0.0-7.0) % Baso % (Auto) 0.4 (0.0-2.0) % Gran # 15.30 H (1.80-8.00) K/mcL Lymph # (Auto) 2.02 (1.50-4.80) K/mcL [place] # (Auto) 1.88 H (0.10-0.90) K/mcL Eos # (Auto) 0.02 (0.00-0.70) K/mcL Baso # (Auto) 0.07 (0.00-0.30) K/mcL VBG Lactic Acid 1.6 (0.5-2.0) mmol/L Sodium 132 L (133-145) mmol/L Potassium 3.7 (3.3-5.1) mmol/L Chloride 98 (96-108) mmol/L Carbon Dioxide 21 L (22-30) mmol/L Anion Gap 13.0 (8-16) BUN 24 H (8-23) mg/dl Creatinine 1.6 H (0.7-1.2) mg/dl GFR Calculation 44 Glucose 116 H (70-105) mg/dL Calcium 8.9 (8.6-10.4) mg/dl Total Bilirubin 1.1 H (0.0-1.0) mg/dL AST 23 (0-37) U/l ALT 25 (0-40) U/l Alkaline Phosphatase 162 H (39-117) U/L Total Protein 7.5 (5.9-8.4) gm/dL Albumin 3.8 (3.2-5.2) gm/dL Globulin 3.7 (2.2-3.7) gm/dL Albumin/Globulin Ratio 1.0 (1.0-2.3) Procalcitonin (<0.10) ng/mL 03/20/20 Range/Units 21:43 WBC (4.50-11.00) K/mcL RBC (4.63-6.08) M/mcL Hgb (13.7-17.5) g/dL Hct (40.1-51.0) % MCV (80.0-100.0) fL MCH (26.0-34.0) pg MCHC (31.0-36.0) g/dL RDW (11.5-14.5) % Plt Count (140-440) K/mcL MPV (7.4-10.4) fL Gran % (38.0-78.0) % Lymph % (Auto) (15.5-49.0) % [place] % (Auto) (1.0-12.0) % Eos % (Auto) (0.0-7.0) % Baso % (Auto) (0.0-2.0) % Gran # (1.80-8.00) K/mcL Lymph # (Auto) (1.50-4.80) K/mcL [place] # (Auto) (0.10-0.90) K/mcL Eos # (Auto) (0.00-0.70) K/mcL Baso # (Auto) (0.00-0.30) K/mcL VBG Lactic Acid (0.5-2.0) mmol/L Sodium (133-145) mmol/L Potassium (3.3-5.1) mmol/L Chloride (96-108) mmol/L Carbon Dioxide (22-30) mmol/L Anion Gap (8-16) BUN (8-23) mg/dl Creatinine (0.7-1.2) mg/dl GFR Calculation Glucose (70-105) mg/dL Calcium (8.6-10.4) mg/dl Total Bilirubin (0.0-1.0) mg/dL AST (0-37) U/l ALT (0-40) U/l Alkaline Phosphatase (39-117) U/L Total Protein (5.9-8.4) gm/dL Albumin (3.2-5.2) gm/dL Globulin (2.2-3.7) gm/dL Albumin/Globulin Ratio (1.0-2.3) Procalcitonin 0.26 (<0.10) ng/mL - Radiology Data Radiology results reviewed: Yes I reviewed the patient's radiology results. Prevoid bladder scan showed 68 mL after drinking fluid CT scan of the abdomen pelvis without contrast shows thickened bladder wall consistent with UTI versus chronic obstruction. Noted large prostate. Multiple bilateral kidney stones noted without hydronephrosis or obstruction Disposition Pt seen by PLASTIC WORKER/PA only: No Clinical Impression: CKD (chronic kidney disease), stage III UTI (urinary tract infection) Qualifiers: Urinary tract infection type: acute cystitis Hematuria presence: with hematuria Qualified Code(s): N30.01 - Acute cystitis with hematuria Sepsis Qualifiers: Sepsis type: sepsis due to unspecified organism Sepsis acute organ dysfunction status: unspecified Qualified Code(s): A41.9 - Sepsis, unspecified organism Summary: Laboratory work-up and CT scan without contrast-concern for exacerbation of kidn ey disease plus or minus UTI especially in the setting of previous break-up of staghorn calculi by lithotripsy. He is not febrile here nor hypotensive but his story is concerning so we will work-up as above. In the meantime he is drinking water well and is otherwise comfortable here CT scan does not show any hydroureter or hydronephrosis. Most consistent with just a UTI plus or minus chronic urinary retention from the prostate. He still has not urinated for us and so I have not given him antibiotics yet as I am waiting to see if there are white blood cells nitrites or evidence of UTI. He continues to rest comfortably. Continuing to hydrate him orally and IV Repeat bladder scan shows over 300 in his bladder but he is still unable to urinate. Bowser with leg bag is placed. Blood pressure dropped into the 90s but he remains afebrile here-he did get acetaminophen at home. He remains somnolent. At this point this looks like urosepsis-he does have a leukocytosis of 19; although his lactic acid is normal his procalcitonin is elevated at 0.26. I discussed the situation with Dr. Isbell, our hospitalist. He agreed to accept the patient for further care and evaluation in the hospital. We notified the patient's son as well. I will put holding orders in Disposition: Home, Self-Care Condition: Fair Referrals: Tee Hinson ARNP [Primary Care Provider] -
[2020-03-20 22:38] LABS: Basophils # (Auto) 0.07 K/mcL (0.00-0.30); Basophils % (Auto) 0.4 % (0.0-2.0); Eosinophils # (Auto) 0.02 K/mcL (0.00-0.70); Eosinophils % (Auto) 0.1 % (0.0-7.0); Granulocytes % (Auto) 79.3 % (38.0-78.0); Hemoglobin 12.3 g/dL (13.7-17.5); Lymphocytes # (Auto) 2.02 K/mcL (1.50-4.80); Lymphocytes % (Auto) 10.5 % (15.5-49.0); Mean Cell Volume 80.2 fL (80.0-100.0); Mean Corpuscular HGB Conc 30.8 g/dL (31.0-36.0); Mean Platelet Volume 10.3 fL (7.4-10.4); Monocytes # (Auto) 1.88 K/mcL (0.10-0.90); Monocytes % (Auto) 9.7 % (1.0-12.0); Platelet Count 303 K/mcL (140-440); RBC 4.99 M/mcL (4.63-6.08); Red Cell Distribution Width 15.9 % (11.5-14.5); WBC 19.3 K/mcL (4.50-11.00)
[2020-03-20 23:03] LABS: ALT/SGPT 25 U/l (0-40); AST/SGOT 23 U/l (0-37); Albumin 3.8 gm/dL (3.2-5.2); Alkaline Phosphatase 162 U/L (39-117); Bilirubin,Total 1.1 mg/dL (0.0-1.0); Blood Urea Nitrogen 24 mg/dl (8-23); Calcium 8.9 mg/dl (8.6-10.4); Carbon Dioxide 21 mmol/L (22-30); Chloride 98 mmol/L (96-108); Globulin 3.7 gm/dL (2.2-3.7); Glomerular Filtration Rate 44; Glucose 116 mg/dL (70-105)
[2020-03-20] MEDS ORDERED: cefTRIAXone 1 GM VIAL IV ONE (23:04)
[2020-03-21] MEDS ORDERED: 0.9 % SODIUM CHLORIDE 1,000 ML IV ONE (00:01)
[2020-03-21] MEDS ORDERED: ONDANSETRON 4 MG/2 ML VIAL IV PRN (00:36)
[2020-03-21] MEDS ORDERED: TAMSULOSIN 0.4 MG CAPSULE PO SCH (00:36)
[2020-03-21] MEDS ORDERED: 0.9 % SODIUM CHLORIDE 1,000 ML IV SCH (00:45)
[2020-03-21] MEDS ORDERED: ALPRAZolam 0.5 MG TABLET PO PRN (01:05)
[2020-03-21 01:26] LABS: Appearance,Urine CLOUDY; Bacteria,Urine FEW /hpf (0); Bilirubin,Urine NEG (NEG); Color,Urine YELLOW; Glucose,Urine (UA) NEGATIVE (NEG); Ketones,Urine NEG (NEG); Leukocyte Esterase,Urine 500 /uL (NEG); Nitrate,Urine NEG (NEG); Protein,Urine 30 mg/dL (NEG); Specific Gravity,Urine 1.011 (1.000-1.035); Urine Amorphous Crystals FEW /hpf (0); Urine Blood >=1.0 mg/dL (<0.03); Urine RBC 7 /hpf (0-1); Urine Squamous Epithelial Cell 0 /hpf (0-4); Urine Transitional Epi Cells 1 /hpf (0-2); Urine WBC > 182 /hpf (0-4); Urobilinogen,Urine NEG (NEG)
[2020-03-21] MEDS: IPRATROPIUM/ALBUTEROL 3 ML AMPUL.NEB NEB SCH ×5 (04:25→19:07)
[2020-03-21 06:35] LABS: Basophils # (Auto) 0.06 K/mcL (0.00-0.30); Basophils % (Auto) 0.4 % (0.0-2.0); Eosinophils # (Auto) 0.09 K/mcL (0.00-0.70); Eosinophils % (Auto) 0.6 % (0.0-7.0); Granulocytes % (Auto) 74.6 % (38.0-78.0); Hemoglobin 11.1 g/dL (13.7-17.5); Lymphocytes % (Auto) 13.8 % (15.5-49.0); Mean Cell Volume 82.6 fL (80.0-100.0); Mean Platelet Volume 10.2 fL (7.4-10.4); Monocytes # (Auto) 1.69 K/mcL (0.10-0.90); Monocytes % (Auto) 10.6 % (1.0-12.0); Platelet Count 241 K/mcL (140-440); RBC 4.48 M/mcL (4.63-6.08)
[2020-03-21 06:40] LABS: ALT/SGPT 19 U/l (0-40); AST/SGOT 22 U/l (0-37); Albumin 2.9 gm/dL (3.2-5.2); Albumin/Globulin Ratio 0.8 (1.0-2.3); Alkaline Phosphatase 139 U/L (39-117); Bilirubin,Direct < 0.2 mg/dL (0.0-0.3); Bilirubin,Total 0.7 mg/dL (0.0-1.0); Blood Urea Nitrogen 21 mg/dl (8-23); Calcium 8.3 mg/dl (8.6-10.4); Carbon Dioxide 20 mmol/L (22-30); Chloride 102 mmol/L (96-108); Globulin 3.7 gm/dL (2.2-3.7); Glomerular Filtration Rate 56; Glucose 99 mg/dL (70-105); Lactate Dehydrogenase 198 U/L (94-250); Phosphorous 2.5 mg/dL (2.7-4.5); Triglycerides 58 mg/dl (<150); Uric Acid 3.9 mg/dL (2.5-8.0)
[2020-03-21] MEDS ORDERED: VASOPRESSIN 20 UNIT in DEXTROSE 5% IN WATER 99 ML IV PRN (07:40)
[2020-03-21] MEDS ORDERED: ONDANSETRON 4 MG ODT TABLET SL PRN (07:40)
[2020-03-21] MEDS ORDERED: ACETAMINOPHEN 650 MG/65 ML BOTTLE IV PRN (07:40)
[2020-03-21] MEDS ORDERED: MELATONIN 3 MG TABLET PO PRN (07:40)
[2020-03-21] MEDS ORDERED: BISACODYL 10 MG SUPP.RECT PR PRN (07:40)
[2020-03-21] MEDS ORDERED: POTASSIUM CHLORIDE 40 MEQ in DEXTROSE 5% IN WATER 500 ML IV PRN (07:40)
[2020-03-21] MEDS ORDERED: POTASSIUM CHLORIDE 20 MEQ PACKET PO PRN (07:40)
[2020-03-21] MEDS ORDERED: POLYETHYLENE GLYCOL 3350 17 GM PACKET PO PRN (07:40)
--- NOTE | 2020-03-21 07:48 | Internal Med History&Physical ---
Medical - H&P: [facility] Patient information: Note initiated : 03/21/20 at 7:44 am Service Date, if different from initiated Date: [] Patient: Pérez Grossman a 69 y/o M admitted on 03/21/20 for cloudy urine and fever. Chief Complaint: [] Chief complaint: Fever/confusion/weakness History of present illness: Mr. Grossman is a 69 year old M with a history of COPD/hypertension/MRSA bacteremia in November 2019/nephrolithiasis recurrent UTI who presents with increasing weakness, fever, cloudy urine and confusion over the last couple of days. Patient lives with his son Matthew in [place]. He was in his baseline state of health onset of symptoms. He had associated sweats and shaking chills become very fatigued unable to function prompting family to bring him to the ER Initial work-up was consistent with severe sepsis with a white count 9.3/pyuria/elevated creatinine. Patient was initiated on antibiotics. Hospital service was consulted for admission At the time of evaluation patient is alert and able to answer most of the questions. He denies active distress or abdominal pain. He did endorse to difficulty urination but denies dysuria, weight loss, loss of appetite or nausea vomiting. Review of systems A 10 point review system was performed and is negative except for ones discussed above Medical - H&P: PMH Medical history: CKD (chronic kidney disease), stage III (Chronic) Primarily decreased renal mass from left renal atrophy. Some degree of decreased renal perfusion form CHF and low BP. Flomax as tolerated by BP and low dose lisinopril for CHF Left renal atrophy (Chronic) left staghorn calculi, ECSWL, stenting, low grade obstruction in the past and now left renal atrophy GFR 45-60 cc/min Staghorn calculus (Chronic) Left renal pelvis s/p ECSWL MRSA positive urine culture x 2 in summer 2018 then cleared Urine pH not elevated to suggest urea splitting bacteria Hypothyroidism (Chronic) Elevated serum creatinine (Chronic) Mild and in the setting of low dose ACEi and aldactone Tx for a dilated cardiomyopathy and prior obstructive uropathy with left renal staghorn calculi and pyelonephritis Pruritic rash (Chronic) Chronic diarrhea (Chronic) Prediabetes (Chronic) Memory impairment (Chronic) Chronic low back pain (Chronic) Pulmonary arterial hypertension (Chronic) Insomnia (Chronic) Syncope (Chronic) Anxiety (Chronic) History of CVA (cerebrovascular accident) (Chronic) History of malignant neoplasm of prostate (Chronic) PSA elevation (Chronic) History of methamphetamine abuse (Chronic) CVA (cerebral vascular accident) (Chronic) GERD (gastroesophageal reflux disease) (Chronic) Chronic obstructive lung disease (Chronic) 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) Chronic anticoagulation, low dose ACEi, no diuretics as BP low Dilated cardiomyopathy (Chronic) Atrial thrombosis (Chronic) Surgical History Hx of hernia repair (Chronic) L inguinal Hx of lithotripsy (Chronic) Left Family History Mother Stomach cancer Brother Tumor of lung Social History education level: high school occupational status: unemployed frequency: 1-2 times per week smoking status: Former smoker , vapes daily alcohol intake frequency: does not drink substance use type: former substance user Lives with his son Medical - H&P: Meds Home Medications Medication Instructions Recorded Confirmed Type lisinopril 2.5 mg tablet 2.5 mg PO QDAY 08/22/16 03/21/20 History ipratropium 20 mcg-albuterol 100 1 puff INHALATION Q4-6HP PRN 04/06/18 03/13/20 History mcg/actuation mist for inhalation mirtazapine 15 mg tablet 1 - 2 tab PO QHS tab 04/06/18 03/21/20 History apixaban 5 mg tablet 5 mg PO BID 08/27/18 03/21/20 History ALPRAZolam [Xanax] 1 mg PO DAILYP PRN tab 11/11/19 03/13/20 Rx Nicotine [Nicoderm] 21 mg TOPICAL DAILY@1000 #30 patch 11/11/19 03/21/20 Rx Sennosides [Senokot] 2 tab PO DAILYP PRN #30 tab 11/11/19 03/13/20 Rx buspirone 10 mg tablet 15 mg PO BID 12/19/19 03/21/20 History Aspirin [Aspirin EC] 81 mg PO DAILY 12/22/19 03/13/20 History Pantoprazole [Protonix] 40 mg PO DAILY 12/22/19 03/21/20 History budesonide 0.25 mg/2 mL suspension 2 ml INHALATION BID #120 ml 01/05/20 03/21/20 Rx for nebulization formoterol fumarate 20 mcg/2 mL 2 ml INHALATION BID #120 ml 01/05/20 03/21/20 Rx solution for nebulization ipratropium 0.5 mg-albuterol 3 mg 3 ml INHALATION Q6H #360 ml 01/05/20 03/21/20 Rx (2.5 mg base)/3 mL nebulization soln omeprazole 20 mg capsule,delayed 20 mg PO QDAY 01/05/20 03/21/20 History release tamsulosin 0.4 mg capsule 0.4 mg PO QHS #90 cap 03/13/20 03/21/20 Rx Atorvastatin Calcium 80 mg PO DAILY 03/21/20 03/21/20 History Levothyroxine [Synthroid] 50 mcg PO ACB 03/21/20 03/21/20 History Allergies Allergy/AdvReac Type Severity Reaction Status Date / Time No Known Drug Allergies Allergy Verified 03/21/20 02:41 Medical - H&P: Exam - Constitutional Vitals: Temp Pulse Resp BP Pulse Ox 97.2 F 58 L 24 H 107/63 98 03/21/20 03:29 03/21/20 03:29 03/21/20 03:29 03/21/20 03:29 03/21/20 03:29 General appearance: no acute distress Exam: Head normocephalic Oral cavity moist Appears lethargic Eye movement symmetrical No ear nose discharge No JVD S1-S2 occasionally irregular Nonlabored breathing,, expiratory rhonchi Abdomen soft nontender Bowser's catheter draining cloudy urine Skin no suspicious lesion Lower extremity no cyanosis clubbing or joint swelling Psych alert Neuro lethargic but able to answer most questions and move all 4 extremities Medical - H&P: Reslt - Labs CBC & Chem 7: 03/21/20 05:00 03/21/20 05:00 Labs: Short CBC 03/20/20 03/21/20 Range/Units 21:43 05:00 WBC 19.3 H 16.0 H (4.50-11.00) K/mcL Hgb 12.3 L 11.1 L (13.7-17.5) g/dL Hct 40.0 L 37.0 L (40.1-51.0) % Plt Count 303 241 (140-440) K/mcL BMP 03/20/20 03/21/20 21:43 05:00 Sodium 132 L 134 Potassium 3.7 3.7 Chloride 98 102 Carbon Dioxide 21 L 20 L BUN 24 H 21 Creatinine 1.6 H 1.3 H Glucose 116 H 99 Calcium 8.9 8.3 L Liver Function 03/20/20 03/21/20 Range/Units 21:43 05:00 Total Bilirubin 1.1 H 0.7 (0.0-1.0) mg/dL Direct Bilirubin < 0.2 (0.0-0.3) mg/dL GGT 14 (8-61) U/L AST 23 22 (0-37) U/l ALT 25 19 (0-40) U/l Alkaline Phosphatase 162 H 139 H (39-117) U/L Albumin 3.8 2.9 L (3.2-5.2) gm/dL Urine 03/20/20 Range/Units 23:59 Urine Color Yellow Urine Appearance Cloudy Urine pH 6.0 (5.0-9.0) Ur Specific [place] 1.011 (1.000-1.035) Urine Protein 30 A (NEG) mg/dL Urine Glucose (UA) Negative (NEG) mg/dL Medical - H&P: A/P (1) Complicated UTI (urinary tract infection) Current visit: Yes Status: Acute * Complicated UTI with pyuria. History of recurrent UTI from staghorn calculus. Status post recent lithotripsy. Broad antibiotic coverage. De-escalate based on sensitivities. Check renal ultrasound rule out obstructive uropathy. * Sepsis with endorgan dysfunction. White count 20,000. Management per guidel mary lou * History of COPD-continue bronchodilators/supplemental oxygen * History of Mobitz type II heart block-stable. * Acute on chronic renal failure. Follows up with cutting machine operator helper as outpatient. Creatinine 1.6. Avoid nephrotoxins * Hyponatremia check urine serum osmolarity. * Mild transaminitis secondary to sepsis endorgan dysfunction * Hypothyroidism start home dose thyroxine * History of CHF -well compensated. Restart home medications * History of LV thrombus continue Eliquis * History of pulmonary artery hypertension * Anxiety disorder continue BuSpar * GERD continue PPI * History of BPH continue Flomax * Full code * Prophylaxis on Eliquis Plan * Inpatient admission * Broad antibiotic coverage * Sepsis management per guidelines * Urine and serum osmolarity * Pancultures * Pre-existing mental condition management home med * Anticoagulation on Eliquis * PT OT nutrition support * Discharge planning Medical - H&P: Qual - VTE Deep Vein Thrombosis/Pulmonary Embolism Present on Admission: No
[2020-03-21] MEDS: MULTIVIT,THER IRON,CA,FA & MIN 1 TABLET PO SCH (08:45)
[2020-03-21] MEDS: CYANOCOBALAMIN (VITAMIN B-12) 500 MCG TABLET PO SCH ×2 (08:45→20:40)
[2020-03-21] MEDS: LISINOPRIL 5 MG TABLET PO SCH (08:45)
[2020-03-21] MEDS: busPIRone 5 MG TABLET PO SCH ×2 (08:45→20:42)
[2020-03-21] MEDS: THIAMINE 100 MG TABLET PO SCH (08:46)
[2020-03-21] MEDS: APIXABAN 5 MG TABLET PO SCH ×2 (08:46→20:40)
[2020-03-21] MEDS: DOCUSATE SODIUM 100 MG CAPSULE PO SCH ×2 (08:46→20:41)
[2020-03-21] MEDS ORDERED: FORMOTEROL FUMARATE INH SCH (09:00)
[2020-03-21] MEDS ORDERED: APIXABAN 5 MG TABLET PO SCH (09:00)
[2020-03-21] MEDS ORDERED: BUDESONIDE 1 PUFF INHALER INH SCH (09:00)
[2020-03-21] MEDS ORDERED: PANTOPRAZOLE 40 MG TABLET PO SCH (09:00)
[2020-03-21] MEDS ORDERED: BUDESONIDE INH SCH (09:00)
[2020-03-21] MEDS: 0.9 % SODIUM CHLORIDE 1,000 ML IV SCH ×3 (09:29→22:41)
[2020-03-21] MEDS: cefTRIAXone 2 GM in DEXTROSE 5% IN WATER 50 ML IV SCH (09:29)
[2020-03-21] MEDS: NICOTINE 21 MG PATCH TD SCH (10:06)
[2020-03-21] MEDS: OMEPRAZOLE 20 MG CAPSULE PO SCH (10:06)
[2020-03-21] MEDS: LEVOFLOXACIN 750 MG/150 ML BAG IV SCH (10:07)
--- NOTE | 2020-03-21 10:18 | Cat Scan Report ---
CLINICAL INFORMATION: UTI COMPARISON: Abdomen and pelvic CT 11/06/2019 TECHNIQUE: 0.625 mm helical slices were obtained from the mid heart through the subtrochanteric regions. Following reconstruction, 2.5 mm sagittal, coronal and axial reformatted images were processed and reviewed at bone and soft tissue windows.The exam was performed using radiation dose optimization techniques including, but not limited to, automated exposure control, adjustment of the mA and/or kV according to patient size and use of iterative reconstruction technique. FINDINGS: Lung bases shows scattered scarring with evidence for chronic bronchitis a few bullae compatible with emphysema - no change. No effusion. The visualized heart is normal. Small hiatal hernia noted. Abdominal images show the noncontrasted gallbladder wall ducts, liver, both adrenal glands, spleen, pancreas and aorta to be normal in size configuration and attenuation without focal lesion. There is no free air, free fluid or adenopathy. Moderate left renal atrophy with scattered parenchymal scarring is unchanged: The left kidney is 9.4 cm in length. Compensatory hypertrophy of the the right kidney noted: 14 cm in length. Multiple stones throughout the left upper collecting system are again noted. This includes including 8 mm stone in the renal pelvis with the largest stone 15 mm stone inferior calyx left kidney. No evidence of hydronephrosis. Pelvic images show marked prostate enlargement with transverse dimension 6.7 cm. There is moderate diffuse wall thickening urinary bladder suggesting chronic bladder outlet narrowing. Scattered sigmoid diverticula appreciated. The remaining colon, appendix, small bowel and stomach are normal. Bone windows show only degenerative changes in the lumbar spine IMPRESSION: 1. Multiple stones disseminated throughout the left upper collecting system including 8 mm stone in the left renal pelvis. In addition, the left kidney is moderately atrophic with extensive parenchymal scarring. Findings are compatible with chronic obstructive uropathy. No evidence of hydronephrosis to suggest active obstruction however. 2. Two nonobstructing stones within the calyces of the right kidney - last than 3 mm. 3. Marked prostate enlargement with marked diffuse wall thickening urinary bladder suggesting chronic bladder outlet narrowing. 4. Small hiatal hernia Interpreted and Authenticated by: Manuel Leos 03/21/20
[2020-03-21] MEDS: BUDESONIDE 0.5 MG/2 ML AMPUL.NEB NEB SCH ×2 (10:32→19:07)
--- NOTE | 2020-03-21 13:12 | Ultrasound Report ---
CLINICAL INFORMATION: r/o obstr uropathy COMPARISON: Abdomen and pelvis CT 03/20/2020. FINDINGS: Left kidney is mildly atrophic - 9.5 x 4 cm with elevated echotexture and multiple nonobstructing stones idly disseminated throughout the calyces. The range up to 1.2 cm. No evidence hydronephrosis to active suggest obstruction. Compensatory hypertrophy of the right kidney appreciated: 14 x 6 cm. Parenchymal echotexture is elevated suggesting medical renal disease. Two small stones, both less than 3 mm seen within the superior and inferior calyces. No hydronephrosis Bowser catheter is evacuated the urinary bladder. Prostate volume is elevated 60 cc IMPRESSION: Mild atrophy left kidney with multiple nonobstructing stones in the calyces and renal pelvis - similar to CT. Compensatory hypertrophy of the right kidney with nonobstructing stones in the superior and inferior calyces as previously seen. Both are less than 3 mm. Marked prostatic enlargement. Bowser catheter as completely decompressed urinary bladder Interpreted and Authenticated by: Manuel Leos 03/21/20
[2020-03-21] MEDS: 0.9 % SODIUM CHLORIDE 10 ML SYRINGE IV SCH ×2 (14:19→20:43)
[2020-03-21] MEDS ORDERED: IPRATROPIUM/ALBUTEROL 3 ML AMPUL.NEB NEB ONE (14:25)
[2020-03-21] MEDS: ACETAMINOPHEN 325 MG TABLET PO PRN (16:48)
[2020-03-21] MEDS: MAGNESIUM SULFATE 2 GM/50 ML BAG IV PRN (19:20)
[2020-03-21] MEDS: MIRTAZAPINE 15 MG TABLET PO SCH (20:40)
[2020-03-21] MEDS: SENNOSIDES/DOCUSATE SODIUM 1 TAB TABLET PO SCH (20:41)
[2020-03-21] MEDS: ATORVASTATIN 40 MG TABLET PO SCH (20:41)
[2020-03-21] MEDS: TAMSULOSIN 0.4 MG CAPSULE PO SCH (20:42)
[2020-03-22] MEDS: IPRATROPIUM/ALBUTEROL 3 ML AMPUL.NEB NEB SCH ×4 (01:37→19:17)
[2020-03-22] MEDS: ACETAMINOPHEN 325 MG TABLET PO PRN ×2 (01:43→07:30)
[2020-03-22] MEDS: 0.9 % SODIUM CHLORIDE 1,000 ML IV SCH ×4 (04:47→22:07)
[2020-03-22] MEDS: 0.9 % SODIUM CHLORIDE 10 ML SYRINGE IV SCH ×3 (04:48→21:58)
[2020-03-22 06:07] LABS: Hematocrit 32.8 % (40.1-51.0); Hemoglobin 10.2 g/dL (13.7-17.5); Mean Cell Volume 79.4 fL (80.0-100.0); Mean Corpuscular HGB Conc 31.1 g/dL (31.0-36.0); Mean Platelet Volume 10.2 fL (7.4-10.4); Platelet Count 247 K/mcL (140-440); RBC 4.13 M/mcL (4.63-6.08); Red Cell Distribution Width 16.1 % (11.5-14.5); WBC 11.3 K/mcL (4.50-11.00)
[2020-03-22 06:45] LABS: ALT/SGPT 18 U/l (0-40); AST/SGOT 18 U/l (0-37); Albumin 3.1 gm/dL (3.2-5.2); Alkaline Phosphatase 126 U/L (39-117); Bilirubin,Direct < 0.2 mg/dL (0.0-0.3); Bilirubin,Total 0.3 mg/dL (0.0-1.0); Blood Urea Nitrogen 16 mg/dl (8-23); Carbon Dioxide 20 mmol/L (22-30); Chloride 107 mmol/L (96-108); Globulin 3.1 gm/dL (2.2-3.7); Glomerular Filtration Rate 56; Glucose 113 mg/dL (70-105); Lactate Dehydrogenase 162 U/L (94-250); Phosphorous 1.7 mg/dL (2.7-4.5); Triglycerides 57 mg/dl (<150); Uric Acid 3.6 mg/dL (2.5-8.0)
[2020-03-22] MEDS: OMEPRAZOLE 20 MG CAPSULE PO SCH (07:30)
[2020-03-22 07:43] LABS: Lymphocytes % 10 % (15-49); Monocytes % (Manual) 10 % (1-12); Platelet Estimate NORMAL (NORMAL); RBC Morphology NORMAL (NORMAL); Segmented Neutrophils % 80 % (38-78)
[2020-03-22] MEDS: BUDESONIDE 0.5 MG/2 ML AMPUL.NEB NEB SCH ×2 (07:43→19:17)
[2020-03-22] MEDS ORDERED: ALPRAZolam 0.5 MG TABLET PO PRN (09:22)
[2020-03-22] MEDS ORDERED: SENNOSIDES 1 TABLET PO PRN (09:22)
--- NOTE | 2020-03-22 09:23 | Internal Med Progress Note ---
Medical - PN: Subj Patient information: Note initiated : 03/22/20 at 9:19 am Service Date, if different from initiated Date: [] Patient: Pérez Grossman a 69 y/o M admitted on 03/21/20 for cloudy urine and fever. Chief Complaint: [] Interval history: Mr. Grossman is a 69 year old M with a history of COPD/hypertension/MRSA bacteremia in November 2019/nephrolithiasis recurrent UTI who presents with increasing weakness, fever, cloudy urine and confusion over the last couple of days. Patient lives with his son Matthew in [place]. He was in his baseline state of health onset of symptoms. He had associated sweats and shaking chills become very fatigued unable to function prompting family to bring him to the ER Initial work-up was consistent with severe sepsis with a white count 9.3/pyuria/elevated creatinine. Patient was initiated on antibiotics. Hospital service was consulted for admission At the time of evaluation patient is alert and able to answer most of the questions. He denies active distress or abdominal pain. He did endorse to difficulty urination but denies dysuria, weight loss, loss of appetite or nausea vomiting. 03/22-patient improving clinically. Stable hemodynamics. White count down from 19,000-11,000. Blood and urine cultures pending. Fever defervesced. Nursing expressed concern about clogged catheter which was discontinued followed by self voiding. Patient denies abdominal discomfort, nausea vomiting or diarrhea. Improved sodium 140. Creatinine down to 1.3. Improving endorgan dysfunction - Constitutional Vitals: Vital Signs Temp Pulse Resp BP Pulse Ox 99 F 80 16 120/70 97 03/22/20 08:00 03/22/20 08:00 03/22/20 08:00 03/22/20 08:00 03/22/20 08:00 Period Temp Pulse Resp BP Sys/Hu Pulse Ox Last 24 Hr 98.7 F-100.3 F 71-99 16-18 96-120/57-70 90-98 Intake and Output 03/21/20 03/22/20 03/22/20 21:59 05:59 13:59 Intake Total 1790 300 Output Total 700 400 420 Balance 1090 -100 -420 Weight 203 lb 6.4 oz Intake & Output: Intake & Output 03/21/20 03/22/20 03/22/20 21:59 05:59 13:59 Intake Total 1790 300 Output Total 700 400 420 Balance 1090 -100 -420 Weight 203 lb 6.4 oz Intake: IV 1050 Sodium Chloride 0.9% 1,000 ml @ 1000 100 mls/hr IV .Q10H [facility] Rx#: [id number] Oral 740 300 Output: Urine Catheter Amount 700 400 20 Void Amount 400 Other: Meal Dinner Percent of Meal Consumed 100% Feeding Ability Assist with Tray Set Up Urine Appearance Cloudy Hematuria Small Blood Clots Uretheral (Bowser) Cloudy Sediment Urine Color Dark Cara Dark Red Uretheral (Bowser) Dark Yellow Urine Odor Strong General appearance: no acute distress Exam: Alert respond to commands Nonlabored breathing No anxiety Nontender nondistended abdomen Bowser is discontinued Medical - PN: Obj Da - Labs CBC & Chem 7: 03/22/20 04:44 03/22/20 04:44 Labs: Abnormal Lab Results 03/22/20 03/22/20 03/21/20 04:44 04:44 05:00 WBC 11.3 H RBC 4.13 L Hgb 10.2 L Hct 32.8 L MCV 79.4 L MCH 24.7 L MCHC RDW 16.1 H Gran % Lymph % (Auto) Gran # [place] # (Auto) Seg Neutrophils % 80 H Lymphocytes % 10 L Sodium Carbon Dioxide 20 L 20 L BUN Creatinine 1.3 H 1.3 H Glucose 113 H Calcium 8.0 L 8.3 L Phosphorus 1.7 L 2.5 L Total Bilirubin Alkaline Phosphatase 126 H 139 H Albumin 3.1 L 2.9 L Albumin/Globulin Ratio 0.8 L Urine Protein Urine Occult Blood Ur Leukocyte Esterase Urine RBC Urine WBC Amorphous Crystals Urine Bacteria 03/21/20 03/20/20 03/20/20 05:00 23:59 21:43 WBC 16.0 H RBC 4.48 L Hgb 11.1 L Hct 37.0 L MCV MCH 24.8 L MCHC 30.0 L RDW 16.0 H Gran % Lymph % (Auto) 13.8 L Gran # 11.93 H [place] # (Auto) 1.69 H Seg Neutrophils % Lymphocytes % Sodium 132 L Carbon Dioxide 21 L BUN 24 H Creatinine 1.6 H Glucose 116 H Calcium Phosphorus Total Bilirubin 1.1 H Alkaline Phosphatase 162 H Albumin Albumin/Globulin Ratio Urine Protein 30 A Urine Occult Blood >=1.0 A Ur Leukocyte Esterase 500 A Urine RBC 7 H Urine WBC > 182 H Amorphous Crystals Few A Urine Bacteria Few A 03/20/20 21:43 WBC 19.3 H RBC Hgb 12.3 L Hct 40.0 L MCV MCH 24.6 L MCHC 30.8 L RDW 15.9 H Gran % 79.3 H Lymph % (Auto) 10.5 L Gran # 15.30 H [place] # (Auto) 1.88 H Seg Neutrophils % Lymphocytes % Sodium Carbon Dioxide BUN Creatinine Glucose Calcium Phosphorus Total Bilirubin Alkaline Phosphatase Albumin Albumin/Globulin Ratio Urine Protein Urine Occult Blood Ur Leukocyte Esterase Urine RBC Urine WBC Amorphous Crystals Urine Bacteria Meds: Medications Acetaminophen (Tylenol) 650 mg PO Q4-6HP PRN; Protocol PRN Reason: Per Pain Protocol/Fever > 101 Last Admin: 03/22/20 01:43 Dose: 650 mg Documented by: Albuterol/Ipratropium (Duoneb) 3 ml NEB Q6H [facility] Last Admin: 03/22/20 07:43 Dose: 3 ml Documented by: Alprazolam (Xanax) 1 mg PO DAILYP PRN PRN Reason: Anxiety Last Admin: 03/21/20 15:11 Dose: 1 mg Documented by: Apixaban (Eliquis) 5 mg PO BID [facility] Last Admin: 03/21/20 20:40 Dose: 5 mg Documented by: Atorvastatin Calcium (Lipitor) 80 mg PO HS [facility] Last Admin: 03/21/20 20:41 Dose: 80 mg Documented by: Bisacodyl (Dulcolax) 10 mg DC Q2-3DAYS PRN PRN Reason: Constipation Budesonide (Pulmicort) 0.5 mg NEB Q12 [facility] Last Admin: 03/22/20 07:43 Dose: 0.5 mg Documented by: Buspirone HCl (Buspar) 15 mg PO BID [facility] Last Admin: 03/21/20 20:42 Dose: 15 mg Documented by: Cyanocobalamin (Vitamin B-12) 1,000 mcg PO BID [facility] Stop: 03/25/20 21:01 Last Admin: 03/21/20 20:40 Dose: 1,000 mcg Documented by: Docusate Sodium (Colace) 100 mg PO BID [facility] Last Admin: 03/21/20 20:41 Dose: 100 mg Documented by: Ceftriaxone Sodium 2 gm/ (Dextrose) 50 mls @ 100 mls/hr IV Q24H [facility]; Protocol Last Admin: 03/21/20 09:29 Dose: 100 mls/hr Documented by: Potassium Chloride 40 meq/ (Dextrose) 520 mls @ 130 mls/hr IV UD PRN PRN Reason: K+ = or < 3.5 Levofloxacin (Levaquin) 750 mg in 150 mls @ 100 mls/hr IV Q24H [facility]; Protocol Last Admin: 03/21/20 10:07 Dose: 100 mls/hr Documented by: Magnesium Sulfate (Magnesium Sulfate) 2 gm in 50 mls @ 50 mls/hr IV UD PRN PRN Reason: MG = or < 1.7 Last Infusion: 03/21/20 20:20 Dose: Infused Documented by: Sodium Chloride (Sodium Chloride 0.9%) 1,000 mls @ 100 mls/hr IV .Q10H [facility] Last Admin: 03/22/20 04:47 Dose: Not Given Documented by: Acetaminophen (Ofirmev) 650 mg in 65 mls @ 130 mls/hr IV Q6HP PRN; Protocol PRN Reason: Per Pain Protocol/Fever > 101 Vasopressin 20 unit/ Dextrose 100 mls @ 12 mls/hr IV Q8HP PRN; Protocol PRN Reason: MAP<65 Iron Carb/Multivit/Blanco/Folic Acid (Multivitamin W/Minerals) 1 tab PO DAILY [facility] Last Admin: 03/21/20 08:45 Dose: 1 tab Documented by: Lisinopril (Zestril) 2.5 mg PO QDAY [facility] Last Admin: 03/21/20 08:45 Dose: 2.5 mg Documented by: Melatonin (Melatonin 3mg Tablet) 3 mg PO HSP PRN PRN Reason: Insomnia Mirtazapine (Remeron) 15 - 30 mg PO QHS [facility] Last Admin: 03/21/20 20:40 Dose: 15 mg Documented by: Nicotine (Nicoderm) 21 mg TD DAILY@1000 [facility] Last Admin: 03/21/20 10:06 Dose: 21 mg Documented by: Omeprazole (Prilosec) 20 mg PO QAMAC [facility] Last Admin: 03/21/20 10:06 Dose: 20 mg Documented by: Ondansetron HCl (Zofran) 4 mg IV Q4HP PRN PRN Reason: Nausea And Vomiting Ondansetron HCl (Zofran Odt) 4 mg SL Q4-6HP PRN; Protocol PRN Reason: Nausea And Vomiting Polyethylene Glycol (Miralax) 17 gm PO DAILYP PRN PRN Reason: Constipation Potassium Chloride (Klor-Con) 40 meq PO DAILYP PRN PRN Reason: K+ < 3.5 Senna/Docusate Sodium (Senna Plus Tablet) 1 tab PO HS [facility] Last Admin: 03/21/20 20:41 Dose: 1 tab Documented by: Sodium Chloride (Saline Flush) 10 ml IV Q8 [facility] Last Admin: 03/22/20 04:48 Dose: Not Given Documented by: Tamsulosin HCl (Flomax) 0.4 mg PO QHS [facility] Last Admin: 03/21/20 20:42 Dose: 0.4 mg Documented by: Thiamine HCl (Vitamin B1) 100 mg PO DAILY [facility] Last Admin: 03/21/20 08:46 Dose: 100 mg Documented by: Medical - PN: A/P - Time Spent With Patient Total time spent is greater than 50% in coordination of care (as documented) at patient's floor/unit and/or counseling patient: 25 - 35 minutes (1) Complicated UTI (urinary tract infection) Status: Acute Assessment and plan: * Complicated UTI with severe sepsis. History of recurrent UTI from staghorn calculus. Clinically improving. * Sepsis with endorgan dysfunction. White count down from 19,000-11. Stable hemodynamics. * Hypovolemic hyponatremia -resolved, sodium 140 * Acute on chronic renal failure. Creatinine improved to 1.3. * History of COPD-stable on bronchodilators/supplemental oxygen * History of Mobitz type II heart block-stable. * Hypothyroidism home dose thyroxine * History of CHF -well compensated. * History of LV thrombus continue Eliquis * History of pulmonary artery hypertension-at baseline * Anxiety disorder continue BuSpar * GERD continue PPI * History of BPH continue Flomax * Full code * Prophylaxis on Eliquis Plan * Continue antibiotic coverage * Pre-existing mental condition management home med * Anticoagulation on Eliquis * PT OT nutrition support * Discharge planning Current Visit: Yes Medical - PN: Qual - VTE Deep Vein Thrombosis/Pulmonary Embolism Present on Admission: No
[2020-03-22] MEDS: busPIRone 5 MG TABLET PO SCH ×2 (09:48→21:57)
[2020-03-22] MEDS: DOCUSATE SODIUM 100 MG CAPSULE PO SCH ×2 (09:48→21:57)
[2020-03-22] MEDS: CYANOCOBALAMIN (VITAMIN B-12) 500 MCG TABLET PO SCH ×2 (09:48→21:57)
[2020-03-22] MEDS: MULTIVIT,THER IRON,CA,FA & MIN 1 TABLET PO SCH (09:48)
[2020-03-22] MEDS: LISINOPRIL 5 MG TABLET PO SCH (09:49)
[2020-03-22] MEDS: cefTRIAXone 2 GM in DEXTROSE 5% IN WATER 50 ML IV SCH (09:53)
[2020-03-22] MEDS: APIXABAN 5 MG TABLET PO SCH ×2 (09:53→21:57)
[2020-03-22] MEDS: THIAMINE 100 MG TABLET PO SCH (09:53)
[2020-03-22] MEDS: NICOTINE 21 MG PATCH TD SCH (09:54)
[2020-03-22] MEDS: LEVOFLOXACIN 750 MG/150 ML BAG IV SCH (10:44)
[2020-03-22] MEDS ORDERED: BUSPIRONE 15 MG PO SCH (21:00)
[2020-03-22] MEDS: TAMSULOSIN 0.4 MG CAPSULE PO SCH (21:56)
[2020-03-22] MEDS: ATORVASTATIN 40 MG TABLET PO SCH (21:56)
[2020-03-22] MEDS: SENNOSIDES/DOCUSATE SODIUM 1 TAB TABLET PO SCH (21:57)
[2020-03-22] MEDS: MIRTAZAPINE 15 MG TABLET PO SCH (22:29)
[2020-03-23] MEDS: IPRATROPIUM/ALBUTEROL 3 ML AMPUL.NEB NEB SCH ×3 (01:24→13:17)
[2020-03-23] MEDS: ACETAMINOPHEN 325 MG TABLET PO PRN (03:35)
[2020-03-23] MEDS: 0.9 % SODIUM CHLORIDE 10 ML SYRINGE IV SCH (04:40)
[2020-03-23 06:35] LABS: Hematocrit 33.1 % (40.1-51.0); Hemoglobin 10.1 g/dL (13.7-17.5); Mean Cell Volume 80.1 fL (80.0-100.0); Mean Corpuscular HGB Conc 30.5 g/dL (31.0-36.0); Mean Platelet Volume 10.5 fL (7.4-10.4); Platelet Count 260 K/mcL (140-440); RBC 4.13 M/mcL (4.63-6.08); Red Cell Distribution Width 16.3 % (11.5-14.5); WBC 10.2 K/mcL (4.50-11.00)
[2020-03-23 07:17] LABS: ALT/SGPT 16 U/l (0-40); AST/SGOT 20 U/l (0-37); Albumin 2.8 gm/dL (3.2-5.2); Albumin/Globulin Ratio 0.9 (1.0-2.3); Alkaline Phosphatase 105 U/L (39-117); Bilirubin,Direct < 0.2 mg/dL (0.0-0.3); Bilirubin,Total 0.4 mg/dL (0.0-1.0); Blood Urea Nitrogen 10 mg/dl (8-23); Calcium 7.8 mg/dl (8.6-10.4); Carbon Dioxide 19 mmol/L (22-30); Globulin 3.1 gm/dL (2.2-3.7); Glomerular Filtration Rate 69; Glucose 96 mg/dL (70-105); Lactate Dehydrogenase 195 U/L (94-250); Triglycerides 70 mg/dl (<150); Uric Acid 3.2 mg/dL (2.5-8.0)
[2020-03-23] MEDS: BUDESONIDE 0.5 MG/2 ML AMPUL.NEB NEB SCH (07:22)
[2020-03-23 07:25] LABS: Chloride 110 mmol/L (96-108)
[2020-03-23] MEDS ORDERED: LEVOTHYROXINE 50 MCG TABLET PO SCH (07:30)
[2020-03-23] MEDS: OMEPRAZOLE 20 MG CAPSULE PO SCH (07:43)
[2020-03-23] MEDS: 0.9 % SODIUM CHLORIDE 1,000 ML IV SCH ×2 (07:43→13:25)
[2020-03-23 08:03] LABS: Anisocytosis 1+ (NONE SEEN); Band Neutrophils % 1 % (0-10); Eosinophils % (Manual) 1 % (0-7); Lymphocytes % 9 % (15-49); Microcytosis FEW (NONE SEEN); Monocytes % (Manual) 6 % (1-12); Ovalocytes 1+ (NONE SEEN); Platelet Estimate NORMAL (NORMAL); RBC Fragments FEW (NONE SEEN); RBC Morphology ABNORM (NORMAL); Segmented Neutrophils % 83 % (38-78)
--- NOTE | 2020-03-23 08:18 | XRay Report ---
CLINICAL INFORMATION: Interval Change COMPARISON: 12/22/2019 FINDINGS: Mild cardiomegaly is unchanged. Moderate hiatal hernia now noted. The remaining mediastinum and pulmonary vessels are normal. Probable COPD changes appreciated. There is mild atelectasis left base IMPRESSION: Mild atelectasis left base Moderate hiatal hernia. Interpreted and Authenticated by: Manuel Leos 03/23/20
[2020-03-23] MEDS: LISINOPRIL 5 MG TABLET PO SCH (08:55)
[2020-03-23] MEDS: APIXABAN 5 MG TABLET PO SCH (08:56)
[2020-03-23] MEDS: DOCUSATE SODIUM 100 MG CAPSULE PO SCH (08:56)
[2020-03-23] MEDS: busPIRone 5 MG TABLET PO SCH (08:56)
[2020-03-23] MEDS: MULTIVIT,THER IRON,CA,FA & MIN 1 TABLET PO SCH (08:56)
[2020-03-23] MEDS: CYANOCOBALAMIN (VITAMIN B-12) 500 MCG TABLET PO SCH (08:56)
[2020-03-23] MEDS: THIAMINE 100 MG TABLET PO SCH (08:56)
[2020-03-23] MEDS: MAGNESIUM SULFATE 2 GM/50 ML BAG IV PRN (08:56)
[2020-03-23] MEDS ORDERED: ASPIRIN 81 MG TAB.CHEW PO SCH (09:00)
[2020-03-23] MEDS ORDERED: ATORVASTATIN CALCIUM 80 MG PO SCH (09:00)
[2020-03-23] MEDS ORDERED: SULFAMETHOXAZOLE/TRIMETHOPRIM 1 TABLET PO ONE (09:01)
--- NOTE | 2020-03-23 09:03 | Discharge Summary ---
Medical - DS: Prov Patient information: Note initiated : 03/23/20 at 9:01 am Service Date, if different from initiated Date: [] Patient: Pérez Grossman 69 y/o M admitted on 03/21/20 for cloudy urine and fever. Chief Complaint: [] Date of admission: 03/21/20 01:52 Discharge date: 03/23/20 Primary care physician: PHILIPPE Lynn Consults: 03/21/20 Consult to Physician [CONS] Stat Comment: Consulting Provider: Garett Ag Reason For Exam: Physician to Consult Medical - DS: Meds - Discharge Medications Prescriptions: Sulfamethoxazole/Trimethoprim [Bactrim Ds] 1 tab PO BID #14 tab Transmission Status: Pending to [facility] [id number] Active and Home Medications: Home Medications lisinopril 2.5 mg tablet 2.5 mg PO QDAY 08/22/16 [History Confirmed 03/21/20 Last Taken 12/21/19] ipratropium 20 mcg-albuterol 100 mcg/actuation mist for inhalation 1 puff INHALATION Q4-6HP PRN 04/06/18 [History Confirmed 03/21/20 Last Taken 12/21/19] mirtazapine 15 mg tablet 1 - 2 tab PO QHS tab 04/06/18 [History Confirmed 03/21/20 Last Taken 12/21/19] apixaban 5 mg tablet 5 mg PO BID 08/27/18 [History Confirmed 03/21/20 Last Taken 12/21/19] ALPRAZolam [Xanax] 1 mg PO DAILYP PRN tab 11/11/19 [Rx Confirmed 03/21/20 Last Taken 12/21/19] Nicotine [Nicoderm] 21 mg TOPICAL DAILY@1000 #30 patch 11/11/19 [Rx Confirmed 03/21/20 Last Taken 03/20/20 08:00] Sennosides [Senokot] 2 tab PO DAILYP PRN #30 tab 11/11/19 [Rx Confirmed 03/21/20 Last Taken 12/21/19] Aspirin [Aspirin EC] 81 mg PO DAILY 12/22/19 [History Confirmed 03/21/20 Last Taken 12/21/19] budesonide 0.25 mg/2 mL suspension for nebulization 2 ml INHALATION BID #120 ml 01/05/20 [Rx Confirmed 03/21/20 Last Taken Unknown] formoterol fumarate 20 mcg/2 mL solution for nebulization 2 ml INHALATION BID #120 ml 01/05/20 [Rx Confirmed 03/21/20 Last Taken Unknown] ipratropium 0.5 mg-albuterol 3 mg (2.5 mg base)/3 mL nebulization soln 3 ml INHALATION Q6H #360 ml 01/05/20 [Rx Confirmed 03/21/20 Last Taken Unknown] omeprazole 20 mg capsule,delayed release 20 mg PO QDAY 01/05/20 [History Confirmed 03/21/20 Last Taken Unknown] tamsulosin 0.4 mg capsule 0.4 mg PO QHS #90 cap 03/13/20 [Rx Confirmed 03/21/20 Last Taken Unknown] Atorvastatin Calcium 80 mg PO DAILY 03/21/20 [History Confirmed 03/21/20 Last Taken Unknown] Levothyroxine [Synthroid] 50 mcg PO ACB 03/21/20 [History Confirmed 03/21/20 Last Taken Unknown] busPIRone [Buspar] 15 mg PO BID 03/21/20 [History Confirmed 03/21/20 Last Taken Unknown] Sulfamethoxazole/Trimethoprim [Bactrim Ds] 1 tab PO BID #14 tab 03/23/20 [Rx Last Taken Unknown] Medical - DS: Hosp Hospital Course: Discharge diagnosis * Complicated MRSA UTI with severe sepsis. Rapid clinical improvement noted. Continue additional 7 days oral Bactrim DS. Recommend outpatient follow-up with urology for evaluation of nonobstructing renal calculi possibly leading to recurrent UTIs * Sepsis with endorgan dysfunction. Clinically resolved. White count down from 19,000-10,000. * Hypovolemic hyponatremia -resolved * Acute on chronic renal failure. Creatinine improved from 1.6 to 1.1 * History of COPD-stable on bronchodilators/supplemental oxygen * History of Mobitz type II heart block-stable. * Hypothyroidism continue home dose thyroxine * History of CHF -well compensated. * History of LV thrombus continue Eliquis * History of pulmonary artery hypertension-at baseline * Anxiety disorder continue BuSpar * GERD continue PPI * History of BPH continue Flomax Brief hospital course Mr. Grsosman is a 69 year old M with a history of COPD/hypertension/MRSA bacteremia in November 2019/nephrolithiasis recurrent UTI who presents with increasing weakness, fever, cloudy urine and confusion over the last couple of days. Patient lives with his son Matthew in [place]. He was in his baseline state of health onset of symptoms. He had associated sweats and shaking chills become very fatigued unable to function prompting family to bring him to the ER Initial work-up was consistent with severe sepsis with a white count 9.3/pyuria/elevated creatinine. Patient was initiated on antibiotics. Hospital service was consulted for admission At the time of evaluation patient is alert and able to answer most of the questions. He denies active distress or abdominal pain. He did endorse to difficulty urination but denies dysuria, weight loss, loss of appetite or nausea vomiting. 03/22-patient improving clinically. Stable hemodynamics. White count down from 19,000-11,000. Blood and urine cultures pending. Fever defervesced. Nursing expressed concern about clogged catheter which was discontinued followed by self voiding. Patient denies abdominal discomfort, nausea vomiting or diarrhea. Improved sodium 140. Creatinine down to 1.3. Improving endorgan dysfunction 03/23-MRSA 1 urine culture. DC existing antibiotics and start Bactrim DS. Discharge home with outpatient follow-up with urology/primary care physician. No overnight fever chills or concerns per staff. White count normalized to 10.2. Creatinine down to 1.1 from 1.6. Sodium improved to 141. Stable hemo dynamics. Patient feels at baseline. Discharge diagnosis: . - Time Spent with Patient Total time spent providing and/or coordinating discharge services: Greater than 30 minutes Medical - DS: Exam - Constitutional Vitals: Vital Signs Temp Pulse Pulse Resp BP Pulse Ox 03/23/20 07:22 68 15 03/23/20 04:39 98.6 F 03/23/20 04:20 98.6 F 03/23/20 03:35 100.6 F H 03/23/20 03:31 100.6 F H 69 24 H 105/65 94 03/23/20 01:25 88 17 03/22/20 22:16 99.8 F H 95 H 24 H 118/74 92 03/22/20 20:00 95 H 24 H 92 03/22/20 19:18 80 18 03/22/20 18:48 99.0 F 79 22 119/72 96 03/22/20 16:00 98.7 F 81 18 122/73 92 03/22/20 13:31 76 18 97 03/22/20 12:00 97.8 F 69 16 119/64 99 Intake and Output 03/22/20 03/23/20 03/23/20 21:59 05:59 13:59 Intake Total 1340 100 960 Output Total 3 1 Balance 1337 99 960 Intake: IV 1000 960 Sodium Chloride 0.9% 1,000 ml @ 1000 960 100 mls/hr IV .Q10H [facility] Rx#: [id number] Oral 340 100 Output: # of times incontinent of urine 3 1 Other: Urine Appearance Clear Urine Color Pale Bright Yellow Urine Odor Strong Weight 207 lb 8 oz Medical - DS: Data Labs on day of discharge: Labs from last 24 hours 03/23/20 03/23/20 04:21 04:21 WBC 10.2 RBC 4.13 L Hgb 10.1 L Hct 33.1 L MCV 80.1 MCH 24.5 L MCHC 30.5 L RDW 16.3 H Plt Count 260 MPV 10.5 H Total Counted 100 Seg Neutrophils % 83 H Band Neutrophils % 1 Lymphocytes % 9 L Monocytes % (Manual) 6 Eosinophils % (Manual) 1 Platelet Estimate Normal RBC Morphology Abnorm A Anisocytosis 1+ A Microcytosis Few A Ovalocytes 1+ A RBC Fragments Few A Sodium 141 Potassium 3.4 Chloride 110 H Carbon Dioxide 19 L Anion Gap 12.0 BUN 10 Creatinine 1.1 GFR Calculation 69 Glucose 96 Uric Acid 3.2 Calcium 7.8 L Phosphorus 2.0 L Magnesium 1.7 Total Bilirubin 0.4 Direct Bilirubin < 0.2 GGT 17 AST 20 ALT 16 Alkaline Phosphatase 105 Lactate Dehydrogenase 195 Total Protein 5.9 Albumin 2.8 L Globulin 3.1 Albumin/Globulin Ratio 0.9 L Triglycerides 70 Preliminary micro results at discharge 03/21/20 07:57 Blood Culture - Preliminary Blood 03/21/20 08:07 Blood Culture - Preliminary Blood Medical - DS: A/P - Patient/Caregiver Discharge Instructions Activity: increase activity as tolerated Diet: Regular Diet Additional Instructions: Follow-up PCP in 5-7 days Recommend follow-up with urology for management of nonobstructive renal calculi leading to recurrent UTIs I recommend primary care physician to check CBC BMP UA as a posthospital follow- up in 1 week. Antibiotics for additional 7 days oral Bactrim DS Continue fall precautions All meals on chair sitting upright at 90 degrees to prevent aspiration Return to ER if worsening fever chills shortness of breath, diarrhea, bleeding Review risk and side effect profile of medications including antibiotics. Side effect may include mild to severe reaction including rash, diarrhea, cdiff and even which can be prevented by close follow-up with PCP and monitoring for side effects Continue diet and activity as advised Discussed importance of medication adherence Please review medication list with patient prior to discharge Please schedule follow-up with PCP/Providers prior to discharge and provide printouts Prescriptions: Sulfamethoxazole/Trimethoprim [Bactrim Ds] 1 tab PO BID #14 tab Transmission Status: Pending to [facility] [id number] - Problem Maintenance (1) Complicated UTI (urinary tract infection) Status: Acute - Follow up Plan Follow up with: Tee Hinson ARNP [Primary Care Provider] - Disposition: Home, Self-Care Prognosis: Fair Rehab Potential: Fair I certify that the patient requires SNF services: No Overall status at discharge: patient is progressing back to baseline Medical - DS: Qual - VTE Deep Vein Thrombosis/Pulmonary Embolism Present on Admission: No
[2020-03-23] MEDS: cefTRIAXone 2 GM in DEXTROSE 5% IN WATER 50 ML IV SCH (09:16)
[2020-03-23] MEDS: LEVOFLOXACIN 750 MG/150 ML BAG IV SCH (09:16)
[2020-03-23] MEDS: NICOTINE 21 MG PATCH TD SCH (12:38)
== END 2020-03-23 14:37 | disposition home or self-care (01) | DRG 872 ==
LOC: ED 21:09 → MEDSUR 03-21 01:52
PROVIDERS: ADMIT Internal Medicine; ATTEND Internal Medicine

== ENCOUNTER 2020-08-29 16:46 | Inpatient (IN) ==
[2020-08-29] MEDS ORDERED: cefTRIAXone 2 GM in DEXTROSE 5% IN WATER 50 ML IV ONE (17:07)
[2020-08-29] MEDS ORDERED: 0.9 % SODIUM CHLORIDE 1,000 ML IV ONE (17:07)
[2020-08-29] MEDS ORDERED: ONDANSETRON 4 MG/2 ML VIAL IV ONE (17:07)
--- NOTE | 2020-08-29 17:39 | Emergency Department Note ---
HPI General Chief complaint: Nausea/Vomiting/Diarrhea Stated complaint: fever Time Seen by Provider: 08/29/20 16:53 Source: patient Mode of arrival: wheelchair Limitations: no limitations History of Present Illness HPI Narrative: Narrative: 69-year-old male patient presents emergency department with chief complaint of nausea and vomiting twice today. Soon afterwards he developed profound shortness of breath. Upon arrival he does have dark in color emesis noted on his shirt. He denies active nausea at this moment. His son mentions that he did not have a fever at home. However he was febrile at 100 in triage. No known sick contacts. No known exposure to Covid. Admits to CVA "several years ago" that affected his left side. His adult son called the emergency department and gave additional information. Patient has been suffering from considerable dysphagia and vomiting associated with solid food intake. This been ongoing for the last 2 weeks. His son mentions that every time he tries to take a bite of solid food he immediately vomits it back up. They have been giving the patient ensure shakes to drink to help with his calorie intake. ROS: Denies systemic illness. Denies headaches, tinnitus, or vision changes. Denies runny nose, sinus congestion, or cough. Admits to occasional episodes of retrosternal chest pain. Unsure when his last episode was. Denies palpitations. Denies abdominal pain, nausea, or diarrhea. Denies dysuria, hematuria, urinary frequency, or urinary urgency. Admits to left-sided focal weakness. Related Data Home Medications Medication Instructions Recorded Confirmed lisinopril 2.5 mg tablet 2.5 mg PO QDAY 08/22/16 08/29/20 ipratropium 20 mcg-albuterol 100 1 puff INHALATION Q4-6HP PRN 04/06/18 03/21/20 mcg/actuation mist for inhalation mirtazapine 15 mg tablet 1 - 2 tab PO QHS tab 04/06/18 08/29/20 apixaban 5 mg tablet 5 mg PO BID 08/27/18 08/29/20 aspirin 81 mg PO DAILY 12/22/19 03/21/20 omeprazole 20 mg capsule,delayed 20 mg PO QDAY 01/05/20 08/29/20 release buspirone 15 mg PO BID 03/21/20 03/21/20 levothyroxine 50 mcg PO ACB 03/21/20 08/29/20 atorvastatin 80 mg PO DAILY 08/29/20 08/29/20 Previous Rx's Medication Instructions Recorded alprazolam 1 mg PO DAILYP PRN tab 11/11/19 nicotine 21 mg TOPICAL DAILY@1000 #30 patch 11/11/19 sennosides 2 tab PO DAILYP PRN #30 tab 11/11/19 budesonide 0.25 mg/2 mL suspension 2 ml INHALATION BID #120 ml 01/05/20 for nebulization formoterol fumarate 20 mcg/2 mL 2 ml INHALATION BID #120 ml 01/05/20 solution for nebulization ipratropium 0.5 mg-albuterol 3 mg 3 ml INHALATION Q6H #360 ml 01/05/20 (2.5 mg base)/3 mL nebulization soln tamsulosin 0.4 mg capsule 0.4 mg PO QHS #90 cap 03/13/20 Allergies Allergy/AdvReac Type Severity Reaction Status Date / Time No Known Drug Allergies Allergy Verified 08/29/20 16:49 Review of Systems ROS ROS Narrative: Narrative: All systems ED: reviewed and negative except as stated. [facility] Narrative Patient History Narrative: Narrative: Medical/Surgical/Family History All Active Problems (Updated 08/29/20 @ 20:37 by Cayetano Merritt PA-C) Nonspecific elevation of levels of transaminase and lactic acid dehydrogenase (LDH) (Acute) Acute respiratory failure with hypoxia (Acute) Complicated UTI (urinary tract infection) (Acute) Contusion of head (Acute) Cervical sprain (Acute) Sepsis (Acute) Acute UTI (Acute) Elevated hemidiaphragm (Chronic) Hypersomnia (Chronic) Acute exacerbation of chronic obstructive airways disease (Chronic) Congestive heart failure (Chronic) CKD (chronic kidney disease), stage III (Chronic) Left renal atrophy (Chronic) Staghorn calculus (Chronic) Hypothyroidism (Chronic) Elevated serum creatinine (Chronic) COPD exacerbation (Chronic) Encounter for Postoperative Care (Chronic) Fever (Chronic) Nephrolithiasis (Chronic) S/P ureteral stent placement (Chronic) MRSA (methicillin resistant staph aureus) culture positive (Chronic) Chronic anticoagulation (Chronic) Anemia (Chronic) Sepsis (Chronic) UTI (urinary tract infection) (Chronic) Pruritic rash (Chronic) Chronic diarrhea (Chronic) Prediabetes (Chronic) Memory impairment (Chronic) Chronic low back pain (Chronic) Pulmonary arterial hypertension (Chronic) Insomnia (Chronic) Syncope (Chronic) Anxiety (Chronic) History of CVA (cerebrovascular accident) (Chronic) History of malignant neoplasm of prostate (Chronic) PSA elevation (Chronic) History of methamphetamine abuse (Chronic) CVA (cerebral vascular accident) (Chronic) GERD (gastroesophageal reflux disease) (Chronic) Chronic obstructive lung disease (Chronic) 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) Dilated cardiomyopathy (Chronic) Atrial thrombosis (Chronic) Medical History Acute exacerbation of chronic obstructive airways disease (Chronic) Anemia (Chronic) Anxiety (Chronic) Atrial thrombosis (Chronic) Chronic anticoagulation (Chronic) apixaban (Eliquis, since 2016) 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 Some degree of decreased renal perfusion form CHF and low BP. Flomax as tolerated by BP and low dose lisinopril for CHF Congestive heart failure (Chronic) COPD exacerbation (Chronic) CVA (cerebral vascular accident) (Chronic) Dilated cardiomyopathy (Chronic) Elevated hemidiaphragm (Chronic) Left Elevated serum creatinine (Chronic) Mild and in the setting of low dose ACEi and aldactone Tx for a dilated cardiomyopathy and prior obstructive uropathy with left renal staghorn calculi and pyelonephritis Encounter for Postoperative Care (Chronic) Fever (Chronic) GERD (gastroesophageal reflux disease) (Chronic) History of CVA (cerebrovascular accident) (Chronic) History of malignant neoplasm of prostate (Chronic) History of methamphetamine abuse (Chronic) Hypersomnia (Chronic) Hypothyroidism (Chronic) Insomnia (Chronic) Left renal atrophy (Chronic) left staghorn calculi, ECSWL, stenting, low grade obstruction in the past and now left renal atrophy GFR 45-60 cc/min Memory impairment (Chronic) MRSA (methicillin resistant staph aureus) culture positive (Chronic) Nephrolithiasis (Chronic) Prediabetes (Chronic) Pruritic rash (Chronic) PSA elevation (Chronic) Pulmonary arterial hypertension (Chronic) Sepsis (Chronic) Staghorn calculus (Chronic) Left renal pelvis s/p ECSWL MRSA positive urine culture x 2 in summer 2018 then cleared Urine pH not elevated to suggest urea splitting bacteria 1.8 cm calcified stone fragment remains on the left side Syncope (Chronic) UTI (urinary tract infection) (Chronic) Surgical History Hx of hernia repair (Chronic ~2000) L inguinal Hx of lithotripsy (Chronic) Left S/P ureteral stent placement (Chronic) Family History Mother , Age 70 Stomach cancer Brother Tumor of lung Social History Smoking Status: Current every day smoker Alcohol Intake Frequency: does not drink Substance Use: former substance user Exam Narrative Narrative: Narrative: General Limitations: no limitations General appearance: Present other (Well-developed, well-nourished, chronically ill-appearing 69-year-old male patient laying semirecumbent on the emergency room gurney in moderate respiratory distress. He is tachypneic. He is speaking in broken sentences. No nasal flaring. No accessory muscle use. He is febrile and tachycardic meet SIRS criteria. Blood pressure is 108/70.) Head Head: Present normocephalic Eye Eye: Present normal appearance, PERRL and EOMI; Absent scleral icterus and conjunctival injection ENT ENT: Present normal oropharynx and mucous membranes moist Neck Neck: Present trachea midline; Absent lymphadenopathy Chest Chest: Present symmetric chest wall rise Respiratory Respiratory: Present respiratory distress, prolonged expiratory phase and decreased breath sounds (Diminished breath sounds to the bases bilateral.); Absent normal lung sounds bilaterally, rales/crackles, wheezes, stridor and accessory muscle use Cardiovascular Cardiovascular: Present normal rhythm and tachycardia; Absent systolic murmur and diastolic murmur Adbominal Abdominal: Present soft; Absent distention, tenderness, guarding, rebound, rigidity, organomegaly and mass Extremities Extremities: Present normal inspection, full ROM and normal capillary refill; Absent pedal edema Expanded Neurological Patient oriented to: Present person and place; Absent time Speech: Present fluid speech Motor strength - LUE: 5/5 Motor strength - RUE: 5/5 Motor strength - LLE: 5/5 Motor strength - RLE: 5/5 SENSORY EXAM UPPER EXTREMITY: Normal: light touch SENSORY EXAM LOWER EXTREMITY: Normal: light touch Coma Scale Eye Opening: Spontaneous Coma Scale Motor Response: Obeys Commands Coma Scale Verbal Response: Confused Coma Scale Total: 14 Psychiatric Psychiatric: Present normal affect and normal mood Skin Skin: Present warm (WNL), dry and normal color Course Course Course Narrative: Differential diagnosis of nausea and vomiting in the adult patient includes the following: Acute gastroenteritis, vestibular neuritis, gastroparesis, GERD, cyclic vomiting syndrome, gastric outlet obstruction, eosinophilic gastroenteritis, and chronic idiopathic intestinal pseudoobstruction. Patient had 2 episodes of vomiting earlier today. He developed the shortness of breath soon afterwards. He is found to be febrile in triage. She is somewhat tachypneic and in mild respiratory distress on exam. We are going to get a portable chest x-ray, screening laboratory studies, patient mentioned having episodes of chest pain in the recent past. We will get an EKG and ACS work-up. I discussed the case briefly my collaborating physician (Dr. Sandoval) and at this time aside to get a Covid swab. Patient is not actively vomiting this time. I Gina start him on normal saline 1000 mL as a bolus. Reevaluation(s) Reevaluation #1: I reviewed the patient's diagnostics of the following: CBC WBC 7.8, RBC 5.55, hemoglobin 13.1, hematocrit 43.3, platelets 313. Lactic acid 2.6. CMP BUN 36, creatinine 1.5, glucose 131, AST 141, ALT 130, alkaline phosphatase 161, globulin 4.2, all others normal limits. Troponin less than 0.01. Procalcitonin 38.47. Urinalysis showing his yellow urine specific gravity 1.021, positive proteinuria, significant leukocyte Estrace, positive RBCs, positive WBCs, this is good to be sent for culture. Chest x-ray read as negative by the radiologist. After reviewing all the data I discussed these findings my collaborating physician and at this time patient appears to be suffering from urosepsis. I would this in mind, we are going to reach out to our hospitalist (Dr. Isbell) about admitting the patient here for treatment. Time: 19:12 Reevaluation #2: Dr. Isbell requested that a CT scan of the patient's abdomen be obtained looking for cause of his urosepsis including renal stone. CT scan of the abdomen was ordered as requested. Time: 19:20 Reevaluation #3: CT scan of the abdomen showing left renal atrophy, bilateral renal calculi but no hydronephrosis or hydroureter. Appearance appears unchanged since 03/20/2020. There is severe atherosclerotic disease. No abdominal aortic aneurysm. After reviewing the CT scan results I spoke to the hospitalist once again to discuss the case. At this time Dr. Isbell has accepted the patient for admission here. All further treatment decisions, modalities, and ultimate patient disposition to be carried out by Dr. Isbell Vital Signs Vital signs: Vital Signs Temperature 100.3 F H 08/29/20 16:46 Pulse Rate 110 H 08/29/20 16:46 Respiratory Rate 28 H 08/29/20 16:46 Blood Pressure 108/63 08/29/20 16:46 Pulse Oximetry (%) 96 08/29/20 16:46 Temperature 100.6 F H 08/29/20 18:55 Pulse Rate 81 08/29/20 20:01 Respiratory Rate 30 H 08/29/20 20:01 Blood Pressure 99/63 08/29/20 20:01 Pulse Oximetry (%) 95 08/29/20 20:01 [facility] MDM Narrative Medical decision making narrative: Narrative: Lab Data Lab results reviewed: Yes I reviewed the patient's lab results. Result diagrams: 08/29/20 17:18 08/29/20 17:18 Labs: Lab Results 08/29/20 08/29/20 08/29/20 Range/Units 17:18 17:18 17:18 WBC 7.8 (4.5-11.0) K/mcL RBC 5.55 (4.50-5.90) M/mcL Hgb 13.1 L (13.5-16.5) g/dL Hct 43.3 (41.0-55.0) % MCV 78.0 L (80.0-100.0) fL MCH 23.6 L (26.0-34.0) pg MCHC 30.3 L (31.0-36.0) g/dL RDW 18.6 H (11.5-14.5) % Plt Count 313 (140-440) K/mcL MPV 10.2 (7.4-10.4) fL Neut % (Auto) 84.1 H (38.0-78.0) % Lymph % (Auto) 8.8 L (15.0-49.0) % [place] % (Auto) 6.8 (1.0-12.0) % Eos % (Auto) 0 (0.0-7.0) % Baso % (Auto) 0.3 (0.0-2.0) % Lymph # (Auto) 0.69 L (1.50-4.80) K/mcL [place] # (Auto) 0.53 (0.10-0.90) K/mcL Eos # (Auto) 0 (0.00-0.70) K/mcL Baso # (Auto) 0.02 (0.00-0.20) K/mcL Absolute Neutrophils 6.58 (1.80-8.00) K/mcL VBG Lactic Acid 2.6 H (0.5-2.0) mmol/L Sodium 137 (133-145) mmol/L Potassium 4.3 (3.3-5.1) mmol/L Chloride 102 (96-108) mmol/L Carbon Dioxide 22 (22-30) mmol/L Anion Gap 13.0 (8.0-16.0) BUN 36 H (8-23) mg/dL Creatinine 1.5 H (0.7-1.2) mg/dL GFR Calculation 47 Glucose 131 H (70-105) mg/dL Calcium 8.8 (8.6-10.4) mg/dL Total Bilirubin 0.4 (0.1-1.0) mg/dL AST 141 H (<40) U/L ALT 130 H (<40) U/L Alkaline Phosphatase 161 H (39-117) U/L Troponin T (<0.03) ng/mL Total Protein 7.6 (5.9-8.4) gm/dL Albumin 3.4 (3.2-5.2) gm/dL Globulin 4.2 H (2.2-3.7) gm/dL Albumin/Globulin Ratio 0.8 L (1.0-2.3) Procalcitonin (<0.10) ng/mL Urine Color Urine Appearance (Clear) Urine pH (5.0-9.0) Ur Specific Brew[place] (1.000-1.035) Urine Protein (Negative) mg/dL Urine Glucose (UA) (Negative) mg/dL Urine Ketones (Negative) mg/dL Urine Occult Blood (Negative) mg/dL Urine Nitrate (Negative) Urine Bilirubin (Negative) mg/dL Urine Urobilinogen mg/dL Ur Leukocyte Esterase (Negative) /ug Urine RBC (0-1) /hpf Urine WBC (0-4) /hpf Ur Squamous Epith Cells (0-4) /hpf Urine Bacteria (0) /hpf Ur Culture Indicated? 08/29/20 08/29/20 08/29/20 Range/Units 17:18 17:18 18:11 WBC (4.5-11.0) K/mcL RBC (4.50-5.90) M/mcL Hgb (13.5-16.5) g/dL Hct (41.0-55.0) % MCV (80.0-100.0) fL MCH (26.0-34.0) pg MCHC (31.0-36.0) g/dL RDW (11.5-14.5) % Plt Count (140-440) K/mcL MPV (7.4-10.4) fL Neut % (Auto) (38.0-78.0) % Lymph % (Auto) (15.0-49.0) % [place] % (Auto) (1.0-12.0) % Eos % (Auto) (0.0-7.0) % Baso % (Auto) (0.0-2.0) % Lymph # (Auto) (1.50-4.80) K/mcL [place] # (Auto) (0.10-0.90) K/mcL Eos # (Auto) (0.00-0.70) K/mcL Baso # (Auto) (0.00-0.20) K/mcL Absolute Neutrophils (1.80-8.00) K/mcL VBG Lactic Acid (0.5-2.0) mmol/L Sodium (133-145) mmol/L Potassium (3.3-5.1) mmol/L Chloride (96-108) mmol/L Carbon Dioxide (22-30) mmol/L Anion Gap (8.0-16.0) BUN (8-23) mg/dL Creatinine (0.7-1.2) mg/dL GFR Calculation Glucose (70-105) mg/dL Calcium (8.6-10.4) mg/dL Total Bilirubin (0.1-1.0) mg/dL AST (<40) U/L ALT (<40) U/L Alkaline Phosphatase (39-117) U/L Troponin T < 0.01 (<0.03) ng/mL Total Protein (5.9-8.4) gm/dL Albumin (3.2-5.2) gm/dL Globulin (2.2-3.7) gm/dL Albumin/Globulin Ratio (1.0-2.3) Procalcitonin 38.47 H (<0.10) ng/mL Urine Color Yellow Urine Appearance Hazy A (Clear) Urine pH 6.0 (5.0-9.0) Ur Specific Brew[place] 1.021 (1.000-1.035) Urine Protein 100 A (Negative) mg/dL Urine Glucose (UA) Negative (Negative) mg/dL Urine Ketones Negative (Negative) mg/dL Urine Occult Blood 0.20 (Negative) mg/dL Urine Nitrate Negative (Negative) Urine Bilirubin Negative (Negative) mg/dL Urine Urobilinogen Negative mg/dL Ur Leukocyte Esterase 500 A (Negative) /ug Urine RBC 13 H (0-1) /hpf Urine WBC > 182 H (0-4) /hpf Ur Squamous Epith Cells 0 (0-4) /hpf Urine Bacteria None (0) /hpf Ur Culture Indicated? yes Radiology Data Radiology results reviewed: Yes I reviewed the patient's radiology results. Radiology results narrative: Ordering Physician: Cayetano Merritt PA-C Date of Service: 08/29/20 Procedure(s): XR chest 1V portable Accession Number(s): [id number] INDICATION: N/V today, fever and SOB on presentation. TECHNIQUE: AP portable semiupright chest x-ray COMPARISON: Previous examination dated 03/23/2020 FINDINGS: Lungs:Lungs are negative. No focal pulmonary parenchymal infiltrate or mass Heart, vascular:No significant cardiomegaly. Pulmonary vascularity is normal. No pulmonary edema or pulmonary congestion Mediastinum, claude:No mediastinal widening. No hilar mass Pleura:No pleural fluid. No pleural-based mass or calcification Skeletal:Negative. IMPRESSION: Negative AP chest x-ray Interpreted and Authenticated by: Manuel Lam 08/29/20 EKG Data EKG #1: EKG results narrative: Twelve-lead EKG obtained showing sinus tachycardia rate of 104 bpm. There is PVC noted. Nonspecific interventricular conduction delay is noted. Normal intervals. Discharge Plan Patient/Caregiver Discharge Instructions Pt seen by ENGINEER/CONDUCTOR/PA only: Yes Clinical Impression: History of CVA (cerebrovascular accident), Acute UTI Sepsis Qualifiers: Sepsis type: sepsis due to unspecified organism Sepsis acute organ dysfunction status: unspecified Qualified Code(s): A41.9 - Sepsis, unspecified organism Patient Disposition: Xfer As Inpt ([facility]) Condition: Serious Follow up with: Tee Hinson ARNP [Primary Care Provider] - Prescriptions: No Action lisinopril 2.5 mg tablet 2.5 mg PO QDAY RF: 0 ipratropium-albuterol [Combivent Respimat] 20-100 mcg/actuation mist 1 puff INHALATION Q4-6HP PRN (Reason: shortness of breath) RF: 0 mirtazapine 15 mg tablet 1 - 2 tab PO QHS RF: 0 tamsulosin 0.4 mg capsule 0.4 mg PO QHS Qty: 90 RF: 3 omeprazole 20 mg capsule,delayed release(DR/EC) 20 mg PO QDAY RF: 0 ipratropium-albuterol 0.5 mg-3 mg(2.5 mg base)/3 mL solution for nebulization 3 ml INHALATION Q6H Qty: 360 RF: 11 budesonide 0.25 mg/2 mL suspension for nebulization 2 ml INHALATION BID Qty: 120 RF: 11 Perforomist 20 mcg/2 mL solution for nebulization 2 ml INHALATION BID Qty: 120 RF: 11 sennosides 1 TAB tablet 2 tab PO DAILYP PRN (Reason: Constipation) Qty: 30 RF: 2 alprazolam 0.5 MG tablet 1 mg PO DAILYP PRN (Reason: Anxiety) RF: 0 nicotine 21 MG patch 21 mg topical DAILY@1000 Qty: 30 RF: 1 aspirin 81 MG tablet,delayed release (DR/EC) 81 mg PO DAILY RF: 0 levothyroxine 50 MCG tablet 50 mcg PO ACB RF: 0 buspirone 15 MG tablet 15 mg PO BID RF: 0 atorvastatin 80 mg tablet 80 mg PO DAILY RF: 0 apixaban 5 mg tablet 5 mg PO BID RF: 0
[2020-08-29] MEDS ORDERED: ACETAMINOPHEN 325 MG TABLET PO ONE (18:04)
[2020-08-29 18:09] LABS: Basophils # (Auto) 0.02 K/mcL (0.00-0.20); Basophils % (Auto) 0.3 % (0.0-2.0); Eosinophils # (Auto) 0 K/mcL (0.00-0.70); Eosinophils % (Auto) 0 % (0.0-7.0); Hematocrit 43.3 % (41.0-55.0); Hemoglobin 13.1 g/dL (13.5-16.5); Lymphocytes # (Auto) 0.69 K/mcL (1.50-4.80); Lymphocytes % (Auto) 8.8 % (15.0-49.0); Mean Corpuscular HGB Conc 30.3 g/dL (31.0-36.0); Mean Platelet Volume 10.2 fL (7.4-10.4); Monocytes # (Auto) 0.53 K/mcL (0.10-0.90); Monocytes % (Auto) 6.8 % (1.0-12.0); Neutrophils % (Auto) 84.1 % (38.0-78.0); Platelet Count 313 K/mcL (140-440); RBC 5.55 M/mcL (4.50-5.90); Red Cell Distribution Width 18.6 % (11.5-14.5); WBC 7.8 K/mcL (4.5-11.0)
[2020-08-29 18:36] LABS: ALT/SGPT 130 U/L (<40); AST/SGOT 141 U/L (<40); Albumin 3.4 gm/dL (3.2-5.2); Albumin/Globulin Ratio 0.8 (1.0-2.3); Alkaline Phosphatase 161 U/L (39-117); Bilirubin,Total 0.4 mg/dL (0.1-1.0); Blood Urea Nitrogen 36 mg/dL (8-23); Calcium 8.8 mg/dL (8.6-10.4); Carbon Dioxide 22 mmol/L (22-30); Chloride 102 mmol/L (96-108); Globulin 4.2 gm/dL (2.2-3.7); Glomerular Filtration Rate 47; Glucose 131 mg/dL (70-105)
--- NOTE | 2020-08-29 18:40 | XRay Report ---
INDICATION: N/V today, fever and SOB on presentation. TECHNIQUE: AP portable semiupright chest x-ray COMPARISON: Previous examination dated 03/23/2020 FINDINGS: Lungs:Lungs are negative. No focal pulmonary parenchymal infiltrate or mass Heart, vascular:No significant cardiomegaly. Pulmonary vascularity is normal. No pulmonary edema or pulmonary congestion Mediastinum, claude:No mediastinal widening. No hilar mass Pleura:No pleural fluid. No pleural-based mass or calcification Skeletal:Negative. IMPRESSION: Negative AP chest x-ray Interpreted and Authenticated by: Manuel Lam 08/29/20
[2020-08-29 18:53] LABS: Appearance,Urine HAZY (Clear); Bilirubin,Urine Negative (Negative); Color,Urine YELLOW; Culture Indicated,Urine yes; Glucose,Urine (UA) Negative (Negative); Ketones,Urine Negative (Negative); Leukocyte Esterase,Urine 500 /ug (Negative); Nitrate,Urine Negative (Negative); Protein,Urine 100 mg/dL (Negative); Specific Gravity,Urine 1.021 (1.000-1.035); Urine RBC 13 /hpf (0-1); Urine Squamous Epithelial Cell 0 /hpf (0-4); Urine WBC > 182 /hpf (0-4); Urobilinogen,Urine Negative
--- NOTE | 2020-08-29 20:36 | Cat Scan Report ---
INDICATION: urosepsis COMPARISON: Previous examination dated 03/20/2020 TECHNIQUE: Axial images were obtained through the abdomen and pelvis. Sagittally and coronally reformatted images. FINDINGS: Lung bases:There is emphysema. No parenchymal consolidation. No discrete mass. There is no pleural fluid. There is a small hiatal hernia. Appearance is unchanged Liver:Negative to the limits of noncontrast enhanced examination. Liver contour is smooth without evidence for cirrhosis Gallbladder, bilary:No calcified gallstones. No gallbladder wall thickening. No pericholecystic fluid. No dilated bile ducts Spleen:No splenomegaly Pancreas:No pancreatic mass. No peripancreatic abnormality Adrenal glands:Negative Kidneys, ureters, bladder: Atrophic left kidney. Multiple cortical calcifications and nonobstructing calculi. There is an 8 mm stone in the left renal pelvis. There is no hydronephrosis. Appearance is unchanged. There are small nonobstructing right renal calculi. There is no hydronephrosis. No solid or cystic mass No hydroureter. No ureteral stone No bladder calculus. No detectable bladder mass Gastrointestinal:No significant diverticulosis or evidence for diverticulitis. No detectable colonic mass No mechanical small bowel obstruction. No small bowel dilatation. Appendix: The appendix is negative Vascular:Atherosclerotic calcification. 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 No aneurysmal dilatation. Origins of the celiac trunk and superior mesenteric artery are normal without stenosis. Severe calcification in the common iliac arteries bilaterally. There is probable right common iliac artery stenosis. Lymphatic:No retroperitoneal adenopathy. No significant mesenteric adenopathy. Mesentery, peritoneum:No free intraperitoneal fluid. No intra-abdominal abscess. No pneumoperitoneum Reproductive:Prostate is enlarged Musculoskeletal:Severe multilevel degenerative disc disease. There is degenerative facet arthropathy. No lumbar compression fractures. No sacral or pelvic fracture. Hips are negative. IMPRESSION: 1. Left renal atrophy 2. Bilateral renal calculi. No hydronephrosis or hydroureter. Appearance is unchanged since 03/20/2020 3. Severe atherosclerotic disease. No abdominal aortic aneurysm 4. Emphysema The exam was performed using radiation dose optimization techniques including, but not limited to, automated exposure control, adjustment of the mA and/or kV according to patient size and use of iterative reconstruction technique. Interpreted and Authenticated by: Manuel Lam 08/29/20
--- NOTE | 2020-08-29 21:30 | Internal Med History&Physical ---
HPI History of Present Illness Patient information: Note initiated : 08/29/20 at 9:18 pm Service Date, if different from initiated Date: [] Patient: Pérez Grossman a 69 y/o M admitted on for fever. Chief Complaint: Nausea vomiting, dysphagia History of present illness: Mr. Grossman is a 69 year old M at [facility] with history anxiety/CVA/BPH/COPD who presents to the ER with worsening shortness of breath along with nausea and vomiting that started early this morning, along with fever and shaking chills. He presented to the ER tachypneic with blood pressure in 90s and in significant respiratory distress. Per patient's son he has also been noticing dysphagia to solids over the last 2 weeks. Workup in the ER was consistent with MilD HANK, Pyuria, Elevated LFT's, COVID 19 PCR was sent, Procal 38.5. Cultures drawn. CT abdomen reveals nonobstructive renal calculi. Elevated lactic acid at 2.6 with systolics around 90. Patient was started on crystalloids and antibiotic coverage Hospital service was consulted At the time of my evaluation patient is on 3 L oxygen. He is able to answer most the questions. He appears labored. Was able to endorse history as above. He endorses that he felt fine until last evening. Denies close sick contacts. Denies changes in medications. Denies hematuria, dysuria, diarrhea headache, myalgias or photophobia Review of systems 10 point review system was performed and is negative except for ones discussed above PFSH PFSH All Active Problems (Updated 08/29/20 @ 20:37 by Cayetano Merritt PA-C) Nonspecific elevation of levels of transaminase and lactic acid dehydrogenase (LDH) (Acute) Acute respiratory failure with hypoxia (Acute) Complicated UTI (urinary tract infection) (Acute) Contusion of head (Acute) Cervical sprain (Acute) Sepsis (Acute) Acute UTI (Acute) Elevated hemidiaphragm (Chronic) Hypersomnia (Chronic) Acute exacerbation of chronic obstructive airways disease (Chronic) Congestive heart failure (Chronic) CKD (chronic kidney disease), stage III (Chronic) Left renal atrophy (Chronic) Staghorn calculus (Chronic) Hypothyroidism (Chronic) Elevated serum creatinine (Chronic) COPD exacerbation (Chronic) Encounter for Postoperative Care (Chronic) Fever (Chronic) Nephrolithiasis (Chronic) S/P ureteral stent placement (Chronic) MRSA (methicillin resistant staph aureus) culture positive (Chronic) Chronic anticoagulation (Chronic) Anemia (Chronic) Sepsis (Chronic) UTI (urinary tract infection) (Chronic) Pruritic rash (Chronic) Chronic diarrhea (Chronic) Prediabetes (Chronic) Memory impairment (Chronic) Chronic low back pain (Chronic) Pulmonary arterial hypertension (Chronic) Insomnia (Chronic) Syncope (Chronic) Anxiety (Chronic) History of CVA (cerebrovascular accident) (Chronic) History of malignant neoplasm of prostate (Chronic) PSA elevation (Chronic) History of methamphetamine abuse (Chronic) CVA (cerebral vascular accident) (Chronic) GERD (gastroesophageal reflux disease) (Chronic) Chronic obstructive lung disease (Chronic) 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) Dilated cardiomyopathy (Chronic) Atrial thrombosis (Chronic) Medical History Acute exacerbation of chronic obstructive airways disease (Chronic) Anemia (Chronic) Anxiety (Chronic) Atrial thrombosis (Chronic) Chronic anticoagulation (Chronic) apixaban (Eliquis, since 2016) 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 Some degree of decreased renal perfusion form CHF and low BP. Flomax as tolerated by BP and low dose lisinopril for CHF Congestive heart failure (Chronic) COPD exacerbation (Chronic) CVA (cerebral vascular accident) (Chronic) Dilated cardiomyopathy (Chronic) Elevated hemidiaphragm (Chronic) Left Elevated serum creatinine (Chronic) Mild and in the setting of low dose ACEi and aldactone Tx for a dilated cardiomyopathy and prior obstructive uropathy with left renal staghorn calculi and pyelonephritis Encounter for Postoperative Care (Chronic) Fever (Chronic) GERD (gastroesophageal reflux disease) (Chronic) History of CVA (cerebrovascular accident) (Chronic) History of malignant neoplasm of prostate (Chronic) History of methamphetamine abuse (Chronic) Hypersomnia (Chronic) Hypothyroidism (Chronic) Insomnia (Chronic) Left renal atrophy (Chronic) left staghorn calculi, ECSWL, stenting, low grade obstruction in the past and now left renal atrophy GFR 45-60 cc/min Memory impairment (Chronic) MRSA (methicillin resistant staph aureus) culture positive (Chronic) Nephrolithiasis (Chronic) Prediabetes (Chronic) Pruritic rash (Chronic) PSA elevation (Chronic) Pulmonary arterial hypertension (Chronic) Sepsis (Chronic) Staghorn calculus (Chronic) Left renal pelvis s/p ECSWL MRSA positive urine culture x 2 in summer 2018 then cleared Urine pH not elevated to suggest urea splitting bacteria 1.8 cm calcified stone fragment remains on the left side Syncope (Chronic) UTI (urinary tract infection) (Chronic) Surgical History Hx of hernia repair (Chronic ~1999) L inguinal Hx of lithotripsy (Chronic) Left S/P ureteral stent placement (Chronic) Family History Mother , Age 70 Stomach cancer Brother Tumor of lung Social History (Updated 03/13/20 @ 15:55 by Alexander Terrell MD) education level: high school occupational status: unemployed frequency: 1-2 times per week smoking status: Current every day smoker smoking status start date: 11/02/89 smoking status stop date: 11/02/16 alcohol intake frequency: does not drink substance use type: former substance user seatbelt use: always working smoke detector in home: Yes firearms in home: No MEDS/ALLERGIES Home Medications and Allergies Home Medications Medication Instructions Recorded Confirmed Type lisinopril 2.5 mg tablet 2.5 mg PO QDAY 08/22/16 08/29/20 History ipratropium 20 mcg-albuterol 100 1 puff INHALATION Q4-6HP PRN 04/06/18 03/21/20 History mcg/actuation mist for inhalation mirtazapine 15 mg tablet 1 - 2 tab PO QHS tab 04/06/18 08/29/20 History apixaban 5 mg tablet 5 mg PO BID 08/27/18 08/29/20 History alprazolam 1 mg PO DAILYP PRN tab 11/11/19 08/29/20 Rx nicotine 21 mg TOPICAL DAILY@1000 #30 patch 11/11/19 08/29/20 Rx sennosides 2 tab PO DAILYP PRN #30 tab 11/11/19 08/29/20 Rx aspirin 81 mg PO DAILY 12/22/19 03/21/20 History budesonide 0.25 mg/2 mL suspension 2 ml INHALATION BID #120 ml 01/05/20 03/21/20 Rx for nebulization formoterol fumarate 20 mcg/2 mL 2 ml INHALATION BID #120 ml 01/05/20 03/21/20 Rx solution for nebulization ipratropium 0.5 mg-albuterol 3 mg 3 ml INHALATION Q6H #360 ml 01/05/20 03/21/20 Rx (2.5 mg base)/3 mL nebulization soln omeprazole 20 mg capsule,delayed 20 mg PO QDAY 01/05/20 08/29/20 History release tamsulosin 0.4 mg capsule 0.4 mg PO QHS #90 cap 03/13/20 08/29/20 Rx buspirone 15 mg PO BID 03/21/20 03/21/20 History levothyroxine 50 mcg PO ACB 03/21/20 08/29/20 History atorvastatin 80 mg PO DAILY 08/29/20 08/29/20 History Allergies Allergy/AdvReac Type Severity Reaction Status Date / Time No Known Drug Allergies Allergy Verified 08/29/20 16:49 EXAM Constitutional Vitals: Temp Pulse Resp BP Pulse Ox 100.6 F H 81 30 H 99/63 95 08/29/20 18:55 08/29/20 20:01 08/29/20 20:01 08/29/20 20:01 08/29/20 20:01 Alert Head normocephalic Oral cavity moist No ear nose discharge Eye movement symmetrical Neck no JVD S1-S2 occasionally irregular Nonlabored breathing Nondistended nontender abdomen Lower extremity no cyanosis clubbing or joint swelling Skin no suspicious lesion Psych minimal anxiety but no hallucination delusion Neuro normal higher function DATA Data Completed and Pending Labs: Labs from last 24 hours 08/29/20 08/29/20 08/29/20 18:11 17:45 17:18 WBC RBC Hgb Hct MCV MCH MCHC RDW Plt Count MPV Neut % (Auto) Lymph % (Auto) Patrick % (Auto) Eos % (Auto) Baso % (Auto) Lymph # (Auto) Patrick # (Auto) Eos # (Auto) Baso # (Auto) Absolute Neutrophils VBG Lactic Acid Sodium Potassium Chloride Carbon Dioxide Anion Gap BUN Creatinine GFR Calculation Glucose Calcium Total Bilirubin AST ALT Alkaline Phosphatase Troponin T Total Protein Albumin Globulin Albumin/Globulin Ratio Procalcitonin 38.47 H Urine Color Yellow Urine Appearance Hazy A Urine pH 6.0 Ur Specific [place] 1.021 Urine Protein 100 A Urine Glucose (UA) Negative Urine Ketones Negative Urine Occult Blood 0.20 Urine Nitrate Negative Urine Bilirubin Negative Urine Urobilinogen Negative Ur Leukocyte Esterase 500 A Urine RBC 13 H Urine WBC > 182 H Ur Squamous Epith Cells 0 Urine Bacteria None Ur Culture Indicated? yes SARS-CoV-2 (PCR) Pending 08/29/20 08/29/20 08/29/20 17:18 17:18 17:18 WBC RBC Hgb Hct MCV MCH MCHC RDW Plt Count MPV Neut % (Auto) Lymph % (Auto) Patrick % (Auto) Eos % (Auto) Baso % (Auto) Lymph # (Auto) Patrick # (Auto) Eos # (Auto) Baso # (Auto) Absolute Neutrophils VBG Lactic Acid 2.6 H Sodium 137 Potassium 4.3 Chloride 102 Carbon Dioxide 22 Anion Gap 13.0 BUN 36 H Creatinine 1.5 H GFR Calculation 47 Glucose 131 H Calcium 8.8 Total Bilirubin 0.4 AST 141 H ALT 130 H Alkaline Phosphatase 161 H Troponin T < 0.01 Total Protein 7.6 Albumin 3.4 Globulin 4.2 H Albumin/Globulin Ratio 0.8 L Procalcitonin Urine Color Urine Appearance Urine pH Ur Specific [place] Urine Protein Urine Glucose (UA) Urine Ketones Urine Occult Blood Urine Nitrate Urine Bilirubin Urine Urobilinogen Ur Leukocyte Esterase Urine RBC Urine WBC Ur Squamous Epith Cells Urine Bacteria Ur Culture Indicated? SARS-CoV-2 (PCR) 08/29/20 17:18 WBC 7.8 RBC 5.55 Hgb 13.1 L Hct 43.3 MCV 78.0 L MCH 23.6 L MCHC 30.3 L RDW 18.6 H Plt Count 313 MPV 10.2 Neut % (Auto) 84.1 H Lymph % (Auto) 8.8 L Patrick % (Auto) 6.8 Eos % (Auto) 0 Baso % (Auto) 0.3 Lymph # (Auto) 0.69 L Patrick # (Auto) 0.53 Eos # (Auto) 0 Baso # (Auto) 0.02 Absolute Neutrophils 6.58 VBG Lactic Acid Sodium Potassium Chloride Carbon Dioxide Anion Gap BUN Creatinine GFR Calculation Glucose Calcium Total Bilirubin AST ALT Alkaline Phosphatase Troponin T Total Protein Albumin Globulin Albumin/Globulin Ratio Procalcitonin Urine Color Urine Appearance Urine pH Ur Specific [place] Urine Protein Urine Glucose (UA) Urine Ketones Urine Occult Blood Urine Nitrate Urine Bilirubin Urine Urobilinogen Ur Leukocyte Esterase Urine RBC Urine WBC Ur Squamous Epith Cells Urine Bacteria Ur Culture Indicated? SARS-CoV-2 (PCR) A/P Narrative A/P Narrative: * Severe sepsis with endorgan dysfunction and hypotension, management per guidelines pancultures/antibiotic/crystalloids/vasopressors/lactic acid trending * Acute hypoxic respiratory failure-supplemental oxygen * Possible Covid [id number] PCR. * Complicated UTI-pancultures/antibiotic coverage * Elevated LFTs secondary to sepsis endorgan dysfunction/possible viral * History of COPD * Nephrolithiasis * History of CVA on aspirin/statin * History of arterial thrombosis on anticoagulation * Dilated cardiomyopathy * Acute on chronic kidney injury sepsis endorgan dysfunction * History anxiety disorder continue BuSpar/alprazolam * Hypothyroidism contraction * GERD continue PPI * BPH continue tamsulosin * Full code Plan * Inpatient admission, [place] 2 score 17 indicating high risk mortality * Antibiotic coverage * Sepsis management per guidelines * Crystalloid/vasopressors * Monitor renal function * Pre-existing medical condition management on home medications as above * PT OT nutrition support Time Spent With Patient Time: Total time spent is greater than 50% in coordination of care (as documented) at patient's floor/unit and/or counseling patient:
[2020-08-29] MEDS ORDERED: ACETAMINOPHEN 650 MG/65 ML BOTTLE IV PRN (22:33)
[2020-08-29] MEDS ORDERED: BISACODYL 10 MG SUPP.RECT PR PRN (22:33)
[2020-08-29] MEDS ORDERED: POLYETHYLENE GLYCOL 3350 17 GM PACKET PO PRN (22:33)
[2020-08-29] MEDS ORDERED: MELATONIN 3 MG TABLET PO PRN (22:33)
[2020-08-29] MEDS ORDERED: ONDANSETRON 4 MG ODT TABLET SL PRN (22:33)
[2020-08-29] MEDS ORDERED: POTASSIUM CHLORIDE 20 MEQ PACKET PO PRN (22:33)
[2020-08-29] MEDS ORDERED: NOREPINEPHRINE BITARTRATE 8 MG in 0.9 % SODIUM CHLORIDE 242 ML IV PRN (22:33)
[2020-08-29] MEDS ORDERED: ALPRAZolam 0.5 MG TABLET PO PRN (22:33)
[2020-08-29] MEDS ORDERED: ACETAMINOPHEN 325 MG TABLET PO PRN (22:33)
[2020-08-29] MEDS ORDERED: 0.9 % SODIUM CHLORIDE 1,000 ML IV SCH ×2 (22:33)
[2020-08-29] MEDS ORDERED: MAGNESIUM SULFATE 2 GM/50 ML BAG IV PRN (22:33)
[2020-08-29] MEDS ORDERED: LEVOFLOXACIN 750 MG/150 ML BAG IV SCH (22:33)
[2020-08-29] MEDS ORDERED: ONDANSETRON 4 MG/2 ML VIAL IV PRN (22:33)
[2020-08-29] MEDS ORDERED: LEVOFLOXACIN 750 MG/150 ML BAG IV ONE (22:51)
[2020-08-29] MEDS: PIPERACILLIN SODIUM/TAZOBACTAM 3.375 GM in DEXTROSE 5% IN WATER 50 ML IV SCH (23:11)
[2020-08-29] MEDS: 0.9 % SODIUM CHLORIDE 10 ML SYRINGE IV SCH (23:37)
[2020-08-29] MEDS: 0.9 % SODIUM CHLORIDE 250 ML IV SCH (23:41)
[2020-08-30] MEDS: PIPERACILLIN SODIUM/TAZOBACTAM 3.375 GM in DEXTROSE 5% IN WATER 50 ML IV SCH ×4 (04:08→17:46)
[2020-08-30] MEDS: 0.9 % SODIUM CHLORIDE 10 ML SYRINGE IV SCH ×3 (05:34→21:56)
[2020-08-30 07:20] LABS: ALT/SGPT 99 U/L (<40); AST/SGOT 106 U/L (<40); Albumin 2.6 gm/dL (3.2-5.2); Albumin/Globulin Ratio 0.9 (1.0-2.3); Alkaline Phosphatase 119 U/L (39-117); Bilirubin,Direct < 0.2 mg/dL (<0.3); Bilirubin,Total 0.3 mg/dL (0.1-1.0); Blood Urea Nitrogen 22 mg/dL (8-23); Calcium 7.5 mg/dL (8.6-10.4); Carbon Dioxide 22 mmol/L (22-30); Chloride 109 mmol/L (96-108); Globulin 2.9 gm/dL (2.2-3.7); Glomerular Filtration Rate 61; Glucose 132 mg/dL (70-105); Lactate Dehydrogenase 258 U/L (135-225); Phosphorous 1.6 mg/dL (2.5-4.5); Triglycerides 83 mg/dL (<150); Uric Acid 3.2 mg/dL (2.5-8.0)
[2020-08-30] MEDS ORDERED: OMEPRAZOLE 20 MG CAPSULE PO SCH (07:30)
[2020-08-30] MEDS ORDERED: LEVOTHYROXINE 50 MCG TABLET PO SCH (07:30)
[2020-08-30] MEDS ORDERED: DOCUSATE SODIUM 100 MG CAPSULE PO SCH (09:00)
[2020-08-30] MEDS ORDERED: MULTIVIT,THER IRON,CA,FA & MIN 1 TABLET PO SCH (09:00)
[2020-08-30] MEDS ORDERED: APIXABAN 5 MG TABLET PO SCH (09:00)
[2020-08-30] MEDS ORDERED: TIOTROPIUM BROMIDE 18 MCG INHALANT INH SCH (09:00)
[2020-08-30] MEDS ORDERED: HEPARIN 5,000 UNIT/ML VIAL SQ SCH (09:00)
[2020-08-30] MEDS ORDERED: ATORVASTATIN 40 MG TABLET PO SCH (09:00)
[2020-08-30 09:28] LABS: Anisocytosis 2+ (None Seen); Band Neutrophils % 18 % (0-10); Eosinophils % (Manual) 1 % (0-7); Hematocrit 35.6 % (41.0-55.0); Hemoglobin 10.4 g/dL (13.5-16.5); Lymphocytes % 32 % (15-49); Mean Cell Volume 79.8 fL (80.0-100.0); Mean Corpuscular HGB Conc 29.2 g/dL (31.0-36.0); Mean Platelet Volume 10.6 fL (7.4-10.4); Metamyelocytes % 1 %; Monocytes % (Manual) 3 % (1-12); Platelet Count 240 K/mcL (140-440); Platelet Estimate NORMAL (Normal); Polychromasia 1+ (None Seen); RBC 4.46 M/mcL (4.50-5.90); RBC Fragments RARE (None Seen); RBC Morphology ABNORMAL (Normal); Red Cell Distribution Width 18.5 % (11.5-14.5); Segmented Neutrophils % 45 % (38-78); WBC 5.6 K/mcL (4.5-11.0)
[2020-08-30] MEDS ORDERED: NICOTINE 21 MG PATCH TOPICAL SCH (10:00)
[2020-08-30] MEDS ORDERED: NEUTRA PHOS 1 PACKET PO PRN ×2 (10:49→12:29)
[2020-08-30] MEDS ORDERED: ACETAMINOPHEN 650 MG/65 ML BOTTLE IV PRN (12:29)
[2020-08-30] MEDS ORDERED: POTASSIUM CHLORIDE 20 MEQ PACKET PO PRN (12:29)
[2020-08-30] MEDS ORDERED: POLYETHYLENE GLYCOL 3350 17 GM PACKET PO PRN (12:29)
[2020-08-30] MEDS ORDERED: BISACODYL 10 MG SUPP.RECT PR PRN (12:29)
[2020-08-30] MEDS ORDERED: MAGNESIUM SULFATE 2 GM/50 ML BAG IV PRN (12:29)
[2020-08-30] MEDS ORDERED: ONDANSETRON 4 MG ODT TABLET SL PRN (12:29)
[2020-08-30] MEDS ORDERED: ONDANSETRON 4 MG/2 ML VIAL IV PRN (12:29)
[2020-08-30] MEDS ORDERED: NOREPINEPHRINE BITARTRATE 8 MG in 0.9 % SODIUM CHLORIDE 242 ML IV PRN (12:29)
[2020-08-30] MEDS ORDERED: 0.9 % SODIUM CHLORIDE 250 ML IV SCH ×2 (12:29)
[2020-08-30] MEDS ORDERED: 0.9 % SODIUM CHLORIDE 1,000 ML IV SCH (12:29)
[2020-08-30] MEDS ORDERED: ACETAMINOPHEN 325 MG TABLET PO PRN (12:29)
--- NOTE | 2020-08-30 13:25 | Internal Med Progress Note ---
SUBJECTIVE Subjective Patient information: Note initiated : 08/30/20 at 1:19 pm Service Date, if different from initiated Date: [] Patient: Pérez Grossman a 69 y/o M admitted on 08/29/20 for fever. Chief Complaint: History of present illness: Mr. Grossman is a 69 year old M with history anxiety/CVA/BPH/COPD who presents to the ER with worsening shortness of breath along with nausea and vomiting that started early this morning, along with fever and shaking chills. He presented to the ER tachypneic with blood pressure in 90s and in significant respiratory distress. Per patient's son he has also been noticing dysphagia to solids over the last 2 weeks. Workup in the ER was consistent with MilD HANK, Pyuria, Elevated LFT's, COVID 19 PCR was sent, Procal 38.5. Cultures drawn. CT abdomen reveals nonobstructive renal calculi. Elevated lactic acid at 2.6 with systolics around 90. Patient was started on crystalloids and antibiotic coverage Hospital service was consulted At the time of my evaluation patient is on 3 L oxygen. He is able to answer most the questions. Patient lives with his son. He appears labored. Was able to endorse history as above. He endorses that he felt fine until last evening. Denies close sick contacts. Denies changes in medications. Denies hematuria, dysuria, diarrhea headache, myalgias or photophobia 08/30-patient clinically improved. Lactic acid downtrending. Overnight T-max 100.6 map at goal, ABG 7.4 , white count 5.618% bands, lactic acid down from 2.6-1.4, creatinine down from 1.5-1.2, phosphorus 1.6, LFTs downtrending. Significant pyuria, cultures pending. Covid negative, MRSA positive Constitutional Vitals: Vital Signs Temp Pulse Resp BP Pulse Ox 97.5 F 75 20 112/69 97 08/30/20 10:19 08/30/20 12:25 08/30/20 12:25 08/30/20 12:25 08/30/20 12:25 Period Temp Pulse Resp BP Sys/Hu Pulse Ox Last 24 Hr 97.5 F-100.6 F 67-110 17-38 91-121/53-79 93-100 Intake and Output 10/28/20 10/29/20 10/29/20 21:59 05:59 13:59 Intake Total 1050 1250 290 Output Total 2 Balance 1050 1248 290 Weight 99.79 kg 90.4 kg Alert Respond to commands Nonlabored breathing Denies abdominal discomfort Intake & Output: Intake & Output 08/29/20 08/30/20 08/30/20 21:59 05:59 13:59 Intake Total 1050 1250 290 Output Total 2 Balance 1050 1248 290 Weight 99.79 kg 90.4 kg Intake: IV 1050 1250 50 Sodium Chloride 0.9% 1,000 ml @ 1000 1000 Wide Open IV BOLUS [facility] Rx#: [id number] LEVAQUIN 750 mg In 150 ml @ 0 150 mls/hr IV .STK-MED ONE Rx#: [id number] Zosyn 3.375 gm In Dextrose 5% 100 50 in Water 50 ml @ 100 mls/hr IV Q6H [facility] Rx#:[id number] Rocephin 2 gm In Dextrose 5% in 50 Water 50 ml @ 100 mls/hr IV ONCE ONE Rx#:[id number] Oral 240 Output: # of times incontinent of urine 2 Other: Meal Breakfast Percent of Meal Consumed 50% Urine Appearance Clear Clear Urine Color Straw Straw Urine Odor Normal Normal OBJ DATA Labs CBC & Chem 7: 08/30/20 05:32 08/30/20 05:32 Labs: Abnormal Lab Results 08/30/20 08/30/20 08/29/20 05:32 05:32 18:11 RBC 4.46 L Hgb 10.4 L Hct 35.6 L MCV 79.8 L MCH 23.3 L MCHC 29.2 L RDW 18.5 H MPV 10.6 H Neut % (Auto) Lymph % (Auto) Lymph # (Auto) Band Neutrophils % 18 H RBC Morphology Abnormal A Polychromasia 1+ A Anisocytosis 2+ A RBC Fragments Rare A VBG Lactic Acid Chloride 109 H BUN Creatinine Glucose 132 H Calcium 7.5 L Phosphorus 1.6 L AST 106 H ALT 99 H Alkaline Phosphatase 119 H Lactate Dehydrogenase 258 H Total Protein 5.5 L Albumin 2.6 L Globulin Albumin/Globulin Ratio 0.9 L Procalcitonin Urine Appearance Hazy A Urine Protein 100 A Ur Leukocyte Esterase 500 A Urine RBC 13 H Urine WBC > 182 H 08/29/20 08/29/20 08/29/20 17:18 17:18 17:18 RBC Hgb Hct MCV MCH MCHC RDW MPV Neut % (Auto) Lymph % (Auto) Lymph # (Auto) Band Neutrophils % RBC Morphology Polychromasia Anisocytosis RBC Fragments VBG Lactic Acid 2.6 H Chloride BUN 36 H Creatinine 1.5 H Glucose 131 H Calcium Phosphorus AST 141 H ALT 130 H Alkaline Phosphatase 161 H Lactate Dehydrogenase Total Protein Albumin Globulin 4.2 H Albumin/Globulin Ratio 0.8 L Procalcitonin 38.47 H Urine Appearance Urine Protein Ur Leukocyte Esterase Urine RBC Urine WBC 08/29/20 17:18 RBC Hgb 13.1 L Hct MCV 78.0 L MCH 23.6 L MCHC 30.3 L RDW 18.6 H MPV Neut % (Auto) 84.1 H Lymph % (Auto) 8.8 L Lymph # (Auto) 0.69 L Band Neutrophils % RBC Morphology Polychromasia Anisocytosis RBC Fragments VBG Lactic Acid Chloride BUN Creatinine Glucose Calcium Phosphorus AST ALT Alkaline Phosphatase Lactate Dehydrogenase Total Protein Albumin Globulin Albumin/Globulin Ratio Procalcitonin Urine Appearance Urine Protein Ur Leukocyte Esterase Urine RBC Urine WBC Meds: Medications Acetaminophen (Tylenol) 650 mg PO Q4-6HP PRN; Protocol PRN Reason: Per Pain Protocol/Fever > 101 Alprazolam (Xanax) 1 mg PO DAILYP PRN PRN Reason: Anxiety Apixaban (Eliquis) 5 mg PO BID [facility] Atorvastatin Calcium (Lipitor) 80 mg PO DAILY [facility] Bisacodyl (Dulcolax) 10 mg [place] Q2-3DAYS PRN PRN Reason: Constipation Docusate Sodium (Colace) 100 mg PO BID [facility] Sodium Chloride (Sodium Chloride 0.9%) 250 mls @ 20 mls/hr IV .[id number] [facility] Sodium Chloride (Sodium Chloride 0.9%) 1,000 mls @ 50 mls/hr IV .Q20H [facility] Stop: 09/01/20 10:32 Sodium Chloride (Sodium Chloride 0.9%) 1,000 mls @ 0 mls/hr IV BOLUS [facility] Acetaminophen (Ofirmev) 650 mg in 65 mls @ 130 mls/hr IV Q6HP PRN; Protocol PRN Reason: Per Pain Protocol/Fever > 101 Levofloxacin (Levaquin) 750 mg in 150 mls @ 100 mls/hr IV DAILY [facility]; Protocol Magnesium Sulfate (Magnesium Sulfate) 2 gm in 50 mls @ 50 mls/hr IV UD PRN PRN Reason: MG = or < 1.7 Piperacillin Sod/Tazobactam (Sod 3.375 gm/ Dextrose) 50 mls @ 100 mls/hr IV Q6H [facility]; Protocol Norepinephrine Bitartrate 8 mg (/ Sodium Chloride) 250 mls @ 18.75 mls/hr IV Q14H PRN; Protocol PRN Reason: MAP<70 Sodium Chloride (Sodium Chloride 0.9%) 250 mls @ 20 mls/hr IV .[id number] [facility] Iron Carb/Multivit/Technology Education Teacher/Folic Acid (Multivitamin W/Minerals) 1 tab PO DAILY [facility] Levothyroxine Sodium (Synthroid) 50 mcg PO ACB [facility] Mirtazapine (Remeron) 0 mg PO QHS [facility] Nicotine (Nicoderm) 21 mg TOPICAL DAILY@1000 [facility] Omeprazole (Prilosec) 20 mg PO ACB [facility] Ondansetron HCl (Zofran Odt) 4 mg SL Q4-6HP PRN; Protocol PRN Reason: Nausea And Vomiting Ondansetron HCl (Zofran) 4 mg IV Q4-6HP PRN; Protocol PRN Reason: Nausea And Vomiting Polyethylene Glycol (Miralax) 17 gm PO DAILYP PRN PRN Reason: Constipation Potassium Chloride (Klor-Con) 40 meq PO DAILYP PRN PRN Reason: K+ < 3.5 Potassium/Phosphorus/Sodium (Neutra Phos) 2 packet PO DAILY PRN PRN Reason: PHOS <2.5 Senna/Docusate Sodium (Senna Plus Tablet) 1 tab PO HS [facility] Sodium Chloride (Saline Flush) 10 ml IV Q8 [facility] Tamsulosin HCl (Flomax) 0.4 mg PO QHS [facility] A/P Narrative A/P Narrative: * Severe sepsis with multiple organ dysfunction -clinical improvement noted with management guidelines. Continue antibiotic coverage. wntrending venous lactate. * Complicated UTI-pyuria. Cultures pending so far. * Acute kidney injury secondary to sepsis endorgan dysfuncti * Elevated transaminase secondary to sepsis endorgan dysfunction n * Acute hypoxic respiratory failure-clinically resolved. Now on room air * Low phosphorus on replacement * History of COPD * Nephrolithiasis without obstruction * History of CVA on aspirin/statin * History of arterial thrombosis on anticoagulation * History of dilated cardiomyopath-well compensated * History anxiety disorder continue BuSpar/alprazolam * Hypothyroidism continue levothyroxine * GERD continue PPI * BPH continue tamsulosin * Full code Plan * Sepsis management guidelines * De-escalate antibiotics based on culture sensitivities * Phosphorus replacement * Monitor renal function * Pre-existing medical condition management on home medications as above * PT OT nutrition support * Discharge planning Time Spent With Patient Time: Total time spent is greater than 50% in coordination of care (as documented) at patient's floor/unit and/or counseling patient: QUALITY VTE Deep Vein Thrombosis/Pulmonary Embolism Present on Admission: No
[2020-08-30] MEDS: 0.9 % SODIUM CHLORIDE 250 ML IV SCH (13:38)
[2020-08-30] MEDS ORDERED: LEVOFLOXACIN 750 MG/150 ML BAG IV SCH (14:00)
[2020-08-30] MEDS: LEVOFLOXACIN 750 MG/150 ML BAG IV SCH (15:28)
[2020-08-30] MEDS: 0.9 % SODIUM CHLORIDE 1,000 ML IV SCH ×2 (17:45→23:00)
[2020-08-30] MEDS: MUPIROCIN OINT 2% 22GM NARES SCH (20:40)
[2020-08-30] MEDS: SENNOSIDES/DOCUSATE SODIUM 1 TAB TABLET PO SCH (20:41)
[2020-08-30] MEDS: TAMSULOSIN 0.4 MG CAPSULE PO SCH (20:41)
[2020-08-30] MEDS: DOCUSATE SODIUM 100 MG CAPSULE PO SCH (20:41)
[2020-08-30] MEDS: MIRTAZAPINE 15 MG TABLET PO SCH (20:41)
[2020-08-30] MEDS: APIXABAN 5 MG TABLET PO SCH (20:42)
[2020-08-30] MEDS ORDERED: TAMSULOSIN 0.4 MG CAPSULE PO SCH (21:00)
[2020-08-30] MEDS ORDERED: SENNOSIDES/DOCUSATE SODIUM 1 TAB TABLET PO SCH (21:00)
[2020-08-30] MEDS ORDERED: MIRTAZAPINE 15 MG TABLET PO SCH (21:00)
[2020-08-31] MEDS: PIPERACILLIN SODIUM/TAZOBACTAM 3.375 GM in DEXTROSE 5% IN WATER 50 ML IV SCH ×4 (00:06→18:01)
[2020-08-31] MEDS: 0.9 % SODIUM CHLORIDE 10 ML SYRINGE IV SCH ×2 (05:51→13:03)
--- NOTE | 2020-08-31 07:04 | XRay Report ---
INDICATION: Interval Change fever TECHNIQUE: AP portable semiupright chest x-ray COMPARISON: Previous chest x-rays dated 08/29/2020 and 03/23/2020 FINDINGS: Lungs:Lungs are negative. No focal pulmonary parenchymal infiltrate or mass. No new abnormality or interval change Heart, vascular:No significant cardiomegaly. Pulmonary vascularity is normal. No pulmonary edema or pulmonary congestion Mediastinum, claude:No mediastinal widening. No hilar mass Pleura:No pleural fluid. No pleural-based mass or calcification Skeletal:Negative. IMPRESSION: 1. No acute or focal abnormality 2. No interval change since 08/29/2020 Interpreted and Authenticated by: Manuel Lam 08/31/20
[2020-08-31] MEDS: LEVOTHYROXINE 50 MCG TABLET PO SCH (07:20)
[2020-08-31] MEDS: OMEPRAZOLE 20 MG CAPSULE PO SCH (07:20)
[2020-08-31 07:24] LABS: ALT/SGPT 111 U/L (<40); AST/SGOT 113 U/L (<40); Albumin 2.6 gm/dL (3.2-5.2); Albumin/Globulin Ratio 0.8 (1.0-2.3); Alkaline Phosphatase 156 U/L (39-117); Bilirubin,Direct < 0.2 mg/dL (<0.3); Bilirubin,Total 0.3 mg/dL (0.1-1.0); Blood Urea Nitrogen 15 mg/dL (8-23); Calcium 8.4 mg/dL (8.6-10.4); Carbon Dioxide 22 mmol/L (22-30); Chloride 106 mmol/L (96-108); Globulin 3.3 gm/dL (2.2-3.7); Glomerular Filtration Rate 68; Glucose 87 mg/dL (70-105); Lactate Dehydrogenase 295 U/L (135-225); Triglycerides 87 mg/dL (<150); Uric Acid 2.3 mg/dL (2.5-8.0)
[2020-08-31] MEDS: LEVOFLOXACIN 750 MG/150 ML BAG IV SCH (08:51)
[2020-08-31] MEDS: APIXABAN 5 MG TABLET PO SCH ×2 (08:51→23:17)
[2020-08-31] MEDS: MUPIROCIN OINT 2% 22GM NARES SCH ×2 (08:51→23:16)
[2020-08-31] MEDS: DOCUSATE SODIUM 100 MG CAPSULE PO SCH ×2 (08:51→23:16)
[2020-08-31] MEDS: MULTIVIT,THER IRON,CA,FA & MIN 1 TABLET PO SCH (08:51)
[2020-08-31] MEDS: ATORVASTATIN 40 MG TABLET PO SCH (08:51)
[2020-08-31] MEDS: 0.9 % SODIUM CHLORIDE 1,000 ML IV SCH (08:51)
[2020-08-31] MEDS: NICOTINE 21 MG PATCH TOPICAL SCH (09:31)
--- NOTE | 2020-08-31 09:33 | Internal Med Progress Note ---
SUBJECTIVE Subjective Patient information: Note initiated : 08/31/20 at 9:28 am Service Date, if different from initiated Date: [] Patient: Pérez Grossman a 69 y/o M admitted on 08/29/20 for fever. Chief Complaint: Interval history: History of present illness: Mr. Grossman is a 69 year old M with history anxiety/CVA/BPH/COPD who presents to the ER with worsening shortness of breath along with nausea and vomiting that started early this morning, along with fever and shaking chills. He presented to the ER tachypneic with blood pressure in 90s and in significant respiratory distress. Per patient's son he has also been noticing dysphagia to solids over the last 2 weeks. Workup in the ER was consistent with MilD HANK, Pyuria, Elevated LFT's, COVID 19 PCR was sent, Procal 38.5. Cultures drawn. CT abdomen reveals nonobstructive renal calculi. Elevated lactic acid at 2.6 with systolics around 90. Patient was started on crystalloids and antibiotic coverage Hospital service was consulted At the time of my evaluation patient is on 3 L oxygen. He is able to answer most the questions. Patient lives with his son. He appears labored. Was able to endorse history as above. He endorses that he felt fine until last evening. Denies close sick contacts. Denies changes in medications. Denies hematuria, dysuria, diarrhea headache, myalgias or photophobia 08/30-patient clinically improved. Lactic acid downtrending. Overnight T-max 100.6 map at goal, ABG 7.4 , white count 5.618% bands, lactic acid down from 2.6-1.4, creatinine down from 1.5-1.2, phosphorus 1.6, LFTs downtrending. Significant pyuria, cultures pending. Covid negative, MRSA positive 08/31 -patient doing well. No overnight events. Denies abdominal pain, fever chills. Speech therapy evaluation completed. No evidence of dysphagia. On nutrition support per dietitian. Continue antibiotic coverage. Cultures negative so far. Anticipate discharge in 24 hours pending culture sensitivity results. Constitutional Vitals: Vital Signs Temp Pulse Resp BP Pulse Ox 98.9 F 81 34 H 114/75 96 08/31/20 07:23 08/31/20 07:23 08/31/20 07:23 08/31/20 07:23 08/31/20 07:23 Period Temp Pulse Resp BP Sys/Hu Pulse Ox Last 24 Hr 97.2 F-99.0 F 72-81 20-36 97-119/62-75 92-99 Intake and Output 08/30/20 08/31/20 08/31/20 21:59 05:59 13:59 Intake Total 680 1100 290 Output Total 275 251 1 Balance 405 849 289 Weight 94.982 kg Alert oriented nonlabored breathing Nondistended abdomen No anxiety Intake & Output: Intake & Output 08/30/20 08/31/20 08/31/20 21:59 05:59 13:59 Intake Total 680 1100 290 Output Total 275 251 1 Balance 405 849 289 Weight 94.982 kg Intake: IV 200 1000 50 Sodium Chloride 0.9% 1,000 ml @ 950 50 mls/hr IV .Q20H [facility] Rx#: [id number] Zosyn 3.375 gm In Dextrose 5% 50 50 50 in Water 50 ml @ 100 mls/hr IV Q6H [facility] Rx#:[id number] Oral 480 100 240 Output: Void Amount 275 250 # of times incontinent of urine 1 1 Other: Meal Dinner Breakfast Percent of Meal Consumed 50% 25% Feeding Ability Independent Independent Urine Appearance Clear Clear Urine Color Straw Straw Urine Odor Normal # Voids 1 1 OBJ DATA Labs CBC & Chem 7: 08/30/20 05:32 08/31/20 05:13 Labs: Abnormal Lab Results 08/31/20 08/30/20 08/30/20 05:13 05:32 05:32 RBC 4.46 L Hgb 10.4 L Hct 35.6 L MCV 79.8 L MCH 23.3 L MCHC 29.2 L RDW 18.5 H MPV 10.6 H Neut % (Auto) Lymph % (Auto) Lymph # (Auto) Band Neutrophils % 18 H RBC Morphology Abnormal A Polychromasia 1+ A Anisocytosis 2+ A RBC Fragments Rare A VBG Lactic Acid Chloride 109 H BUN Creatinine Glucose 132 H Uric Acid 2.3 L Calcium 8.4 L 7.5 L Phosphorus 2.0 L 1.6 L GGT 76 H AST 113 H 106 H ALT 111 H 99 H Alkaline Phosphatase 156 H 119 H Lactate Dehydrogenase 295 H 258 H Total Protein 5.5 L Albumin 2.6 L 2.6 L Globulin Albumin/Globulin Ratio 0.8 L 0.9 L Procalcitonin Urine Appearance Urine Protein Ur Leukocyte Esterase Urine RBC Urine WBC 08/29/20 08/29/20 08/29/20 18:11 17:18 17:18 RBC Hgb Hct MCV MCH MCHC RDW MPV Neut % (Auto) Lymph % (Auto) Lymph # (Auto) Band Neutrophils % RBC Morphology Polychromasia Anisocytosis RBC Fragments VBG Lactic Acid 2.6 H Chloride BUN Creatinine Glucose Uric Acid Calcium Phosphorus GGT AST ALT Alkaline Phosphatase Lactate Dehydrogenase Total Protein Albumin Globulin Albumin/Globulin Ratio Procalcitonin 38.47 H Urine Appearance Hazy A Urine Protein 100 A Ur Leukocyte Esterase 500 A Urine RBC 13 H Urine WBC > 182 H 08/29/20 08/29/20 17:18 17:18 RBC Hgb 13.1 L Hct MCV 78.0 L MCH 23.6 L MCHC 30.3 L RDW 18.6 H MPV Neut % (Auto) 84.1 H Lymph % (Auto) 8.8 L Lymph # (Auto) 0.69 L Band Neutrophils % RBC Morphology Polychromasia Anisocytosis RBC Fragments VBG Lactic Acid Chloride BUN 36 H Creatinine 1.5 H Glucose 131 H Uric Acid Calcium Phosphorus GGT AST 141 H ALT 130 H Alkaline Phosphatase 161 H Lactate Dehydrogenase Total Protein Albumin Globulin 4.2 H Albumin/Globulin Ratio 0.8 L Procalcitonin Urine Appearance Urine Protein Ur Leukocyte Esterase Urine RBC Urine WBC Meds: Medications Acetaminophen (Tylenol) 650 mg PO Q4-6HP PRN; Protocol PRN Reason: Per Pain Protocol/Fever > 101 Alprazolam (Xanax) 1 mg PO DAILYP PRN PRN Reason: Anxiety Apixaban (Eliquis) 5 mg PO BID [facility] Last Admin: 08/31/20 08:51 Dose: 5 mg Documented by: Atorvastatin Calcium (Lipitor) 80 mg PO DAILY [facility] Last Admin: 08/31/20 08:51 Dose: 80 mg Documented by: Bisacodyl (Dulcolax) 10 mg [place] Q2-3DAYS PRN PRN Reason: Constipation Docusate Sodium (Colace) 100 mg PO BID [facility] Last Admin: 08/31/20 08:51 Dose: 100 mg Documented by: Sodium Chloride (Sodium Chloride 0.9%) 1,000 mls @ 50 mls/hr IV .Q20H [facility] Stop: 09/01/20 10:32 Last Admin: 08/31/20 08:51 Dose: Not Given Documented by: Acetaminophen (Ofirmev) 650 mg in 65 mls @ 130 mls/hr IV Q6HP PRN; Protocol PRN Reason: Per Pain Protocol/Fever > 101 Levofloxacin (Levaquin) 750 mg in 150 mls @ 100 mls/hr IV DAILY [facility]; Protocol Last Admin: 08/31/20 08:51 Dose: 100 mls/hr Documented by: Magnesium Sulfate (Magnesium Sulfate) 2 gm in 50 mls @ 50 mls/hr IV UD PRN PRN Reason: MG = or < 1.7 Piperacillin Sod/Tazobactam (Sod 3.375 gm/ Dextrose) 50 mls @ 100 mls/hr IV Q6H [facility]; Protocol Last Infusion: 08/31/20 06:17 Dose: Infused Documented by: Iron Carb/Multivit/[place]/Folic Acid (Multivitamin W/Minerals) 1 tab PO DAILY [facility] Last Admin: 08/31/20 08:51 Dose: 1 tab Documented by: Levothyroxine Sodium (Synthroid) 50 mcg PO ACB [facility] Last Admin: 08/31/20 07:20 Dose: 50 mcg Documented by: Mirtazapine (Remeron) 0 mg PO QHS [facility] Last Admin: 08/30/20 20:41 Dose: 15 mg Documented by: Mupirocin (Bactroban Oint 2%) 1 dose NARES BID [facility] Last Admin: 08/31/20 08:51 Dose: 1 dose Documented by: Nicotine (Nicoderm) 21 mg TOPICAL DAILY@1000 [facility] Omeprazole (Prilosec) 20 mg PO ACB [facility] Last Admin: 08/31/20 07:20 Dose: 20 mg Documented by: Ondansetron HCl (Zofran Odt) 4 mg SL Q4-6HP PRN; Protocol PRN Reason: Nausea And Vomiting Ondansetron HCl (Zofran) 4 mg IV Q4-6HP PRN; Protocol PRN Reason: Nausea And Vomiting Polyethylene Glycol (Miralax) 17 gm PO DAILYP PRN PRN Reason: Constipation Potassium Chloride (Klor-Con) 40 meq PO DAILYP PRN PRN Reason: K+ < 3.5 Potassium/Phosphorus/Sodium (Neutra Phos) 2 packet PO DAILY PRN PRN Reason: PHOS <2.5 Senna/Docusate Sodium (Senna Plus Tablet) 1 tab PO HS [facility] Last Admin: 08/30/20 20:41 Dose: 1 tab Documented by: Sodium Chloride (Saline Flush) 10 ml IV Q8 [facility] Last Admin: 08/31/20 05:51 Dose: Not Given Documented by: Tamsulosin HCl (Flomax) 0.4 mg PO QHS [facility] Last Admin: 08/30/20 20:41 Dose: 0.4 mg Documented by: A/P Narrative A/P Narrative: * Severe sepsis with multiple organ dysfunction -clinically improved with management per guidelines. Stable hemodynamics. * Complicated UTI-pyuria. On antibiotic coverage. Await culture sensitivities. * Acute kidney injury secondary to sepsis endorgan dysfuncti- Creatinine down from 1.5-1.1 * elevated transaminase secondary to sepsis endorgan dysfunction * Acute hypoxic respiratory failure-clinically resolved. Now on room air. 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 * History of dilated cardiomyopath-well compensated * History anxiety disorder continue BuSpar/alprazolam * Hypothyroidism continue levothyroxine * GERD continue PPI * BPH continue tamsulosin * Full code Plan * De-escalate antibiotics based on culture sensitivities * Phosphorus replacement * Monitor renal function * Pre-existing medical condition management on home medications as above * PT OT nutrition support * Discharge planning likely in 24 hours Time Spent With Patient Time: Total time spent is greater than 50% in coordination of care (as documented) at patient's floor/unit and/or counseling patient: QUALITY VTE Deep Vein Thrombosis/Pulmonary Embolism Present on Admission: No
[2020-08-31 11:18] LABS: Anisocytosis 1+ (None Seen); Band Neutrophils % 1 % (0-10); Hematocrit 36.6 % (41.0-55.0); Hemoglobin 10.6 g/dL (13.5-16.5); Lymphocytes % 24 % (15-49); Mean Cell Volume 81.5 fL (80.0-100.0); Mean Platelet Volume 10.7 fL (7.4-10.4); Monocytes % (Manual) 12 % (1-12); Platelet Count 224 K/mcL (140-440); Platelet Estimate NORMAL (Normal); RBC 4.49 M/mcL (4.50-5.90); RBC Morphology ABNORMAL (Normal); Red Cell Distribution Width 18.3 % (11.5-14.5); Segmented Neutrophils % 63 % (38-78); WBC 8.3 K/mcL (4.5-11.0)
[2020-08-31] MEDS: TAMSULOSIN 0.4 MG CAPSULE PO SCH (23:16)
[2020-08-31] MEDS: SENNOSIDES/DOCUSATE SODIUM 1 TAB TABLET PO SCH (23:16)
[2020-08-31] MEDS: MIRTAZAPINE 15 MG TABLET PO SCH (23:17)
[2020-09-01] MEDS: PIPERACILLIN SODIUM/TAZOBACTAM 3.375 GM in DEXTROSE 5% IN WATER 50 ML IV SCH ×2 (00:05→05:20)
[2020-09-01] MEDS: 0.9 % SODIUM CHLORIDE 10 ML SYRINGE IV SCH ×4 (00:05→22:13)
[2020-09-01] MEDS: ALPRAZolam 0.5 MG TABLET PO PRN (03:37)
[2020-09-01] MEDS: 0.9 % SODIUM CHLORIDE 1,000 ML IV SCH (06:19)
[2020-09-01] MEDS: LEVOTHYROXINE 50 MCG TABLET PO SCH (07:04)
[2020-09-01] MEDS: OMEPRAZOLE 20 MG CAPSULE PO SCH (07:04)
[2020-09-01 08:30] LABS: ALT/SGPT 99 U/L (<40); AST/SGOT 90 U/L (<40); Albumin 2.6 gm/dL (3.2-5.2); Albumin/Globulin Ratio 0.8 (1.0-2.3); Alkaline Phosphatase 150 U/L (39-117); Bilirubin,Direct < 0.2 mg/dL (<0.3); Bilirubin,Total 0.3 mg/dL (0.1-1.0); Blood Urea Nitrogen 11 mg/dL (8-23); Calcium 8.1 mg/dL (8.6-10.4); Carbon Dioxide 24 mmol/L (22-30); Chloride 107 mmol/L (96-108); Globulin 3.1 gm/dL (2.2-3.7); Glomerular Filtration Rate 68; Glucose 95 mg/dL (70-105); Lactate Dehydrogenase 199 U/L (135-225); Phosphorous 2.5 mg/dL (2.5-4.5); Triglycerides 65 mg/dL (<150)
[2020-09-01 08:31] LABS: Anisocytosis 2+ (None Seen); Eosinophils % (Manual) 5 % (0-7); Hematocrit 33.9 % (41.0-55.0); Lymphocytes % 37 % (15-49); Mean Cell Volume 79.6 fL (80.0-100.0); Mean Corpuscular HGB Conc 29.5 g/dL (31.0-36.0); Mean Platelet Volume 10.5 fL (7.4-10.4); Microcytosis FEW (None Seen); Monocytes % (Manual) 12 % (1-12); Ovalocytes FEW (None Seen); Platelet Count 231 K/mcL (140-440); Platelet Estimate NORMAL (Normal); RBC 4.26 M/mcL (4.50-5.90); RBC Fragments FEW (None Seen); RBC Morphology ABNORMAL (Normal); Red Cell Distribution Width 18.6 % (11.5-14.5); Segmented Neutrophils % 46 % (38-78); WBC 5.8 K/mcL (4.5-11.0)
[2020-09-01] MEDS ORDERED: VANCOMYCIN PER PHARMACY IV SCH (08:43)
[2020-09-01] MEDS: ATORVASTATIN 40 MG TABLET PO SCH (08:49)
[2020-09-01] MEDS: MUPIROCIN OINT 2% 22GM NARES SCH ×2 (08:49→22:12)
[2020-09-01] MEDS: APIXABAN 5 MG TABLET PO SCH ×2 (08:49→22:13)
[2020-09-01] MEDS: DOCUSATE SODIUM 100 MG CAPSULE PO SCH ×2 (08:50→22:13)
[2020-09-01] MEDS: VANCOMYCIN 1,500 MG in 0.9 % SODIUM CHLORIDE 500 ML IV SCH ×2 (08:55→22:13)
[2020-09-01] MEDS: MULTIVIT,THER IRON,CA,FA & MIN 1 TABLET PO SCH (09:34)
[2020-09-01] MEDS: NICOTINE 21 MG PATCH TOPICAL SCH (09:34)
[2020-09-01] MEDS: SULFAMETHOXAZOLE/TRIMETHOPRIM 1 TABLET PO SCH ×2 (09:34→22:12)
--- NOTE | 2020-09-01 11:01 | Internal Med Progress Note ---
SUBJECTIVE Subjective Patient information: Note initiated : 09/01/20 at 10:58 am Service Date, if different from initiated Date: [] Patient: Pérez Grossman a 69 y/o M admitted on 08/29/20 for fever. Chief Complaint: [] Interval history: History of present illness: Mr. Grossman is a 69 year old M with history anxiety/CVA/BPH/COPD who presents to the ER with worsening shortness of breath along with nausea and vomiting that started early this morning, along with fever and shaking chills. He presented to the ER tachypneic with blood pressure in 90s and in significant respiratory distress. Per patient's son he has also been noticing dysphagia to solids over the last 2 weeks. Workup in the ER was consistent with MilD HANK, Pyuria, Elevated LFT's, COVID 19 PCR was sent, Procal 38.5. Cultures drawn. CT abdomen reveals nonobstructive renal calculi. Elevated lactic acid at 2.6 with systolics around 90. Patient was started on crystalloids and antibiotic coverage Hospital service was consulted At the time of my evaluation patient is on 3 L oxygen. He is able to answer most the questions. Patient lives with his son. He appears labored. Was able to endorse history as above. He endorses that he felt fine until last evening. Denies close sick contacts. Denies changes in medications. Denies hematuria, dysuria, diarrhea headache, myalgias or photophobia 08/30-patient clinically improved. Lactic acid downtrending. Overnight T-max 100.6 map at goal, ABG 7.4 , white count 5.618% bands, lactic acid down from 2.6-1.4, creatinine down from 1.5-1.2, phosphorus 1.6, LFTs downtrending. Significant pyuria, cultures pending. Covid negative, MRSA positive 08/31 -patient doing well. No overnight events. Denies abdominal pain, fever chills. Speech therapy evaluation completed. No evidence of dysphagia. On nutrition support per dietitian. Continue antibiotic coverage. Cultures negative so far. Anticipate discharge in 24 hours pending culture sensitivity results. 09/01-patient doing a lot better. Staph aureus on urine cultures. Antibiotics switched to Bactrim/vancomycin. No overnight fever chills. White count stable at 5.8, hemoglobin 10 bandemia resolved, creatinine down to 1.1, LFTs downtrending. Anticipate discharge in 24 to 48 hours pending clinical improvement Constitutional Vitals: Vital Signs Temp Pulse Resp BP Pulse Ox 97.9 F 70 30 H 118/76 96 09/01/20 03:26 09/01/20 04:49 09/01/20 07:10 09/01/20 03:26 09/01/20 03:26 Period Temp Pulse Resp BP Sys/Hu Pulse Ox Last 24 Hr 97.9 F-99.0 F 67-80 26-32 113-118/68-76 93-96 Intake and Output 08/31/20 09/01/20 09/01/20 21:59 05:59 13:59 Intake Total 470 200 120 Output Total 2 300 1 Balance 468 -100 119 Weight 95.254 kg Alert oriented Nonlabored breathing No anxiety Nondistended abdomen Intake & Output: Intake & Output 08/31/20 09/01/20 09/01/20 21:59 05:59 13:59 Intake Total 470 200 120 Output Total 2 300 1 Balance 468 -100 119 Weight 95.254 kg Intake: Nourishment/Supplement quantity 200 (ml) IV 100 Zosyn 3.375 gm In Dextrose 5% 100 in Water 50 ml @ 100 mls/hr IV Q6H [facility] Rx#:[id number] Oral 270 100 120 Output: Void Amount 300 # of times incontinent of urine 2 1 Other: Meal Dinner Percent of Meal Consumed 25% Feeding Ability Assist with Tray Set Up Nourishment/Supplement name Ensure Enlive Urine Appearance Clear Urine Color Bright Yellow Dark Yellow # Voids 1 OBJ DATA Labs CBC & Chem 7: 09/01/20 06:08 09/01/20 06:08 Labs: Abnormal Lab Results 09/01/20 09/01/20 08/31/20 06:08 06:08 05:13 RBC 4.26 L Hgb 10.0 L Hct 33.9 L MCV 79.6 L MCH 23.5 L MCHC 29.5 L RDW 18.6 H MPV 10.5 H Neut % (Auto) Lymph % (Auto) Lymph # (Auto) Band Neutrophils % RBC Morphology Abnormal A Polychromasia Anisocytosis 2+ A Microcytosis Few A Ovalocytes Few A RBC Fragments Few A VBG Lactic Acid Chloride BUN Creatinine Glucose Uric Acid 2.0 L 2.3 L Calcium 8.1 L 8.4 L Phosphorus 2.0 L GGT 82 H 76 H AST 90 H 113 H ALT 99 H 111 H Alkaline Phosphatase 150 H 156 H Lactate Dehydrogenase 295 H Total Protein 5.7 L Albumin 2.6 L 2.6 L Globulin Albumin/Globulin Ratio 0.8 L 0.8 L Procalcitonin Urine Appearance Urine Protein Ur Leukocyte Esterase Urine RBC Urine WBC 08/31/20 08/30/20 08/30/20 05:13 05:32 05:32 RBC 4.49 L 4.46 L Hgb 10.6 L 10.4 L Hct 36.6 L 35.6 L MCV 79.8 L MCH 23.6 L 23.3 L MCHC 29.0 L 29.2 L RDW 18.3 H 18.5 H MPV 10.7 H 10.6 H Neut % (Auto) Lymph % (Auto) Lymph # (Auto) Band Neutrophils % 18 H RBC Morphology Abnormal A Abnormal A Polychromasia 1+ A Anisocytosis 1+ A 2+ A Microcytosis Ovalocytes RBC Fragments Rare A VBG Lactic Acid Chloride 109 H BUN Creatinine Glucose 132 H Uric Acid Calcium 7.5 L Phosphorus 1.6 L GGT AST 106 H ALT 99 H Alkaline Phosphatase 119 H Lactate Dehydrogenase 258 H Total Protein 5.5 L Albumin 2.6 L Globulin Albumin/Globulin Ratio 0.9 L Procalcitonin Urine Appearance Urine Protein Ur Leukocyte Esterase Urine RBC Urine WBC 08/29/20 08/29/20 08/29/20 18:11 17:18 17:18 RBC Hgb Hct MCV MCH MCHC RDW MPV Neut % (Auto) Lymph % (Auto) Lymph # (Auto) Band Neutrophils % RBC Morphology Polychromasia Anisocytosis Microcytosis Ovalocytes RBC Fragments VBG Lactic Acid 2.6 H Chloride BUN Creatinine Glucose Uric Acid Calcium Phosphorus GGT AST ALT Alkaline Phosphatase Lactate Dehydrogenase Total Protein Albumin Globulin Albumin/Globulin Ratio Procalcitonin 38.47 H Urine Appearance Hazy A Urine Protein 100 A Ur Leukocyte Esterase 500 A Urine RBC 13 H Urine WBC > 182 H 08/29/20 08/29/20 17:18 17:18 RBC Hgb 13.1 L Hct MCV 78.0 L MCH 23.6 L MCHC 30.3 L RDW 18.6 H MPV Neut % (Auto) 84.1 H Lymph % (Auto) 8.8 L Lymph # (Auto) 0.69 L Band Neutrophils % RBC Morphology Polychromasia Anisocytosis Microcytosis Ovalocytes RBC Fragments VBG Lactic Acid Chloride BUN 36 H Creatinine 1.5 H Glucose 131 H Uric Acid Calcium Phosphorus GGT AST 141 H ALT 130 H Alkaline Phosphatase 161 H Lactate Dehydrogenase Total Protein Albumin Globulin 4.2 H Albumin/Globulin Ratio 0.8 L Procalcitonin Urine Appearance Urine Protein Ur Leukocyte Esterase Urine RBC Urine WBC Meds: Medications Acetaminophen (Tylenol) 650 mg PO Q4-6HP PRN; Protocol PRN Reason: Per Pain Protocol/Fever > 101 Alprazolam (Xanax) 1 mg PO DAILYP PRN PRN Reason: Anxiety Last Admin: 09/01/20 03:37 Dose: 1 mg Documented by: Apixaban (Eliquis) 5 mg PO BID [facility] Last Admin: 09/01/20 08:49 Dose: 5 mg Documented by: Atorvastatin Calcium (Lipitor) 80 mg PO DAILY [facility] Last Admin: 09/01/20 08:49 Dose: 80 mg Documented by: Bisacodyl (Dulcolax) 10 mg [place] Q2-3DAYS PRN PRN Reason: Constipation Docusate Sodium (Colace) 100 mg PO BID [facility] Last Admin: 09/01/20 08:50 Dose: 100 mg Documented by: Acetaminophen (Ofirmev) 650 mg in 65 mls @ 130 mls/hr IV Q6HP PRN; Protocol PRN Reason: Per Pain Protocol/Fever > 101 Magnesium Sulfate (Magnesium Sulfate) 2 gm in 50 mls @ 50 mls/hr IV UD PRN PRN Reason: MG = or < 1.7 Vancomycin HCl 1,500 mg/ (Sodium Chloride) 500 mls @ 333.3 mls/hr IV Q12H [facility] Last Admin: 09/01/20 08:55 Dose: 333.3 mls/hr Documented by: Iron Carb/Multivit/[place]/Folic Acid (Multivitamin W/Minerals) 1 tab PO DAILY [facility] Last Admin: 09/01/20 09:34 Dose: 1 tab Documented by: Levothyroxine Sodium (Synthroid) 50 mcg PO ACB [facility] Last Admin: 09/01/20 07:04 Dose: 50 mcg Documented by: Mirtazapine (Remeron) 0 mg PO QHS [facility] Last Admin: 08/31/20 23:17 Dose: 15 mg Documented by: Mupirocin (Bactroban Oint 2%) 1 dose NARES BID [facility] Last Admin: 09/01/20 08:49 Dose: 1 dose Documented by: Nicotine (Nicoderm) 21 mg TOPICAL DAILY@1000 [facility] Last Admin: 09/01/20 09:34 Dose: 21 mg Documented by: Omeprazole (Prilosec) 20 mg PO ACB [facility] Last Admin: 09/01/20 07:04 Dose: 20 mg Documented by: Ondansetron HCl (Zofran Odt) 4 mg SL Q4-6HP PRN; Protocol PRN Reason: Nausea And Vomiting Ondansetron HCl (Zofran) 4 mg IV Q4-6HP PRN; Protocol PRN Reason: Nausea And Vomiting Polyethylene Glycol (Miralax) 17 gm PO DAILYP PRN PRN Reason: Constipation Potassium Chloride (Klor-Con) 40 meq PO DAILYP PRN PRN Reason: K+ < 3.5 Potassium/Phosphorus/Sodium (Neutra Phos) 2 packet PO DAILY PRN PRN Reason: PHOS <2.5 Senna/Docusate Sodium (Senna Plus Tablet) 1 tab PO HS [facility] Last Admin: 08/31/20 23:16 Dose: 1 tab Documented by: Sodium Chloride (Saline Flush) 10 ml IV Q8 [facility] Last Admin: 09/01/20 05:20 Dose: 10 ml Documented by: Tamsulosin HCl (Flomax) 0.4 mg PO QHS [facility] Last Admin: 08/31/20 23:16 Dose: 0.4 mg Documented by: Trimethoprim/Sulfamethoxazole (Bactrim Ds) 1 tab PO BID [facility]; Protocol Last Admin: 09/01/20 09:34 Dose: 1 tab Documented by: Vancomycin HCl (Vancomycin Per Pharmacy) 1 order IV UD [facility]; Protocol A/P Narrative A/P Narrative: * Severe sepsis with multiple organ dysfunction - clinical improvement noted with improving endorgan dysfunction * Complicated staph aureus UTI-antibiotics de-escalate it to vancomycin/Bactrim * Acute kidney injury secondary to sepsis endorgan dysfuncti- Creatinine down from 1.5-1.1 * Elevated transaminase secondary to sepsis endorgan dysfunction -improving * Acute hypoxic respiratory failure-clinically resolved. Now on room air. 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 * History of dilated cardiomyopath-well compensated * History anxiety disorder continue BuSpar/alprazolam * Hypothyroidism continue levothyroxine * GERD continue PPI * BPH continue tamsulosin * Full code Plan * Vancomycin/Bactrim * Pre-existing medical condition management on home medications as above * PT OT nutrition support * Anticipate discharge in 24 to 40 hours pending clinical improvement Time Spent With Patient Time: Total time spent is greater than 50% in coordination of care (as documented) at patient's floor/unit and/or counseling patient: QUALITY VTE Deep Vein Thrombosis/Pulmonary Embolism Present on Admission: No
[2020-09-01 17:41] LABS: Appearance,Urine HAZY (Clear); Bilirubin,Urine Negative (Negative); Color,Urine YELLOW; Culture Indicated,Urine yes; Glucose,Urine (UA) Negative (Negative); Ketones,Urine Negative (Negative); Leukocyte Esterase,Urine 500 /ug (Negative); Mucus,Urine FEW /hpf; Nitrate,Urine Negative (Negative); Protein,Urine 30 mg/dL (Negative); Urine RBC 59 /hpf (0-1); Urine Squamous Epithelial Cell < 1 /hpf (0-4); Urine WBC > 182 /hpf (0-4); Urobilinogen,Urine Negative
[2020-09-01] MEDS: MIRTAZAPINE 15 MG TABLET PO SCH (22:12)
[2020-09-01] MEDS: TAMSULOSIN 0.4 MG CAPSULE PO SCH (22:13)
[2020-09-01] MEDS: SENNOSIDES/DOCUSATE SODIUM 1 TAB TABLET PO SCH (22:13)
[2020-09-02] MEDS: 0.9 % SODIUM CHLORIDE 10 ML SYRINGE IV SCH ×3 (05:37→21:12)
[2020-09-02] MEDS: LEVOTHYROXINE 50 MCG TABLET PO SCH (07:37)
[2020-09-02] MEDS: OMEPRAZOLE 20 MG CAPSULE PO SCH (07:37)
[2020-09-02] MEDS: MUPIROCIN OINT 2% 22GM NARES SCH ×2 (08:56→21:13)
[2020-09-02] MEDS: ATORVASTATIN 40 MG TABLET PO SCH (08:57)
[2020-09-02] MEDS: SULFAMETHOXAZOLE/TRIMETHOPRIM 1 TABLET PO SCH ×2 (08:57→21:13)
[2020-09-02] MEDS: MULTIVIT,THER IRON,CA,FA & MIN 1 TABLET PO SCH (08:57)
[2020-09-02] MEDS: DOCUSATE SODIUM 100 MG CAPSULE PO SCH ×2 (08:58→21:12)
[2020-09-02] MEDS: APIXABAN 5 MG TABLET PO SCH ×2 (08:58→21:13)
--- NOTE | 2020-09-02 09:07 | Internal Med Progress Note ---
SUBJECTIVE Subjective Patient information: Note initiated : 09/02/20 at 9:03 am Service Date, if different from initiated Date: [] Patient: Pérez Grossman a 69 y/o M admitted on 08/29/20 for fever. Chief Complaint: [] Interval history: History of present illness: Mr. Grossman is a 69 year old M with history anxiety/CVA/BPH/COPD who presents to the ER with worsening shortness of breath along with nausea and vomiting that started early this morning, along with fever and shaking chills. He presented to the ER tachypneic with blood pressure in 90s and in significant respiratory distress. Per patient's son he has also been noticing dysphagia to solids over the last 2 weeks. Workup in the ER was consistent with MilD HANK, Pyuria, Elevated LFT's, COVID 19 PCR was sent, Procal 38.5. Cultures drawn. CT abdomen reveals nonobstructive renal calculi. Elevated lactic acid at 2.6 with systolics around 90. Patient was started on crystalloids and antibiotic coverage Hospital service was consulted At the time of my evaluation patient is on 3 L oxygen. He is able to answer most the questions. Patient lives with his son. He appears labored. Was able to endorse history as above. He endorses that he felt fine until last evening. Denies close sick contacts. Denies changes in medications. Denies hematuria, dysuria, diarrhea headache, myalgias or photophobia 08/30-patient clinically improved. Lactic acid downtrending. Overnight T-max 100.6 map at goal, ABG 7.4 , white count 5.618% bands, lactic acid down from 2.6-1.4, creatinine down from 1.5-1.2, phosphorus 1.6, LFTs downtrending. Significant pyuria, cultures pending. Covid negative, MRSA positive 08/31 -patient doing well. No overnight events. Denies abdominal pain, fever chills. Speech therapy evaluation completed. No evidence of dysphagia. On nutrition support per dietitian. Continue antibiotic coverage. Cultures negative so far. Anticipate discharge in 24 hours pending culture sensitivity results. 09/01-patient doing a lot better. Staph aureus on urine cultures. Antibiotics switched to Bactrim/vancomycin. No overnight fever chills. White count stable at 5.8, hemoglobin 10 bandemia resolved, creatinine down to 1.1, LFTs downtrending. Anticipate discharge in 24 to 48 hours pending clinical improvement 09/02-patient clinically improving. No overnight fever chills. Repeat UA persistent pyuria. Blood cultures positive for staph aureus. Continue IV antibiotics. ID consult. Repeat surveillance blood cultures. Has been a recurrent issue with repeated bacteremia due to nephrolithiasis. He has followed up with urology back in November with Dr. Hough and did not want to pursue ureteroscopy and stone removal however continues to experience bacteremia/MRSA UTI requiring hospitalizations. Constitutional Vitals: Vital Signs Temp Pulse Resp BP Pulse Ox 98.7 F 78 22 111/61 97 09/02/20 04:00 09/01/20 18:23 09/02/20 04:00 09/02/20 04:00 09/02/20 04:00 Period Temp Pulse Resp BP Sys/Hu Pulse Ox Last 24 Hr 97.4 F-99.9 F 70-78 22-22 111-133/61-83 93-97 Intake and Output 09/01/20 09/02/20 09/02/20 22:59 05:59 13:59 Intake Total Output Total Balance Weight Intake & Output: Intake & Output 09/01/20 09/02/20 09/02/20 22:59 05:59 13:59 Intake Total Output Total Balance Weight Intake: IV Sodium Chloride 0.9% 1,000 ml @ 50 mls/hr IV .Q20H [facility] Rx#: [id number] Vancomycin 1,500 mg In Sodium Chloride 0.9% 500 ml @ 333.3 mls/hr IV Q12H [facility] Rx#: [id number] Oral Output: Void Amount # of times incontinent of urine Other: Meal Percent of Meal Consumed Urine Appearance Urine Color # Voids # Bowel Movements OBJ DATA Labs CBC & Chem 7: 09/01/20 06:08 09/01/20 06:08 Labs: Abnormal Lab Results 09/01/20 09/01/20 09/01/20 12:46 06:08 06:08 RBC 4.26 L Hgb 10.0 L Hct 33.9 L MCV 79.6 L MCH 23.5 L MCHC 29.5 L RDW 18.6 H MPV 10.5 H RBC Morphology Abnormal A Anisocytosis 2+ A Microcytosis Few A Ovalocytes Few A RBC Fragments Few A Uric Acid 2.0 L Calcium 8.1 L Phosphorus GGT 82 H AST 90 H ALT 99 H Alkaline Phosphatase 150 H Lactate Dehydrogenase Total Protein 5.7 L Albumin 2.6 L Albumin/Globulin Ratio 0.8 L Urine Appearance Hazy A Urine Protein 30 A Ur Leukocyte Esterase 500 A Urine RBC 59 H Urine WBC > 182 H Urine Mucus Few A 08/31/20 08/31/20 05:13 05:13 RBC 4.49 L Hgb 10.6 L Hct 36.6 L MCV MCH 23.6 L MCHC 29.0 L RDW 18.3 H MPV 10.7 H RBC Morphology Abnormal A Anisocytosis 1+ A Microcytosis Ovalocytes RBC Fragments Uric Acid 2.3 L Calcium 8.4 L Phosphorus 2.0 L GGT 76 H AST 113 H ALT 111 H Alkaline Phosphatase 156 H Lactate Dehydrogenase 295 H Total Protein Albumin 2.6 L Albumin/Globulin Ratio 0.8 L Urine Appearance Urine Protein Ur Leukocyte Esterase Urine RBC Urine WBC Urine Mucus Meds: Medications Acetaminophen (Tylenol) 650 mg PO Q4-6HP PRN; Protocol PRN Reason: Per Pain Protocol/Fever > 101 Alprazolam (Xanax) 1 mg PO DAILYP PRN PRN Reason: Anxiety Last Admin: 09/01/20 03:37 Dose: 1 mg Documented by: Apixaban (Eliquis) 5 mg PO BID [facility] Last Admin: 09/02/20 08:58 Dose: 5 mg Documented by: Atorvastatin Calcium (Lipitor) 80 mg PO DAILY [facility] Last Admin: 09/02/20 08:57 Dose: 80 mg Documented by: Bisacodyl (Dulcolax) 10 mg MD Q2-3DAYS PRN PRN Reason: Constipation Docusate Sodium (Colace) 100 mg PO BID [facility] Last Admin: 09/02/20 08:58 Dose: 100 mg Documented by: Acetaminophen (Ofirmev) 650 mg in 65 mls @ 130 mls/hr IV Q6HP PRN; Protocol PRN Reason: Per Pain Protocol/Fever > 101 Magnesium Sulfate (Magnesium Sulfate) 2 gm in 50 mls @ 50 mls/hr IV UD PRN PRN Reason: MG = or < 1.7 Vancomycin HCl 1,500 mg/ (Sodium Chloride) 500 mls @ 333.3 mls/hr IV Q12H [facility] Last Infusion: 09/01/20 23:50 Dose: Infused Documented by: Iron Carb/Multivit/Consulting Psychologist/Folic Acid (Multivitamin W/Minerals) 1 tab PO DAILY [facility] Last Admin: 09/02/20 08:57 Dose: 1 tab Documented by: Levothyroxine Sodium (Synthroid) 50 mcg PO ACB [facility] Last Admin: 09/02/20 07:29 Dose: 50 mcg Documented by: Mirtazapine (Remeron) 0 mg PO QHS [facility] Last Admin: 09/01/20 22:12 Dose: 15 mg Documented by: Mupirocin (Bactroban Oint 2%) 1 dose NARES BID [facility] Last Admin: 09/02/20 08:56 Dose: 1 dose Documented by: Nicotine (Nicoderm) 21 mg TOPICAL DAILY@1000 [facility] Last Admin: 09/01/20 09:34 Dose: 21 mg Documented by: Omeprazole (Prilosec) 20 mg PO ACB [facility] Last Admin: 09/02/20 07:29 Dose: 20 mg Documented by: Ondansetron HCl (Zofran Odt) 4 mg SL Q4-6HP PRN; Protocol PRN Reason: Nausea And Vomiting Ondansetron HCl (Zofran) 4 mg IV Q4-6HP PRN; Protocol PRN Reason: Nausea And Vomiting Polyethylene Glycol (Miralax) 17 gm PO DAILYP PRN PRN Reason: Constipation Potassium Chloride (Klor-Con) 40 meq PO DAILYP PRN PRN Reason: K+ < 3.5 Potassium/Phosphorus/Sodium (Neutra Phos) 2 packet PO DAILY PRN PRN Reason: PHOS <2.5 Senna/Docusate Sodium (Senna Plus Tablet) 1 tab PO HS [facility] Last Admin: 09/01/20 22:13 Dose: 1 tab Documented by: Sodium Chloride (Saline Flush) 10 ml IV Q8 [facility] Last Admin: 09/02/20 05:37 Dose: 10 ml Documented by: Tamsulosin HCl (Flomax) 0.4 mg PO QHS [facility] Last Admin: 09/01/20 22:13 Dose: 0.4 mg Documented by: Trimethoprim/Sulfamethoxazole (Bactrim Ds) 1 tab PO BID [facility]; Protocol Last Admin: 09/02/20 08:57 Dose: 1 tab Documented by: Vancomycin HCl (Vancomycin Per Pharmacy) 1 order IV UD [facility]; Protocol A/P Narrative A/P Narrative: * Severe sepsis with multiple organ dysfunction - clinical improvement noted with improving endorgan dysfunction * Complicated staph aureus UTI-antibiotics de-escalate it to vancomycin * Staph aureus bacteremia-continue IV vancomycin, surveillance cultures, ID consult * Acute kidney injury secondary to sepsis endorgan dysfuncti- Creatinine down from 1.5-1.1 * Elevated transaminase secondary to sepsis endorgan dysfunction -improving * Acute hypoxic respiratory failure-clinically resolved. Now on room air. 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 * History of dilated cardiomyopath-well compensated * History anxiety disorder continue BuSpar/alprazolam * Hypothyroidism continue levothyroxine * GERD continue PPI * BPH continue tamsulosin * Full code Plan * Vancomycin * ID consult * Surveillance cultures * Pre-existing medical condition management on home medications as above * Will need outpatient urology follow-up for ureteroscopy and stone removal * PT OT nutrition support Time Spent With Patient Time: Total time spent is greater than 50% in coordination of care (as documented) at patient's floor/unit and/or counseling patient: QUALITY VTE Deep Vein Thrombosis/Pulmonary Embolism Present on Admission: No
[2020-09-02] MEDS ORDERED: 0.9 % SODIUM CHLORIDE 250 ML IV SCH (09:15)
[2020-09-02 09:33] LABS: ALT/SGPT 93 U/L (<40); AST/SGOT 87 U/L (<40); Albumin 2.6 gm/dL (3.2-5.2); Albumin/Globulin Ratio 0.8 (1.0-2.3); Alkaline Phosphatase 154 U/L (39-117); Bilirubin,Direct < 0.2 mg/dL (<0.3); Bilirubin,Total 0.3 mg/dL (0.1-1.0); Blood Urea Nitrogen 10 mg/dL (8-23); Calcium 8.3 mg/dL (8.6-10.4); Carbon Dioxide 24 mmol/L (22-30); Chloride 105 mmol/L (96-108); Globulin 3.2 gm/dL (2.2-3.7); Glomerular Filtration Rate 87; Glucose 80 mg/dL (70-105); Lactate Dehydrogenase 203 U/L (135-225); Phosphorous 2.4 mg/dL (2.5-4.5); Triglycerides 76 mg/dL (<150); Uric Acid 2.3 mg/dL (2.5-8.0)
[2020-09-02 09:55] LABS: Anisocytosis 1+ (None Seen); Band Neutrophils % 1 % (0-10); Eosinophils % (Manual) 4 % (0-7); Hematocrit 34.8 % (41.0-55.0); Hemoglobin 10.4 g/dL (13.5-16.5); Lymphocytes % 28 % (15-49); Mean Cell Volume 79.1 fL (80.0-100.0); Mean Corpuscular HGB Conc 29.9 g/dL (31.0-36.0); Mean Platelet Volume 10.7 fL (7.4-10.4); Microcytosis 1+ (None Seen); Monocytes % (Manual) 7 % (1-12); Platelet Count 255 K/mcL (140-440); Platelet Estimate NORMAL (Normal); RBC Morphology ABNORMAL (Normal); Reactive Lymphocytes 7 % (0-2); Red Cell Distribution Width 18.5 % (11.5-14.5); Segmented Neutrophils % 53 % (38-78); WBC 5.9 K/mcL (4.5-11.0)
[2020-09-02] MEDS: VANCOMYCIN 1,500 MG in 0.9 % SODIUM CHLORIDE 500 ML IV SCH ×2 (11:49→19:33)
[2020-09-02] MEDS: NICOTINE 21 MG PATCH TOPICAL SCH (12:14)
[2020-09-02] MEDS: MIRTAZAPINE 15 MG TABLET PO SCH (21:12)
[2020-09-02] MEDS: SENNOSIDES/DOCUSATE SODIUM 1 TAB TABLET PO SCH (21:12)
[2020-09-02] MEDS: TAMSULOSIN 0.4 MG CAPSULE PO SCH (21:12)
[2020-09-02] MEDS: ALPRAZolam 0.5 MG TABLET PO PRN (21:13)
[2020-09-03] MEDS: OMEPRAZOLE 20 MG CAPSULE PO SCH (07:14)
[2020-09-03] MEDS: LEVOTHYROXINE 50 MCG TABLET PO SCH (07:14)
[2020-09-03] MEDS: 0.9 % SODIUM CHLORIDE 10 ML SYRINGE IV SCH ×3 (07:15→21:55)
[2020-09-03 08:35] LABS: ALT/SGPT 95 U/L (<40); AST/SGOT 85 U/L (<40); Albumin 2.8 gm/dL (3.2-5.2); Albumin/Globulin Ratio 0.9 (1.0-2.3); Alkaline Phosphatase 151 U/L (39-117); Bilirubin,Direct 0.2 mg/dL (<0.3); Bilirubin,Total 0.7 mg/dL (0.1-1.0); Blood Urea Nitrogen 10 mg/dL (8-23); Calcium 8.4 mg/dL (8.6-10.4); Carbon Dioxide 24 mmol/L (22-30); Chloride 107 mmol/L (96-108); Globulin 3.2 gm/dL (2.2-3.7); Glomerular Filtration Rate 77; Glucose 81 mg/dL (70-105); Lactate Dehydrogenase 204 U/L (135-225); Phosphorous 2.6 mg/dL (2.5-4.5); Triglycerides 79 mg/dL (<150)
[2020-09-03] MEDS: MUPIROCIN OINT 2% 22GM NARES SCH ×2 (08:38→21:54)
--- NOTE | 2020-09-03 08:39 | Internal Med Progress Note ---
SUBJECTIVE Subjective Patient information: Note initiated : 09/03/20 at 8:37 am Service Date, if different from initiated Date: [] Patient: Pérez Grossman a 69 y/o M admitted on 08/29/20 for fever. Chief Complaint: [] Interval history: History of present illness: Mr. Grossman is a 69 year old M with history anxiety/CVA/BPH/COPD who presents to the ER with worsening shortness of breath along with nausea and vomiting that started early this morning, along with fever and shaking chills. He presented to the ER tachypneic with blood pressure in 90s and in significant respiratory distress. Per patient's son he has also been noticing dysphagia to solids over the last 2 weeks. Workup in the ER was consistent with MilD HANK, Pyuria, Elevated LFT's, COVID 19 PCR was sent, Procal 38.5. Cultures drawn. CT abdomen reveals nonobstructive renal calculi. Elevated lactic acid at 2.6 with systolics around 90. Patient was started on crystalloids and antibiotic coverage Hospital service was consulted At the time of my evaluation patient is on 3 L oxygen. He is able to answer most the questions. Patient lives with his son. He appears labored. Was able to endorse history as above. He endorses that he felt fine until last evening. Denies close sick contacts. Denies changes in medications. Denies hematuria, dysuria, diarrhea headache, myalgias or photophobia 08/30-patient clinically improved. Lactic acid downtrending. Overnight T-max 100.6 map at goal, ABG 7.4 , white count 5.618% bands, lactic acid down from 2.6-1.4, creatinine down from 1.5-1.2, phosphorus 1.6, LFTs downtrending. Significant pyuria, cultures pending. Covid negative, MRSA positive 08/31 -patient doing well. No overnight events. Denies abdominal pain, fever chills. Speech therapy evaluation completed. No evidence of dysphagia. On nutrition support per dietitian. Continue antibiotic coverage. Cultures negative so far. Anticipate discharge in 24 hours pending culture sensitivity results. 09/01-patient doing a lot better. Staph aureus on urine cultures. Antibiotics switched to Bactrim/vancomycin. No overnight fever chills. White count stable at 5.8, hemoglobin 10 bandemia resolved, creatinine down to 1.1, LFTs downtrending. Anticipate discharge in 24 to 48 hours pending clinical improvement 09/02-patient clinically improving. No overnight fever chills. Repeat UA persistent pyuria. Blood cultures positive for staph aureus. Continue IV antibiotics. ID consult. Repeat surveillance blood cultures. Has been a recurrent issue with repeated bacteremia due to nephrolithiasis. He has followed up with urology back in November with Dr. Hough and did not want to pursue ureteroscopy and stone removal however continues to experience bacteremia/MRSA UTI requiring hospitalizations. 09/03-patient doing well currently on vancomycin. ID consulted. Surveillance cultures pending. No overnight fever chills. No additional concerns per nursing staff. Await recommendations from ID service. PICC line placement held until surveillance cultures negative. Constitutional Vitals: Vital Signs Temp Pulse Resp BP Pulse Ox 99.6 F H 57 L 22 125/78 92 09/03/20 04:00 09/02/20 23:45 09/03/20 04:00 09/03/20 04:00 09/03/20 04:00 Period Temp Pulse Resp BP Sys/Hu Pulse Ox Last 24 Hr 97 F-99.6 F 57-76 20-26 110-125/69-78 92-97 Intake and Output 09/02/20 09/03/20 09/03/20 21:59 05:59 13:59 Intake Total 1105 100 Output Total 452 3 Balance 653 97 Weight 95.663 kg Alert oriented Nonlabored breathing No anxiety Intake & Output: Intake & Output 09/02/20 09/03/20 09/03/20 21:59 05:59 13:59 Intake Total 1105 100 Output Total 452 3 Balance 653 97 Weight 95.663 kg Intake: Nourishment/Supplement quantity 240 (ml) IV 200 Sodium Chloride 0.9% 250 ml @ 200 20 mls/hr IV .[id number] [facility] Rx#: [id number] Oral 340 100 Blood Product 325 Output: Void Amount 450 # of times incontinent of urine 2 3 Other: Meal Dinner Nourishment/Supplement name Ensure Enlive Urine Color Light Cara # Voids 1 # Bowel Movements 0 OBJ DATA Labs CBC & Chem 7: 09/02/20 06:10 09/03/20 06:00 Labs: Abnormal Lab Results 09/03/20 09/02/20 09/02/20 06:00 06:10 06:10 RBC 4.40 L Hgb 10.4 L Hct 34.8 L MCV 79.1 L MCH 23.6 L MCHC 29.9 L RDW 18.5 H MPV 10.7 H Reactive Lymphocytes 7 H RBC Morphology Abnormal A Anisocytosis 1+ A Microcytosis 1+ A Ovalocytes RBC Fragments Uric Acid 2.3 L Calcium 8.4 L 8.3 L Phosphorus 2.4 L GGT 71 H 76 H AST 85 H 87 H ALT 95 H 93 H Alkaline Phosphatase 151 H 154 H Total Protein 5.8 L Albumin 2.8 L 2.6 L Albumin/Globulin Ratio 0.9 L 0.8 L Urine Appearance Urine Protein Ur Leukocyte Esterase Urine RBC Urine WBC Urine Mucus 09/01/20 09/01/20 09/01/20 12:46 06:08 06:08 RBC 4.26 L Hgb 10.0 L Hct 33.9 L MCV 79.6 L MCH 23.5 L MCHC 29.5 L RDW 18.6 H MPV 10.5 H Reactive Lymphocytes RBC Morphology Abnormal A Anisocytosis 2+ A Microcytosis Few A Ovalocytes Few A RBC Fragments Few A Uric Acid 2.0 L Calcium 8.1 L Phosphorus GGT 82 H AST 90 H ALT 99 H Alkaline Phosphatase 150 H Total Protein 5.7 L Albumin 2.6 L Albumin/Globulin Ratio 0.8 L Urine Appearance Hazy A Urine Protein 30 A Ur Leukocyte Esterase 500 A Urine RBC 59 H Urine WBC > 182 H Urine Mucus Few A 08/31/20 05:13 RBC 4.49 L Hgb 10.6 L Hct 36.6 L MCV MCH 23.6 L MCHC 29.0 L RDW 18.3 H MPV 10.7 H Reactive Lymphocytes RBC Morphology Abnormal A Anisocytosis 1+ A Microcytosis Ovalocytes RBC Fragments Uric Acid Calcium Phosphorus GGT AST ALT Alkaline Phosphatase Total Protein Albumin Albumin/Globulin Ratio Urine Appearance Urine Protein Ur Leukocyte Esterase Urine RBC Urine WBC Urine Mucus Meds: Medications Acetaminophen (Tylenol) 650 mg PO Q4-6HP PRN; Protocol PRN Reason: Per Pain Protocol/Fever > 101 Alprazolam (Xanax) 1 mg PO DAILYP PRN PRN Reason: Anxiety Last Admin: 09/02/20 21:13 Dose: 1 mg Documented by: Apixaban (Eliquis) 5 mg PO BID [facility] Last Admin: 09/02/20 21:13 Dose: 5 mg Documented by: Atorvastatin Calcium (Lipitor) 80 mg PO DAILY [facility] Last Admin: 09/02/20 08:57 Dose: 80 mg Documented by: Bisacodyl (Dulcolax) 10 mg DC Q2-3DAYS PRN PRN Reason: Constipation Docusate Sodium (Colace) 100 mg PO BID [facility] Last Admin: 09/02/20 21:12 Dose: 100 mg Documented by: Acetaminophen (Ofirmev) 650 mg in 65 mls @ 130 mls/hr IV Q6HP PRN; Protocol PRN Reason: Per Pain Protocol/Fever > 101 Magnesium Sulfate (Magnesium Sulfate) 2 gm in 50 mls @ 50 mls/hr IV UD PRN PRN Reason: MG = or < 1.7 Vancomycin HCl 1,500 mg/ (Sodium Chloride) 500 mls @ 333.3 mls/hr IV DAILY [facility] Last Infusion: 09/02/20 13:20 Dose: Infused Documented by: Iron Carb/Multivit/Andrews/Folic Acid (Multivitamin W/Minerals) 1 tab PO DAILY [facility] Last Admin: 09/02/20 08:57 Dose: 1 tab Documented by: Levothyroxine Sodium (Synthroid) 50 mcg PO ACB [facility] Last Admin: 09/03/20 07:14 Dose: 50 mcg Documented by: Mirtazapine (Remeron) 0 mg PO QHS [facility] Last Admin: 09/02/20 21:12 Dose: 15 mg Documented by: Mupirocin (Bactroban Oint 2%) 1 dose NARES BID [facility] Last Admin: 09/02/20 21:13 Dose: 1 dose Documented by: Nicotine (Nicoderm) 21 mg TOPICAL DAILY@1000 [facility] Last Admin: 09/02/20 12:14 Dose: 21 mg Documented by: Omeprazole (Prilosec) 20 mg PO ACB [facility] Last Admin: 09/03/20 07:14 Dose: 20 mg Documented by: Ondansetron HCl (Zofran Odt) 4 mg SL Q4-6HP PRN; Protocol PRN Reason: Nausea And Vomiting Ondansetron HCl (Zofran) 4 mg IV Q4-6HP PRN; Protocol PRN Reason: Nausea And Vomiting Polyethylene Glycol (Miralax) 17 gm PO DAILYP PRN PRN Reason: Constipation Potassium Chloride (Klor-Con) 40 meq PO DAILYP PRN PRN Reason: K+ < 3.5 Potassium/Phosphorus/Sodium (Neutra Phos) 2 packet PO DAILY PRN PRN Reason: PHOS <2.5 Senna/Docusate Sodium (Senna Plus Tablet) 1 tab PO HS [facility] Last Admin: 09/02/20 21:12 Dose: 1 tab Documented by: Sodium Chloride (Saline Flush) 10 ml IV Q8 [facility] Last Admin: 09/03/20 07:15 Dose: 10 ml Documented by: Tamsulosin HCl (Flomax) 0.4 mg PO QHS [facility] Last Admin: 09/02/20 21:12 Dose: 0.4 mg Documented by: Trimethoprim/Sulfamethoxazole (Bactrim Ds) 1 tab PO BID [facility]; Protocol Last Admin: 09/02/20 21:13 Dose: 1 tab Documented by: Vancomycin HCl (Vancomycin Per Pharmacy) 1 order IV UD [facility]; Protocol A/P Narrative A/P Narrative: * Severe sepsis with multiple organ dysfunction - clinical improvement noted with improving endorgan dysfunction * Complicated staph aureus UTI-continue vancomycin. * Staph aureus bacteremia-continue IV vancomycin, surveillance cultures, await ID recommendations * Acute kidney injury secondary to sepsis endorgan dysfuncti- Creatinine down from 1.5-1.1 * Elevated transaminase secondary to sepsis endorgan dysfunction -improving * Acute hypoxic respiratory failure-clinically resolved. Now on room air. 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 * History of dilated cardiomyopath-well compensated * History anxiety disorder continue BuSpar/alprazolam * Hypothyroidism continue levothyroxine * GERD continue PPI * BPH continue tamsulosin * Full code Plan * Continue IV vancomycin * Await ID recommendations * Await surveillance cultures * Pre-existing medical condition management on home medications as above * Will need outpatient urology follow-up for ureteroscopy and stone removal * PT OT nutrition support Time Spent With Patient Time: Total time spent is greater than 50% in coordination of care (as documented) at patient's floor/unit and/or counseling patient: QUALITY VTE Deep Vein Thrombosis/Pulmonary Embolism Present on Admission: No
[2020-09-03] MEDS: ATORVASTATIN 40 MG TABLET PO SCH (08:40)
[2020-09-03] MEDS: VANCOMYCIN 1,500 MG in 0.9 % SODIUM CHLORIDE 500 ML IV SCH (08:40)
[2020-09-03] MEDS: APIXABAN 5 MG TABLET PO SCH ×2 (08:41→21:54)
[2020-09-03] MEDS: SULFAMETHOXAZOLE/TRIMETHOPRIM 1 TABLET PO SCH (08:42)
[2020-09-03] MEDS: MULTIVIT,THER IRON,CA,FA & MIN 1 TABLET PO SCH (08:42)
[2020-09-03] MEDS: DOCUSATE SODIUM 100 MG CAPSULE PO SCH ×2 (08:43→21:55)
[2020-09-03 08:53] LABS: Anisocytosis 2+ (None Seen); Band Neutrophils % 3 % (0-10); Eosinophils % (Manual) 2 % (0-7); Hematocrit 40.6 % (41.0-55.0); Hemoglobin 12.4 g/dL (13.5-16.5); Hypochromasia 1+ (None Seen); Lymphocytes % 35 % (15-49); Mean Cell Volume 78.7 fL (80.0-100.0); Mean Corpuscular HGB Conc 30.5 g/dL (31.0-36.0); Mean Platelet Volume 10.5 fL (7.4-10.4); Monocytes % (Manual) 7 % (1-12); Ovalocytes 1+ (None Seen); Platelet Count 273 K/mcL (140-440); Platelet Estimate NORMAL (Normal); Poikilocytosis 1+ (None Seen); RBC 5.16 M/mcL (4.50-5.90); RBC Fragments 1+ (None Seen); RBC Morphology ABNORMAL (Normal); Reactive Lymphocytes 1 % (0-2); Red Cell Distribution Width 17.8 % (11.5-14.5); Segmented Neutrophils % 52 % (38-78)
[2020-09-03] MEDS: NICOTINE 21 MG PATCH TOPICAL SCH (10:34)
--- NOTE | 2020-09-03 12:45 | Internal Med Progress Note ---
SUBJECTIVE Subjective Patient information: Note initiated : 09/03/20 at 12:43 pm Service Date, if different from initiated Date: [] Patient: Pérez Grossman a 69 y/o M admitted on 08/29/20 for fever. Chief Complaint: [] Interval history: History of present illness: Mr. Grossman is a 69 year old M with history anxiety/CVA/BPH/COPD who presents to the ER with worsening shortness of breath along with nausea and vomiting that started early this morning, along with fever and shaking chills. He presented to the ER tachypneic with blood pressure in 90s and in significant respiratory distress. Per patient's son he has also been noticing dysphagia to solids over the last 2 weeks. Workup in the ER was consistent with MilD HANK, Pyuria, Elevated LFT's, COVID 19 PCR was sent, Procal 38.5. Cultures drawn. CT abdomen reveals nonobstructive renal calculi. Elevated lactic acid at 2.6 with systolics around 90. Patient was started on crystalloids and antibiotic coverage Hospital service was consulted At the time of my evaluation patient is on 3 L oxygen. He is able to answer most the questions. Patient lives with his son. He appears labored. Was able to endorse history as above. He endorses that he felt fine until last evening. Denies close sick contacts. Denies changes in medications. Denies hematuria, dysuria, diarrhea headache, myalgias or photophobia 08/30-patient clinically improved. Lactic acid downtrending. Overnight T-max 1 00.6 map at goal, ABG 7.4 , white count 5.618% bands, lactic acid down from 2.6-1.4, creatinine down from 1.5-1.2, phosphorus 1.6, LFTs downtrending. Significant pyuria, cultures pending. Covid negative, MRSA positive 08/31 -patient doing well. No overnight events. Denies abdominal pain, fever chills. Speech therapy evaluation completed. No evidence of dysphagia. On nutrition support per dietitian. Continue antibiotic coverage. Cultures negative so far. Anticipate discharge in 24 hours pending culture sensitivity results. 09/01-patient doing a lot better. Staph aureus on urine cultures. Antibiotics switched to Bactrim/vancomycin. No overnight fever chills. White count stable at 5.8, hemoglobin 10 bandemia resolved, creatinine down to 1.1, LFTs downtrending. Anticipate discharge in 24 to 48 hours pending clinical improvement 09/02-patient clinically improving. No overnight fever chills. Repeat UA persistent pyuria. Blood cultures positive for staph aureus. Continue IV antibiotics. ID consult. Repeat surveillance blood cultures. Has been a recurrent issue with repeated bacteremia due to nephrolithiasis. He has followed up with urology back in November with Dr. Hough and did not want to pursue ureteroscopy and stone removal however continues to experience bacteremia/MRSA UTI requiring hospitalizations. 09/03-patient doing well currently on vancomycin. ID consulted. Surveillance cultures pending. No overnight fever chills. No additional concerns per nursing staff. Await recommendations from ID service. PICC line placement held until surveillance cultures negative. 09/04 Constitutional Vitals: Vital Signs Temp Pulse Resp BP Pulse Ox 97.2 F 57 L 16 126/68 93 09/03/20 12:37 09/02/20 23:45 09/03/20 12:37 09/03/20 12:37 09/03/20 12:37 Period Temp Pulse Resp BP Sys/Hu Pulse Ox Last 24 Hr 97 F-99.6 F 57-76 16-26 110-150/68-78 92-97 Intake and Output 09/02/20 09/03/20 09/03/20 21:59 05:59 13:59 Intake Total 1105 100 480 Output Total 452 3 Balance 653 97 480 Weight 95.663 kg Intake & Output: Intake & Output 09/02/20 09/03/20 09/03/20 21:59 05:59 13:59 Intake Total 1105 100 480 Output Total 452 3 Balance 653 97 480 Weight 95.663 kg Intake: Nourishment/Supplement quantity 240 (ml) IV 200 Sodium Chloride 0.9% 250 ml @ 200 20 mls/hr IV .[id number] [facility] Rx#: [id number] Oral 340 100 480 Blood Product 325 Output: Void Amount 450 # of times incontinent of urine 2 3 Other: Meal Dinner Breakfast Percent of Meal Consumed 50% Feeding Ability Assist with Tray Set Up Nourishment/Supplement name Ensure Enlive Urine Color Light Cara # Voids 1 # Bowel Movements 0 Exam: General: Alert, Awake, No acute Distress Eyes/N/T: EOMI, Head/Neck: neck supple, CV: RRR, No murmurs, Pulm: Clear b/l, no wheezing/rhonchi/rales Abd: soft, nontender, +BS x4 Ext: no clubbing/cyanosis/edema Neuro: Alert, no focal deficits, moves all extremities, Skin: warm/dry OBJ DATA Labs CBC & Chem 7: 09/03/20 06:00 09/03/20 06:00 Labs: Abnormal Lab Results 09/03/20 09/03/20 09/02/20 06:00 06:00 06:10 RBC Hgb 12.4 L Hct 40.6 L MCV 78.7 L MCH 24.0 L MCHC 30.5 L RDW 17.8 H MPV 10.5 H Reactive Lymphocytes RBC Morphology Abnormal A Hypochromasia 1+ A Poikilocytosis 1+ A Anisocytosis 2+ A Microcytosis Ovalocytes 1+ A RBC Fragments 1+ A Uric Acid 2.3 L Calcium 8.4 L 8.3 L Phosphorus 2.4 L GGT 71 H 76 H AST 85 H 87 H ALT 95 H 93 H Alkaline Phosphatase 151 H 154 H Total Protein 5.8 L Albumin 2.8 L 2.6 L Albumin/Globulin Ratio 0.9 L 0.8 L Urine Appearance Urine Protein Ur Leukocyte Esterase Urine RBC Urine WBC Urine Mucus 09/02/20 09/01/20 09/01/20 06:10 12:46 06:08 RBC 4.40 L Hgb 10.4 L Hct 34.8 L MCV 79.1 L MCH 23.6 L MCHC 29.9 L RDW 18.5 H MPV 10.7 H Reactive Lymphocytes 7 H RBC Morphology Abnormal A Hypochromasia Poikilocytosis Anisocytosis 1+ A Microcytosis 1+ A Ovalocytes RBC Fragments Uric Acid 2.0 L Calcium 8.1 L Phosphorus GGT 82 H AST 90 H ALT 99 H Alkaline Phosphatase 150 H Total Protein 5.7 L Albumin 2.6 L Albumin/Globulin Ratio 0.8 L Urine Appearance Hazy A Urine Protein 30 A Ur Leukocyte Esterase 500 A Urine RBC 59 H Urine WBC > 182 H Urine Mucus Few A 09/01/20 06:08 RBC 4.26 L Hgb 10.0 L Hct 33.9 L MCV 79.6 L MCH 23.5 L MCHC 29.5 L RDW 18.6 H MPV 10.5 H Reactive Lymphocytes RBC Morphology Abnormal A Hypochromasia Poikilocytosis Anisocytosis 2+ A Microcytosis Few A Ovalocytes Few A RBC Fragments Few A Uric Acid Calcium Phosphorus GGT AST ALT Alkaline Phosphatase Total Protein Albumin Albumin/Globulin Ratio Urine Appearance Urine Protein Ur Leukocyte Esterase Urine RBC Urine WBC Urine Mucus Meds: Medications Acetaminophen (Tylenol) 650 mg PO Q4-6HP PRN; Protocol PRN Reason: Per Pain Protocol/Fever > 101 Alprazolam (Xanax) 1 mg PO DAILYP PRN PRN Reason: Anxiety Last Admin: 09/02/20 21:13 Dose: 1 mg Documented by: Apixaban (Eliquis) 5 mg PO BID [facility] Last Admin: 09/03/20 08:41 Dose: 5 mg Documented by: Atorvastatin Calcium (Lipitor) 80 mg PO DAILY [facility] Last Admin: 09/03/20 08:40 Dose: 80 mg Documented by: Bisacodyl (Dulcolax) [address] Q2-3DAYS PRN PRN Reason: Constipation Docusate Sodium (Colace) 100 mg PO BID [facility] Last Admin: 09/03/20 08:43 Dose: 100 mg Documented by: Acetaminophen (Ofirmev) 650 mg in 65 mls @ 130 mls/hr IV Q6HP PRN; Protocol PRN Reason: Per Pain Protocol/Fever > 101 Magnesium Sulfate (Magnesium Sulfate) 2 gm in 50 mls @ 50 mls/hr IV UD PRN PRN Reason: MG = or < 1.7 Vancomycin HCl 1,500 mg/ (Sodium Chloride) 500 mls @ 333.3 mls/hr IV DAILY [facility] Last Admin: 09/03/20 08:40 Dose: 333.3 mls/hr Documented by: Iron Carb/Multivit/[employer]/Folic Acid (Multivitamin W/Minerals) 1 tab PO DAILY [facility] Last Admin: 09/03/20 08:42 Dose: 1 tab Documented by: Levothyroxine Sodium (Synthroid) 50 mcg PO ACB [facility] Last Admin: 09/03/20 07:14 Dose: 50 mcg Documented by: Mirtazapine (Remeron) 0 mg PO QHS [facility] Last Admin: 09/02/20 21:12 Dose: 15 mg Documented by: Mupirocin (Bactroban Oint 2%) 1 dose NARES BID [facility] Last Admin: 09/03/20 08:38 Dose: 1 dose Documented by: Nicotine (Nicoderm) 21 mg TOPICAL DAILY@1000 [facility] Last Admin: 09/03/20 10:34 Dose: 21 mg Documented by: Omeprazole (Prilosec) 20 mg PO ACB [facility] Last Admin: 09/03/20 07:14 Dose: 20 mg Documented by: Ondansetron HCl (Zofran Odt) 4 mg SL Q4-6HP PRN; Protocol PRN Reason: Nausea And Vomiting Ondansetron HCl (Zofran) 4 mg IV Q4-6HP PRN; Protocol PRN Reason: Nausea And Vomiting Polyethylene Glycol (Miralax) 17 gm PO DAILYP PRN PRN Reason: Constipation Potassium Chloride (Klor-Con) 40 meq PO DAILYP PRN PRN Reason: K+ < 3.5 Potassium/Phosphorus/Sodium (Neutra Phos) 2 packet PO DAILY PRN PRN Reason: PHOS <2.5 Senna/Docusate Sodium (Senna Plus Tablet) 1 tab PO HS [facility] Last Admin: 09/02/20 21:12 Dose: 1 tab Documented by: Sodium Chloride (Saline Flush) 10 ml IV Q8 [facility] Last Admin: 09/03/20 07:15 Dose: 10 ml Documented by: Tamsulosin HCl (Flomax) 0.4 mg PO QHS [facility] Last Admin: 09/02/20 21:12 Dose: 0.4 mg Documented by: Trimethoprim/Sulfamethoxazole (Bactrim Ds) 1 tab PO BID [facility]; Protocol Last Admin: 09/03/20 08:42 Dose: 1 tab Documented by: Vancomycin HCl (Vancomycin Per Pharmacy) 1 order IV UD [facility]; Protocol A/P Narrative A/P Narrative: A: *Severe sepsis w/multiple organ dysfunction: -clinical improvement noted with improving endorgan dysfunction *Complicated Staph Aureus UTI: *Staph aureus bacteremia: *HANK: 2/2 sepsis -improved *Transaminitis: 2/2 sepsis -improving *Acute hypoxic respiratory failure-clinically resolved. Now on room air. COVID 19 test negative *Low phosphorus normalized with replacement *COPD: *Nephrolithiasis without obstruction *h/o CVA: on aspirin/statin *h/o arterial thrombosis: on anticoagulation *h/o dilated CMP: *Anxiety disorder: continue BuSpar/alprazolam *Hypothyroidism: continue levothyroxine *GERD: continue PPI Plan: -continue IV vancomycin, 2wks from neg cx then likely bactrim per ID, -f/u outpt with Dr. Gill -f/u surveillance cultures -echo pending - -f/u with for nephrolithiasis -PT OT nutrition support -ppx: Full code Time Spent With Patient Time: Total time spent is greater than 50% in coordination of care (as documented) at patient's floor/unit and/or counseling patient: QUALITY VTE Deep Vein Thrombosis/Pulmonary Embolism Present on Admission: No
--- NOTE | 2020-09-03 16:54 | Infectious Disease Consult ---
HPI Data of Consult Consult date: 09/03/20 Requesting physician: Ralph Flores Primary Care Provider: PHILIPPE Lynn Consult Narrative Patient Information: Note initiated : 09/03/20 at 4:23 pm Service Date, if different from initiated Date: [] Patient: Pérez Grossman a 69 y/o M admitted on 08/29/20 for fever. Jose is a 69-year-old man who was admitted in the hospital on August 29. He had a UA completed August 29 that revealed 500 leukocyte esterase 13 red cells and greater than 182 white cells. He has a history of nephrolithiasis. He also has a previous history of urinary tract infections with MRSA dated November 2019 and December 2019. Both urine and blood cultures were positive for MRSA in November 2019. His most recent MRSA UTI occurred during a hospitalization March 21 through March 23. He received IV vancomycin during that time and was discharged on 1 week of Bactrim. He had a CT scan of his abdomen pelvis on August 29 that showed left atrophic kidney and presence of multiple bilateral stones. None of them were obstructing. Dr. Flores requested consultation to assist in antibiotic recommendations for Jose. He is currently day 6 IV vancomycin. Urine culture on August 31 were positive for 2 types of staph aureus. Sensitivities pending. His MRSA screen was positive on August 30. Blood cultures on September 02 were also positive for staph aureus. Sensitivities pending. Surveillance blood cultures today are pending. An echocardiogram has not been completed. Patient denies back pain abdominal pain or urinary symptoms. He does not have a urinary catheter. He has no known drug allergies. His admit creatinine was 1.5 down to 1.0 today. Chief complaint: I want to go home Reason for consult: UTI/staph bacteremia cc:: CC: Garett Ag Review of Systems Review of systems: General: No complaints of fevers chills. HEENT: No headache or sore throat. He does complain of dry mouth. No neck complaints. Pulmonary: No cough or shortness of breath. Cardiac: No chest pain. GI: No complaints of abdominal pain or diarrhea. : No dysuria. Musculoskeletal: No complaints of back pain or joint pain. No complaints of rash. PFSH PFSH All Active Problems (Updated 08/29/20 @ 20:37 by Cayetano D [place], PA-C) Nonspecific elevation of levels of transaminase and lactic acid dehydrogenase (LDH) (Acute) Acute respiratory failure with hypoxia (Acute) Complicated UTI (urinary tract infection) (Acute) Contusion of head (Acute) Cervical sprain (Acute) Sepsis (Acute) Acute UTI (Acute) Elevated hemidiaphragm (Chronic) Hypersomnia (Chronic) Acute exacerbation of chronic obstructive airways disease (Chronic) Congestive heart failure (Chronic) CKD (chronic kidney disease), stage III (Chronic) Left renal atrophy (Chronic) Staghorn calculus (Chronic) Hypothyroidism (Chronic) Elevated serum creatinine (Chronic) COPD exacerbation (Chronic) Encounter for Postoperative Care (Chronic) Fever (Chronic) Nephrolithiasis (Chronic) S/P ureteral stent placement (Chronic) MRSA (methicillin resistant staph aureus) culture positive (Chronic) Chronic anticoagulation (Chronic) Anemia (Chronic) Sepsis (Chronic) UTI (urinary tract infection) (Chronic) Pruritic rash (Chronic) Chronic diarrhea (Chronic) Prediabetes (Chronic) Memory impairment (Chronic) Chronic low back pain (Chronic) Pulmonary arterial hypertension (Chronic) Insomnia (Chronic) Syncope (Chronic) Anxiety (Chronic) History of CVA (cerebrovascular accident) (Chronic) History of malignant neoplasm of prostate (Chronic) PSA elevation (Chronic) History of methamphetamine abuse (Chronic) CVA (cerebral vascular accident) (Chronic) GERD (gastroesophageal reflux disease) (Chronic) Chronic obstructive lung disease (Chronic) 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) Dilated cardiomyopathy (Chronic) Atrial thrombosis (Chronic) Medical History Acute exacerbation of chronic obstructive airways disease (Chronic) Anemia (Chronic) Anxiety (Chronic) Atrial thrombosis (Chronic) Chronic anticoagulation (Chronic) apixaban (Eliquis, since 2016) 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 Some degree of decreased renal perfusion form CHF and low BP. Flomax as tolerated by BP and low dose lisinopril for CHF Congestive heart failure (Chronic) COPD exacerbation (Chronic) CVA (cerebral vascular accident) (Chronic) Dilated cardiomyopathy (Chronic) Elevated hemidiaphragm (Chronic) Left Elevated serum creatinine (Chronic) Mild and in the setting of low dose ACEi and aldactone Tx for a dilated cardiomyopathy and prior obstructive uropathy with left renal staghorn calculi and pyelonephritis Encounter for Postoperative Care (Chronic) Fever (Chronic) GERD (gastroesophageal reflux disease) (Chronic) History of CVA (cerebrovascular accident) (Chronic) History of malignant neoplasm of prostate (Chronic) History of methamphetamine abuse (Chronic) Hypersomnia (Chronic) Hypothyroidism (Chronic) Insomnia (Chronic) Left renal atrophy (Chronic) left staghorn calculi, ECSWL, stenting, low grade obstruction in the past and now left renal atrophy GFR 45-60 cc/min Memory impairment (Chronic) MRSA (methicillin resistant staph aureus) culture positive (Chronic) Nephrolithiasis (Chronic) Prediabetes (Chronic) Pruritic rash (Chronic) PSA elevation (Chronic) Pulmonary arterial hypertension (Chronic) Sepsis (Chronic) Staghorn calculus (Chronic) Left renal pelvis s/p ECSWL MRSA positive urine culture x 2 in summer 2018 then cleared Urine pH not elevated to suggest urea splitting bacteria 1.8 cm calcified stone fragment remains on the left side Syncope (Chronic) UTI (urinary tract infection) (Chronic) Surgical History Hx of hernia repair (Chronic ~1999) L inguinal Hx of lithotripsy (Chronic) Left S/P ureteral stent placement (Chronic) Family History Mother , Age 70 Stomach cancer Brother Tumor of lung Social History (Updated 03/13/20 @ 15:55 by Alexander Terrell MD) education level: high school occupational status: unemployed frequency: 1-2 times per week smoking status: Unknown if ever smoked smoking status start date: 11/02/89 smoking status stop date: 11/02/16 alcohol intake frequency: does not drink substance use type: former substance user seatbelt use: always working smoke detector in home: Yes firearms in home: No MEDS/ALLERGIES Home Medications and Allergies Home Medications Medication Instructions Recorded Confirmed Type lisinopril 2.5 mg tablet 2.5 mg PO QDAY 08/22/16 08/30/20 History ipratropium 20 mcg-albuterol 100 1 puff INHALATION Q4-6HP PRN 04/06/18 08/30/20 History mcg/actuation mist for inhalation mirtazapine 15 mg tablet 1 - 2 tab PO QHS tab 04/06/18 08/30/20 History apixaban 5 mg tablet 5 mg PO BID 08/27/18 08/30/20 History alprazolam 1 mg PO DAILYP PRN tab 11/11/19 08/30/20 Rx nicotine 21 mg TOPICAL DAILY@1000 #30 patch 11/11/19 08/30/20 Rx sennosides 2 tab PO DAILYP PRN #30 tab 11/11/19 08/30/20 Rx aspirin 81 mg PO DAILY 12/22/19 08/30/20 History formoterol fumarate 20 mcg/2 mL 2 ml INHALATION BID #120 ml 01/05/20 08/30/20 Rx solution for nebulization ipratropium 0.5 mg-albuterol 3 mg 3 ml INHALATION Q6H #360 ml 01/05/20 08/30/20 Rx (2.5 mg base)/3 mL nebulization soln omeprazole 20 mg capsule,delayed 20 mg PO QDAY 01/05/20 08/30/20 History release tamsulosin 0.4 mg capsule 0.4 mg PO QHS #90 cap 03/13/20 08/30/20 Rx buspirone 15 mg PO BID 03/21/20 08/30/20 History levothyroxine 50 mcg PO ACB 03/21/20 08/30/20 History atorvastatin 80 mg PO DAILY 08/29/20 08/30/20 History Allergies Allergy/AdvReac Type Severity Reaction Status Date / Time No Known Drug Allergies Allergy Verified 08/29/20 16:49 Physical Examination Vital Signs Vital signs: Temp Pulse Resp BP Pulse Ox 97.2 F 60 16 126/68 93 09/03/20 12:37 09/03/20 08:35 09/03/20 12:37 09/03/20 12:37 09/03/20 12:37 on August 29 T-max 100.6. September 01 T-max 99.9. T-max today 99.6. Additional Exam Additional exam: General: He is lying comfortably in bed. No acute respiratory distress. HEENT: EOMI PERRL sclera anicteric. Mouth is dry. No lip ulcerations. Neck supple no cervical adenopathy. Lungs: Clear bilaterally without rales wheezing or rhonchi. Heart: Regular rate and rhythm without murmur. Abdomen: Soft nontender no organomegaly. Extremities: No lower extremity edema. Skin without rash. Results Laboratory Findings CBC and BMP: 09/03/20 06:00 09/03/20 06:00 Abnormal lab findings: Abnormal Labs 08/29/20 08/29/20 08/29/20 17:18 17:18 17:18 RBC Hgb 13.1 L Hct MCV 78.0 L MCH 23.6 L MCHC 30.3 L RDW 18.6 H MPV Neut % (Auto) 84.1 H Lymph % (Auto) 8.8 L Lymph # (Auto) 0.69 L Band Neutrophils % Reactive Lymphocytes RBC Morphology Polychromasia Hypochromasia Poikilocytosis Anisocytosis Microcytosis Ovalocytes RBC Fragments VBG Lactic Acid 2.6 H Chloride BUN 36 H Creatinine 1.5 H Glucose 131 H Uric Acid Calcium Phosphorus GGT AST 141 H ALT 130 H Alkaline Phosphatase 161 H Lactate Dehydrogenase Total Protein Albumin Globulin 4.2 H Albumin/Globulin Ratio 0.8 L Procalcitonin Urine Appearance Urine Protein Ur Leukocyte Esterase Urine RBC Urine WBC Urine Mucus 08/29/20 08/29/20 08/30/20 17:18 18:11 05:32 RBC 4.46 L Hgb 10.4 L Hct 35.6 L MCV 79.8 L MCH 23.3 L MCHC 29.2 L RDW 18.5 H MPV 10.6 H Neut % (Auto) Lymph % (Auto) Lymph # (Auto) Band Neutrophils % 18 H Reactive Lymphocytes RBC Morphology Abnormal A Polychromasia 1+ A Hypochromasia Poikilocytosis Anisocytosis 2+ A Microcytosis Ovalocytes RBC Fragments Rare A VBG Lactic Acid Chloride BUN Creatinine Glucose Uric Acid Calcium Phosphorus GGT AST ALT Alkaline Phosphatase Lactate Dehydrogenase Total Protein Albumin Globulin Albumin/Globulin Ratio Procalcitonin 38.47 H Urine Appearance Hazy A Urine Protein 100 A Ur Leukocyte Esterase 500 A Urine RBC 13 H Urine WBC > 182 H Urine Mucus 08/30/20 08/31/20 08/31/20 05:32 05:13 05:13 RBC 4.49 L Hgb 10.6 L Hct 36.6 L MCV MCH 23.6 L MCHC 29.0 L RDW 18.3 H MPV 10.7 H Neut % (Auto) Lymph % (Auto) Lymph # (Auto) Band Neutrophils % Reactive Lymphocytes RBC Morphology Abnormal A Polychromasia Hypochromasia Poikilocytosis Anisocytosis 1+ A Microcytosis Ovalocytes RBC Fragments VBG Lactic Acid Chloride 109 H BUN Creatinine Glucose 132 H Uric Acid 2.3 L Calcium 7.5 L 8.4 L Phosphorus 1.6 L 2.0 L GGT 76 H AST 106 H 113 H ALT 99 H 111 H Alkaline Phosphatase 119 H 156 H Lactate Dehydrogenase 258 H 295 H Total Protein 5.5 L Albumin 2.6 L 2.6 L Globulin Albumin/Globulin Ratio 0.9 L 0.8 L Procalcitonin Urine Appearance Urine Protein Ur Leukocyte Esterase Urine RBC Urine WBC Urine Mucus 09/01/20 09/01/20 09/01/20 06:08 06:08 12:46 RBC 4.26 L Hgb 10.0 L Hct 33.9 L MCV 79.6 L MCH 23.5 L MCHC 29.5 L RDW 18.6 H MPV 10.5 H Neut % (Auto) Lymph % (Auto) Lymph # (Auto) Band Neutrophils % Reactive Lymphocytes RBC Morphology Abnormal A Polychromasia Hypochromasia Poikilocytosis Anisocytosis 2+ A Microcytosis Few A Ovalocytes Few A RBC Fragments Few A VBG Lactic Acid Chloride BUN Creatinine Glucose Uric Acid 2.0 L Calcium 8.1 L Phosphorus GGT 82 H AST 90 H ALT 99 H Alkaline Phosphatase 150 H Lactate Dehydrogenase Total Protein 5.7 L Albumin 2.6 L Globulin Albumin/Globulin Ratio 0.8 L Procalcitonin Urine Appearance Hazy A Urine Protein 30 A Ur Leukocyte Esterase 500 A Urine RBC 59 H Urine WBC > 182 H Urine Mucus Few A 09/02/20 09/02/20 09/03/20 06:10 06:10 06:00 RBC 4.40 L Hgb 10.4 L 12.4 L Hct 34.8 L 40.6 L MCV 79.1 L 78.7 L MCH 23.6 L 24.0 L MCHC 29.9 L 30.5 L RDW 18.5 H 17.8 H MPV 10.7 H 10.5 H Neut % (Auto) Lymph % (Auto) Lymph # (Auto) Band Neutrophils % Reactive Lymphocytes 7 H RBC Morphology Abnormal A Abnormal A Polychromasia Hypochromasia 1+ A Poikilocytosis 1+ A Anisocytosis 1+ A 2+ A Microcytosis 1+ A Ovalocytes 1+ A RBC Fragments 1+ A VBG Lactic Acid Chloride BUN Creatinine Glucose Uric Acid 2.3 L Calcium 8.3 L Phosphorus 2.4 L GGT 76 H AST 87 H ALT 93 H Alkaline Phosphatase 154 H Lactate Dehydrogenase Total Protein 5.8 L Albumin 2.6 L Globulin Albumin/Globulin Ratio 0.8 L Procalcitonin Urine Appearance Urine Protein Ur Leukocyte Esterase Urine RBC Urine WBC Urine Mucus 09/03/20 06:00 RBC Hgb Hct MCV MCH MCHC RDW MPV Neut % (Auto) Lymph % (Auto) Lymph # (Auto) Band Neutrophils % Reactive Lymphocytes RBC Morphology Polychromasia Hypochromasia Poikilocytosis Anisocytosis Microcytosis Ovalocytes RBC Fragments VBG Lactic Acid Chloride BUN Creatinine Glucose Uric Acid Calcium 8.4 L Phosphorus GGT 71 H AST 85 H ALT 95 H Alkaline Phosphatase 151 H Lactate Dehydrogenase Total Protein Albumin 2.8 L Globulin Albumin/Globulin Ratio 0.9 L Procalcitonin Urine Appearance Urine Protein Ur Leukocyte Esterase Urine RBC Urine WBC Urine Mucus Microbiology: Microbiology 08/29/20 18:04 Blood Blood Culture - Preliminary 08/29/20 18:22 Blood Blood Culture - Preliminary Staphylococcus aureus 08/29/20 18:11 Urine - Catheterized Urine Culture - Preliminary Staphylococcus aureus Staphylococcus aureus#2 08/29/20 23:33 Nose MRSA (PCR) - Final 08/29/20 22:14 Nasopharynx Coronavirus COVID-19 PCR - Final A/P Assessment and plan (1) Complicated UTI (urinary tract infection): Status: Acute (2) Nephrolithiasis: Status: Chronic (3) MRSA (methicillin resistant staph aureus) culture positive: Status: Chronic Narrative A/P Narrative: Jose is a 69-year-old man who was admitted in the hospital in August 29. He has positive blood cultures for staph aureus. Sensitivities are pending. He does have a previous history of MRSA bacteremia. Source likely urinary tract. He has underlying nephrolithiasis that is nonobstructing. CT scan showed atrophic left kidney and multiple bilateral nephrolithiasis. I suspect that staph aureus in blood culture is going to be MRSA. He should have a echocardiogram transthoracic completed before discharge. I have reviewed with Dr. [place]. Surveillance blood cultures will be completed. Once blood cultures are negative, a PICC line may be placed. I am expecting 2 weeks of IV vancomycin. Patient will likely return to [facility] facility. I would recommend weekly labs to include CBC CMP and Vanco trough with copies to my office. I can arrange a follow-up televideo visit in 2 weeks while he is at [facility].. I am expecting that he will need another 2 weeks of oral Bactrim DS 1 tablet twice daily following vancomycin course. 2 weeks of IV vancomycin will be sufficient as long as transthoracic echocardiogram is negative. I am treating him with 4 weeks of treatment to help sterilize the possibility of an infected kidney stone. I would begin counting days of vancomycin once blood cultures are negative. He is currently hospital day 6 but blood culture positivity occurred on September 02. Levaquin may be discontinued. His current dose of Vanco is 1.5 g daily followed by pharmacy. I will need to have follow- up with regards to sensitivities. Thank you very much for let me be involved in Jose's consultative care. Time Spent With Patient Time: Total time spent is greater than 50% in coordination of care (as documented) at patient's floor/unit and/or counseling patient: Total time spent with greater than 50% in coordination of care (as documented) at patient's floor/unit and/or counseling patient:: Greater than 35 minutes (Time spent 60 minutes.)
[2020-09-03] MEDS: MIRTAZAPINE 15 MG TABLET PO SCH (21:54)
[2020-09-03] MEDS: SENNOSIDES/DOCUSATE SODIUM 1 TAB TABLET PO SCH (21:55)
[2020-09-03] MEDS: TAMSULOSIN 0.4 MG CAPSULE PO SCH (21:55)
[2020-09-04] MEDS: 0.9 % SODIUM CHLORIDE 10 ML SYRINGE IV SCH ×3 (06:31→21:09)
[2020-09-04] MEDS: LEVOTHYROXINE 50 MCG TABLET PO SCH (06:46)
[2020-09-04] MEDS: OMEPRAZOLE 20 MG CAPSULE PO SCH (06:46)
--- NOTE | 2020-09-04 07:02 | Internal Med Progress Note ---
SUBJECTIVE Subjective Patient information: Note initiated : 09/04/20 at 6:59 am Service Date, if different from initiated Date: [] Patient: Pérez Grossman a 69 y/o M admitted on 08/29/20 for fever. Chief Complaint: [] Interval history: History of present illness: Mr. Grossman is a 69 year old M with history anxiety/CVA/BPH/COPD who presents to the ER with worsening shortness of breath along with nausea and vomiting that started early this morning, along with fever and shaking chills. He presented to the ER tachypneic with blood pressure in 90s and in significant respiratory distress. Per patient's son he has also been noticing dysphagia to solids over the last 2 weeks. Workup in the ER was consistent with MilD HANK, Pyuria, Elevated LFT's, COVID 19 PCR was sent, Procal 38.5. Cultures drawn. CT abdomen reveals nonobstructive renal calculi. Elevated lactic acid at 2.6 with systolics around 90. Patient was started on crystalloids and antibiotic coverage Hospital service was consulted At the time of my evaluation patient is on 3 L oxygen. He is able to answer most the questions. Patient lives with his son. He appears labored. Was able to endorse history as above. He endorses that he felt fine until last evening. Denies close sick contacts. Denies changes in medications. Denies hematuria, dysuria, diarrhea headache, myalgias or photophobia 08/30-patient clinically improved. Lactic acid downtrending. Overnight T-max 100.6 map at goal, ABG 7.4 , white count 5.618% bands, lactic acid down from 2.6-1.4, creatinine down from 1.5-1.2, phosphorus 1.6, LFTs downtrending. Significant pyuria, cultures pending. Covid negative, MRSA positive 08/31 -patient doing well. No overnight events. Denies abdominal pain, fever chills. Speech therapy evaluation completed. No evidence of dysphagia. On nutrition support per dietitian. Continue antibiotic coverage. Cultures negative so far. Anticipate discharge in 24 hours pending culture sensitivity results. 09/01-patient doing a lot better. Staph aureus on urine cultures. Antibiotics switched to Bactrim/vancomycin. No overnight fever chills. White count stable at 5.8, hemoglobin 10 bandemia resolved, creatinine down to 1.1, LFTs downtrending. Anticipate discharge in 24 to 48 hours pending clinical improvement 09/02-patient clinically improving. No overnight fever chills. Repeat UA persistent pyuria. Blood cultures positive for staph aureus. Continue IV antibiotics. ID consult. Repeat surveillance blood cultures. Has been a recurrent issue with repeated bacteremia due to nephrolithiasis. He has followed up with urology back in November with Dr. Hough and did not want to pursue ureteroscopy and stone removal however continues to experience bacteremia/MRSA UTI requiring hospitalizations. 09/03-patient doing well currently on vancomycin. ID consulted. Surveillance cultures pending. No overnight fever chills. No additional concerns per nursing staff. Await recommendations from ID service. PICC line placement held until surveillance cultures negative. 09/04 States he slept well. No overnight event or new complaints. Pending follow-up blood cultures. Review of Systems: denies headache/fever/chills/nausea/vomiting/chest or abdominal pain/cough/dyspnea/diarrhea. Otherwise see above. Constitutional Vitals: Vital Signs Temp Pulse Resp BP Pulse Ox 98.5 F 61 18 131/75 92 09/04/20 04:36 09/04/20 04:36 09/04/20 04:36 09/04/20 04:36 09/04/20 04:36 Period Temp Pulse Resp BP Sys/Hu Pulse Ox Last 24 Hr 97.2 F-98.5 F 60-64 16-24 116-150/68-75 92-97 Intake and Output 09/03/20 09/04/20 09/04/20 21:59 05:59 13:59 Intake Total 240 150 Output Total 276 200 Balance -36 -50 Weight 93.304 kg Intake & Output: Intake & Output 09/03/20 09/04/20 09/04/20 21:59 05:59 13:59 Intake Total 240 150 Output Total 276 200 Balance -36 -50 Weight 93.304 kg Intake: Oral 240 150 Output: Void Amount 275 200 # of times incontinent of urine 1 Other: Urine Appearance Clear Clear Urine Color Dark Yellow Bright Yellow Exam: General: Alert, Awake, No acute Distress Eyes/N/T: EOMI, Head/Neck: neck supple, CV: RRR, No murmurs, Pulm: Clear b/l, no wheezing/rhonchi/rales Abd: soft, nontender, +BS x4 Ext: no clubbing/cyanosis/edema Neuro: Alert, no focal deficits, moves all extremities, Skin: warm/dry OBJ DATA Labs CBC & Chem 7: 09/03/20 06:00 09/03/20 06:00 Labs: Abnormal Lab Results 09/03/20 09/03/20 09/02/20 06:00 06:00 06:10 RBC Hgb 12.4 L Hct 40.6 L MCV 78.7 L MCH 24.0 L MCHC 30.5 L RDW 17.8 H MPV 10.5 H Reactive Lymphocytes RBC Morphology Abnormal A Hypochromasia 1+ A Poikilocytosis 1+ A Anisocytosis 2+ A Microcytosis Ovalocytes 1+ A RBC Fragments 1+ A Uric Acid 2.3 L Calcium 8.4 L 8.3 L Phosphorus 2.4 L GGT 71 H 76 H AST 85 H 87 H ALT 95 H 93 H Alkaline Phosphatase 151 H 154 H Total Protein 5.8 L Albumin 2.8 L 2.6 L Albumin/Globulin Ratio 0.9 L 0.8 L Urine Appearance Urine Protein Ur Leukocyte Esterase Urine RBC Urine WBC Urine Mucus 09/02/20 09/01/20 09/01/20 06:10 12:46 06:08 RBC 4.40 L Hgb 10.4 L Hct 34.8 L MCV 79.1 L MCH 23.6 L MCHC 29.9 L RDW 18.5 H MPV 10.7 H Reactive Lymphocytes 7 H RBC Morphology Abnormal A Hypochromasia Poikilocytosis Anisocytosis 1+ A Microcytosis 1+ A Ovalocytes RBC Fragments Uric Acid 2.0 L Calcium 8.1 L Phosphorus GGT 82 H AST 90 H ALT 99 H Alkaline Phosphatase 150 H Total Protein 5.7 L Albumin 2.6 L Albumin/Globulin Ratio 0.8 L Urine Appearance Hazy A Urine Protein 30 A Ur Leukocyte Esterase 500 A Urine RBC 59 H Urine WBC > 182 H Urine Mucus Few A 09/01/20 06:08 RBC 4.26 L Hgb 10.0 L Hct 33.9 L MCV 79.6 L MCH 23.5 L MCHC 29.5 L RDW 18.6 H MPV 10.5 H Reactive Lymphocytes RBC Morphology Abnormal A Hypochromasia Poikilocytosis Anisocytosis 2+ A Microcytosis Few A Ovalocytes Few A RBC Fragments Few A Uric Acid Calcium Phosphorus GGT AST ALT Alkaline Phosphatase Total Protein Albumin Albumin/Globulin Ratio Urine Appearance Urine Protein Ur Leukocyte Esterase Urine RBC Urine WBC Urine Mucus Meds: Medications Acetaminophen (Tylenol) 650 mg PO Q4-6HP PRN; Protocol PRN Reason: Per Pain Protocol/Fever > 101 Alprazolam (Xanax) 1 mg PO DAILYP PRN PRN Reason: Anxiety Last Admin: 09/02/20 21:13 Dose: 1 mg Documented by: Apixaban (Eliquis) 5 mg PO BID [facility] Last Admin: 09/03/20 21:54 Dose: 5 mg Documented by: Atorvastatin Calcium (Lipitor) 80 mg PO DAILY [facility] Last Admin: 09/03/20 08:40 Dose: 80 mg Documented by: Bisacodyl (Dulcolax) 10 mg ME Q2-3DAYS PRN PRN Reason: Constipation Docusate Sodium (Colace) 100 mg PO BID [facility] Last Admin: 09/03/20 21:55 Dose: 100 mg Documented by: Acetaminophen (Ofirmev) 650 mg in 65 mls @ 130 mls/hr IV Q6HP PRN; Protocol PRN Reason: Per Pain Protocol/Fever > 101 Magnesium Sulfate (Magnesium Sulfate) 2 gm in 50 mls @ 50 mls/hr IV UD PRN PRN Reason: MG = or < 1.7 Vancomycin HCl 1,500 mg/ (Sodium Chloride) 500 mls @ 333.3 mls/hr IV DAILY [facility] Last Infusion: 09/03/20 10:25 Dose: Infused Documented by: Iron Carb/Multivit/Wax Pumper/Folic Acid (Multivitamin W/Minerals) 1 tab PO DAILY [facility] Last Admin: 09/03/20 08:42 Dose: 1 tab Documented by: Levothyroxine Sodium (Synthroid) 50 mcg PO ACB [facility] Last Admin: 09/04/20 06:46 Dose: 50 mcg Documented by: Mirtazapine (Remeron) 0 mg PO QHS [facility] Last Admin: 09/03/20 21:54 Dose: 15 mg Documented by: Mupirocin (Bactroban Oint 2%) 1 dose NARES BID [facility] Last Admin: 09/03/20 21:54 Dose: 1 dose Documented by: Nicotine (Nicoderm) 21 mg TOPICAL DAILY@1000 [facility] Last Admin: 09/03/20 10:34 Dose: 21 mg Documented by: Omeprazole (Prilosec) 20 mg PO ACB [facility] Last Admin: 09/04/20 06:46 Dose: 20 mg Documented by: Ondansetron HCl (Zofran Odt) 4 mg SL Q4-6HP PRN; Protocol PRN Reason: Nausea And Vomiting Ondansetron HCl (Zofran) 4 mg IV Q4-6HP PRN; Protocol PRN Reason: Nausea And Vomiting Polyethylene Glycol (Miralax) 17 gm PO DAILYP PRN PRN Reason: Constipation Potassium Chloride (Klor-Con) 40 meq PO DAILYP PRN PRN Reason: K+ < 3.5 Potassium/Phosphorus/Sodium (Neutra Phos) 2 packet PO DAILY PRN PRN Reason: PHOS <2.5 Senna/Docusate Sodium (Senna Plus Tablet) 1 tab PO HS [facility] Last Admin: 09/03/20 21:55 Dose: 1 tab Documented by: Sodium Chloride (Saline Flush) 10 ml IV Q8 [facility] Last Admin: 09/04/20 06:31 Dose: 10 ml Documented by: Tamsulosin HCl (Flomax) 0.4 mg PO QHS [facility] Last Admin: 09/03/20 21:55 Dose: 0.4 mg Documented by: Vancomycin HCl (Vancomycin Per Pharmacy) 1 order IV UD [facility]; Protocol A/P Narrative A/P Narrative: A: *Severe sepsis w/multiple organ dysfunction: -clinical improvement *Complicated Staph Aureus UTI: *Staph aureus bacteremia: *HANK: 2/2 sepsis -improved *Transaminitis: 2/2 sepsis -improving *Acute hypoxic respiratory failure: clinically resolved. Now on room air. 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 Gill -f/u surveillance cultures -echo pending - -f/u with for nephrolithiasis -PT OT nutrition support -ppx: Full code Time Spent With Patient Time: Total time spent is greater than 50% in coordination of care (as documented) at patient's floor/unit and/or counseling patient: [facility] VTE Deep Vein Thrombosis/Pulmonary Embolism Present on Admission: No
[2020-09-04] MEDS: DOCUSATE SODIUM 100 MG CAPSULE PO SCH ×2 (09:10→21:09)
[2020-09-04] MEDS: ATORVASTATIN 40 MG TABLET PO SCH (09:10)
[2020-09-04] MEDS: APIXABAN 5 MG TABLET PO SCH ×2 (09:10→21:09)
[2020-09-04] MEDS: MUPIROCIN OINT 2% 22GM NARES SCH ×2 (09:10→21:09)
[2020-09-04] MEDS: MULTIVIT,THER IRON,CA,FA & MIN 1 TABLET PO SCH (09:10)
--- NOTE | 2020-09-04 10:10 | Discharge Summary ---
Discharge Provider Provider Patient information: Note initiated : 09/04/20 at 10:08 am Service Date, if different from initiated Date: [] Patient: Pérez Grossman 69 y/o M admitted on 08/29/20 for fever. Chief Complaint: [] Date of admission: 08/29/20 22:14 Discharge date: 09/06/20 Primary care physician: PHILIPPE Lynn Consults: 08/29/20 Consult to Physician [CONS] Stat Comment: Consulting Provider: Garett Ag Reason For Exam: Physician to Consult 09/03/20 08:37 Consult to Physician [CONS] Routine Comment: Consulting Provider: Jorge Henderson Reason For Exam: Physician to Consult Discharge Meds Discharge Medications Home Medications lisinopril 2.5 mg tablet 2.5 mg PO QDAY 08/22/16 [History Confirmed 08/30/20 Last Taken 12/21/19] ipratropium 20 mcg-albuterol 100 mcg/actuation mist for inhalation 1 puff INHALATION Q4-6HP PRN 04/06/18 [History Confirmed 08/30/20 Last Taken 12/21/19] mirtazapine 15 mg tablet 1 - 2 tab PO QHS tab 04/06/18 [History Confirmed 08/30/20 Last Taken 12/21/19] apixaban 5 mg tablet 5 mg PO BID 08/27/18 [History Confirmed 08/30/20 Last Taken 12/21/19] alprazolam 1 mg PO DAILYP PRN tab 11/11/19 [Rx Confirmed 08/30/20 Last Taken 12/21/19] nicotine 21 mg TOPICAL DAILY@1000 #30 patch 11/11/19 [Rx Confirmed 08/30/20 Last Taken 03/20/20 08:00] sennosides 2 tab PO DAILYP PRN #30 tab 11/11/19 [Rx Confirmed 08/30/20 Last Taken 12/21/19] aspirin 81 mg PO DAILY 12/22/19 [History Confirmed 08/30/20 Last Taken 12/21/19] formoterol fumarate 20 mcg/2 mL solution for nebulization 2 ml INHALATION BID #120 ml 01/05/20 [Rx Confirmed 08/30/20 Last Taken Unknown] ipratropium 0.5 mg-albuterol 3 mg (2.5 mg base)/3 mL nebulization soln 3 ml INHALATION Q6H #360 ml 01/05/20 [Rx Confirmed 08/30/20 Last Taken Unknown] omeprazole 20 mg capsule,delayed release 20 mg PO QDAY 01/05/20 [History Confirmed 08/30/20 Last Taken Unknown] tamsulosin 0.4 mg capsule 0.4 mg PO QHS #90 cap 03/13/20 [Rx Confirmed 08/30/20 Last Taken Unknown] buspirone 15 mg PO BID 03/21/20 [History Confirmed 08/30/20 Last Taken Unknown] levothyroxine 50 mcg PO ACB 03/21/20 [History Confirmed 08/30/20 Last Taken Unknown] atorvastatin 80 mg PO DAILY 08/29/20 [History Confirmed 08/30/20 Last Taken Unk nown] vancomycin 1.5 g IV Q24H #10 each 09/04/20 [Rx Last Taken Unknown] COURSE Hospital Course Hospital course: History of present illness: Mr. Grossman is a 69 year old M with history anxiety/CVA/BPH/COPD who presents to the ER with worsening shortness of breath along with nausea and vomiting that started early this morning, along with fever and shaking chills. He presented to the ER tachypneic with blood pressure in 90s and in significant respiratory distress. Per patient's son he has also been noticing dysphagia to solids over the last 2 weeks. Workup in the ER was consistent with MilD HANK, Pyuria, Elevated LFT's, COVID 19 PCR was sent, Procal 38.5. Cultures drawn. CT abdomen reveals nonobstructive renal calculi. Elevated lactic acid at 2.6 with systolics around 90. Patient was started on crystalloids and antibiotic coverage Hospital service was consulted At the time of my evaluation patient is on 3 L oxygen. He is able to answer most the questions. Patient lives with his son. He appears labored. Was able to endorse history as above. He endorses that he felt fine until last evening. Denies close sick contacts. Denies changes in medications. Denies hematuria, dysuria, diarrhea headache, myalgias or photophobia 08/30-patient clinically improved. Lactic acid downtrending. Overnight T-max 100.6 map at goal, ABG 7.4 , white count 5.618% bands, lactic acid down from 2.6-1.4, creatinine down from 1.5-1.2, phosphorus 1.6, LFTs downtrending. Significant pyuria, cultures pending. Covid negative, MRSA positive 08/31 -patient doing well. No overnight events. Denies abdominal pain, fever chills. Speech therapy evaluation completed. No evidence of dysphagia. On nutrition support per dietitian. Continue antibiotic coverage. Cultures negative so far. Anticipate discharge in 24 hours pending culture sensitivity results. 09/01-patient doing a lot better. Staph aureus on urine cultures. Antibiotics switched to Bactrim/vancomycin. No overnight fever chills. White count stable at 5.8, hemoglobin 10 bandemia resolved, creatinine down to 1.1, LFTs downtr ending. Anticipate discharge in 24 to 48 hours pending clinical improvement 09/02-patient clinically improving. No overnight fever chills. Repeat UA persistent pyuria. Blood cultures positive for staph aureus. Continue IV antibiotics. ID consult. Repeat surveillance blood cultures. Has been a recurrent issue with repeated bacteremia due to nephrolithiasis. He has followed up with urology back in November with Dr. Hough and did not want to pursue ureteroscopy and stone removal however continues to experience bacteremia/MRSA UTI requiring hospitalizations. 09/03-patient doing well currently on vancomycin. ID consulted. Surveillance cultures pending. No overnight fever chills. No additional concerns per nursing staff. Await recommendations from ID service. PICC line placement held until surveillance cultures negative. 09/04 States he slept well. No overnight event or new complaints. Pending follow-up blood cultures. 09/05 No overnight event or new complaints. Awaiting follow-up blood culture final results. Awaiting echo report 09/06 Patient doing well. Blood cultures negative after 48 hours. PICC line placed and discharged. A: *sepsis *Complicated Staph Aureus UTI: *Bacteremia (MRSA): *HANK: 2/2 sepsis -improved *Transaminitis: 2/2 sepsis *Acute hypoxic respiratory failure: clinically resolved. Now on room air. COVID 19 test negative *Low phosphorus normalized with replacement *COPD(): *Nephrolithiasis without obstruction *h/o CVA: on aspirin/statin *h/o arterial thrombosis: on anticoagulation *h/o dilated CMP: *Anxiety disorder: continue BuSpar/alprazolam *Hypothyroidism: continue levothyroxine *GERD: continue PPI *Oropharyngeal Dyshagia: diet per ST, level 5 and thin liquids. Discharge diagnosis: Sepsis staph aureus UTI encephalitis bacteremia acute kidney injury transam Secondary discharge diagnosis: Transaminitis acute hypoxic respite yessi failure resolved COPD nephrolithiasis history of stroke arterial thromboembolism dilated cardiomyopathy anxiety disorder hypothyroidism GERD Time Spent with Patient Time attestation: Total time spent providing and/or coordinating discharge services: Time spent: Greater than 30 minutes EXAM Constitutional Vitals: Temp Pulse Resp BP Pulse Ox 99.2 F H 70 20 120/73 93 09/04/20 07:39 09/04/20 07:39 09/04/20 07:39 09/04/20 07:39 09/04/20 07:39 Discharge Data Data Completed and Pending Labs on day of discharge: Labs from last 24 hours 09/04/20 08:00 Vancomycin Trough 11.5 Preliminary micro results at discharge 09/02/20 08:00 Gram Stain - Preliminary Sputum - Induced Sputum Culture - Preliminary Yeast 08/29/20 18:22 Blood Culture - Preliminary Blood Staphylococcus aureus 08/29/20 18:11 Urine Culture - Preliminary Urine - Catheterized Staphylococcus aureus Staphylococcus aureus#2 Discharge Plan Patient/Caregiver Discharge Instructions Activity: increase activity as tolerated Diet: Regular Diet Activity Restrictions/Additional Instructions: Per Dr. Henderson: Weekly CBC/CMP sent to Dr. Henderson. PICC line care Prescriptions: New vancomycin 1.5 gram recon soln 1.5 g IV Q24H Qty: 10 RF: 0 Continued lisinopril 2.5 mg tablet 2.5 mg PO QDAY RF: 0 ipratropium-albuterol [Combivent Respimat] 20-100 mcg/actuation mist 1 puff INHALATION Q4-6HP PRN (Reason: shortness of breath) RF: 0 mirtazapine 15 mg tablet 1 - 2 tab PO QHS RF: 0 tamsulosin 0.4 mg capsule 0.4 mg PO QHS Qty: 90 RF: 3 omeprazole 20 mg capsule,delayed release(DR/EC) 20 mg PO QDAY RF: 0 ipratropium-albuterol 0.5 mg-3 mg(2.5 mg base)/3 mL solution for nebulization 3 ml INHALATION Q6H Qty: 360 RF: 11 Perforomist 20 mcg/2 mL solution for nebulization 2 ml INHALATION BID Qty: 120 RF: 11 sennosides 1 TAB tablet 2 tab PO DAILYP PRN (Reason: Constipation) Qty: 30 RF: 2 alprazolam 0.5 MG tablet 1 mg PO DAILYP PRN (Reason: Anxiety) RF: 0 nicotine 21 MG patch 21 mg topical DAILY@1000 Qty: 30 RF: 1 aspirin 81 MG tablet,delayed release (DR/EC) 81 mg PO DAILY RF: 0 levothyroxine 50 MCG tablet 50 mcg PO ACB RF: 0 buspirone 15 MG tablet 15 mg PO BID RF: 0 atorvastatin 80 mg tablet 80 mg PO DAILY RF: 0 apixaban 5 mg tablet 5 mg PO BID RF: 0 Follow Up Plan Follow up with: Tee Hinson ARNP [Primary Care Provider] - Jorge Henderson MD [Physician] - Patient Disposition: Home, Self-Care Prognosis: Undetermined Overall status at discharge: patient is progressing back to baseline Discharge Orders: Discharge Order (Routine); Ordered 09/06/20 Ordered By: Ralph Flores [facility] Deep Vein Thrombosis/Pulmonary Embolism Present on Admission: No
[2020-09-04] MEDS: NICOTINE 21 MG PATCH TOPICAL SCH (10:12)
[2020-09-04] MEDS: VANCOMYCIN 1,500 MG in 0.9 % SODIUM CHLORIDE 500 ML IV SCH (10:47)
[2020-09-04] MEDS: TAMSULOSIN 0.4 MG CAPSULE PO SCH (21:09)
[2020-09-04] MEDS: MIRTAZAPINE 15 MG TABLET PO SCH (21:09)
[2020-09-04] MEDS: SENNOSIDES/DOCUSATE SODIUM 1 TAB TABLET PO SCH (21:09)
[2020-09-05] MEDS: 0.9 % SODIUM CHLORIDE 10 ML SYRINGE IV SCH ×3 (06:06→20:35)
--- NOTE | 2020-09-05 07:07 | Internal Med Progress Note ---
SUBJECTIVE Subjective Patient information: Note initiated : 09/05/20 at 7:06 am Service Date, if different from initiated Date: [] Patient: Pérez Grossman a 69 y/o M admitted on 08/29/20 for fever. Chief Complaint: [] Interval history: History of present illness: Mr. Grossman is a 69 year old M with history anxiety/CVA/BPH/COPD who presents to the ER with worsening shortness of breath along with nausea and vomiting that started early this morning, along with fever and shaking chills. He presented to the ER tachypneic with blood pressure in 90s and in significant respiratory distress. Per patient's son he has also been noticing dysphagia to solids over the last 2 weeks. Workup in the ER was consistent with MilD HANK, Pyuria, Elevated LFT's, COVID 19 PCR was sent, Procal 38.5. Cultures drawn. CT abdomen reveals nonobstructive renal calculi. Elevated lactic acid at 2.6 with systolics around 90. Patient was started on crystalloids and antibiotic coverage Hospital service was consulted At the time of my evaluation patient is on 3 L oxygen. He is able to answer most the questions. Patient lives with his son. He appears labored. Was able to endorse history as above. He endorses that he felt fine until last evening. Denies close sick contacts. Denies changes in medications. Denies hematuria, dysuria, diarrhea headache, myalgias or photophobia 08/30-patient clinically improved. Lactic acid downtrending. Overnight T-max 100.6 map at goal, ABG 7.4 , white count 5.618% bands, lactic acid down from 2.6-1.4, creatinine down from 1.5-1.2, phosphorus 1.6, LFTs downtrending. Significant pyuria, cultures pending. Covid negative, MRSA positive 08/31 -patient doing well. No overnight events. Denies abdominal pain, fever chills. Speech therapy evaluation completed. No evidence of dysphagia. On nutrition support per dietitian. Continue antibiotic coverage. Cultures negative so far. Anticipate discharge in 24 hours pending culture sensitivity results. 09/01-patient doing a lot better. Staph aureus on urine cultures. Antibiotics switched to Bactrim/vancomycin. No overnight fever chills. White count stable at 5.8, hemoglobin 10 bandemia resolved, creatinine down to 1.1, LFTs downtrending. Anticipate discharge in 24 to 48 hours pending clinical improvement 09/02-patient clinically improving. No overnight fever chills. Repeat UA persistent pyuria. Blood cultures positive for staph aureus. Continue IV antibiotics. ID consult. Repeat surveillance blood cultures. Has been a recurrent issue with repeated bacteremia due to nephrolithiasis. He has followed up with urology back in November with Dr. Hough and did not want to pursue ureteroscopy and stone removal however continues to experience bacteremia/MRSA UTI requiring hospitalizations. 09/03-patient doing well currently on vancomycin. ID consulted. Surveillance cultures pending. No overnight fever chills. No additional concerns per nursing staff. Await recommendations from ID service. PICC line placement held until surveillance cultures negative. 09/04 States he slept well. No overnight event or new complaints. Pending follow-up blood cultures. 09/05 No overnight event or new complaints. Awaiting follow-up blood culture final results. Awaiting echo report . Review of Systems: denies headache/fever/chills/nausea/vomiting/chest or abdominal pain/cough/dyspnea/diarrhea. Otherwise see above. Constitutional Vitals: Vital Signs Temp Pulse Resp BP Pulse Ox 98.1 F 59 L 22 111/65 96 09/05/20 04:47 09/05/20 04:47 09/05/20 04:47 09/05/20 04:47 09/05/20 04:47 Period Temp Pulse Resp BP Sys/Hu Pulse Ox Last 24 Hr 97.6 F-99.2 F 55-82 20-24 111-125/65-77 92-99 Intake and Output 09/04/20 09/05/20 09/05/20 21:59 05:59 13:59 Intake Total 0 Output Total 2 201 Balance -2 -201 Weight 92.079 kg Intake & Output: Intake & Output 09/04/20 09/05/20 09/05/20 21:59 05:59 13:59 Intake Total 0 Output Total 2 201 Balance -2 -201 Weight 92.079 kg Intake: Oral 0 Output: Void Amount 200 # of times incontinent of urine 2 1 Other: Meal Dinner Percent of Meal Consumed 0% Urine Appearance Clear Urine Color Dark Yellow Urine Odor Strong Exam: General: Alert, Awake, No acute Distress Eyes/N/T: EOMI, Head/Neck: neck supple, CV: RRR, No murmurs, Pulm: Clear b/l, no wheezing/rhonchi/rales Abd: soft, nontender, +BS x4 Ext: no clubbing/cyanosis/edema Neuro: Alert, no focal deficits, moves all extremities, Skin: warm/dry OBJ DATA Labs CBC & Chem 7: 09/03/20 06:00 09/03/20 06:00 Labs: Abnormal Lab Results 09/03/20 09/03/20 09/02/20 06:00 06:00 06:10 RBC Hgb 12.4 L Hct 40.6 L MCV 78.7 L MCH 24.0 L MCHC 30.5 L RDW 17.8 H MPV 10.5 H Reactive Lymphocytes RBC Morphology Abnormal A Hypochromasia 1+ A Poikilocytosis 1+ A Anisocytosis 2+ A Microcytosis Ovalocytes 1+ A RBC Fragments 1+ A Uric Acid 2.3 L Calcium 8.4 L 8.3 L Phosphorus 2.4 L GGT 71 H 76 H AST 85 H 87 H ALT 95 H 93 H Alkaline Phosphatase 151 H 154 H Total Protein 5.8 L Albumin 2.8 L 2.6 L Albumin/Globulin Ratio 0.9 L 0.8 L 09/02/20 06:10 RBC 4.40 L Hgb 10.4 L Hct 34.8 L MCV 79.1 L MCH 23.6 L MCHC 29.9 L RDW 18.5 H MPV 10.7 H Reactive Lymphocytes 7 H RBC Morphology Abnormal A Hypochromasia Poikilocytosis Anisocytosis 1+ A Microcytosis 1+ A Ovalocytes RBC Fragments Uric Acid Calcium Phosphorus GGT AST ALT Alkaline Phosphatase Total Protein Albumin Albumin/Globulin Ratio Meds: Medications Acetaminophen (Tylenol) 650 mg PO Q4-6HP PRN; Protocol PRN Reason: Per Pain Protocol/Fever > 101 Alprazolam (Xanax) 1 mg PO DAILYP PRN PRN Reason: Anxiety Last Admin: 09/02/20 21:13 Dose: 1 mg Documented by: Apixaban (Eliquis) 5 mg PO BID [facility] Last Admin: 09/04/20 21:09 Dose: 5 mg Documented by: Atorvastatin Calcium (Lipitor) 80 mg PO DAILY [facility] Last Admin: 09/04/20 09:10 Dose: 80 mg Documented by: Bisacodyl (Dulcolax) 10 mg LA Q2-3DAYS PRN PRN Reason: Constipation Docusate Sodium (Colace) 100 mg PO BID [facility] Last Admin: 09/04/20 21:09 Dose: 100 mg Documented by: Acetaminophen (Ofirmev) 650 mg in 65 mls @ 130 mls/hr IV Q6HP PRN; Protocol PRN Reason: Per Pain Protocol/Fever > 101 Magnesium Sulfate (Magnesium Sulfate) 2 gm in 50 mls @ 50 mls/hr IV UD PRN PRN Reason: MG = or < 1.7 Vancomycin HCl 1,500 mg/ (Sodium Chloride) 500 mls @ 333.3 mls/hr IV DAILY [facility] Last Admin: 09/04/20 10:47 Dose: 333 mls/hr Documented by: Iron Carb/Multivit/[place]/Folic Acid (Multivitamin W/Minerals) 1 tab PO DAILY [facility] Last Admin: 09/04/20 09:10 Dose: 1 tab Documented by: Levothyroxine Sodium (Synthroid) 50 mcg PO ACB [facility] Last Admin: 09/04/20 06:46 Dose: 50 mcg Documented by: Mirtazapine (Remeron) 0 mg PO QHS [facility] Last Admin: 09/04/20 21:09 Dose: 15 mg Documented by: Mupirocin (Bactroban Oint 2%) 1 dose NARES BID [facility] Last Admin: 09/04/20 21:09 Dose: 1 dose Documented by: Nicotine (Nicoderm) 21 mg TOPICAL DAILY@1000 [facility] Last Admin: 09/04/20 10:12 Dose: 21 mg Documented by: Omeprazole (Prilosec) 20 mg PO ACB [facility] Last Admin: 09/04/20 06:46 Dose: 20 mg Documented by: Ondansetron HCl (Zofran Odt) 4 mg SL Q4-6HP PRN; Protocol PRN Reason: Nausea And Vomiting Ondansetron HCl (Zofran) 4 mg IV Q4-6HP PRN; Protocol PRN Reason: Nausea And Vomiting Polyethylene Glycol (Miralax) 17 gm PO DAILYP PRN PRN Reason: Constipation Potassium Chloride (Klor-Con) 40 meq PO DAILYP PRN PRN Reason: K+ < 3.5 Potassium/Phosphorus/Sodium (Neutra Phos) 2 packet PO DAILY PRN PRN Reason: PHOS <2.5 Senna/Docusate Sodium (Senna Plus Tablet) 1 tab PO HS [facility] Last Admin: 09/04/20 21:09 Dose: 1 tab Documented by: Sodium Chloride (Saline Flush) 10 ml IV Q8 [facility] Last Admin: 09/05/20 06:06 Dose: 10 ml Documented by: Tamsulosin HCl (Flomax) 0.4 mg PO QHS [facility] Last Admin: 09/04/20 21:09 Dose: 0.4 mg Documented by: Vancomycin HCl (Vancomycin Per Pharmacy) 1 order IV UD [facility]; Protocol A/P Narrative A/P Narrative: A: *Sepsis w/multiple organ dysfunction: -clinical improvement *Complicated Staph Aureus UTI: *Bacteremia (MRSA): *HANK: 2/2 sepsis -improved *Transaminitis: 2/2 sepsis -improving *Acute hypoxic respiratory failure: clinically resolved. Now on room air. 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 Gill -f/u surveillance cultures -echo pending - -f/u with for nephrolithiasis -PT OT nutrition support -ppx: Full code Time Spent With Patient Time: Total time spent is greater than 50% in coordination of care (as documented) at patient's floor/unit and/or counseling patient: QUALITY VTE Deep Vein Thrombosis/Pulmonary Embolism Present on Admission: No
[2020-09-05] MEDS: OMEPRAZOLE 20 MG CAPSULE PO SCH (08:00)
[2020-09-05] MEDS: LEVOTHYROXINE 50 MCG TABLET PO SCH (08:00)
[2020-09-05] MEDS: NICOTINE 21 MG PATCH TOPICAL SCH (08:41)
[2020-09-05] MEDS: VANCOMYCIN 1,500 MG in 0.9 % SODIUM CHLORIDE 500 ML IV SCH (08:41)
[2020-09-05] MEDS: MULTIVIT,THER IRON,CA,FA & MIN 1 TABLET PO SCH (08:43)
[2020-09-05] MEDS: APIXABAN 5 MG TABLET PO SCH ×2 (08:43→20:29)
[2020-09-05] MEDS: ATORVASTATIN 40 MG TABLET PO SCH (08:43)
[2020-09-05] MEDS: DOCUSATE SODIUM 100 MG CAPSULE PO SCH ×2 (08:44→20:29)
[2020-09-05] MEDS: MUPIROCIN OINT 2% 22GM NARES SCH ×2 (08:44→20:29)
[2020-09-05] MEDS: LACTOBACILLUS 1 CAPSULE PO SCH ×2 (15:23→20:30)
[2020-09-05] MEDS: ALPRAZolam 0.5 MG TABLET PO PRN (19:05)
[2020-09-05] MEDS: MIRTAZAPINE 15 MG TABLET PO SCH (20:30)
[2020-09-05] MEDS: SENNOSIDES/DOCUSATE SODIUM 1 TAB TABLET PO SCH (20:34)
[2020-09-05] MEDS: TAMSULOSIN 0.4 MG CAPSULE PO SCH (20:35)
[2020-09-06] MEDS: 0.9 % SODIUM CHLORIDE 10 ML SYRINGE IV SCH ×3 (05:07→20:36)
[2020-09-06] MEDS: ATORVASTATIN 40 MG TABLET PO SCH (11:30)
[2020-09-06] MEDS: OMEPRAZOLE 20 MG CAPSULE PO SCH (11:31)
[2020-09-06] MEDS: APIXABAN 5 MG TABLET PO SCH ×2 (11:31→20:33)
[2020-09-06] MEDS: LACTOBACILLUS 1 CAPSULE PO SCH ×2 (11:31→20:33)
[2020-09-06] MEDS: LEVOTHYROXINE 50 MCG TABLET PO SCH (11:31)
[2020-09-06] MEDS: DOCUSATE SODIUM 100 MG CAPSULE PO SCH ×2 (11:32→20:33)
[2020-09-06] MEDS: MULTIVIT,THER IRON,CA,FA & MIN 1 TABLET PO SCH (11:32)
[2020-09-06] MEDS: MUPIROCIN OINT 2% 22GM NARES SCH ×2 (11:32→20:34)
[2020-09-06] MEDS: VANCOMYCIN 1,500 MG in 0.9 % SODIUM CHLORIDE 500 ML IV SCH (11:32)
[2020-09-06] MEDS: NICOTINE 21 MG PATCH TOPICAL SCH (11:33)
[2020-09-06] MEDS: ALPRAZolam 0.5 MG TABLET PO PRN ×2 (19:46→19:50)
[2020-09-06] MEDS: MIRTAZAPINE 15 MG TABLET PO SCH (20:33)
[2020-09-06] MEDS: TAMSULOSIN 0.4 MG CAPSULE PO SCH (20:34)
[2020-09-06] MEDS: SENNOSIDES/DOCUSATE SODIUM 1 TAB TABLET PO SCH (20:34)
[2020-09-07] MEDS: 0.9 % SODIUM CHLORIDE 10 ML SYRINGE IV SCH (04:30)
[2020-09-07] MEDS: OMEPRAZOLE 20 MG CAPSULE PO SCH (07:16)
[2020-09-07] MEDS: LEVOTHYROXINE 50 MCG TABLET PO SCH (07:16)
[2020-09-07] MEDS: MUPIROCIN OINT 2% 22GM NARES SCH (09:00)
[2020-09-07] MEDS: VANCOMYCIN 1,500 MG in 0.9 % SODIUM CHLORIDE 500 ML IV SCH (09:00)
[2020-09-07] MEDS: APIXABAN 5 MG TABLET PO SCH (09:01)
[2020-09-07] MEDS: LACTOBACILLUS 1 CAPSULE PO SCH (09:01)
[2020-09-07] MEDS: DOCUSATE SODIUM 100 MG CAPSULE PO SCH (09:01)
[2020-09-07] MEDS: MULTIVIT,THER IRON,CA,FA & MIN 1 TABLET PO SCH (09:01)
[2020-09-07] MEDS: ATORVASTATIN 40 MG TABLET PO SCH (09:01)
[2020-09-07] MEDS: NICOTINE 21 MG PATCH TOPICAL SCH (11:19)
[2020-09-08] MEDS ORDERED: 0.9 % SODIUM CHLORIDE 10 ML SYRINGE IV PRN (11:38)
[2020-09-08] MEDS ORDERED: 0.9 % SODIUM CHLORIDE 10 ML SYRINGE IV SCH (21:00)
== END 2020-09-07 12:45 | disposition home or self-care (01) | DRG 871 ==
LOC: ED 16:46 → ICU 22:14 → MEDSUR 08-30 14:50
PROVIDERS: ADMIT Internal Medicine; ATTEND Internal Medicine

== ENCOUNTER 2023-08-26 20:40 | Inpatient (IN) ==
[2023-08-26 21:25] LABS: POC INR 1.2 (0.8-1.2); POC Pro Time 14.4 (11.9-14.5)
[2023-08-26] MEDS ORDERED: PANTOPRAZOLE 40 MG VIAL IV ONE (21:51)
[2023-08-26 22:30] LABS: Basophils # (Auto) 0.07 K/mcL (0.00-0.30); Basophils % (Auto) 0.5 % (0.0-2.0); Eosinophils # (Auto) 0.02 K/mcL (0.00-0.70); Eosinophils % (Auto) 0.2 % (0.0-7.0); Hematocrit 42.8 % (40.1-51.0); Hemoglobin 13.7 g/dL (13.7-17.5); Lymphocytes # (Auto) 1.41 K/mcL (1.50-4.80); Lymphocytes % (Auto) 10.8 % (15.5-49.0); Mean Cell Volume 96.4 fL (80.0-100.0); Mean Platelet Volume 9.6 fL (8.8-12.5); Monocytes # (Auto) 0.77 K/mcL (0.10-0.90); Monocytes % (Auto) 5.9 % (1.0-12.0); Neutrophils % (Auto) 81.8 % (38.0-78.0); Platelet Count 371 K/mcL (140-440); RBC 4.44 M/mcL (4.63-6.08); Red Cell Distribution Width 13.8 % (11.5-14.5)
[2023-08-26 22:55] LABS: ALT/SGPT 12 U/L (<40); AST/SGOT 15 U/L (<40); Alkaline Phosphatase 106 U/L (39-117); Bilirubin,Direct < 0.2 mg/dL (0-0.3); Bilirubin,Total 0.5 mg/dL (0.1-1.0); Globulin 2.9 gm/dL (2.2-3.7)
[2023-08-26 22:56] LABS: Blood Urea Nitrogen 52 mg/dL (8-23); Calcium 9.1 mg/dL (8.6-10.4); Carbon Dioxide 24 mmol/L (22-30); Chloride 103 mmol/L (96-108); Glomerular Filtration Rate 67; Glucose 116 mg/dL (70-105)
[2023-08-26] MEDS ORDERED: ALPRAZolam 0.25 MG TABLET PO ONE (23:55)
[2023-08-27 00:04] LABS: Appearance,Urine CLOUDY (Clear); Bilirubin,Urine Negative (Negative); Color,Urine YELLOW; Culture Indicated,Urine Yes; Glucose,Urine (UA) Negative (Negative); Ketones,Urine 5 mg/dL (Negative); Leukocyte Esterase,Urine 500 /uL (Negative); Mucus,Urine FEW /hpf; Nitrate,Urine Negative (Negative); Protein,Urine 30 mg/dL (Negative); Specific Gravity,Urine 1.018 (1.000-1.035); Urine Blood >=1.0 mg/dL (Negative); Urine RBC 78 /hpf (0-3); Urine Squamous Epithelial Cell 1 /hpf (0-4); Urine WBC > 182 /hpf (0-4); Urobilinogen,Urine Negative
[2023-08-27] MEDS ORDERED: 0.9 % SODIUM CHLORIDE 250 ML IV SCH (00:15)
[2023-08-27] MEDS ORDERED: ONDANSETRON 4 MG/2 ML VIAL IV PRN ×3 (00:44→09:48)
[2023-08-27] MEDS ORDERED: ALPRAZolam 0.25 MG TABLET PO PRN (00:45)
[2023-08-27] MEDS ORDERED: traZODone HCL 50 MG TABLET PO ONE (00:45)
[2023-08-27] MEDS ORDERED: 0.9 % SODIUM CHLORIDE 1,000 ML IV SCH ×3 (00:45→18:15)
[2023-08-27] MEDS: 0.9 % SODIUM CHLORIDE 1,000 ML IV SCH ×2 (01:15→06:01)
[2023-08-27] MEDS: PANTOPRAZOLE 40 MG VIAL IV SCH ×2 (07:42→17:08)
[2023-08-27 08:13] LABS: Basophils # (Auto) 0.07 K/mcL (0.00-0.30); Basophils % (Auto) 0.6 % (0.0-2.0); Eosinophils # (Auto) 0.07 K/mcL (0.00-0.70); Eosinophils % (Auto) 0.6 % (0.0-7.0); Hematocrit 35.8 % (40.1-51.0); Hemoglobin 11.5 g/dL (13.7-17.5); Lymphocytes # (Auto) 2.52 K/mcL (1.50-4.80); Lymphocytes % (Auto) 20.3 % (15.5-49.0); Mean Cell Volume 96.8 fL (80.0-100.0); Mean Corpuscular HGB Conc 32.1 g/dL (31.0-36.0); Mean Platelet Volume 9.4 fL (8.8-12.5); Monocytes # (Auto) 1.13 K/mcL (0.10-0.90); Monocytes % (Auto) 9.1 % (1.0-12.0); Neutrophils % (Auto) 69.1 % (38.0-78.0); Platelet Count 300 K/mcL (140-440); Red Cell Distribution Width 13.9 % (11.5-14.5); WBC 12.4 K/mcL (4.5-11.0)
[2023-08-27] MEDS: busPIRone 15 MG TABLET PO SCH ×2 (09:16→20:43)
[2023-08-27] MEDS: ATORVASTATIN 40 MG TABLET PO SCH (09:17)
[2023-08-27] MEDS: ALPRAZolam 0.5 MG TABLET PO PRN ×2 (09:17→11:18)
[2023-08-27] MEDS ORDERED: IPRATROPIUM/ALBUTEROL 3 ML AMPUL.NEB NEB PRN (09:48)
[2023-08-27] MEDS: SULFAMETHOXAZOLE/TRIMETHOPRIM 1 TABLET PO SCH ×2 (11:17→20:43)
[2023-08-27] MEDS: DOCUSATE SODIUM 100 MG CAPSULE PO SCH ×2 (11:18→20:44)
[2023-08-27] MEDS: 0.9 % SODIUM CHLORIDE 10 ML SYRINGE IV SCH ×2 (14:00→20:44)
[2023-08-27] MEDS ORDERED: LORazepam 2 MG/ML VIAL IV PRN (14:11)
[2023-08-27 19:34] LABS: Basophils # (Auto) 0.09 K/mcL (0.00-0.30); Basophils % (Auto) 0.9 % (0.0-2.0); Eosinophils # (Auto) 0.27 K/mcL (0.00-0.70); Eosinophils % (Auto) 2.6 % (0.0-7.0); Hematocrit 36.5 % (40.1-51.0); Hemoglobin 11.1 g/dL (13.7-17.5); Lymphocytes # (Auto) 2.23 K/mcL (1.50-4.80); Lymphocytes % (Auto) 21.2 % (15.5-49.0); Mean Cell Volume 102.8 fL (80.0-100.0); Mean Corpuscular HGB Conc 30.4 g/dL (31.0-36.0); Monocytes # (Auto) 0.79 K/mcL (0.10-0.90); Monocytes % (Auto) 7.5 % (1.0-12.0); Neutrophils % (Auto) 67.4 % (38.0-78.0); Platelet Count 259 K/mcL (140-440); RBC 3.55 M/mcL (4.63-6.08); Red Cell Distribution Width 14.1 % (11.5-14.5); WBC 10.5 K/mcL (4.5-11.0)
[2023-08-27] MEDS: SENNOSIDES 1 TABLET PO SCH (20:43)
[2023-08-27] MEDS: TAMSULOSIN 0.4 MG CAPSULE PO SCH (20:44)
[2023-08-27] MEDS ORDERED: traZODone HCL 50 MG TABLET PO PRN (21:00)
[2023-08-28] MEDS ORDERED: 0.9 % SODIUM CHLORIDE 1,000 ML IV SCH
[2023-08-28 00:52] LABS: Hematocrit 32.4 % (40.1-51.0); Hemoglobin 10.4 g/dL (13.7-17.5)
[2023-08-28] MEDS: 0.9 % SODIUM CHLORIDE 10 ML SYRINGE IV SCH ×3 (06:01→21:00)
[2023-08-28 06:44] LABS: Basophils # (Auto) 0.07 K/mcL (0.00-0.30); Eosinophils # (Auto) 0.31 K/mcL (0.00-0.70); Eosinophils % (Auto) 4.3 % (0.0-7.0); Hematocrit 30.2 % (40.1-51.0); Hemoglobin 9.6 g/dL (13.7-17.5); Lymphocytes % (Auto) 23.4 % (15.5-49.0); Mean Corpuscular HGB Conc 31.8 g/dL (31.0-36.0); Mean Platelet Volume 9.1 fL (8.8-12.5); Monocytes # (Auto) 0.58 K/mcL (0.10-0.90); Neutrophils % (Auto) 62.7 % (38.0-78.0); Platelet Count 224 K/mcL (140-440); RBC 3.05 M/mcL (4.63-6.08); Red Cell Distribution Width 14.1 % (11.5-14.5); WBC 7.3 K/mcL (4.5-11.0)
[2023-08-28 07:28] LABS: ALT/SGPT 10 U/L (<40); AST/SGOT 12 U/L (<40); Albumin 3.1 gm/dL (3.2-5.2); Albumin/Globulin Ratio 1.3 (1.0-2.3); Alkaline Phosphatase 78 U/L (39-117); Bilirubin,Total 0.4 mg/dL (0.1-1.0); Blood Urea Nitrogen 21 mg/dL (8-23); Calcium 8.5 mg/dL (8.6-10.4); Carbon Dioxide 26 mmol/L (22-30); Chloride 109 mmol/L (96-108); Globulin 2.4 gm/dL (2.2-3.7); Glomerular Filtration Rate 75; Glucose 87 mg/dL (70-105)
[2023-08-28] MEDS: SULFAMETHOXAZOLE/TRIMETHOPRIM 1 TABLET PO SCH ×2 (08:49→20:29)
[2023-08-28] MEDS: ATORVASTATIN 40 MG TABLET PO SCH (08:49)
[2023-08-28] MEDS: DOCUSATE SODIUM 100 MG CAPSULE PO SCH ×2 (08:49→20:29)
[2023-08-28] MEDS: PANTOPRAZOLE 40 MG VIAL IV SCH (08:49)
[2023-08-28] MEDS: LEVOTHYROXINE 50 MCG TABLET PO SCH (08:49)
[2023-08-28] MEDS: busPIRone 15 MG TABLET PO SCH ×2 (08:50→20:29)
[2023-08-28] MEDS ORDERED: FLUZONE HD QS2023-24/PF 240 MCG/0.7 ML SYRINGE IM ONE (10:00)
[2023-08-28] MEDS ORDERED: LIDOCAINE 2% PF 5 ML VIAL IJ ONE (11:09)
[2023-08-28] MEDS ORDERED: ePHEDrine 50 MG/5 ML SYRINGE (ANEST) IV ONE (11:09)
[2023-08-28] MEDS ORDERED: PROPOFOL 200 MG/20 ML VIAL IV ONE (11:09)
[2023-08-28] MEDS: PANTOPRAZOLE 40 MG PACKET PO SCH (17:27)
[2023-08-28] MEDS: TAMSULOSIN 0.4 MG CAPSULE PO SCH (20:29)
[2023-08-28] MEDS: SENNOSIDES 1 TABLET PO SCH (20:30)
[2023-08-28] MEDS: ALPRAZolam 0.5 MG TABLET PO PRN (23:12)
[2023-08-29] MEDS: 0.9 % SODIUM CHLORIDE 10 ML SYRINGE IV SCH (05:17)
[2023-08-29 06:27] LABS: Basophils # (Auto) 0.06 K/mcL (0.00-0.30); Eosinophils # (Auto) 0.31 K/mcL (0.00-0.70); Eosinophils % (Auto) 5.2 % (0.0-7.0); Hematocrit 29.1 % (40.1-51.0); Hemoglobin 9.2 g/dL (13.7-17.5); Lymphocytes # (Auto) 1.62 K/mcL (1.50-4.80); Lymphocytes % (Auto) 27.4 % (15.5-49.0); Mean Cell Volume 98.3 fL (80.0-100.0); Mean Corpuscular HGB Conc 31.6 g/dL (31.0-36.0); Mean Platelet Volume 9.5 fL (8.8-12.5); Monocytes # (Auto) 0.62 K/mcL (0.10-0.90); Monocytes % (Auto) 10.5 % (1.0-12.0); Neutrophils % (Auto) 55.6 % (38.0-78.0); Platelet Count 224 K/mcL (140-440); RBC 2.96 M/mcL (4.63-6.08); Red Cell Distribution Width 14.2 % (11.5-14.5); WBC 5.9 K/mcL (4.5-11.0)
[2023-08-29 06:47] LABS: ALT/SGPT 11 U/L (<40); AST/SGOT 14 U/L (<40); Albumin 2.9 gm/dL (3.2-5.2); Albumin/Globulin Ratio 1.2 (1.0-2.3); Alkaline Phosphatase 85 U/L (39-117); Bilirubin,Total 0.2 mg/dL (0.1-1.0); Blood Urea Nitrogen 18 mg/dL (8-23); Calcium 8.5 mg/dL (8.6-10.4); Carbon Dioxide 26 mmol/L (22-30); Chloride 106 mmol/L (96-108); Globulin 2.5 gm/dL (2.2-3.7); Glomerular Filtration Rate 67; Glucose 108 mg/dL (70-105)
[2023-08-29] MEDS: PANTOPRAZOLE 40 MG PACKET PO SCH (08:30)
[2023-08-29] MEDS: DOCUSATE SODIUM 100 MG CAPSULE PO SCH (08:30)
[2023-08-29] MEDS: LEVOTHYROXINE 50 MCG TABLET PO SCH (08:30)
[2023-08-29] MEDS: SULFAMETHOXAZOLE/TRIMETHOPRIM 1 TABLET PO SCH (08:30)
[2023-08-29] MEDS: ATORVASTATIN 40 MG TABLET PO SCH (08:30)
[2023-08-29] MEDS: busPIRone 15 MG TABLET PO SCH (08:42)
[2023-08-29] MEDS ORDERED: ASPIRIN 81 MG TAB.CHEW PO SCH (09:00)
[2023-08-29] MEDS ORDERED: CLOPIDOGREL 75 MG TABLET PO SCH (09:00)
[2023-08-29] MEDS: ALPRAZolam 0.5 MG TABLET PO PRN (11:10)
== END 2023-08-29 12:50 | disposition home or self-care (01) | DRG 812 ==
LOC: ED 20:40 → ICU 08-27 01:19
PROVIDERS: ADMIT Internal Medicine; ATTEND Internal Medicine

== ENCOUNTER 2023-10-28 17:39 | Inpatient (IN) ==
[2023-10-28] MEDS ORDERED: 0.9 % SODIUM CHLORIDE 1,000 ML IV ONE ×2 (17:51→19:16)
[2023-10-28] MEDS ORDERED: cefTRIAXone 2 GM in DEXTROSE 5% IN WATER 50 ML IV ONE (17:56)
[2023-10-28 18:15] LABS: POC Calcium, Ionized 1.17 (1.16-1.32); POC Creatinine 1.1 (0.6-1.2); POC Potassium 4.9 (3.3-5.1)
[2023-10-28] MEDS ORDERED: AZITHROMYCIN 250 MG TABLET PO ONE (18:33)
[2023-10-28 18:59] LABS: Basophils # (Auto) 0.09 K/mcL (0.00-0.30); Basophils % (Auto) 0.4 % (0.0-2.0); Eosinophils # (Auto) 0.15 K/mcL (0.00-0.70); Eosinophils % (Auto) 0.6 % (0.0-7.0); Hemoglobin 9.5 g/dL (13.7-17.5); Lymphocytes # (Auto) 2.69 K/mcL (1.50-4.80); Lymphocytes % (Auto) 11.2 % (15.5-49.0); Mean Cell Volume 89.1 fL (80.0-100.0); Mean Corpuscular HGB Conc 29.7 g/dL (31.0-36.0); Mean Platelet Volume 9.7 fL (8.8-12.5); Neutrophils % (Auto) 82.4 % (38.0-78.0); Platelet Count 516 K/mcL (140-440); RBC 3.59 M/mcL (4.63-6.08); Red Cell Distribution Width 15.9 % (11.5-14.5)
[2023-10-28] MEDS ORDERED: methylPREDNISolone SOD SUCC 125 MG/2 ML VIAL IV ONE (19:20)
[2023-10-28] MEDS ORDERED: IPRATROPIUM/ALBUTEROL 3 ML AMPUL.NEB NEB ONE (19:20)
[2023-10-28] MEDS ORDERED: SENNOSIDES 1 TABLET PO PRN (21:07)
[2023-10-28] MEDS ORDERED: MAG HYDROX/AL HYDROX/SIMETH 30 ML ORAL.SUSP PO PRN (21:07)
[2023-10-28] MEDS ORDERED: ONDANSETRON 4 MG ODT TABLET SL PRN (21:07)
[2023-10-28] MEDS ORDERED: ACETAMINOPHEN W/CODEINE #3 1 TABLET PO PRN (21:07)
[2023-10-28] MEDS ORDERED: ALBUTEROL SULFATE 2.5 MG/3 ML NEBULIZER NEB PRN (21:07)
[2023-10-28] MEDS ORDERED: MAGNESIUM HYDROXIDE 30 ML ORAL.SUSP PO PRN (21:07)
[2023-10-28] MEDS ORDERED: ACETAMINOPHEN 325 MG TABLET PO PRN (21:07)
[2023-10-28] MEDS ORDERED: ONDANSETRON 4 MG/2 ML VIAL IV PRN (21:07)
[2023-10-28] MEDS ORDERED: IOPAMIDOL 100 ML BOTTLE IV ONE (22:14)
[2023-10-28] MEDS: APIXABAN 5 MG TABLET PO SCH (22:14)
[2023-10-28] MEDS: 0.9 % SODIUM CHLORIDE 10 ML SYRINGE IV SCH (22:15)
[2023-10-28] MEDS: LACTATED RINGERS 1,000 ML IV SCH (22:15)
[2023-10-28] MEDS: traZODone HCL 50 MG TABLET PO SCH (22:31)
[2023-10-28] MEDS: ALPRAZolam 0.5 MG TABLET PO PRN (22:31)
[2023-10-28] MEDS: busPIRone 15 MG TABLET PO SCH (23:10)
[2023-10-29] MEDS: 0.9 % SODIUM CHLORIDE 10 ML SYRINGE IV SCH ×3 (04:18→20:40)
[2023-10-29 06:09] LABS: Basophils # (Auto) 0.01 K/mcL (0.00-0.30); Basophils % (Auto) 0.1 % (0.0-2.0); Eosinophils # (Auto) 0 K/mcL (0.00-0.70); Eosinophils % (Auto) 0 % (0.0-7.0); Hematocrit 26.9 % (40.1-51.0); Hemoglobin 8.2 g/dL (13.7-17.5); Lymphocytes # (Auto) 0.86 K/mcL (1.50-4.80); Mean Cell Volume 88.2 fL (80.0-100.0); Mean Corpuscular HGB Conc 30.5 g/dL (31.0-36.0); Mean Platelet Volume 9.6 fL (8.8-12.5); Monocytes # (Auto) 0.18 K/mcL (0.10-0.90); Neutrophils % (Auto) 93.1 % (38.0-78.0); Platelet Count 328 K/mcL (140-440); RBC 3.05 M/mcL (4.63-6.08); Red Cell Distribution Width 16.4 % (11.5-14.5); WBC 17.3 K/mcL (4.5-11.0)
[2023-10-29 06:18] LABS: Blood Urea Nitrogen 24 mg/dL (8-23); Calcium 8.9 mg/dL (8.6-10.4); Carbon Dioxide 24 mmol/L (22-30); Chloride 104 mmol/L (96-108); Glomerular Filtration Rate 85; Glucose 160 mg/dL (70-105)
[2023-10-29] MEDS: PANTOPRAZOLE 40 MG TABLET PO SCH (07:52)
[2023-10-29] MEDS: LISINOPRIL 5 MG TABLET PO SCH (08:24)
[2023-10-29] MEDS: APIXABAN 5 MG TABLET PO SCH ×2 (08:24→20:39)
[2023-10-29] MEDS: ASPIRIN 81 MG TAB.CHEW CHEWED SCH (08:24)
[2023-10-29] MEDS: cefTRIAXone 1 GM VIAL IV SCH (08:25)
[2023-10-29] MEDS: busPIRone 15 MG TABLET PO SCH ×2 (08:25→20:39)
[2023-10-29] MEDS: LACTATED RINGERS 1,000 ML IV SCH ×2 (09:03→20:40)
[2023-10-29] MEDS ORDERED: AZITHROMYCIN 500 MG in DEXTROSE 5% IN WATER 250 ML IV SCH (10:00)
[2023-10-29] MEDS: CARVEDILOL 3.125 MG TABLET PO SCH (16:47)
[2023-10-29] MEDS: ALPRAZolam 0.5 MG TABLET PO PRN (16:48)
[2023-10-29] MEDS: ATORVASTATIN 40 MG TABLET PO SCH (20:39)
[2023-10-29] MEDS: traZODone HCL 50 MG TABLET PO SCH (20:39)
[2023-10-29] MEDS ORDERED: MELATONIN 3 MG TABLET PO SCH (21:00)
[2023-10-30] MEDS: ALPRAZolam 0.5 MG TABLET PO PRN ×2 (01:58→17:13)
[2023-10-30] MEDS: 0.9 % SODIUM CHLORIDE 10 ML SYRINGE IV SCH ×3 (04:01→22:08)
[2023-10-30 06:01] LABS: Basophils # (Auto) 0.02 K/mcL (0.00-0.30); Basophils % (Auto) 0.2 % (0.0-2.0); Eosinophils # (Auto) 0.06 K/mcL (0.00-0.70); Eosinophils % (Auto) 0.6 % (0.0-7.0); Hematocrit 22.8 % (40.1-51.0); Hemoglobin 6.3 g/dL (13.7-17.5); Lymphocytes # (Auto) 1.66 K/mcL (1.50-4.80); Lymphocytes % (Auto) 16.5 % (15.5-49.0); Mean Cell Volume 96.2 fL (80.0-100.0); Mean Corpuscular HGB Conc 27.6 g/dL (31.0-36.0); Mean Platelet Volume 9.3 fL (8.8-12.5); Monocytes # (Auto) 0.58 K/mcL (0.10-0.90); Monocytes % (Auto) 5.8 % (1.0-12.0); Neutrophils % (Auto) 76.6 % (38.0-78.0); Platelet Count 265 K/mcL (140-440); RBC 2.37 M/mcL (4.63-6.08); WBC 10.1 K/mcL (4.5-11.0)
[2023-10-30 06:26] LABS: Blood Urea Nitrogen 25 mg/dL (8-23); Calcium 8.2 mg/dL (8.6-10.4); Carbon Dioxide 21 mmol/L (22-30); Chloride 106 mmol/L (96-108); Glomerular Filtration Rate 75; Glucose 109 mg/dL (70-105)
[2023-10-30] MEDS: PANTOPRAZOLE 40 MG TABLET PO SCH (07:04)
[2023-10-30] MEDS: LEVOTHYROXINE 50 MCG TABLET PO SCH (07:04)
[2023-10-30] MEDS: CARVEDILOL 3.125 MG TABLET PO SCH ×2 (07:04→17:12)
[2023-10-30] MEDS ORDERED: 0.9 % SODIUM CHLORIDE 250 ML IV SCH (07:15)
[2023-10-30] MEDS: busPIRone 15 MG TABLET PO SCH ×2 (08:02→20:59)
[2023-10-30] MEDS: LISINOPRIL 5 MG TABLET PO SCH (08:02)
[2023-10-30] MEDS: LACTATED RINGERS 1,000 ML IV SCH (08:03)
[2023-10-30] MEDS: ASPIRIN 81 MG TAB.CHEW CHEWED SCH (08:03)
[2023-10-30] MEDS: APIXABAN 5 MG TABLET PO SCH ×2 (08:03→20:59)
[2023-10-30] MEDS: cefTRIAXone 1 GM VIAL IV SCH (08:17)
[2023-10-30] MEDS ORDERED: PANTOPRAZOLE 40 MG TABLET PO SCH (09:00)
[2023-10-30] MEDS ORDERED: NON FORMULARY MEDICATION 1 DOSE MISCELL (Atorvastatin 80 mg tablet) PO SCH (09:00)
[2023-10-30] MEDS ORDERED: AZITHROMYCIN 250 MG TABLET PO SCH (09:00)
[2023-10-30] MEDS ORDERED: FUROSEMIDE 20 MG/2 ML VIAL IV SCH (10:33)
[2023-10-30] MEDS ORDERED: TAMSULOSIN 0.4 MG CAPSULE PO SCH ×2 (12:15→21:00)
[2023-10-30] MEDS: ATORVASTATIN 40 MG TABLET PO SCH (20:59)
[2023-10-30] MEDS: traZODone HCL 50 MG TABLET PO SCH (20:59)
[2023-10-31] MEDS: ALPRAZolam 0.5 MG TABLET PO PRN (05:35)
[2023-10-31] MEDS: 0.9 % SODIUM CHLORIDE 10 ML SYRINGE IV SCH (05:36)
[2023-10-31] MEDS: PANTOPRAZOLE 40 MG TABLET PO SCH (07:59)
[2023-10-31] MEDS: CARVEDILOL 3.125 MG TABLET PO SCH (07:59)
[2023-10-31] MEDS: LEVOTHYROXINE 50 MCG TABLET PO SCH (07:59)
[2023-10-31 09:16] LABS: Blood Urea Nitrogen 25 mg/dL (8-23); Calcium 8.6 mg/dL (8.6-10.4); Carbon Dioxide 27 mmol/L (22-30); Chloride 105 mmol/L (96-108); Glomerular Filtration Rate 85; Glucose 93 mg/dL (70-105)
[2023-10-31] MEDS: busPIRone 15 MG TABLET PO SCH (09:58)
[2023-10-31] MEDS: APIXABAN 5 MG TABLET PO SCH (09:59)
[2023-10-31] MEDS: ASPIRIN 81 MG TAB.CHEW CHEWED SCH (09:59)
[2023-10-31] MEDS: LISINOPRIL 5 MG TABLET PO SCH (09:59)
[2023-10-31] MEDS: cefTRIAXone 1 GM VIAL IV SCH (09:59)
[2023-10-31 10:21] LABS: Basophils # (Auto) 0.06 K/mcL (0.00-0.30); Basophils % (Auto) 0.8 % (0.0-2.0); Eosinophils # (Auto) 0.24 K/mcL (0.00-0.70); Eosinophils % (Auto) 3.3 % (0.0-7.0); Hematocrit 29.5 % (40.1-51.0); Hemoglobin 9.1 g/dL (13.7-17.5); Lymphocytes # (Auto) 2.17 K/mcL (1.50-4.80); Lymphocytes % (Auto) 29.8 % (15.5-49.0); Mean Cell Volume 90.8 fL (80.0-100.0); Mean Corpuscular HGB Conc 30.8 g/dL (31.0-36.0); Mean Platelet Volume 9.6 fL (8.8-12.5); Monocytes # (Auto) 0.68 K/mcL (0.10-0.90); Monocytes % (Auto) 9.4 % (1.0-12.0); Neutrophils % (Auto) 56.4 % (38.0-78.0); Platelet Count 269 K/mcL (140-440); RBC 3.25 M/mcL (4.63-6.08); Red Cell Distribution Width 16.2 % (11.5-14.5); WBC 7.3 K/mcL (4.5-11.0)
[2023-10-31] MEDS ORDERED: LEVOFLOXACIN 750 MG TABLET PO SCH (10:55)
== END 2023-10-31 14:20 | disposition home or self-care (01) | DRG 871 ==
LOC: ED 17:39 → MEDSUR 22:02
PROVIDERS: ADMIT Internal Medicine; ATTEND Internal Medicine

== ENCOUNTER 2024-01-01 15:19 | Inpatient (IN) ==
[2024-01-01] MEDS ORDERED: IOPAMIDOL 100 ML BOTTLE IV ONE (15:20)
[2024-01-01] MEDS: 0.9 % SODIUM CHLORIDE 1,000 ML IV ONE ×2 (16:05→16:42)
[2024-01-01] MEDS: CIPROFLOXACIN 500 MG TABLET PO ONE (16:05)
[2024-01-01] MEDS: CEFEPIME 1 GM VIAL IV ONE (16:15)
[2024-01-01 16:26] LABS: Basophils # (Auto) 0.07 K/mcL (0.00-0.30); Basophils % (Auto) 0.2 % (0.0-2.0); Eosinophils # (Auto) 0.04 K/mcL (0.00-0.70); Eosinophils % (Auto) 0.1 % (0.0-7.0); Hematocrit 27.3 % (40.1-51.0); Hemoglobin 7.8 g/dL (13.7-17.5); Lymphocytes % (Auto) 4.7 % (15.5-49.0); Mean Cell Volume 78.9 fL (80.0-100.0); Mean Corpuscular HGB Conc 28.6 g/dL (31.0-36.0); Monocytes # (Auto) 2.05 K/mcL (0.10-0.90); Monocytes % (Auto) 6.1 % (1.0-12.0); Neutrophils % (Auto) 87.4 % (38.0-78.0); Platelet Count 543 K/mcL (140-440); RBC 3.46 M/mcL (4.63-6.08); Red Cell Distribution Width 19.1 % (11.5-14.5); WBC 33.7 K/mcL (4.5-11.0)
[2024-01-01 16:33] LABS: ALT/SGPT 8 U/L (<40); AST/SGOT 21 U/L (<40); Albumin 3.8 gm/dL (3.2-5.2); Albumin/Globulin Ratio 1.2 (1.0-2.3); Alkaline Phosphatase 112 U/L (39-117); Bilirubin,Total 0.5 mg/dL (0.1-1.0); Blood Urea Nitrogen 29 mg/dL (8-23); Calcium 9.3 mg/dL (8.6-10.4); Carbon Dioxide 22 mmol/L (22-30); Chloride 100 mmol/L (96-108); Globulin 3.3 gm/dL (2.2-3.7); Glomerular Filtration Rate 67; Glucose 146 mg/dL (70-105)
[2024-01-01] MEDS: PANTOPRAZOLE 40 MG VIAL IV ONE ×2 (17:48→21:59)
[2024-01-01 18:47] LABS: Appearance,Urine TURBID (Clear); Bilirubin,Urine Negative (Negative); Color,Urine AMBER; Culture Indicated,Urine Yes; Glucose,Urine (UA) Negative (Negative); Ketones,Urine Negative (Negative); Leukocyte Esterase,Urine 500 /uL (Negative); Nitrate,Urine POS (Negative); Protein,Urine 100 mg/dL (Negative); Specific Gravity,Urine 1.018 (1.000-1.035); Urine Blood 0.03 mg/dL (Negative); Urine RBC 36 /hpf (0-3); Urine Squamous Epithelial Cell 0 /hpf (0-4); Urine WBC > 182 /hpf (0-4); Urobilinogen,Urine Negative
[2024-01-01] MEDS ORDERED: ENALAPRILAT 1.25 MG/ML VIAL IV PRN (20:53)
[2024-01-01] MEDS ORDERED: POTASSIUM CHLORIDE 20 MEQ TABLET PO PRN (20:53)
[2024-01-01] MEDS ORDERED: ONDANSETRON 4 MG/2 ML VIAL IV PRN (20:53)
[2024-01-01] MEDS ORDERED: MAGNESIUM SULFATE 2 GM/50 ML BAG IV PRN (20:53)
[2024-01-01] MEDS ORDERED: POTASSIUM CHLORIDE 40 MEQ in DEXTROSE 5% IN WATER 500 ML IV PRN (20:53)
[2024-01-01] MEDS ORDERED: IPRATROPIUM/ALBUTEROL 3 ML AMPUL.NEB NEB PRN (20:53)
[2024-01-01] MEDS ORDERED: POLYETHYLENE GLYCOL 3350 17 GM PACKET PO PRN (20:53)
[2024-01-01] MEDS ORDERED: LABETALOL 5 MG/ML ML IV PRN (20:55)
[2024-01-01] MEDS: 0.9 % SODIUM CHLORIDE 10 ML SYRINGE IV SCH (21:58)
[2024-01-01] MEDS: PANTOPRAZOLE 80 MG in 0.9 % SODIUM CHLORIDE 100 ML IV SCH (21:58)
[2024-01-01] MEDS: traZODone HCL 50 MG TABLET PO PRN (22:09)
[2024-01-01] MEDS: ALPRAZOLAM 1 MG PO PRN (22:09)
[2024-01-01] MEDS: ALPRAZolam 0.5 MG TABLET ONE (22:12)
[2024-01-01] MEDS: traZODone HCL 50 MG TABLET ONE (22:12)
[2024-01-01] MEDS: CEFEPIME 1 GM VIAL IV SCH (22:17)
[2024-01-01] MEDS: 0.9 % SODIUM CHLORIDE 250 ML IV SCH (22:24)
[2024-01-02] MEDS: PANTOPRAZOLE 40 MG VIAL IV ONE (04:12)
[2024-01-02 07:39] LABS: ALT/SGPT < 5 U/L (<40); AST/SGOT 18 U/L (<40); Albumin 3.4 gm/dL (3.2-5.2); Albumin/Globulin Ratio 1.3 (1.0-2.3); Alkaline Phosphatase 96 U/L (39-117); Bilirubin,Direct < 0.2 mg/dL (0-0.3); Bilirubin,Total 0.3 mg/dL (0.1-1.0); Blood Urea Nitrogen 20 mg/dL (8-23); Calcium 8.7 mg/dL (8.6-10.4); Carbon Dioxide 25 mmol/L (22-30); Chloride 108 mmol/L (96-108); Globulin 2.7 gm/dL (2.2-3.7); Glomerular Filtration Rate 85; Glucose 114 mg/dL (70-105); Lactate Dehydrogenase 164 U/L (135-225); Phosphorous 2.5 mg/dL (2.5-4.5); Triglycerides 50 mg/dL (<150); Uric Acid 4.3 mg/dL (2.5-8.0)
[2024-01-02 07:45] LABS: Basophils # (Auto) 0.07 K/mcL (0.00-0.30); Basophils % (Auto) 0.4 % (0.0-2.0); Eosinophils # (Auto) 0.18 K/mcL (0.00-0.70); Eosinophils % (Auto) 1.1 % (0.0-7.0); Hematocrit 23.9 % (40.1-51.0); Hemoglobin 6.8 g/dL (13.7-17.5); Lymphocytes # (Auto) 1.34 K/mcL (1.50-4.80); Lymphocytes % (Auto) 7.9 % (15.5-49.0); Mean Cell Volume 79.4 fL (80.0-100.0); Mean Corpuscular HGB Conc 28.5 g/dL (31.0-36.0); Mean Platelet Volume 9.4 fL (8.8-12.5); Monocytes # (Auto) 1.03 K/mcL (0.10-0.90); Neutrophils % (Auto) 84.2 % (38.0-78.0); Platelet Count 428 K/mcL (140-440); RBC 3.01 M/mcL (4.63-6.08); Red Cell Distribution Width 19.4 % (11.5-14.5); WBC 17.1 K/mcL (4.5-11.0)
[2024-01-02] MEDS: LEVOTHYROXINE 50 MCG TABLET PO SCH (08:00)
[2024-01-02] MEDS: FINASTERIDE 5 MG TABLET PO SCH (08:03)
[2024-01-02] MEDS: busPIRone 15 MG TABLET PO SCH (08:04)
[2024-01-02] MEDS: 0.9 % SODIUM CHLORIDE 250 ML IV SCH (08:30)
[2024-01-02] MEDS: FLUTICASONE FUROATE VILANTEROL INH SCH (10:29)
[2024-01-02] MEDS: FUROSEMIDE 40 MG/4 ML VIAL IV ONE (10:51)
[2024-01-02] MEDS: ALPRAZolam 0.5 MG TABLET PO PRN (11:15)
[2024-01-02] MEDS: LISINOPRIL 2.5 MG TABLET PO SCH (11:31)
[2024-01-02] MEDS: TAMSULOSIN 0.4 MG CAPSULE PO SCH (20:38)
[2024-01-03] MEDS: ACETAMINOPHEN 325 MG TABLET PO PRN (01:09)
[2024-01-03 07:01] LABS: Blood Urea Nitrogen 12 mg/dL (8-23); Calcium 8.3 mg/dL (8.6-10.4); Carbon Dioxide 27 mmol/L (22-30); Chloride 103 mmol/L (96-108); Glomerular Filtration Rate 85; Glucose 111 mg/dL (70-105)
[2024-01-03 07:45] LABS: Basophils # (Auto) 0.08 K/mcL (0.00-0.30); Eosinophils # (Auto) 0.46 K/mcL (0.00-0.70); Eosinophils % (Auto) 5.6 % (0.0-7.0); Hematocrit 27.4 % (40.1-51.0); Hemoglobin 8.2 g/dL (13.7-17.5); Lymphocytes % (Auto) 18.4 % (15.5-49.0); Mean Cell Volume 81.3 fL (80.0-100.0); Mean Corpuscular HGB Conc 29.9 g/dL (31.0-36.0); Mean Platelet Volume 8.9 fL (8.8-12.5); Monocytes # (Auto) 0.72 K/mcL (0.10-0.90); Monocytes % (Auto) 8.8 % (1.0-12.0); Neutrophils % (Auto) 65.7 % (38.0-78.0); Platelet Count 328 K/mcL (140-440); RBC 3.37 M/mcL (4.63-6.08); Red Cell Distribution Width 18.9 % (11.5-14.5); WBC 8.2 K/mcL (4.5-11.0)
[2024-01-03] MEDS ORDERED: fentaNYL 100 MCG/2 ML VIAL ONE (08:36)
[2024-01-03] MEDS ORDERED: PROPOFOL 200 MG/20 ML VIAL IV ONE (08:37)
[2024-01-03] MEDS ORDERED: SCOPOLAMINE 1 PATCH PATCH TOPICAL PRN (09:30)
[2024-01-03] MEDS: IPRATROPIUM/ALBUTEROL 3 ML AMPUL.NEB NEB ONE (09:53)
[2024-01-03] MEDS: DEXTROSE IV ONE (09:54)
[2024-01-03] MEDS: [UNRECOGNIZED DRUG - OTHER] IV ONE (09:54)
[2024-01-03] MEDS: KCL IV ONE (09:54)
[2024-01-03] MEDS ORDERED: GLYCOPYRROLATE 0.2 MG/ML VIAL IV ONE (13:19)
[2024-01-03] MEDS ORDERED: PHENYLephrine 1 MG/10 ML SYRINGE (ANEST) IV ONE (13:19)
[2024-01-03] MEDS: POTASSIUM CHLORIDE 20 MEQ TABLET PO PRN (16:07)
[2024-01-04 06:33] LABS: Basophils # (Auto) 0.07 K/mcL (0.00-0.30); Basophils % (Auto) 1.2 % (0.0-2.0); Eosinophils # (Auto) 0.32 K/mcL (0.00-0.70); Eosinophils % (Auto) 5.6 % (0.0-7.0); Hematocrit 29.3 % (40.1-51.0); Hemoglobin 8.6 g/dL (13.7-17.5); Lymphocytes # (Auto) 1.31 K/mcL (1.50-4.80); Lymphocytes % (Auto) 22.8 % (15.5-49.0); Mean Cell Volume 81.6 fL (80.0-100.0); Mean Corpuscular HGB Conc 29.4 g/dL (31.0-36.0); Monocytes # (Auto) 0.75 K/mcL (0.10-0.90); Neutrophils % (Auto) 56.7 % (38.0-78.0); Platelet Count 345 K/mcL (140-440); RBC 3.59 M/mcL (4.63-6.08); Red Cell Distribution Width 19.7 % (11.5-14.5); WBC 5.8 K/mcL (4.5-11.0)
[2024-01-04 06:55] LABS: Blood Urea Nitrogen 12 mg/dL (8-23); Calcium 8.6 mg/dL (8.6-10.4); Carbon Dioxide 27 mmol/L (22-30); Chloride 101 mmol/L (96-108); Glomerular Filtration Rate 89; Glucose 135 mg/dL (70-105)
[2024-01-04] MEDS: FUROSEMIDE 40 MG TABLET PO SCH (11:46)
[2024-01-04] MEDS ORDERED: PANTOPRAZOLE 40 MG VIAL IV SCH (17:00)
[2024-01-04] MEDS: PANTOPRAZOLE 40 MG PACKET PO SCH (17:07)
[2024-01-05] MEDS ORDERED: PHENYLephrine 1 MG/10 ML SYRINGE (ANEST) IV ONE (13:19)
[2024-01-05] MEDS ORDERED: GLYCOPYRROLATE 0.2 MG/ML VIAL IV ONE (13:19)
== END 2024-01-05 13:20 | disposition home or self-care (01) | DRG 871 ==
LOC: ED 15:19 → MEDSUR 20:43
PROVIDERS: ADMIT Internal Medicine; ATTEND Internal Medicine